=== PATIENT | male | born 1940 | race Caucasian/White ===

== ENCOUNTER → 2016-04-05 | Outpatient (CLI) | payer OTHER ==
[~2016-04-05] MED LIST: ADVIN25/60 INH; ASPI81TA21 PO; ATOR80TA PO; IPRA1AER2 INH; LEVO50TA6 PO; LISI-725 PO; LISI10TA PO; MOME100A INH; OXYC-57 PO; TPRSR/50 PO; [UNRECOGNIZED DRUG - CODE] TOP
[2016-04-05 12:42] LABS: BLOOD UREA NITROGEN 40 mg/dl (7-18); BUN/CREATININE RATIO 16.5 (10-20); CARBON DIOXIDE 25 mmol/L (21-32); CHLORIDE 102 mmol/L (98-107); GLUCOSE 92 mg/dl (70-99); POTASSIUM 3.5 mmol/L (3.5-5.1); SODIUM 136 mmol/L (136-145)
== END | disposition home or self-care (01) ==
LOC: C.LABPVFM 08:01
PROVIDERS: ATTEND Internal Medicine
DX: E03.9 Hypothyroidism, unspecified (principal); I10 Essential (primary) hypertension

== ENCOUNTER → 2016-04-19 | Outpatient (CLI) | payer OTHER ==
--- NOTE | 2016-04-19 12:31 | DIAGNOSTIC IMAGING REPORT ---
RENAL ULTRASOUND HISTORY: Renal insufficiency R79.89 Elevated serum creatinine COMPARISON: 04/01/2014 FINDINGS: Right kidney: Maximum dimension 8.9 cm. No evidence for hydronephrosis. Normal corticomedullary differentiation and cortical thickness. Left kidney: Maximum dimension 9.4 cm. No evidence for hydronephrosis Normal corticomedullary differentiation and cortical thickness. Bladder: No bladder wall thickening. The bilateral ureteral jets were identified. IMPRESSION: Normal renal ultrasound. Electronically signed by: José Casey M.D. 04/19/2016 12:29 PM Dictated Date/Time: 04/19/2016 12:26 PM
== END | disposition home or self-care (01) ==
LOC: C.ULTR 11:31
PROVIDERS: ATTEND Internal Medicine
DX: R79.89 Other specified abnormal findings of blood chemistry (principal)

== ENCOUNTER → 2016-05-09 | Outpatient (CLI) | payer OTHER ==
[2016-05-09 13:01] LABS: BASO % 0.4 %; BASO ABS # 0.03 K/uL (0-0.2); COMPLETE YES; EOS % 1.4 %; HEMATOCRIT 45.1 % (42-52); IG% 0.5 %; LYMPH % 19.1 %; LYMPH ABS # 1.54 K/uL (1.2-3.4); MEAN CELL VOLUME 94.4 fL (80-100); MEAN CORPUSCULAR HGB CONC 33.9 g/dl (32-36); MEAN PLATELET VOLUME 10.9 fL (7.4-10.4); MONO % 8.2 %; NEUT % 70.4 %; PLATELET COUNT 222 K/uL (130-400); RED BLOOD COUNT 4.78 M/uL (4.7-6.1); WHITE BLOOD COUNT 8.06 K/uL (4.8-10.8)
[2016-05-09 13:18] LABS: BLOOD UREA NITROGEN 17 mg/dl (7-18); BUN/CREATININE RATIO 13.8 (10-20); CALCIUM 9.7 mg/dl (8.5-10.1); CARBON DIOXIDE 25 mmol/L (21-32); CHLORIDE 104 mmol/L (98-107); GLUCOSE 102 mg/dl (70-99); MAGNESIUM 2.1 mg/dl (1.8-2.4); PHOSPHORUS 2.6 mg/dl (2.5-4.9); POTASSIUM 4.8 mmol/L (3.5-5.1); SODIUM 138 mmol/L (136-145)
[2016-05-09 13:19] LABS: CREATININE, URINE < 13.0 mg/dl
[2016-05-09 14:19] LABS: URINE APPEARANCE CLEAR (CLEAR); URINE BILIRUBIN NEG (NEG); URINE COLOR YELLOW; URINE EPITHELIAL CELL AUTO 0-5 /lpf (0-5); URINE NITRITE NEG (NEG); URINE PH 6.5 (4.5-7.5); URINE SPECIFIC GRAVITY 1.004 (1.000-1.030); UROBILINOGEN NEG (NEG); ZZUR CULT IF INDIC CLEAN CATCH NO
[2016-05-09 14:20] LABS: MANUAL MICROSCOPIC REQUIRED? NO; REVIEW REQ? NO
[2016-05-11 17:23] LABS: ALBUMIN 4.3 G/DL (3.8-4.8); GAMMA GLOBULIN 1.1 G/DL (0.8-1.7); TOTAL PROTEIN 7.7 G/DL (6.2-8.3)
--- NOTE | 2016-05-13 12:14 | CODING QUERY MEDICAL NECESSITY ---
SUPPORTING DIAGNOSIS NEEDED Dr. Peck, A supporting diagnosis is required for the test/procedure performed on this patient in order for us to be reimbursed by the patient's insurance. Please provide a supporting diagnosis for the following test/procedure listed below next to the test name along with your signature. *If there is no additional diagnosis for this patient that would support the following test/procedure please document that below next to the test/procedure. Test(s)/Procedure(s) that require a supporting diagnosis: * ([id number]) VITAMIN D ASSAY DIAGNOSIS: DATE OF SERVICE: 05/09/16 Provider Signature: Date: Thank you Chet Patrick [facility] Information Management Once completed, please kindly fax back to [phone] For questions please call [phone]
== END | disposition home or self-care (01) ==
LOC: C.LABPVFM 07:42
PROVIDERS: ATTEND Internal Medicine Nephrology
DX: N28.9 Disorder of kidney and ureter, unspecified (principal); I10 Essential (primary) hypertension; E55.9 Vitamin D deficiency, unspecified

== ENCOUNTER → 2016-07-01 | Outpatient (CLI) | payer OTHER ==
[2016-07-01 14:20] LABS: BLOOD UREA NITROGEN 16 mg/dl (7-18); BUN/CREATININE RATIO 11.1 (10-20); CALCIUM 9.2 mg/dl (8.5-10.1); CARBON DIOXIDE 27 mmol/L (21-32); CHLORIDE 104 mmol/L (98-107); GLUCOSE 189 mg/dl (70-99); MAGNESIUM 1.9 mg/dl (1.8-2.4); POTASSIUM 4.4 mmol/L (3.5-5.1); SODIUM 136 mmol/L (136-145)
[2016-07-01 14:21] LABS: PHOSPHORUS 2.8 mg/dl (2.5-4.9)
== END | disposition home or self-care (01) ==
LOC: C.LABPVFM 07:39
PROVIDERS: ATTEND Internal Medicine Nephrology
DX: N28.9 Disorder of kidney and ureter, unspecified (principal)

== ENCOUNTER → 2016-08-25 | Outpatient (CLI) | payer OTHER ==
--- NOTE | 2016-08-25 14:08 | DIAGNOSTIC IMAGING REPORT ---
CHEST 2 VIEWS ROUTINE CLINICAL HISTORY: Shortness of breath. COMPARISON STUDY: Chest radiograph November 16, 2014. FINDINGS: A dual lead left subclavian pacemaker/AICD is unchanged in position. Cardiac size is normal. Mediastinal contours are normal. There is no pneumothorax. There are equivocal trace bilateral pleural effusions. Lung hyperexpansion is noted. There are severe emphysema. There are mild bibasilar opacities and mild right midlung opacity. There is no lobar consolidation. Pulmonary vascularity is normal. IMPRESSION: 1. Mild bibasilar and right midlung opacities. The findings favor pneumonia. Radiographic follow up to ensure resolution is recommended. 2. Severe emphysema. Electronically signed by: Rogers Garcia M.D. 08/25/2016 2:07 PM Dictated Date/Time: 08/25/2016 2:04 PM
== END | disposition home or self-care (01) ==
LOC: C.RADPV 13:46
PROVIDERS: ATTEND Internal Medicine
DX: R06.02 Shortness of breath (principal); J43.9 Emphysema, unspecified

== ENCOUNTER → 2016-08-29 | Outpatient (CLI) | payer OTHER ==
[2016-08-29 13:22] LABS: CHOLESTEROL/HDL RATIO 3.5
== END | disposition home or self-care (01) ==
LOC: C.LABPVFM 07:33
PROVIDERS: ATTEND Internal Medicine Cardiovascular Disease
DX: R73.9 Hyperglycemia, unspecified (principal); E78.5 Hyperlipidemia, unspecified

== ENCOUNTER → 2016-09-20 | Outpatient (CLI) | payer OTHER ==
--- NOTE | 2016-09-20 08:34 | DIAGNOSTIC IMAGING REPORT ---
CHEST 2 VIEWS ROUTINE CLINICAL HISTORY: Abnormal chest x-ray. COMPARISON STUDY: 08/25/2016 FINDINGS: The cardiac and mediastinal contours remain stable. There is pulmonary emphysema. There is a small right pleural effusion. There are developing nodular airspace opacities within the right midlung zone and right lower lobe. The right lower lobe opacity measures 8.4 cm in diameter. There is stable left basilar interstitial thickening.[ IMPRESSION: Developing nodular right lung opacities, statistically inflammatory/infectious. Imaging subsequent to treatment is recommended in follow-up. Electronically signed by: Alfredo Moore M.D. 09/20/2016 8:33 AM Dictated Date/Time: 09/20/2016 8:31 AM
== END | disposition home or self-care (01) ==
LOC: C.RADPV 08:07
PROVIDERS: ATTEND Internal Medicine
DX: R91.8 Other nonspecific abnormal finding of lung field (principal); J18.9 Pneumonia, unspecified organism

== ENCOUNTER → 2016-09-28 | Outpatient (CLI) | payer OTHER ==
--- NOTE | 2016-09-28 12:42 | DIAGNOSTIC IMAGING REPORT ---
CT OF THE CHEST WITHOUT IV CONTRAST CLINICAL HISTORY: Chronic obstructive pulmonary disease. Weight loss. Tobacco use. COMPARISON STUDY: Chest CT October 09, 2011 and chest radiograph September 20, 2016. CT DOSE: 194.05 mGycm TECHNIQUE: Axial images of the chest were obtained without IV contrast. Images were reviewed in the axial, sagittal, and coronal planes. IV contrast was not administered for this examination. A dose lowering technique was utilized adhering to the principles of ALARA. FINDINGS: A dual lead left subclavian pacemaker/AICD is in place. The size of the heart is at the upper limits of normal. There is no pericardial effusion. Central airways are patent. However, there are multifocal secretions within the trachea and right mainstem bronchus. There are severe emphysema. No pneumothorax is present. There is a small right pleural effusion. There are multifocal irregular airspace opacities within the right upper lobe, right middle lobe and both lower lobes. These include a 3.3 x 2.1 cm subpleural right upper lobe opacity and a 3.7 cm right lower lobe opacity. Findings are similar to exam of September 20, 2016 and have progressed since exam of August 25, 2016. No cavitation is present. No suspicious osseous lesions are present. Mild dilatation of the main pancreatic duct has developed since prior exam of April 01, 2014. Pancreatic duct measures approximately 5 mm in caliber. This is suboptimally assessed on this exam. Upper abdominal ventral hernia which contains a loop of bowel is again noted. There is a right hepatic lobe cyst. IMPRESSION: 1. Extensive multifocal irregular airspace opacities within the right upper lobe, right middle lobe and both lower lobes which are similar to exam of September 20, 2016 but increased since study of August 25, 2016. While nonspecific, the findings favor multifocal pneumonia. A neoplastic process is considered much less likely but a follow-up chest CT in 3 months to ensure resolution is recommended. 2. Severe emphysema. 3. Mild secretions within the trachea and right mainstem bronchus. 4. Mild dilatation of the main pancreatic duct which is partially imaged on this exam. This finding is of uncertain clinical significance and a pancreatic protocol CT could be obtained. Electronically signed by: Rogers Garcia M.D. 09/28/2016 12:41 PM Dictated Date/Time: 09/28/2016 9:08 AM
== END | disposition home or self-care (01) ==
LOC: C.CTS 08:53
PROVIDERS: ATTEND Internal Medicine
DX: J44.9 Chronic obstructive pulmonary disease, unspecified (principal); R63.4 Abnormal weight loss; F17.210 Nicotine dependence, cigarettes, uncomplicated; R91.8 Other nonspecific abnormal finding of lung field

== ENCOUNTER → 2016-10-25 | Outpatient (CLI) | payer OTHER ==
[2016-10-25 13:19] LABS: ESTIMATED AVERAGE GLUCOSE 114 mg/dl; HA1C FLAG Normal (Normal)
[2016-10-25 13:45] LABS: BLOOD UREA NITROGEN 18 mg/dl (7-18); BUN/CREATININE RATIO 13.7 (10-20); CALCIUM 9.4 mg/dl (8.5-10.1); CARBON DIOXIDE 26 mmol/L (21-32); CHLORIDE 103 mmol/L (98-107); GLUCOSE 91 mg/dl (70-99); MAGNESIUM 2.1 mg/dl (1.8-2.4); PHOSPHORUS 3.2 mg/dl (2.5-4.9); POTASSIUM 4.8 mmol/L (3.5-5.1); SODIUM 135 mmol/L (136-145)
[2016-10-25 13:59] LABS: CHOLESTEROL/HDL RATIO 2.3; THYROID STIMULATING HORMONE 4.87 uIu/ml (0.300-4.500)
--- NOTE | 2016-11-01 07:02 | CODING QUERY MEDICAL NECESSITY ---
SUPPORTING DIAGNOSIS NEEDED Dr. Alejandro, A supporting diagnosis is required for the test/procedure performed on this patient in order for us to be reimbursed by the patient's insurance. Please provide a supporting diagnosis for the following test/procedure listed below next to the test name along with your signature. *If there is no additional diagnosis for this patient that would support the following test/procedure please document that below next to the test/procedure. Test(s)/Procedure(s) that require a supporting diagnosis: * ([id number]) VITAMIN D ASSAY DIAGNOSIS: DATE OF SERVICE: 10/25/16 Provider Signature: Date: Thank you Chet Patrick [facility] Information Management Once completed, please kindly fax back to [phone] For questions please call [phone]
== END | disposition home or self-care (01) ==
LOC: C.LABPVFM 07:56
PROVIDERS: ATTEND Internal Medicine Nephrology
DX: N28.9 Disorder of kidney and ureter, unspecified (principal); E03.9 Hypothyroidism, unspecified; E78.5 Hyperlipidemia, unspecified; R73.9 Hyperglycemia, unspecified; E55.9 Vitamin D deficiency, unspecified

== ENCOUNTER → 2016-10-28 | Outpatient (CLI) | payer OTHER ==
[2016-10-28 13:13] LABS: URINE PROTIEN/CREAT RATIO 0.2 (0-0.2); URINE TOTAL PROTEIN 20.6 mg/dl (0-11.9)
[2016-10-28 13:41] LABS: URINE APPEARANCE CLEAR (CLEAR); URINE BILIRUBIN NEG (NEG); URINE COLOR YELLOW; URINE EPITHELIAL CELL AUTO 0-5 /lpf (0-5); URINE NITRITE NEG (NEG); URINE PH 5.5 (4.5-7.5); URINE SPECIFIC GRAVITY 1.015 (1.000-1.030); UROBILINOGEN NEG (NEG); ZZUR CULT IF INDIC CLEAN CATCH NO
[2016-10-28 13:50] LABS: MANUAL MICROSCOPIC REQUIRED? NO; REVIEW REQ? NO
== END | disposition home or self-care (01) ==
LOC: C.LABPVFM 17:46
PROVIDERS: ATTEND Internal Medicine Nephrology
DX: N28.9 Disorder of kidney and ureter, unspecified (principal)

== ENCOUNTER 2016-11-01 16:03 | Inpatient (IN) | payer OTHER ==
[~2016-11-01] VITALS: Ht 162.6 cm; Wt 56.2 kg
[~2016-11-01 16:03] MED LIST changes: -ADVIN25/60 INH; -LEVO50TA6 PO; -LISI10TA PO; -OXYC-57 PO; -[UNRECOGNIZED DRUG - CODE] TOP
[2016-11-01] MEDS ORDERED: [UNRECOGNIZED DRUG - CODE] TOP (16:28)
[2016-11-01] MEDS ORDERED: SODIUM CHLORIDE 0.9% 500ML 500 ML IV STA (16:28)
[2016-11-01] MEDS ORDERED: LISI10TA PO (16:28)
[2016-11-01] MEDS ORDERED: ADVIN25/60 INH (16:28)
[2016-11-01] MEDS ORDERED: LEVO50TA6 PO (16:29)
[2016-11-01] MEDS ORDERED: HYDROmorphone INJ 1 MG/ML SYR IV PRN ×2 (16:30→23:30)
--- NOTE | 2016-11-01 16:35 | EMERGENCY ROOM VISIT NOTE ---
History First contact with patient: 16:11 Chief Complaint: ABDOMINAL PAIN Stated Complaint: AB PAIN Nursing Triage Summary: Pt states abd pain started at 1130, c/o mid to lower abd pain, staes it feels like gas, states he is burping and had 2 normal BMs today, Pt a/o x3 , neuro status intact, abd with large hernia, states abd paia an 8 out of 10, missing all fingers on right hand. History of Present Illness The patient is a 76 year old male who presents to the Emergency Room with complaints of mid abdominal pain that started at 11 AM this morning. The patient describes the pain as a gas pain that is constant. He denies any other symptoms such as nausea, vomiting or diarrhea. He had 2 normal bowel movements without any blood or dark stools this morning. He denies any fever or chills. No urinary symptoms. The patient doesn't a history of multiple hernias ever since he had an aneurysm repaired. Review of Systems 10 system review performed and negative unless noted in HPI or below Past Medical/Surgical History Medical Problems: (1) Abdominal aortic aneurysm (2) Benign hypertension (3) Bowel obstruction (4) Hyperlipidemia Coronary artery disease status post pacemaker placement COPD Family History Patient reports no known family medical history. Social History Smoking Status: Current Every Day Smoker Alcohol Use: none Drug Use: none Marital Status: Housing Status: lives alone Occupation Status: retired Current/Historical Medications Scheduled Aspirin Enteric Coated (Ecotrin Or Generic), 81 MG PO DAILY Atorvastatin Calcium (Lipitor), 80 MG PO HS Fluticasone Prop/Salmeterol (Advair Diskus 250/50 60 Dose), 1 PUFF INH BID Ipratropium-Albuterol (Combivent Respimat), 2 PUFFS INH QID Lisinopril (Prinivil), 10 MG PO DAILY Metoprolol Succinate (Metoprolol Succinate ER), 75 MG PO DAILY Mometasone Furoate (Mometasone Furoate), 1 DOSE TOP BID Physical Exam Vital Signs Date Time Temp Pulse Resp B/P (MAP) Pulse Ox O2 Delivery O2 Flow Rate FiO2 11/01/16 20:14 89 18 204/109 94 Nasal Cannula 2.0 11/01/16 18:34 37.7 92 18 187/104 93 Room Air 11/01/16 17:56 82 18 187/92 94 11/01/16 16:13 37.6 70 18 166/80 94 Room Air Physical Exam VITALS: Vitals are noted on the nurse's note and reviewed by myself. Vital signs stable. GENERAL: 76-year-old male, in obvious discomfort,. SKIN: The skin was without rashes, erythema, edema, or bruising. HEAD: Normocephalic atraumatic. MOUTH: Mucous membranes somewhat dry NECK: . No JVD. HEART: Regular rate and rhythm without murmurs gallops or rubs. LUNGS: Slight diffuse wheeze. No crackles or rhonchi. No tachypnea. ABDOMEN: Positive bowel sounds x 4.Soft, tenderness palpation particularly in the left upper quadrant and over the ventral hernia. Hernia is reducible. No guarding or rebound tenderness. MUSCULOSKELETAL: No muscle atrophy, erythema, or edema noted. Strength 5/5 throughout. NEURO: Patient was alert and oriented to person place and time. Normal sensation to touch. No focal neurological deficits. Medical Decision & Procedures ER Provider Diagnostic Interpretation: Patient Name: JOE HOOD Unit Number: [id number] Dictated: 11/01/161822 Transcribed: 11/01/161822 [place] Printed Date/Time: [~ rep prt dt]/[~ rep prt tm] [~ rep ct labl] - [~ rep ct ivnm] [facility] [place] [place] [address] Dictated: 11/01/161822 Transcribed: 11/01/161822 [place] Printed Date/Time: [~ rep prt dt]/[~ rep prt tm] [~ rep ct labl] - [~ rep ct ivnm] CT OF THE ABDOMEN AND PELVIS WITH CONTRAST CLINICAL HISTORY: Mid abdominal pain. Multiple hernias. COMPARISON STUDY: CT of the abdomen and pelvis April 01, 2014 and renal ultrasound April 19, 2016. TECHNIQUE: Following IV administration of 93 mL of Optiray-320, axial images of the abdomen and pelvis were obtained from the lung bases to the proximal femurs. Images were reviewed in the axial, sagittal, and coronal planes. IV contrast was administered without complication. A dose lowering technique was utilized adhering to the principles of ALARA. CT DOSE: 244.70 mGy.cm FINDINGS: Visualized portions of the lower lungs demonstrate moderate emphysema with multifocal airspace opacities which have moderately improved since chest CT of September 28, 2016. A pacer lead is noted. No pneumatosis, free air or portal venous gas is present. Hypodense hepatic lesions are unchanged since prior CT. These likely reflect cysts. There are granulomas within the spleen. The adrenal glands, kidneys and pancreas are normal. There is no hydronephrosis. There is no biliary or pancreatic ductal dilatation. Multiple ventral hernias are noted. A superior ventral hernia contains a portion of the distal stomach. Additional hernias containing loops of small and large bowel. A right inguinal hernia contains a loop of bowel. These hernias do not result in the bowel obstruction. However, there is a swirling appearance of the mesentery with marked mesenteric edema. The findings raise the possibility of an internal hernia. No dilated loops of bowel are identified on this examination. Evaluation for bowel wall thickening is difficult given the marked mesenteric edema, however there may be wall thickening of several small bowel loops within the right mid abdomen. Postoperative findings involving the aortoiliac system are noted. There are no suspicious osseous lesions. IMPRESSION: 1. Swirling appearance of the mesentery with marked mesenteric edema and possible wall thickening of several small bowel loops within the right mid abdomen. The findings raise the possibility of an internal hernia. Although there is no significant bowel dilatation, a closed loop obstruction cannot be excluded. Surgical consultation is recommended. Findings discussed with Sheela Ayoub at time of dictation. 2. Bilateral inguinal and multiple ventral hernias which contain loops of bowel and portion of the stomach. These hernias do not result in the bowel obstruction. 3. Multifocal airspace opacities within the lower lungs which have moderately improved since CT of September 28, 2016 and suggest a resolving pneumonia. Electronically signed by: Rogers Garcia M.D. 11/01/2016 6:43 PM Dictated Date/Time: 11/01/2016 6:23 PM The status of this report is Signed. Draft = Not yet reviewed or approved by Radiologist. Signed = Reviewed and approved by Radiologist. <AttendingPhy></AttendingPhy> <FamilyPhy>RV. Bond MD</ FamilyPhy> <PrimaryPhy>RV. Bond MD</PrimaryPhy> <UnitNumber> [id number]</UnitNumber> <VisitNumber>[id number]</VisitNumber> <PatientName> JOE HOOD</PatientName> <DateOfBirth>1940</DateOfBirth> <Location>[facility]</ Location> <ServiceDate>11/01/16</ServiceDate> <MNE>ESINDI</MNE> <OrderingPhy> MegaSheela Renetta PEREZ</OrderingPhy> <OrderingPhyMNE>f rep ord dr arellano</ OrderingPhyMNE> <DictatingPhyMNE>f rep dict dr arellano</DictatingPhyMNE> <CCListMNE> f rep ct mne</CCListMNE> <AdmittingPhyMNE>f pt admit dr arellano</AdmittingPhyMNE> < AttendingPhyMNE>f pt attend dr arellano</AttendingPhyMNE> <ConsultingPhyMNE>f pt consult dr arellano</ConsultingPhyMNE> <FamilyPhyMNE>f pt fam dr arellano</FamilyPhyMNE> <OtherPhyMNE>f pt other dr arellano</OtherPhyMNE> < PrimaryPhyMNE>f pt prim care dr arellano</PrimaryPhyMNE> <ReferringPhyMNE>f pt referring dr arellano</ReferringPhyMNE> Laboratory Results 11/01/16 16:21 Red Blood Count 4.35, Mean Corpuscular Volume 92.2, Mean Corpuscular Hemoglobin 32.0, Mean Corpuscular Hemoglobin Concent 34.7, Mean Platelet Volume 10.2, Neutrophils (%) (Auto) 85.0, Lymphocytes (%) (Auto) 7.7, Monocytes (%) (Auto) 6.4, Eosinophils (%) (Auto) 0.5, Basophils (%) (Auto) 0.3, Neutrophils # (Auto) 6.55, Lymphocytes # (Auto) 0.59, Monocytes # (Auto) 0.49, Eosinophils # (Auto) 0.04, Basophils # (Auto) 0.02 11/01/16 16:21 Test 11/01/16 16:21 11/01/16 17:01 11/01/16 20:35 White Blood Count 7.70 K/uL (4.8-10.8) Red Blood Count 4.35 M/uL (4.7-6.1) Hemoglobin 13.9 g/dL (14.0-18.0) Hematocrit 40.1 % (42-52) Mean Corpuscular Volume 92.2 fL (80-100) Mean Corpuscular Hemoglobin 32.0 pg (25-34) Mean Corpuscular Hemoglobin Concent 34.7 g/dl (32-36) Platelet Count 218 K/uL (130-400) Mean Platelet Volume 10.2 fL (7.4-10.4) Neutrophils (%) (Auto) 85.0 % Lymphocytes (%) (Auto) 7.7 % Monocytes (%) (Auto) 6.4 % Eosinophils (%) (Auto) 0.5 % Basophils (%) (Auto) 0.3 % Neutrophils # (Auto) 6.55 K/uL (1.4-6.5) Lymphocytes # (Auto) 0.59 K/uL (1.2-3.4) Monocytes # (Auto) 0.49 K/uL (0.11-0.59) Eosinophils # (Auto) 0.04 K/uL (0-0.5) Basophils # (Auto) 0.02 K/uL (0-0.2) RDW Standard Deviation 46.5 fL (36.4-46.3) RDW Coefficient of Variation 13.7 % (11.5-14.5) Immature Granulocyte % (Auto) 0.1 % Immature Granulocyte # (Auto) 0.01 K/uL (0.00-0.02) Anion Gap 5.0 mmol/L (3-11) Est Creatinine Clear Calc Drug Dose 44.6 ml/min Estimated GFR () 68.1 Estimated GFR (Non- 58.8 BUN/Creatinine Ratio 15.6 (10-20) Calcium Level 9.3 mg/dl (8.5-10.1) Total Bilirubin 0.5 mg/dl (0.2-1) Aspartate Amino Transf (AST/SGOT) 22 U/L (15-37) Alanine Aminotransferase (ALT/SGPT) 27 U/L (12-78) Alkaline Phosphatase 120 U/L (45-117) Total Protein 7.6 gm/dl (6.4-8.2) Albumin 3.4 gm/dl (3.4-5.0) Globulin 4.2 gm/dl (2.5-4.0) Albumin/Globulin Ratio 0.8 (0.9-2) Amylase Level 91 U/L (25-115) Lipase 157 U/L (73-393) Lactic Acid Level 0.9 mmol/L (0.4-2.0) Medications Administered Medications (Trade) Dose Ordered Sig/María Route Start Time Stop Time Status Last Admin Dose Admin Hydromorphone HCl (Dilaudid Inj) 1 mg Q2H PRN IV 11/01/16 16:30 11/15/16 16:29 11/01/16 16:44 1 MG Sodium Chloride 500 ml @ 0 mls/hr Q0M STAT IV 11/01/16 16:28 11/01/16 16:32 DC 11/01/16 16:44 500 MLS/HR Hydromorphone HCl (Dilaudid Inj) 1 mg ONE ONCE IV 11/01/16 17:45 11/01/16 17:46 DC 11/01/16 17:50 1 MG Ondansetron HCl (Zofran Inj) 4 mg Q2H PRN IV 11/01/16 18:00 12/01/16 17:59 11/01/16 19:08 4 MG ED Course Patient was seen and examined Vital signs including blood pressure were reviewed medications list was verified with patient Labs were obtained, and a saline lock was established The patient was given 1 mg of Dilaudid IV. He was hydrated with normal saline at 200 mL/h. Imaging was performed and reviewed The patient was given an additional dose of Dilaudid 1 mg IV and Zofran 4 mg IV I discussed the case with the radiologist on-call and also my supervising physician This case was discussed with general surgery, Dr. Diez who agreed to evaluate the patient in the emergency department The patient was taken emergently to the OR for an exploratory laparoscopy. Medical Decision DIFFERENTIAL DIAGNOSIS: Bowel obstruction, incarcerated hernia, Hepatitis, cholecystitis, cholangitis, biliary colic, pancreatitis, appendicitis, inguinal hernia, nephrolithiasis, inflammatory bowel disease, mesenteric adenitis, peptic ulcer disease, GERD, gastritis, pancreatitis,, bowel obstruction, splenic infarct, diverticulitis, mesenteric ischemia, metabolic, peritonitis, among others. This patient is a pleasant 76-year-old male that presented to the emergency department by ambulance complaining of a sudden onset of abdominal pain. The patient appeared to be in a significant amount of pain. He had diffuse tenderness on exam. His ventral hernias seem to be reducible. CAT scan is consistent with mesenteric swirling and edema. This is concerning for mesenteric ischemia. Surgical consultation was requested. Dr. Diez evaluated the patient at the bedside. He will be taken emergently to the OR for an exploratory laparotomy Medication Reconcilliation Current Medication List: was personally reviewed by me Blood Pressure Screening Blood pressure disposition: Elevated BP felt to be situational Impression Primary Impression: Mesenteric ischemia Departure Information Referrals RV. Bond MD (PCP) Patient Instructions My [facility]
[2016-11-01 16:42] LABS: BASO % 0.3 %; BASO ABS # 0.02 K/uL (0-0.2); COMPLETE YES; EOS % 0.5 %; HEMATOCRIT 40.1 % (42-52); IG% 0.1 %; LYMPH % 7.7 %; LYMPH ABS # 0.59 K/uL (1.2-3.4); MEAN CELL VOLUME 92.2 fL (80-100); MEAN CORPUSCULAR HGB CONC 34.7 g/dl (32-36); MEAN PLATELET VOLUME 10.2 fL (7.4-10.4); MONO % 6.4 %; PLATELET COUNT 218 K/uL (130-400); RED BLOOD COUNT 4.35 M/uL (4.7-6.1)
[2016-11-01] MEDS ORDERED: OPTIRAY 320 IV PRN (16:45)
[2016-11-01 17:01] LABS: BUN/CREATININE RATIO 15.6 (10-20); CALCIUM 9.3 mg/dl (8.5-10.1); CREATININE 1.2 mg/dl (0.60-1.40); POTASSIUM 4.5 mmol/L (3.5-5.1)
[2016-11-01 17:03] LABS: ALB/GLOB RATIO 0.8 (0.9-2)
[2016-11-01] MEDS ORDERED: HYDROmorphone INJ 1 MG/ML SYR IV ONE (17:45)
[2016-11-01] MEDS ORDERED: ONDANSETRON INJ 2 MG/ML 2 ML VIAL IV PRN ×3 (18:00→23:30)
--- NOTE | 2016-11-01 18:44 | DIAGNOSTIC IMAGING REPORT ---
CT OF THE ABDOMEN AND PELVIS WITH CONTRAST CLINICAL HISTORY: Mid abdominal pain. Multiple hernias. COMPARISON STUDY: CT of the abdomen and pelvis April 01, 2014 and renal ultrasound April 19, 2016. TECHNIQUE: Following IV administration of 93 mL of Optiray-320, axial images of the abdomen and pelvis were obtained from the lung bases to the proximal femurs. Images were reviewed in the axial, sagittal, and coronal planes. IV contrast was administered without complication. A dose lowering technique was utilized adhering to the principles of ALARA. CT DOSE: 244.70 mGy.cm FINDINGS: Visualized portions of the lower lungs demonstrate moderate emphysema with multifocal airspace opacities which have moderately improved since chest CT of September 28, 2016. A pacer lead is noted. No pneumatosis, free air or portal venous gas is present. Hypodense hepatic lesions are unchanged since prior CT. These likely reflect cysts. There are granulomas within the spleen. The adrenal glands, kidneys and pancreas are normal. There is no hydronephrosis. There is no biliary or pancreatic ductal dilatation. Multiple ventral hernias are noted. A superior ventral hernia contains a portion of the distal stomach. Additional hernias containing loops of small and large bowel. A right inguinal hernia contains a loop of bowel. These hernias do not result in the bowel obstruction. However, there is a swirling appearance of the mesentery with marked mesenteric edema. The findings raise the possibility of an internal hernia. No dilated loops of bowel are identified on this examination. Evaluation for bowel wall thickening is difficult given the marked mesenteric edema, however there may be wall thickening of several small bowel loops within the right mid abdomen. Postoperative findings involving the aortoiliac system are noted. There are no suspicious osseous lesions. IMPRESSION: 1. Swirling appearance of the mesentery with marked mesenteric edema and possible wall thickening of several small bowel loops within the right mid abdomen. The findings raise the possibility of an internal hernia. Although there is no significant bowel dilatation, a closed loop obstruction cannot be excluded. Surgical consultation is recommended. Findings discussed with Sheela Ayoub at time of dictation. 2. Bilateral inguinal and multiple ventral hernias which contain loops of bowel and portion of the stomach. These hernias do not result in the bowel obstruction. 3. Multifocal airspace opacities within the lower lungs which have moderately improved since CT of September 28, 2016 and suggest a resolving pneumonia. Electronically signed by: Rogers Garcia M.D. 11/01/2016 6:43 PM Dictated Date/Time: 11/01/2016 6:23 PM
--- NOTE | 2016-11-01 20:04 | History and Physical ---
History & Physical Date Nov 01, 2016. Chief Complaint Abdominal pain History of Present Illness Thony Jasmine is a 76 year old man with HTN, hyperlipidemia, COPD, history of open AAA repair, multiple ventral hernias and history of small bowel resection who presents with acute abdominal pain. Patient states pain started acutely at 11: 30am this morning, and has been gradually worsening. He is extremely uncomfortable on examination. Associated with nausea and vomiting. Pain is diffuse, does not radiate. Denies constipation / diarrhea, melena / hematochezia; last BM was approximately 2pm this afternoon, noted to be normal / solid / formed. Denies fever, chills, headaches, dizziness, vision changes, chest pain, SOB, dysuria or urinary symptoms, pain / numbness / swelling / tingling in extremities. He has a history of small bowel resection (patient reports 3ft of small bowel removed) "because it " (patient is unclear if incarceration, hernia, etc as cause of resection). He is a current 2 cigarette per day smoker. He has a pacemaker / defibrillator in place. He has multiple ventral hernias, which have been present for many years - no incarceration of hernias noted on physical exam. Takes 81mg aspirin daily - no other anticoagulation. Past Medical/Surgical History Medical Problems: (1) Abdominal aortic aneurysm (2) Benign hypertension (3) Bowel obstruction (4) Hyperlipidemia Additional History Hypertension: Yes Allergies Coded Allergies: No Known Allergies (Unverified , 11/01/16) Home Medications Scheduled Aspirin Enteric Coated (Ecotrin Or Generic), 81 MG PO DAILY Atorvastatin Calcium (Lipitor), 80 MG PO HS Fluticasone Prop/Salmeterol (Advair Diskus 250/50 60 Dose), 1 PUFF INH BID Ipratropium-Albuterol (Combivent Respimat), 2 PUFFS INH QID Lisinopril (Prinivil), 10 MG PO DAILY Metoprolol Succinate (Metoprolol Succinate ER), 75 MG PO DAILY Mometasone Furoate (Mometasone Furoate), 1 DOSE TOP BID Physical Examination Skin: warm/dry Eyes: normal inspection Head: normocephalic, atraumatic Neck: supple Respiratory/Chest: lungs clear, normal breath sounds, no respiratory distress Cardiovascular: regular rate, rhythm Abdomen / GI: normal bowel sounds, + pertinent finding (Soft, tender to palpation, voluntary guarding, no rebound) Extremities: normal inspection Genitourinary - Male: normal male genitalia 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: alert, oriented x 3 Addiitonal Comments: Labs: WBC 7.7, Hgb 13.9, Hct 40.1, plt 218 Na 136, K 4.5, Cl 106, CO2 25, BUN 19, Cr 1.2, glucose 131 Lactic acid 0.9 Imaging: CT Abd / Pelvis with IV and PO contrast: IMPRESSION: 1. Swirling appearance of the mesentery with marked mesenteric edema and possible wall thickening of several small bowel loops within the right mid abdomen. The findings raise the possibility of an internal hernia. Although there is no significant bowel dilatation, a closed loop obstruction cannot be excluded. Surgical consultation is recommended. Findings discussed with Sheela Ayoub at time of dictation. 2. Bilateral inguinal and multiple ventral hernias which contain loops of bowel and portion of the stomach. These hernias do not result in the bowel obstruction. 3. Multifocal airspace opacities within the lower lungs which have moderately improved since CT of September 28, 2016 and suggest a resolving pneumonia. Diagnosis Thony Jasmine is a 76 year old man with HTN, Hyperlipidemia, history of AAA repair, COPD, +smoker, history of small bowel resection, multiple ventral hernias who presents with signs / symptoms and CT imaging concerning for an internal hernia. CT scan images also concerning for possible pneumonia. -Will take to OR for exploratory laparotomy, possible bowel resection, possible ostomy. Discussed at length with the patient; all questions answered to apparent satisfaction. Patient agrees to proceed with surgery and freely signed the consent form. -Medicine consultation requested for assistance with management of multiple other medical problems. Racheal Diez MD 11/01/16
[2016-11-01] MEDS ORDERED: ONDANSETRON INJ 2 MG/ML 2 ML VIAL ONE (20:30)
[2016-11-01] MEDS ORDERED: LIDOCAINE HCL 2% 2 ML VIAL (20MG/ML) ONE (20:30)
[2016-11-01] MEDS ORDERED: SUCCINYLCHOLINE CHLORIDE 20 MG/ML 10 ML VIAL IV ONE (20:30)
[2016-11-01] MEDS ORDERED: FENTANYL CITRATE INJ 50 MCG/1 ML 2 ML VIAL ONE ×3 (20:30→22:49)
[2016-11-01] MEDS ORDERED: PROPOFOL IV EMULSION 10 MG/ML 20 ML VIAL IV ONE (20:30)
[2016-11-01] MEDS ORDERED: ROCURONIUM BROMIDE 10 MG/ML 5 ML VIAL IV ONE (20:30)
[2016-11-01] MEDS ORDERED: CEFOXITIN IV 2,000 MG in DEXTROSE 5% 50ML 50 ML IV ONE (21:00)
--- NOTE | 2016-11-01 21:02 | Medical Consult ---
Consultation Date of Consultation: Nov 01, 2016. Attending Physician: Dr Harper Reason for Consultation: Medical Management History of Present Illness Mr Jasmine is a 76 year old male who presents with severe abdominal pain to the ER. Started at 10:30am. No radiation. Started over his hernia (umbilical region ) but is now generalized. Severity 10/10 currently, getting progressively worse throughout the day. BM this morning was normal. Small amount of nausea, no vomiting. He denies any urinary Sx. He denies any chest pain, shortness of breath or cough. Hx small bowel resection after necrotic small bowel with an incarcerated ventral hernia in September 2011. He was recently treated for pneumonia on Augmentin started October 05 2016. He feels he completely recovered from this episode. He is under Dr Loving for severe emphysema and continues to smoke 2 cigarettes/day. He reports compliance with his Combivent and Advair inhalers. From a cardiovascular aspect he reports being able to walk for over a mile without shortness of breath or chest pain, no shortness of breath or chest pain walking up stairs. He is under Dr Alejandro for Chronic kidney disease. His Cr is currently at his baseline at 1.2. In the event of a cardiac arrest he does have an ICD in place and would like to be resuscitated. Past Medical/Surgical History Past Medical History Abdominal aortic aneurysm s/p repair August 2008 Mild aortic stenosis Ischemic cardiomyopathy 30-35% ejection fraction (July 2015) Biventricular ICD Peripheral vascular disease Left 50-69% internal carotid artery right <50% stenoses (August 2014) Hx NSTEMI, September 2011 Hypothyroidism Chronic Kidney Disease Right bundle branch block Recent pneumonia Past Surgical History Repair of aortic aneurysm and bypass from aorta to right femoral artery August 2008. No previous cardiac catheterization Family History Patient reports no known family medical history. Social History Smoking Status: Current Every Day Smoker (2 cigarettes/day) Smokeless Tobacco Use: No Alcohol Use: none Drug Use: none Marital Status: Housing Status: lives alone Occupation Status: retired Allergies Coded Allergies: No Known Allergies (Unverified , 11/01/16) Current Inpatient Medications Current Inpatient Medications Medications (Trade) Dose Ordered Sig/María Route Start Time Stop Time Status Last Admin Dose Admin Hydromorphone HCl (Dilaudid Inj) 1 mg Q2H PRN IV 11/01/16 16:30 11/15/16 16:29 11/01/16 16:44 1 MG Ioversol (Optiray 320) 111 ml UD PRN IV 11/01/16 16:45 11/05/16 16:44 Ondansetron HCl (Zofran Inj) 4 mg Q2H PRN IV 11/01/16 18:00 12/01/16 17:59 11/01/16 19:08 4 MG Review of Systems Constitutional: No fever, No chills Respiratory: No cough, No sputum, No shortness of breath Cardiovascular: No chest pain, No orthopnea, No PND, No edema, No claudication , No palpitations Abdomen: + pain, + nausea, No vomiting, No diarrhea, No constipation, No GI bleeding Musculoskeletal: No joint pain, No muscle pain Genitourinary - Male: No hematuria, No dysuria, No urinary frequency, No urinary urgency Neurologic: No numbness/tingling, No balance problems Hematologic / Lymphatic: No abnormal bleeding/bruising Integumentary: No rash, No itch Physical Exam Date Time Temp Pulse Resp B/P (MAP) Pulse Ox O2 Delivery O2 Flow Rate FiO2 11/01/16 18:34 37.7 92 18 187/104 93 Room Air 11/01/16 17:56 82 18 187/92 94 11/01/16 16:13 37.6 70 18 166/80 94 Room Air General Appearance: + severe distress (from abdominal pain), + cachetic Head: normocephalic, atraumatic Eyes: normal inspection Neck: no JVD, + pertinent finding (carotid bruits b/l) Respiratory/Chest: + decreased breath sounds (throughout, no wheezing or ) Cardiovascular: regular rate, rhythm (very quiet no appreciable murmur), no murmur, normal peripheral pulses (PT/DP pulses palpated bilaterally) Abdomen/GI: normal bowel sounds, soft, + tenderness (severe tenderness throughout abdomen especially over his ventral hernia, guarding and rebound tenderness present), + pertinent finding (no skin changes over his ventral hernia) Extremities/Musculoskelatal: no calf tenderness, normal capillary refill, no pedal edema 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: 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 (no facial droop), no motor/sensory deficits (limited exam due to abdominal pain, grossly moving all 4 limbs and no gross sensory loss), alert Skin: normal color, warm/dry, no rash Laboratory Results Last 24 Hours Test 11/01/16 16:21 11/01/16 17:01 White Blood Count 7.70 K/uL Red Blood Count 4.35 M/uL Hemoglobin 13.9 g/dL Hematocrit 40.1 % Mean Corpuscular Volume 92.2 fL Mean Corpuscular Hemoglobin 32.0 pg Mean Corpuscular Hemoglobin Concent 34.7 g/dl Platelet Count 218 K/uL Mean Platelet Volume 10.2 fL Neutrophils (%) (Auto) 85.0 % Lymphocytes (%) (Auto) 7.7 % Monocytes (%) (Auto) 6.4 % Eosinophils (%) (Auto) 0.5 % Basophils (%) (Auto) 0.3 % Neutrophils # (Auto) 6.55 K/uL Lymphocytes # (Auto) 0.59 K/uL Monocytes # (Auto) 0.49 K/uL Eosinophils # (Auto) 0.04 K/uL Basophils # (Auto) 0.02 K/uL RDW Standard Deviation 46.5 fL RDW Coefficient of Variation 13.7 % Immature Granulocyte % (Auto) 0.1 % Immature Granulocyte # (Auto) 0.01 K/uL Sodium Level 136 mmol/L Potassium Level 4.5 mmol/L Chloride Level 106 mmol/L Carbon Dioxide Level 25 mmol/L Anion Gap 5.0 mmol/L Blood Urea Nitrogen 19 mg/dl Creatinine 1.20 mg/dl Est Creatinine Clear Calc Drug Dose 44.6 ml/min Estimated GFR () 68.1 Estimated GFR (Non- 58.8 BUN/Creatinine Ratio 15.6 Random Glucose 131 mg/dl Calcium Level 9.3 mg/dl Total Bilirubin 0.5 mg/dl Aspartate Amino Transf (AST/SGOT) 22 U/L Alanine Aminotransferase (ALT/SGPT) 27 U/L Alkaline Phosphatase 120 U/L Total Protein 7.6 gm/dl Albumin 3.4 gm/dl Globulin 4.2 gm/dl Albumin/Globulin Ratio 0.8 Amylase Level 91 U/L Lipase 157 U/L Lactic Acid Level 0.9 mmol/L Assessment & Plan 76 year old admission for suspected ischemic bowel. Admission by surgery and plan on going straight from the ER to the OR. Suspected ischemic/necrotic bowel - lactic acid normal - currently awaiting OR. - Advise broad spectrum antibiotics + follow up blood cultures - Pain management as per surgery - continue aspirin post operatively if surgery/hemostasis permits - Continue atorvastatin - High risk due to current critical illness with history of ischemic heart disease - RCRI 6.6% risk of major cardiac event (high risk surgery, Hx of ischemic heart disease) - likely underestimated given current illness however - pre-op type/screen, EKG and CXR ordered in additional to lab work already obtained. Ischemic cardiomyopathy, CAD, PVD - continue ASA, BB, ACEi and statin COPD - Continue Advair and Combivent MARÍA CKD - monitor Cr post operatively - Lisinopril held pending reassessment Code - Full VTE Prophylaxis - chemical prophylaxis as per surgery - recommend SCDs and TEDs post operatively Disposition - admission under surgery, going straight to the OR, recommend ICU post operatively - I will review the patient post operatively. Thank you for the consult we will continue to follow throughout his admission Resident Physician Supervision Note: I was present with Dr. Brand during the history and exam. I discussed the case with the resident and agree with the findings and plan as documented in the note. Any exceptions or clarifications are listed here: 76 y/o M Hx CKD, HTN, CAD, COPD - presenting with abdominal pain - subsequently diagnosed with ischemic bowel and proceeded directly to the OR form ED OE AAO x 3 - distressed due to pain S1,2 R CTA - poor air movement and effort Diffusely tender abd No CCE P: Risk assessment as above - RCRI technically 6.6% however, intervention is emergent Cont prescribed inhalers - spirometry for COPD Monitor BP and repeat labs prior to restarting HTN meds AM Cont statin TX when tolerating PO and ASA at earliest possible time Med service will follow post-op and daily Documented By: Vitaly Harper Additional Copies To RV. Bond MD
[2016-11-01] MEDS ORDERED: LIDOCAINE HCL 1% 20 ML VIAL ONE (22:43)
--- NOTE | 2016-11-01 23:23 | Progress Note ---
Progress Note Date of Service Nov 01, 2016. Progress Note Arterial line placed in operating room in preparation for emergency exploratory laparotomy with Dr. Diez. Left and right wrist were prepped with chlorhexidine and multiple attempts were made at arterial line placement. A 20 G angiocath was successfully threaded using seldinger technique under US guidance with return of pulsatile, bright red blood. Site covered with occlusive dressing and taped in place. Waveform consistent with correct arterial placement. After placement, fingers of right hand had normal perfusion. Patient tolerated procedure well without complications. Jaymie Torres MD, PhD Anesthesiology
[2016-11-01] MEDS ORDERED: LABETALOL HCL IV 5 MG/ML 20ML IV PRN (23:30)
[2016-11-01] MEDS ORDERED: EpHEDrine SULFATE INJ 50 MG/ML AMP IV PRN (23:30)
[2016-11-01] MEDS ORDERED: FENTANYL CITRATE INJ 50 MCG/1 ML 2 ML VIAL IV PRN (23:30)
[2016-11-01] MEDS ORDERED: ATROPINE SULFATE 0.1 MG/ML 5ML SYR IV PRN (23:30)
[2016-11-01] MEDS: SODIUM CHLORIDE 0.9% 1000ML 1,000 ML IV SCH (23:31)
[2016-11-01] MEDS ORDERED: LABETALOL HCL IV 5 MG/ML 20ML IV ONE (23:35)
--- NOTE | 2016-11-01 23:42 | [facility] Operative Report ---
Operative Report Operative Date Nov 01, 2016. Pre-Operative Diagnosis Internal hernia Post-Operative Diagnosis Adhesions, internal hernia, small bowel stricture Procedure(s) Performed Exploratory Laparotomy, lysis of adhesions, bowel resection with primary anastomosis Surgeon Racheal Diez MD County Administrator Surgeon(s) Yasmin Hyde MD Estimated Blood Loss 20ml Findings Multiple adhesions, two restricting adhesive bands, small bowel stricture proximal to previous anastomosis Fluids 1000ml Specimens A: Small bowel anastamosis to pathology Drains Nasogastric tube, herrera catheter Anesthesia General endotracheal anesthesia, 20ml of 1% Xylocaine local anesthetic Complication(s) None Disposition Recovery Room / PACU Indications Thony Jasmine is a 76 year old man with an internal hernia. Indications, risks, benefits and potential complications of exploratory laparotomy with possible small bowel resection, possible ostomy placement were discussed at length with the patient. All questions answered to apparent satisfaction. Patient chose to proceed with surgery and freely signed the consent form. Description of Procedure Patient was brought to the operating room and identified as Thony Jasmine, . He was placed on the operating table in supine position. Anesthesia was induced, and the patient was intubated without difficulty. The abdomen was clipped, prepped and draped in the usual sterile fashion. A time-out was held, verifying correct patient, procedure, site, equipment, pre operative antibiotics , allergies and personnel. A midline abdominal incision was made around the umbilicus, excising his previous scar. The abdomen was carefully entered, taking care not to injure underlying bowel. Adhesions were gently taken down using sharp cautery. Upon entering the abdomen, the small bowel appeared purple and dusky. The small bowel was delivered out of the abdomen and the abdomen was explored. Two constrictive adhesive bands were found near the existing small bowel to small bowel anastomosis. These adhesions were carefully lysed to free and untwist the bowel. After releasing the small bowel , color improved dramatically and bowel became pink and healthy appearing. A stricture was observed just proximal to the existing anastomosis with dilated bowel leading into it. Decision was made to resect the anastomosis, which was done using blue loads of the ALLYSSA stapler. The mesentery was cut using Yolie clamps and ties to obtain hemostasis. The specimen was liberated from the abdomen and passed off the field, to be taken to pathology; the resected small bowel measured 8cm total in length. The two ends of small bowel were then re- anastomosed, again using blue loads of the ALLYSSA stapler. The staple line was oversewn using 3-0 Vicryl in interrupted fashion. A reinforcement stitch was placed at the crotch of the staple line. The mesenteric defect was closed using vicryl sutures. The small bowel was again inspected, and found to be pink and healthy appearing from Ligament of Treitz to the ileocecal valve. The NGT was palpated in the stomach and verified to be in good position. The sponge and instrument counts were then verified to be correct x 2 by the nurse in charge. Fascia was closed using #1 PDS in running fashion. Deep dermis was reapproximated using 3-0 vicryl in running fashion. Skin was closed using skin chuy, and a sterile dressing was applied. Patient was then awakened from anesthesia, extubated without difficulty, and taken to PACU, having suffered no untoward events. NGT and herrera catheter were kept in place at the conclusion of the procedure. I attest to the content of the Intraoperative Record and any orders documented therein. Any exceptions are noted below.
[2016-11-01] MEDS ORDERED: NALOXONE HCL 0.4 MG/1 ML VIAL/CARP IV PRN (23:45)
--- NOTE | 2016-11-01 23:56 | Anesthesiology Progress Note ---
Anesthesia Post Op Note Date & Time Nov 01, 2016 at 23:56 Vital Signs Pain Intensity: 0 Vital Signs Past 12 Hours Date Time Temp Pulse Resp B/P (MAP) Pulse Ox O2 Delivery O2 Flow Rate FiO2 11/01/16 20:14 89 18 204/109 94 Nasal Cannula 2.0 11/01/16 18:34 37.7 92 18 187/104 93 Room Air 11/01/16 17:56 82 18 187/92 94 11/01/16 16:13 37.6 70 18 166/80 94 Room Air Notes Mental Status: alert / awake / arousable, participated in evaluation Pt Amnestic to Procedure: Yes Nausea / Vomiting: adequately controlled Pain: adequately controlled Airway Patency, RR, SpO2: stable & adequate BP & HR: stable & adequate Hydration State: stable & adequate Anesthetic Complications: no major complications apparent arterial line to be d/c in PACU
[2016-11-02] VITALS (15 sets, daily range): BP systolic 96–173; BP diastolic 48–84; PULSE 68–91; TEMP 36.4–37.2; O2SAT 93–98; Ht 162.6 cm; Wt 56.2 kg
[2016-11-02] MEDS ORDERED: PNEUMOCOCCAL POLYSACCHARIDES 25 MCG/0.5 ML VIAL/SYR IM. ONE (01:45)
[2016-11-02] MEDS ORDERED: PNEUMOCOCCAL ADMINISTRATION CHARGE ONE (01:45)
[2016-11-02] MEDS: SODIUM CHLORIDE 0.9% 1000ML 1,000 ML IV SCH ×4 (02:08→23:31)
[2016-11-02] MEDS: HYDROmorphone HCL 0.5MG/ML 50 ML CASSETTE IV PRN (02:09)
[2016-11-02 02:17] LABS: PROTHROMBIN TIME (PATIENT) 10.9 SECONDS (9.0-12.0)
[2016-11-02] MEDS: METOPROLOL TARTRATE 1 MG/ML VIAL IV. SCH ×4 (02:30→19:34)
[2016-11-02 06:14] LABS: URINE APPEARANCE CLEAR (CLEAR); URINE BILIRUBIN NEG (NEG); URINE COLOR YELLOW; URINE NITRITE NEG (NEG); URINE SPECIFIC GRAVITY > 1.045 (1.000-1.030); UROBILINOGEN NEG (NEG)
[2016-11-02 06:16] LABS: BASO % 0.1 %; BASO ABS # 0.01 K/uL (0-0.2); COMPLETE YES; EOS % 0.1 %; HEMATOCRIT 40.7 % (42-52); IG% 0.2 %; LYMPH % 4.1 %; LYMPH ABS # 0.66 K/uL (1.2-3.4); MEAN CELL VOLUME 94.7 fL (80-100); MEAN CORPUSCULAR HEMOGLOBIN 30.7 pg (25-34); MEAN CORPUSCULAR HGB CONC 32.4 g/dl (32-36); MEAN PLATELET VOLUME 9.8 fL (7.4-10.4); MONO % 4.5 %; PLATELET COUNT 192 K/uL (130-400); WHITE BLOOD COUNT 16.16 K/uL (4.8-10.8)
[2016-11-02] MEDS: CEFAZOLIN IV 1,000 MG in DEXTROSE 5% 50ML 50 ML IV SCH ×3 (06:16→21:18)
[2016-11-02 06:23] LABS: MANUAL MICROSCOPIC REQUIRED? NO; REVIEW REQ? NO
[2016-11-02 06:57] LABS: BUN/CREATININE RATIO 14.9 (10-20); CALCIUM 8.1 mg/dl (8.5-10.1); CREATININE 1.3 mg/dl (0.60-1.40)
[2016-11-02] MEDS: FLUTICASONE/SALMETEROL 250/50 (ADVAIR) 14 PUFF/1 INHALER INH SCH ×2 (08:01→21:19)
[2016-11-02] MEDS: IPRATROPIUM BROMIDE/ALBUTEROL respimat INH INH SCH ×4 (08:01→21:19)
--- NOTE | 2016-11-02 08:21 | DIAGNOSTIC IMAGING REPORT ---
CHEST ONE VIEW PORTABLE HISTORY: recent pneumonia, COPD COMPARISON: Chest 09/20/2016. FINDINGS: Slight improvement in the right midlung zone peripheral nodular airspace opacity. Bibasilar airspace opacities persist. Small right pleural effusion, unchanged. The heart is normal in size. Nasogastric tube terminates below the diaphragm. The tip is not included on this study. No pneumothorax. Left-sided pacemaker/defibrillator is again noted. Emphysema. IMPRESSION: 1. No significant change in the bibasilar airspace opacities and small right pleural effusion. 2. Small nodular density within the periphery of the right midlung zone has slightly improved. 3. Nasogastric tube terminates below the diaphragm. The tip is not included on this study. Electronically signed by: Will Rae M.D. 11/02/2016 8:19 AM Dictated Date/Time: 11/02/2016 8:17 AM
--- NOTE | 2016-11-02 12:34 | Surgery Progress Note ---
Surgery Progress Note Date of Service Nov 02, 2016. Subjective Post OP Day: 1 Patient examined at bedside this morning. Afebrile, vitals stable on 2-4L O2 via NC, no acute events since operation. Pain is adequately controlled with MUSHROOM SPAWN MAKER. NGT remains in place and functioning, approximately 1L dark output noted since operation; denies N/V. Herrera catheter remains in place, draining clear / yellow urine. Denies complaints this morning. Discussed with patient the findings of the operation and the surgery performed; patient expresses understanding. Objective Vital Signs: Date Time Temp Pulse Resp B/P (MAP) Pulse Ox O2 Delivery O2 Flow Rate FiO2 11/02/16 12:00 Nasal Cannula 2.0 11/02/16 11:50 36.8 83 20 96/48 (64) 98 Nasal Cannula 4.0 11/02/16 08:00 Nasal Cannula 2.0 11/02/16 07:59 82 99/51 11/02/16 07:27 37.2 84 20 113/57 (75) 96 Nasal Cannula 4.0 11/02/16 05:50 36.4 83 16 119/64 (82) 93 Nasal Cannula 2.0 11/02/16 04:40 78 18 114/57 (76) 93 Nasal Cannula 2.0 11/02/16 04:00 Nasal Cannula 2.0 11/02/16 03:40 36.9 78 16 123/61 (81) 94 Nasal Cannula 2.0 11/02/16 02:34 36.6 77 16 119/61 (80) 93 Nasal Cannula 2.0 11/02/16 02:30 79 122/63 11/02/16 01:35 36.5 71 16 138/67 (90) 95 Nasal Cannula 2.0 11/02/16 01:05 36.4 69 16 151/76 (101) 94 Nasal Cannula 2.0 11/02/16 00:35 36.5 68 16 173/84 (113) 94 Nasal Cannula 2.0 11/02/16 00:25 Nasal Cannula 2.0 11/02/16 00:16 67 14 171/88 97 Nasal Cannula 2 11/02/16 00:05 36.2 68 16 178/90 96 Nasal Cannula 2 Arterial Line 11/01/16 23:55 67 16 173/92 96 Nasal Cannula 2 11/01/16 23:45 36.2 65 14 173/90 97 Room Air 9/12/17 23:35 75 16 190/94 97 Oxymask 2 11/01/16 23:25 75 14 204/86 98 Oxymask 2 NIBP 11/01/16 23:15 76 16 181/131 99 Oxymask 4 11/01/16 23:07 36.1 83 16 180/88 99 Oxymask 4 11/01/16 20:14 89 18 204/109 94 Nasal Cannula 2.0 11/01/16 18:34 37.7 92 18 187/104 93 Room Air 11/01/16 17:56 82 18 187/92 94 11/01/16 16:13 37.6 70 18 166/80 94 Room Air Physical Exam: nasogastric drainage (dark / black output (similar color to CT contrast he was drinking in ED last night)), urine output (herrera in place draining clear / yellow urine) General Appearance: WD/WN, no apparent distress Head: normocephalic, atraumatic Neck: supple Respiratory/Chest: lungs clear, normal breath sounds, no respiratory distress Cardiovascular: regular rate, rhythm Abdomen: non distended, soft (no rebound / guarding), + tenderness ( appropriately tender to palpation), + pertinent finding Incision(s): clean, dry, intact Laboratory Results: Results Past 24 Hours Test 11/01/16 16:21 11/01/16 17:01 11/02/16 01:53 11/02/16 05:30 Range/Units White Blood Count 7.70 16.16 4.8-10.8 K/uL Red Blood Count 4.35 4.30 4.7-6.1 M/uL Hemoglobin 13.9 13.2 14.0-18.0 g/dL Hematocrit 40.1 40.7 42-52 % Mean Corpuscular Volume 92.2 94.7 80-100 fL Mean Corpuscular Hemoglobin 32.0 30.7 25-34 pg Mean Corpuscular Hemoglobin Concent 34.7 32.4 32-36 g/dl Platelet Count 218 192 130-400 K/uL Mean Platelet Volume 10.2 9.8 7.4-10.4 fL Neutrophils (%) (Auto) 85.0 91.0 % Lymphocytes (%) (Auto) 7.7 4.1 % Monocytes (%) (Auto) 6.4 4.5 % Eosinophils (%) (Auto) 0.5 0.1 % Basophils (%) (Auto) 0.3 0.1 % Neutrophils # (Auto) 6.55 14.72 1.4-6.5 K/uL Lymphocytes # (Auto) 0.59 0.66 1.2-3.4 K/uL Monocytes # (Auto) 0.49 0.73 0.11-0.59 K/uL Eosinophils # (Auto) 0.04 0.01 0-0.5 K/uL Basophils # (Auto) 0.02 0.01 0-0.2 K/uL RDW Standard Deviation 46.5 48.0 36.4-46.3 fL RDW Coefficient of Variation 13.7 14.0 11.5-14.5 % Immature Granulocyte % (Auto) 0.1 0.2 % Immature Granulocyte # (Auto) 0.01 0.03 0.00-0.02 K/uL Sodium Level 136 140 136-145 mmol/L Potassium Level 4.5 5.0 3.5-5.1 mmol/L Chloride Level 106 111 98-107 mmol/L Carbon Dioxide Level 25 26 21-32 mmol/L Anion Gap 5.0 3.0 3-11 mmol/L Blood Urea Nitrogen 19 19 7-18 mg/dl Creatinine 1.20 1.30 0.60-1.40 mg/dl Est Creatinine Clear Calc Drug Dose 44.6 38.9 ml/min Estimated GFR () 68.1 61.9 Estimated GFR (Non- 58.8 53.4 BUN/Creatinine Ratio 15.6 14.9 10-20 Random Glucose 131 124 70-99 mg/dl Calcium Level 9.3 8.1 8.5-10.1 mg/dl Total Bilirubin 0.5 0.2-1 mg/dl Aspartate Amino Transf (AST/SGOT) 22 15-37 U/L Alanine Aminotransferase (ALT/SGPT) 27 12-78 U/L Alkaline Phosphatase 120 45-117 U/L Total Protein 7.6 6.4-8.2 gm/dl Albumin 3.4 3.4-5.0 gm/dl Globulin 4.2 2.5-4.0 gm/dl Albumin/Globulin Ratio 0.8 0.9-2 Amylase Level 91 25-115 U/L Lipase 157 73-393 U/L Lactic Acid Level 0.9 0.4-2.0 mmol/L Prothrombin Time 10.9 9.0-12.0 SECONDS Prothromb Time International Ratio 1.0 0.9-1.1 Activated Partial Thromboplast Time 25.3 21.0-31.0 SECONDS Partial Thromboplastin Ratio 1.0 Test 11/02/16 05:50 Range/Units Urine Color YELLOW Urine Appearance CLEAR CLEAR Urine pH 5.0 4.5-7.5 Urine Specific [place] > 1.045 1.000-1.030 Urine Protein 1+ NEG Urine Glucose (UA) NEG NEG Urine Ketones NEG NEG Urine Occult Blood TRACE NEG Urine Nitrite NEG NEG Urine Bilirubin NEG NEG Urine Urobilinogen NEG NEG Urine Leukocyte Esterase NEG NEG Urine WBC (Auto) 1-5 0-5 /hpf Urine RBC (Auto) 0-4 0-4 /hpf Urine Hyaline Casts (Auto) 1-5 0-5 /lpf Urine Epithelial Cells (Auto) 5-10 0-5 /lpf Urine Bacteria (Auto) NEG NEG Microbiology Results 11/01/16 Blood Culture, Received Pending 11/01/16 Blood Culture, Received Pending Assessment & Plan Thony Jasmine is a 76 year old man with HTN, Hyperlipidemia, history of AAA repair, COPD, +smoker, history of small bowel resection, multiple ventral hernias admitted on 11/01/16 with an internal hernia. He is now POD 1 s/p exploratory laparotomy, lysis of adhesions, small bowel resection with primary anastomosis. There were no complications, patient tolerated the procedure well. -Pain control with Dilaudid MUSHROOM SPAWN MAKER - keep today -NPO, NGT decompression for bowel rest today -IVF NSS at 100ml/hr -AM labs reviewed, likely leukocytosis due to surgery last night; will trend -Will start prophylactic lovenox tomorrow, continue SCDs / TEDs -Medicine recommendations appreciated - will resume CONGRESSIONAL REPRESENTATIVE medications hopefully tomorrow (bowel rest today) -Metoprolol 5mg IV q6 scheduled for blood pressure control (hypertensive periop) -Continue Ancef for another 24-48h -Likely will remove herrera tomorrow -Continue to follow closely Racheal Diez MD 11/02/16
--- NOTE | 2016-11-02 15:39 | Progress Note ---
Subjective Date of Service: Nov 02, 2016. Subjective Pt evaluation today including: conversation w/ patient Pt feels he is doing better. Still with abd pain, but improving. No SOB or chest pain. Pt denies fever, abd pain, n/v/c/d, LE pain or swelling. Problem List Medical Problems: (1) Mesenteric ischemia Status: Acute Review of Systems All Other Systems: Reviewed and Negative Objective Vital Signs Date Time Temp Pulse Resp B/P (MAP) Pulse Ox O2 Delivery O2 Flow Rate FiO2 11/02/16 15:23 36.8 84 18 100/67 (78) 96 Nasal Cannula 4.0 11/02/16 13:04 85 97/53 11/02/16 12:00 Nasal Cannula 2.0 11/02/16 11:50 36.8 83 20 96/48 (64) 98 Nasal Cannula 4.0 11/02/16 08:00 Nasal Cannula 2.0 11/02/16 07:59 82 99/51 11/02/16 07:27 37.2 84 20 113/57 (75) 96 Nasal Cannula 4.0 11/02/16 05:50 36.4 83 16 119/64 (82) 93 Nasal Cannula 2.0 11/02/16 04:40 78 18 114/57 (76) 93 Nasal Cannula 2.0 11/02/16 04:00 Nasal Cannula 2.0 11/02/16 03:40 36.9 78 16 123/61 (81) 94 Nasal Cannula 2.0 11/02/16 02:34 36.6 77 16 119/61 (80) 93 Nasal Cannula 2.0 11/02/16 02:30 79 122/63 11/02/16 01:35 36.5 71 16 138/67 (90) 95 Nasal Cannula 2.0 11/02/16 01:05 36.4 69 16 151/76 (101) 94 Nasal Cannula 2.0 11/02/16 00:35 36.5 68 16 173/84 (113) 94 Nasal Cannula 2.0 11/02/16 00:25 Nasal Cannula 2.0 11/02/16 00:16 67 14 171/88 97 Nasal Cannula 2 11/02/16 00:05 36.2 68 16 178/90 96 Nasal Cannula 2 Arterial Line 11/01/16 23:55 67 16 173/92 96 Nasal Cannula 2 11/01/16 23:45 36.2 65 14 173/90 97 Room Air 11/01/16 23:35 75 16 190/94 97 Oxymask 2 11/01/16 23:25 75 14 204/86 98 Oxymask 2 NIBP 11/01/16 23:15 76 16 181/131 99 Oxymask 4 11/01/16 23:07 36.1 83 16 180/88 99 Oxymask 4 11/01/16 20:14 89 18 204/109 94 Nasal Cannula 2.0 11/01/16 18:34 37.7 92 18 187/104 93 Room Air 11/01/16 17:56 82 18 187/92 94 11/01/16 16:13 37.6 70 18 166/80 94 Room Air Physical Exam General Appearance: WD/WN, no apparent distress Eyes: normal inspection, EOMI Respiratory/Chest: normal breath sounds, no respiratory distress Cardiovascular: regular rate, rhythm, no edema Abdomen: non tender, soft Extremities: non-tender, no pedal edema 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iatric: alert, normal mood/affect, oriented x 3 Skin: normal color, warm/dry Laboratory Results Last 24 Hours Test 11/01/16 16:21 11/01/16 17:01 11/02/16 01:53 11/02/16 05:30 White Blood Count 7.70 K/uL 16.16 K/uL Red Blood Count 4.35 M/uL 4.30 M/uL Hemoglobin 13.9 g/dL 13.2 g/dL Hematocrit 40.1 % 40.7 % Mean Corpuscular Volume 92.2 fL 94.7 fL Mean Corpuscular Hemoglobin 32.0 pg 30.7 pg Mean Corpuscular Hemoglobin Concent 34.7 g/dl 32.4 g/dl Platelet Count 218 K/uL 192 K/uL Mean Platelet Volume 10.2 fL 9.8 fL Neutrophils (%) (Auto) 85.0 % 91.0 % Lymphocytes (%) (Auto) 7.7 % 4.1 % Monocytes (%) (Auto) 6.4 % 4.5 % Eosinophils (%) (Auto) 0.5 % 0.1 % Basophils (%) (Auto) 0.3 % 0.1 % Neutrophils # (Auto) 6.55 K/uL 14.72 K/uL Lymphocytes # (Auto) 0.59 K/uL 0.66 K/uL Monocytes # (Auto) 0.49 K/uL 0.73 K/uL Eosinophils # (Auto) 0.04 K/uL 0.01 K/uL Basophils # (Auto) 0.02 K/uL 0.01 K/uL RDW Standard Deviation 46.5 fL 48.0 fL RDW Coefficient of Variation 13.7 % 14.0 % Immature Granulocyte % (Auto) 0.1 % 0.2 % Immature Granulocyte # (Auto) 0.01 K/uL 0.03 K/uL Sodium Level 136 mmol/L 140 mmol/L Potassium Level 4.5 mmol/L 5.0 mmol/L Chloride Level 106 mmol/L 111 mmol/L Carbon Dioxide Level 25 mmol/L 26 mmol/L Anion Gap 5.0 mmol/L 3.0 mmol/L Blood Urea Nitrogen 19 mg/dl 19 mg/dl Creatinine 1.20 mg/dl 1.30 mg/dl Est Creatinine Clear Calc Drug Dose 44.6 ml/min 38.9 ml/min Estimated GFR () 68.1 61.9 Estimated GFR (Non- 58.8 53.4 BUN/Creatinine Ratio 15.6 14.9 Random Glucose 131 mg/dl 124 mg/dl Calcium Level 9.3 mg/dl 8.1 mg/dl Total Bilirubin 0.5 mg/dl Aspartate Amino Transf (AST/SGOT) 22 U/L Alanine Aminotransferase (ALT/SGPT) 27 U/L Alkaline Phosphatase 120 U/L Total Protein 7.6 gm/dl Albumin 3.4 gm/dl Globulin 4.2 gm/dl Albumin/Globulin Ratio 0.8 Amylase Level 91 U/L Lipase 157 U/L Lactic Acid Level 0.9 mmol/L Prothrombin Time 10.9 SECONDS Prothromb Time International Ratio 1.0 Activated Partial Thromboplast Time 25.3 SECONDS Partial Thromboplastin Ratio 1.0 Test 11/02/16 05:50 Urine Color YELLOW Urine Appearance CLEAR Urine pH 5.0 Urine Specific [place] > 1.045 Urine Protein 1+ Urine Glucose (UA) NEG Urine Ketones NEG Urine Occult Blood TRACE Urine Nitrite NEG Urine Bilirubin NEG Urine Urobilinogen NEG Urine Leukocyte Esterase NEG Urine WBC (Auto) 1-5 /hpf Urine RBC (Auto) 0-4 /hpf Urine Hyaline Casts (Auto) 1-5 /lpf Urine Epithelial Cells (Auto) 5-10 /lpf Urine Bacteria (Auto) NEG Assessment and Plan 76 year old admission for suspected ischemic bowel. Admission by surgery and plan on going straight from the ER to the OR on 11/01. Suspected ischemic/necrotic bowel - lactic acid normal - s/p ex lap 11/01 - Advise broad spectrum antibiotics + follow up blood cultures - continue aspirin post operatively if surgery/hemostasis permits - Continue atorvastatin Ischemic cardiomyopathy, CAD, PVD - continue ASA (when able), BB, ACEi and statin COPD - Continue Advair and Combivent JOSE CKD - monitor Cr post operatively - Lisinopril held pending reassessment Code - Full VTE Prophylaxis - chemical prophylaxis as per surgery - recommend SCDs and TEDs post operatively
[2016-11-02] MEDS: ATORVASTATIN 40 MG TAB PO SCH (21:00)
[2016-11-03] VITALS (9 sets, daily range): BP systolic 95–166; BP diastolic 62–91; PULSE 82–92; TEMP 36.4–37.2; O2SAT 90–96
[2016-11-03] MEDS: METOPROLOL TARTRATE 1 MG/ML VIAL IV. SCH ×4 (01:57→20:37)
[2016-11-03 06:05] LABS: BASO % 0.3 %; BASO ABS # 0.03 K/uL (0-0.2); COMPLETE YES; EOS % 0.6 %; HEMATOCRIT 34.8 % (42-52); IG% 0.3 %; LYMPH % 6.4 %; LYMPH ABS # 0.65 K/uL (1.2-3.4); MEAN CELL VOLUME 96.4 fL (80-100); MEAN CORPUSCULAR HEMOGLOBIN 31.9 pg (25-34); MEAN PLATELET VOLUME 10.4 fL (7.4-10.4); MONO % 11.7 %; NEUT % 80.7 %; PLATELET COUNT 163 K/uL (130-400); RED BLOOD COUNT 3.61 M/uL (4.7-6.1); WHITE BLOOD COUNT 10.19 K/uL (4.8-10.8)
--- NOTE | 2016-11-03 06:35 | Clinical Documentation Query ---
CLINICAL DOCUMENTATION QUERY 76-y/o male who has undergone exlap and bowel resection for internal hernia and small bowel stricture. In your clinical opinion is this patient being managed for: (x) Acute (reversible) ischemia of intestine in setting internal hernia and dense adhesions. ( ) Not Agree ( ) Other explanation of clinical findings (Please Explain) ( ) Unable to determine (Please Define) ( ) Need to Discuss The medical record reflects the following clinical findings, treatment, and risk factors. Clinical Indicators: Per operative record, "Two constrictive adhesive bands were found near the existing small bowel to small bowel anastomosis. These adhesions were carefully lysed to free and untwist the bowel. After releasing the small bowel, color improved dramatically and bowel became pink and healthy appearing. " Treatment: Surgical release of adhesions and untwisting of bowel Risk Factors: Age, previous bowel surgeries Please clarify and document your clinical opinion in the progress notes and discharge summary. Terms such as "probable", "suspected", "likely", "questionable", "possible", or "still to be ruled out" are acceptable. IF IN AGREEMENT, YOU MUST DOCUMENT ABOVE DIAGNOSTIC STATEMENT IN DAILY PROGRESS NOTES AND DISCHARGE SUMMARY. This document is not part of the patient's record. Thank You, Ramez Shell, RN [phone]
--- NOTE | 2016-11-03 06:36 | Clinical Documentation Query ---
CLINICAL DOCUMENTATION QUERY Daily progress note state CKD, unspecified. Documenting the stage of CKD will improve data integrity and will help clarify vague terms such as "renal insufficiency" or "chronic renal failure." In your clinical opinion is this patient being managed for: ( ) CKD stage II to III ( ) Not Agree ( ) Other explanation of clinical findings (Please Explain) ( ) Unable to determine (Please Define) ( ) Need to Discuss The medical record reflects the following clinical findings, treatment, and risk factors. Clinical Indicators: GFR range 58.8-53.4 Treatment: IVF's, daily PRP's Risk Factors: Age, HTN, Please clarify and document your clinical opinion in the progress notes and discharge summary. Terms such as "probable", "suspected", "likely", "questionable", "possible", or "still to be ruled out" are acceptable. IF IN AGREEMENT, YOU MUST DOCUMENT ABOVE DIAGNOSTIC STATEMENT IN DAILY PROGRESS NOTES AND DISCHARGE SUMMARY. This document is not part of the patient's record. The stages of CKD according to the [employer] are as follows: Stage I: GFR >90 Stage II: GFR 60-89 Stage III: GFR 30-59 Stage IV: GFR 15-29 Stage V: GFR <15 Thank You, Ramez Shell, RN [phone]
[2016-11-03 06:40] LABS: CREATININE 1.1 mg/dl (0.60-1.40)
[2016-11-03 06:41] LABS: BUN/CREATININE RATIO 23.2 (10-20); CALCIUM 8.6 mg/dl (8.5-10.1); POTASSIUM 4.5 mmol/L (3.5-5.1)
[2016-11-03] MEDS: SODIUM CHLORIDE 0.9% 1000ML 1,000 ML IV SCH ×3 (07:30→23:31)
[2016-11-03] MEDS: IPRATROPIUM BROMIDE/ALBUTEROL respimat INH INH SCH ×4 (07:31→20:39)
[2016-11-03] MEDS: FLUTICASONE/SALMETEROL 250/50 (ADVAIR) 14 PUFF/1 INHALER INH SCH ×2 (07:31→20:39)
[2016-11-03] MEDS: ASPIRIN 81 MG ECTAB PO SCH (10:00)
[2016-11-03] MEDS: ENOXAPARIN 40 MG/0.4 ML SYR SQ SCH (10:00)
[2016-11-03] MEDS: LISINOPRIL 10 MG TAB PO SCH (10:00)
[2016-11-03] MEDS: METOPROLOL SUCC 50MG EXT REL TAB PO SCH (10:01)
--- NOTE | 2016-11-03 10:44 | Surgery Progress Note ---
Surgery Progress Note Date of Service Nov 03, 2016. Subjective Post OP Day: 2 Patient examined at bedside this morning. Afebrile, vitals stable overnight on 2L O2 via NC, no acute events. Pain is well controlled with ANIMAL ATTENDANT. NGT with minimal output - removed at bedside this morning. Remains NPO, but feels hungry. Denies flatus / BM. Herrera catheter in place and draining clear, yellow urine. Objective Vital Signs: Date Time Temp Pulse Resp B/P (MAP) Pulse Ox O2 Delivery O2 Flow Rate FiO2 11/03/16 08:00 Nasal Cannula 2.0 11/03/16 07:31 90 139/69 11/03/16 07:22 37.2 91 20 143/76 (98) 96 11/03/16 04:05 37.0 87 20 123/73 (90) 91 Nasal Cannula 4.0 11/03/16 04:00 94 Nasal Cannula 4.0 11/03/16 01:57 92 117/62 11/02/16 23:59 94 Nasal Cannula 4.0 11/02/16 23:15 37.1 89 20 135/67 (89) 94 Nasal Cannula 4.0 11/02/16 20:00 95 Nasal Cannula 4.0 11/02/16 19:34 91 132/77 11/02/16 19:12 37.1 91 20 132/77 (95) 94 4.0 11/02/16 16:00 95 Nasal Cannula 4.0 11/02/16 15:23 36.8 84 18 100/67 (78) 96 Nasal Cannula 4.0 11/02/16 13:04 85 97/53 11/02/16 12:00 Nasal Cannula 2.0 11/02/16 11:50 36.8 83 20 96/48 (64) 98 Nasal Cannula 4.0 Physical Exam: nasogastric drainage (minimal), urine output (clear, yellow) General Appearance: WD/WN, no apparent distress Head: normocephalic, atraumatic Neck: supple Respiratory/Chest: lungs clear, normal breath sounds Cardiovascular: regular rate, rhythm Abdomen: non distended, soft, + tenderness (appropriately tender to palpation) Incision(s): clean, dry, intact Laboratory Results: Results Past 24 Hours Test 11/03/16 05:18 Range/Units White Blood Count 10.19 4.8-10.8 K/uL Red Blood Count 3.61 4.7-6.1 M/uL Hemoglobin 11.5 14.0-18.0 g/dL Hematocrit 34.8 42-52 % Mean Corpuscular Volume 96.4 80-100 fL Mean Corpuscular Hemoglobin 31.9 25-34 pg Mean Corpuscular Hemoglobin Concent 33.0 32-36 g/dl Platelet Count 163 130-400 K/uL Mean Platelet Volume 10.4 7.4-10.4 fL Neutrophils (%) (Auto) 80.7 % Lymphocytes (%) (Auto) 6.4 % Monocytes (%) (Auto) 11.7 % Eosinophils (%) (Auto) 0.6 % Basophils (%) (Auto) 0.3 % Neutrophils # (Auto) 8.23 1.4-6.5 K/uL Lymphocytes # (Auto) 0.65 1.2-3.4 K/uL Monocytes # (Auto) 1.19 0.11-0.59 K/uL Eosinophils # (Auto) 0.06 0-0.5 K/uL Basophils # (Auto) 0.03 0-0.2 K/uL RDW Standard Deviation 50.9 36.4-46.3 fL RDW Coefficient of Variation 14.4 11.5-14.5 % Immature Granulocyte % (Auto) 0.3 % Immature Granulocyte # (Auto) 0.03 0.00-0.02 K/uL Sodium Level 142 136-145 mmol/L Potassium Level 4.5 3.5-5.1 mmol/L Chloride Level 113 98-107 mmol/L Carbon Dioxide Level 24 21-32 mmol/L Anion Gap 5.0 3-11 mmol/L Blood Urea Nitrogen 26 7-18 mg/dl Creatinine 1.10 0.60-1.40 mg/dl Est Creatinine Clear Calc Drug Dose 45.9 ml/min Estimated GFR () 75.7 Estimated GFR (Non- 65.3 BUN/Creatinine Ratio 23.2 10-20 Random Glucose 91 70-99 mg/dl Calcium Level 8.6 8.5-10.1 mg/dl Assessment & Plan Thony Jasmine is a 76 year old man with HTN, Hyperlipidemia, history of AAA repair, COPD, +smoker, history of small bowel resection, multiple ventral hernias admitted on 11/01/16 with an internal hernia causing acute ischemia. Acute ischemia reversed and bowel appeared pink and healthy after adhesive bands were lysed and internal hernia was reduced. He is now POD 2 s/p exploratory laparotomy, lysis of adhesions, small bowel resection with primary anastomosis. There were no complications, patient tolerated the procedure well. -Pain control with Dilaudid ANIMAL ATTENDANT - keep today -NGT removed at bedside this morning, start clear liquids today -IVF NSS at 100ml/hr until PO intake is adequate -AM labs reviewed, no leukocytosis (decreased from yesterday); Hgb 11.5 today, likely decreased due to dilutional effects of IVF - no signs / symptoms of bleeding appreciated. Remaining labs within normal limits. -Start prophylactic lovenox today, continue SCDs / TEDs -Medicine recommendations appreciated -Resume all DELIVERER MERCHANDISE medications today, including aspirin -Metoprolol 5mg IV q6 scheduled for blood pressure control (hypertensive periop) -Continue Ancef for another 24h -Remove herrera catheter -Encourage out of bed / ambulation -Continue to follow closely Racheal Diez MD 11/03/16
--- NOTE | 2016-11-03 10:49 | Progress Note ---
Subjective Date of Service: Nov 03, 2016. Subjective Pt feels he is doing better. Abd pain has improved. No SOB or chest pain. Pt denies fever, n/v/c/d, LE pain or swelling. Problem List Medical Problems: (1) Mesenteric ischemia Status: Acute Review of Systems Constitutional: No fever, No chills Eyes: No worsening of vision, No eye pain ENT: No hearing loss, No unusual epistaxis Respiratory: No cough, No sputum Cardiac: No chest pain, No orthopnea Musculoskeletal: No joint pain Male : No dysuria, No urinary frequency All Other Systems: Reviewed and Negative Medications Current Inpatient Medications Medications (Trade) Dose Ordered Sig/María Route Start Time Stop Time Status Last Admin Dose Admin Ioversol (Optiray 320) 111 ml UD PRN IV 11/01/16 16:45 11/05/16 16:44 Atorvastatin Calcium (Lipitor Tab) 80 mg HS PO 11/02/16 21:00 12/02/16 20:59 11/03/16 20:40 80 MG Salmeterol Xinafoate/ Fluticasone (Advair Diskus 250/50 Inh) 1 puff BID INH 11/02/16 09:00 12/02/16 08:59 11/03/16 20:39 1 PUFF Albuterol/ Ipratropium (Combivent Respimat Inh) 1 puffs QID INH 11/02/16 09:00 12/02/16 08:59 11/03/16 20:39 1 PUFFS Sodium Chloride 1,000 ml @ 100 mls/hr Q10H IV 11/01/16 23:26 12/01/16 23:25 11/03/16 16:54 100 MLS/HR Ondansetron HCl (Zofran Inj) 4 mg Q4H PRN IV 11/01/16 23:30 12/01/16 23:29 Naloxone HCl (Narcan Inj) 0.1 mg Q5M PRN IV 11/01/16 23:45 12/01/16 23:44 Hydromorphone HCl (Dilaudid Fur Blowing Machine Attendant) 25 mg PRN PRN IV 11/01/16 23:45 11/15/16 23:44 11/03/16 15:03 25 MG Sodium Chloride 1,000 ml @ 15 mls/hr Q24H IV 11/01/16 23:31 10/12/17 23:30 Metoprolol Tartrate (Lopressor Iv) 5 mg Q6H IV. 11/02/16 02:00 12/02/16 01:59 11/03/16 20:37 5 MG Enoxaparin Sodium (Lovenox Inj) 40 mg QAM SQ 11/03/16 09:00 12/03/16 08:59 11/03/16 10:00 40 MG Aspirin (Ecotrin Tab) 81 mg DAILY PO 11/03/16 09:00 12/03/16 08:59 11/03/16 10:00 81 MG Lisinopril (Zestril Tab) 10 mg DAILY PO 11/03/16 09:00 12/03/16 08:59 11/03/16 10:00 10 MG Metoprolol Succinate (Toprol Xl Tab) 75 mg DAILY PO 11/03/16 09:00 12/03/16 08:59 Miscellaneous Information (Nursing Verbal Med Order) 1 ea QS N/A 11/03/16 16:00 12/03/16 15:59 11/03/16 20:36 1 EA Objective Vital Signs Date Time Temp Pulse Resp B/P (MAP) Pulse Ox O2 Delivery O2 Flow Rate FiO2 11/03/16 08:00 Nasal Cannula 2.0 11/03/16 07:31 90 139/69 11/03/16 07:22 37.2 91 20 143/76 (98) 96 11/03/16 04:05 37.0 87 20 123/73 (90) 91 Nasal Cannula 4.0 11/03/16 04:00 94 Nasal Cannula 4.0 11/03/16 01:57 92 117/62 11/02/16 23:59 94 Nasal Cannula 4.0 11/02/16 23:15 37.1 89 20 135/67 (89) 94 Nasal Cannula 4.0 11/02/16 20:00 95 Nasal Cannula 4.0 11/02/16 19:34 91 132/77 11/02/16 19:12 37.1 91 20 132/77 (95) 94 4.0 11/02/16 16:00 95 Nasal Cannula 4.0 11/02/16 15:23 36.8 84 18 100/67 (78) 96 Nasal Cannula 4.0 11/02/16 13:04 85 97/53 9/13/17 12:00 Nasal Cannula 2.0 11/02/16 11:50 36.8 83 20 96/48 (64) 98 Nasal Cannula 4.0 Physical Exam General Appearance: WD/WN, no apparent distress Neck: supple, no adenopathy Cardiovascular: regular rate, rhythm, no edema, no gallop, + pertinent finding (In Abdomen, umbilical hernia is noted. Dry dressing noted on wound on abdomen from bowel repair.) Abdomen: normal bowel sounds, non tender, soft, + pertinent finding Comments: missing digits in left Laboratory Results Last 24 Hours Test 11/03/16 05:18 White Blood Count 10.19 K/uL Red Blood Count 3.61 M/uL Hemoglobin 11.5 g/dL Hematocrit 34.8 % Mean Corpuscular Volume 96.4 fL Mean Corpuscular Hemoglobin 31.9 pg Mean Corpuscular Hemoglobin Concent 33.0 g/dl Platelet Count 163 K/uL Mean Platelet Volume 10.4 fL Neutrophils (%) (Auto) 80.7 % Lymphocytes (%) (Auto) 6.4 % Monocytes (%) (Auto) 11.7 % Eosinophils (%) (Auto) 0.6 % Basophils (%) (Auto) 0.3 % Neutrophils # (Auto) 8.23 K/uL Lymphocytes # (Auto) 0.65 K/uL Monocytes # (Auto) 1.19 K/uL Eosinophils # (Auto) 0.06 K/uL Basophils # (Auto) 0.03 K/uL RDW Standard Deviation 50.9 fL RDW Coefficient of Variation 14.4 % Immature Granulocyte % (Auto) 0.3 % Immature Granulocyte # (Auto) 0.03 K/uL Sodium Level 142 mmol/L Potassium Level 4.5 mmol/L Chloride Level 113 mmol/L Carbon Dioxide Level 24 mmol/L Anion Gap 5.0 mmol/L Blood Urea Nitrogen 26 mg/dl Creatinine 1.10 mg/dl Est Creatinine Clear Calc Drug Dose 45.9 ml/min Estimated GFR () 75.7 Estimated GFR (Non- 65.3 BUN/Creatinine Ratio 23.2 Random Glucose 91 mg/dl Calcium Level 8.6 mg/dl Assessment and Plan 76 year old admission for suspected ischemic bowel. Admission by surgery and plan on going straight from the ER to the OR on 11/01. Suspected ischemic/necrotic bowel - lactic acid normal - s/p ex lap 11/01 - Advise broad spectrum antibiotics + follow up blood cultures - restarted asa - Continue atorvastatin Ischemic cardiomyopathy, CAD, PVD - restarted ASA, BB, ACEi and statin COPD - Continue Advair and Combivent [facility] - monitor Cr post operatively - Lisinopril held pending reassessment Code - Full VTE Prophylaxis - chemical prophylaxis as per surgery - recommend SCDs and TEDs post operatively
[2016-11-03] MEDS: HYDROmorphone HCL 0.5MG/ML 50 ML CASSETTE IV PRN ×2 (15:03→23:03)
[2016-11-03] MEDS: [UNRECOGNIZED DRUG - OTHER] SCH ×2 (20:36→23:38)
[2016-11-03] MEDS: ATORVASTATIN 40 MG TAB PO SCH (20:40)
[2016-11-04] VITALS (9 sets, daily range): BP systolic 142–191; BP diastolic 65–98; PULSE 83–121; TEMP 36.5–36.7; O2SAT 90–97
[2016-11-04] MEDS: METOPROLOL TARTRATE 1 MG/ML VIAL IV. SCH (02:01)
[2016-11-04] MEDS: SODIUM CHLORIDE 0.9% 1000ML 1,000 ML IV SCH ×2 (02:01→11:26)
[2016-11-04 06:03] LABS: BASO % 0.3 %; BASO ABS # 0.02 K/uL (0-0.2); COMPLETE YES; EOS % 1.6 %; HEMATOCRIT 31.1 % (42-52); IG% 0.3 %; LYMPH % 7.8 %; LYMPH ABS # 0.53 K/uL (1.2-3.4); MEAN CELL VOLUME 94.5 fL (80-100); MEAN CORPUSCULAR HGB CONC 32.8 g/dl (32-36); MEAN PLATELET VOLUME 10.3 fL (7.4-10.4); MONO % 8.5 %; NEUT % 81.5 %; PLATELET COUNT 134 K/uL (130-400); RED BLOOD COUNT 3.29 M/uL (4.7-6.1); WHITE BLOOD COUNT 6.81 K/uL (4.8-10.8)
[2016-11-04 06:46] LABS: CALCIUM 8.4 mg/dl (8.5-10.1); CREATININE 0.92 mg/dl (0.60-1.40)
[2016-11-04] MEDS: METOPROLOL SUCC 50MG EXT REL TAB PO SCH (07:37)
[2016-11-04] MEDS: ASPIRIN 81 MG ECTAB PO SCH (07:37)
[2016-11-04] MEDS: IPRATROPIUM BROMIDE/ALBUTEROL respimat INH INH SCH ×4 (07:38→20:39)
[2016-11-04] MEDS: ENOXAPARIN 40 MG/0.4 ML SYR SQ SCH (07:38)
[2016-11-04] MEDS: LISINOPRIL 10 MG TAB PO SCH (07:38)
[2016-11-04] MEDS: FLUTICASONE/SALMETEROL 250/50 (ADVAIR) 14 PUFF/1 INHALER INH SCH ×2 (07:38→20:39)
[2016-11-04] MEDS: [UNRECOGNIZED DRUG - OTHER] SCH ×2 (07:41→15:59)
[2016-11-04] MEDS ORDERED: MoRPHine SULFATE 4 MG/ML 1 ML CARP\\VIAL IV PRN (08:00)
[2016-11-04] MEDS ORDERED: OXYCODONE/ACETAMINOPHEN 5-325 TAB PO PRN ×2 (08:00)
[2016-11-04] MEDS ORDERED: MoRPHine SULFATE 2 MG/ML CARP IV PRN ×2 (08:00)
--- NOTE | 2016-11-04 12:02 | Surgery Progress Note ---
Surgery Progress Note Date of Service Nov 04, 2016. Subjective Post OP Day: 3 + feeling well, + flatus, + pain controlled, + diet (tolerating clear liquids), No complaints, No chest pain, No SOB, No bowel movement, No nausea, No vomiting Objective Vital Signs: Date Time Temp Pulse Resp B/P (MAP) Pulse Ox O2 Delivery O2 Flow Rate FiO2 11/04/16 08:14 36.6 87 18 142/82 (102) 90 Nasal Cannula 11/04/16 08:00 Nasal Cannula 2.0 11/04/16 04:00 91 Nasal Cannula 2.0 11/04/16 03:40 36.7 83 22 145/75 (98) 92 Nasal Cannula 2.0 11/04/16 02:01 85 135/67 11/04/16 00:00 92 Nasal Cannula 2.0 11/03/16 23:36 36.6 88 22 132/71 (91) 93 Nasal Cannula 2.0 11/03/16 20:37 88 146/87 11/03/16 20:33 88 146/87 (106) 11/03/16 20:00 Nasal Cannula 2.0 11/03/16 19:18 36.4 82 20 95/62 (73) 93 Nasal Cannula 2.0 11/03/16 16:00 93 Nasal Cannula 2.0 11/03/16 15:55 36.8 87 16 166/91 (116) 90 11/03/16 12:31 91 151/67 General Appearance: WD/WN, no apparent distress Head: normocephalic, atraumatic Neck: trachea midline Respiratory/Chest: no respiratory distress, no accessory muscle use Abdomen: non tender, non distended, soft Incision(s): clean, dry, intact, no erythema, no drainage, findings (chuy present and intact) Laboratory Results: Results Past 24 Hours Test 11/04/16 05:37 Range/Units White Blood Count 6.81 4.8-10.8 K/uL Red Blood Count 3.29 4.7-6.1 M/uL Hemoglobin 10.2 14.0-18.0 g/dL Hematocrit 31.1 42-52 % Mean Corpuscular Volume 94.5 80-100 fL Mean Corpuscular Hemoglobin 31.0 25-34 pg Mean Corpuscular Hemoglobin Concent 32.8 32-36 g/dl Platelet Count 134 130-400 K/uL Mean Platelet Volume 10.3 7.4-10.4 fL Neutrophils (%) (Auto) 81.5 % Lymphocytes (%) (Auto) 7.8 % Monocytes (%) (Auto) 8.5 % Eosinophils (%) (Auto) 1.6 % Basophils (%) (Auto) 0.3 % Neutrophils # (Auto) 5.55 1.4-6.5 K/uL Lymphocytes # (Auto) 0.53 1.2-3.4 K/uL Monocytes # (Auto) 0.58 0.11-0.59 K/uL Eosinophils # (Auto) 0.11 0-0.5 K/uL Basophils # (Auto) 0.02 0-0.2 K/uL RDW Standard Deviation 48.9 36.4-46.3 fL RDW Coefficient of Variation 14.1 11.5-14.5 % Immature Granulocyte % (Auto) 0.3 % Immature Granulocyte # (Auto) 0.02 0.00-0.02 K/uL Sodium Level 143 136-145 mmol/L Potassium Level 4.0 3.5-5.1 mmol/L Chloride Level 114 98-107 mmol/L Carbon Dioxide Level 22 21-32 mmol/L Anion Gap 7.0 3-11 mmol/L Blood Urea Nitrogen 22 7-18 mg/dl Creatinine 0.92 0.60-1.40 mg/dl Est Creatinine Clear Calc Drug Dose 55.1 ml/min Estimated GFR () 94.0 Estimated GFR (Non- 81.1 BUN/Creatinine Ratio 24.0 10-20 Random Glucose 98 70-99 mg/dl Calcium Level 8.4 8.5-10.1 mg/dl Assessment & Plan Thony Jasmine is a 76 year old man with HTN, Hyperlipidemia, history of AAA repair, COPD, +smoker, history of small bowel resection, multiple ventral hernias admitted on 11/01/16 with an internal hernia causing acute ischemia. Acute ischemia reversed and bowel appeared pink and healthy after adhesive bands were lysed and internal hernia was reduced. He is now POD #3 s/p exploratory laparotomy, lysis of adhesions, small bowel resection with primary anastomosis. There were no complications, patient tolerated the procedure well. 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 Diez has seen and examined patient, agrees with above
--- NOTE | 2016-11-04 16:03 | Discharge Instructions ---
Discharge Instructions Date of Service Nov 04, 2016. Admission Reason for Admission: Bowel Obstruction Discharge Discharge Diagnosis / Problem: same, internal hernia, bowel ischemia Discharge Goals Goal(s): Decrease discomfort, Improve function Activity Recommendations Activity Limitations: as noted below No heavy lifting over 10 pounds for at least 6 weeks NO strenuous activity until cleared by surgeon Walking and light activity is encouraged to prevent blood clots from forming. No submerging incision underwater for 2 weeks or until completely healed (no bathing, swimming, or hot tubs) No driving while taking narcotic pain medication or until you are pain free . Instructions / Follow-Up Instructions / Follow-Up You do not need to keep incision covered unless it is drainage You may shower Surgical chuy will be removed in the office Please call office at [phone] to make a follow-up with Dr. Diez in about 10 days. Current Hospital Diet Patient's current hospital diet: Low Fiber Diet Discharge Diet Recommended Diet: Regular Diet Procedures Procedures Performed: Exploratory Laparotomy, lysis of adhesions, bowel resection with primary anastomosis Pending Studies Studies pending at discharge: no Laboratory Results Hemoglobin A1c Test 10/25/16 08:05 Range/Units Estimated Average Glucose 114 mg/dl Hemoglobin A1c 5.6 4.5-5.6 % Lipid Panel Test 10/25/16 08:05 Range/Units Triglycerides Level 48 0-150 mg/dl Cholesterol Level 129 0-200 mg/dl HDL Cholesterol 55 mg/dl Cholesterol/HDL Ratio 2.3 LDL Cholesterol, Calculated 64 mg/dl Medical Emergencies . Who to Call and When: Medical Emergencies: If at any time you feel your situation is an emergency, please call 911 immediately. . Non-Emergent Contact Non-Emergency issues call your: Primary Care Provider, Surgeon Call Non-Emergent contact if: you have a fever, temperature is above 101.5, your pain is not controlled, your pain is worsening, your pain is unusual for you, wound has increased drainage, wound has increased redness, wound has increased pain . "Provider Documentation" section prepared by Gregoria Lobato. . VTE Core Measure Inpt VTE Proph given/why not?: Enoxaparin (Lovenox)SQ, SCD's [place] Drug Monitoring Program Search Results: patient reviewed within database, no issues identified
[2016-11-04] MEDS ORDERED: OXYC-57 PO (17:49)
[2016-11-04] MEDS: ATORVASTATIN 40 MG TAB PO SCH (20:39)
[2016-11-05 00:56] VITALS: BP 152/86; PULSE 92; O2SAT 91
[2016-11-05] MEDS: SODIUM CHLORIDE 0.9% 1000ML 1,000 ML IV SCH (00:57)
[2016-11-05 01:00] VITALS: TEMP 36.4
[2016-11-05 07:09] LABS: BASO % 0.2 %; BASO ABS # 0.01 K/uL (0-0.2); COMPLETE YES; EOS % 4.3 %; HEMATOCRIT 31.3 % (42-52); IG% 0.3 %; LYMPH % 9.5 %; LYMPH ABS # 0.61 K/uL (1.2-3.4); MEAN CELL VOLUME 93.2 fL (80-100); MEAN CORPUSCULAR HEMOGLOBIN 32.4 pg (25-34); MEAN CORPUSCULAR HGB CONC 34.8 g/dl (32-36); MEAN PLATELET VOLUME 10.4 fL (7.4-10.4); MONO % 7.4 %; NEUT % 78.3 %; PLATELET COUNT 142 K/uL (130-400); RED BLOOD COUNT 3.36 M/uL (4.7-6.1); WHITE BLOOD COUNT 6.45 K/uL (4.8-10.8)
[2016-11-05 07:35] LABS: BUN/CREATININE RATIO 19.2 (10-20); CALCIUM 8.4 mg/dl (8.5-10.1); CREATININE 0.91 mg/dl (0.60-1.40); POTASSIUM 3.6 mmol/L (3.5-5.1)
[2016-11-05 07:51] VITALS: BP 177/92; PULSE 83; TEMP 36.8; O2SAT 93
[2016-11-05] MEDS: FLUTICASONE/SALMETEROL 250/50 (ADVAIR) 14 PUFF/1 INHALER INH SCH (08:27)
[2016-11-05] MEDS: IPRATROPIUM BROMIDE/ALBUTEROL respimat INH INH SCH ×2 (08:27→14:34)
[2016-11-05] MEDS: [UNRECOGNIZED DRUG - OTHER] SCH ×3 (08:28→16:28)
[2016-11-05] MEDS: METOPROLOL SUCC 50MG EXT REL TAB PO SCH (08:28)
[2016-11-05] MEDS: ASPIRIN 81 MG ECTAB PO SCH (08:29)
[2016-11-05] MEDS: LISINOPRIL 10 MG TAB PO SCH (08:29)
[2016-11-05] MEDS: ENOXAPARIN 40 MG/0.4 ML SYR SQ SCH (08:30)
--- NOTE | 2016-11-05 09:53 | Hospitalist Progress Note ---
Hospitalist Progress Note Date of Service Nov 05, 2016. (Cathie Shell, PALarryC) Subjective Pt evaluation today including: conversation w/ patient, physical exam, chart review, lab review, review of studies, review of inpatient medication list Patient seen and evaluated. Reporting some increased SOB overnight and on supplemental O2. Patient reports this episode resolved and feels baseline. Still on O2 but states he "weans himself" as he takes it off in his room. Patient with mildly labored breathing but states this is his baseline. Only takes two inhalers does not use nebs at home. Does not want a nebulizer at this time. He does have mild exp. wheeze mostly in the R lung. Has a course cough and states he doesn't have a chronic cough. Feels baseline for resp. status. States he needs to have a BM before D/C. Does not feel that he needs to go yet. Doesn't use medications at home to bowel movements. No abdominal pain, + flatus, tolerating diet Constitutional: No fever, No chills Respiratory: + cough, + sputum, + wheezing, No shortness of breath Cardiovascular: No chest pain Abdomen: No pain, No nausea, No vomiting, No diarrhea, No constipation Musculoskeletal: No swelling, No calf pain (Catihe Shell, PA-C) Medications Current Inpatient Medications Medications (Trade) Dose Ordered Sig/María Route Start Time Stop Time Status Last Admin Dose Admin Ioversol (Optiray 320) 111 ml UD PRN IV 11/01/16 16:45 11/05/16 16:44 Atorvastatin Calcium (Lipitor Tab) 80 mg HS PO 11/02/16 21:00 12/02/16 20:59 11/04/16 20:39 80 MG Salmeterol Xinafoate/ Fluticasone (Advair Diskus 250/50 Inh) 1 puff BID INH 11/02/16 09:00 12/02/16 08:59 11/05/16 08:27 1 PUFF Albuterol/ Ipratropium (Combivent Respimat Inh) 1 puffs QID INH 11/02/16 09:00 12/02/16 08:59 11/05/16 08:27 1 PUFFS Sodium Chloride 1,000 ml @ 75 mls/hr [id number] IV 11/01/16 23:26 12/01/16 23:25 11/04/16 11:26 100 MLS/HR Ondansetron HCl (Zofran Inj) 4 mg Q4H PRN IV 11/01/16 23:30 12/01/16 23:29 Enoxaparin Sodium (Lovenox Inj) 40 mg QAM SQ 11/03/16 09:00 12/03/16 08:59 11/05/16 08:30 40 MG Aspirin (Ecotrin Tab) 81 mg DAILY PO 11/03/16 09:00 12/03/16 08:59 11/05/16 08:29 81 MG Lisinopril (Zestril Tab) 10 mg DAILY PO 11/03/16 09:00 12/03/16 08:59 11/05/16 08:29 10 MG Metoprolol Succinate (Toprol Xl Tab) 75 mg DAILY PO 11/03/16 09:00 12/03/16 08:59 11/05/16 08:28 75 MG Miscellaneous Information (Nursing Verbal Med Order) 1 ea QS N/A 11/03/16 16:00 12/03/16 15:59 11/05/16 08:28 1 EA Oxycodone/ Acetaminophen (Percocet 5-325mg Tab) 1 tab Q4H PRN PO 11/04/16 08:00 11/18/16 07:59 Oxycodone/ Acetaminophen (Percocet 5-325mg Tab) 2 tab Q4H PRN PO 11/04/16 08:00 11/18/16 07:59 Morphine Sulfate (MoRPHine SULFATE INJ) 1 mg Q1HWA PRN IV 11/04/16 08:00 11/18/16 07:59 Morphine Sulfate (MoRPHine SULFATE INJ) 2 mg Q1H PRN IV 11/04/16 08:00 11/18/16 07:59 Morphine Sulfate (MoRPHine SULFATE INJ) 4 mg Q1H PRN IV 11/04/16 08:00 11/18/16 07:59 (Cathie Shell, ANA) Objective Vital Signs Date Time Temp Pulse Resp B/P (MAP) Pulse Ox O2 Delivery O2 Flow Rate FiO2 11/05/16 07:51 36.8 83 18 177/92 (120) 93 11/05/16 01:00 36.4 11/05/16 00:56 92 152/86 (108) 91 Nasal Cannula 2.0 11/04/16 23:59 Nasal Cannula 2.0 11/04/16 23:42 121 191/98 (129) 94 11/04/16 15:32 36.6 93 22 149/65 (93) 97 11/04/16 15:03 Nasal Cannula 2.0 11/04/16 13:35 95 11/04/16 13:30 36.5 88 20 153/84 (107) 93 23.0 11/04/16 12:45 36.6 104 20 93 3.0 11/04/16 12:25 36.6 104 20 161/88 (112) 93 Nasal Cannula 3.0 11/04/16 12:00 Nasal Cannula 2.0 (Cathie Shell, PA-C) Physical Exam General Appearance: no apparent distress, + thin Eyes: sclerae normal ENT: hearing grossly normal Neck: supple, no JVD, trachea midline Respiratory/Chest: no accessory muscle use, + respiratory distress (mildly labored breathing - reporting baseline), + wheezing (R > L - expiratory) Cardiovascular: regular rate, rhythm, no gallop, no murmur Abdomen: normal bowel sounds, non tender, soft Extremities: no pedal edema, no calf tenderness 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iatric: alert, oriented x 3 Skin: normal color, warm/dry (Cathie Shell, PA-C) Laboratory Results Last 24 Hours Test 11/05/16 06:32 White Blood Count 6.45 K/uL Red Blood Count 3.36 M/uL Hemoglobin 10.9 g/dL Hematocrit 31.3 % Mean Corpuscular Volume 93.2 fL Mean Corpuscular Hemoglobin 32.4 pg Mean Corpuscular Hemoglobin Concent 34.8 g/dl Platelet Count 142 K/uL Mean Platelet Volume 10.4 fL Neutrophils (%) (Auto) 78.3 % Lymphocytes (%) (Auto) 9.5 % Monocytes (%) (Auto) 7.4 % Eosinophils (%) (Auto) 4.3 % Basophils (%) (Auto) 0.2 % Neutrophils # (Auto) 5.05 K/uL Lymphocytes # (Auto) 0.61 K/uL Monocytes # (Auto) 0.48 K/uL Eosinophils # (Auto) 0.28 K/uL Basophils # (Auto) 0.01 K/uL RDW Standard Deviation 47.1 fL RDW Coefficient of Variation 13.8 % Immature Granulocyte % (Auto) 0.3 % Immature Granulocyte # (Auto) 0.02 K/uL Sodium Level 143 mmol/L Potassium Level 3.6 mmol/L Chloride Level 113 mmol/L Carbon Dioxide Level 22 mmol/L Anion Gap 8.0 mmol/L Blood Urea Nitrogen 18 mg/dl Creatinine 0.91 mg/dl Est Creatinine Clear Calc Drug Dose 55.8 ml/min Estimated GFR () 95.2 Estimated GFR (Non- 82.2 BUN/Creatinine Ratio 19.2 Random Glucose 98 mg/dl Calcium Level 8.4 mg/dl (Cathie Shell PA-C) Assessment and Plan 76 year old admission for suspected ischemic bowel. Admission by surgery and plan on going straight from the ER to the OR on 11/01. Suspected Ischemic/Necrotic Bowel S/P Ex Lap 11/01: Surgery Primary - Awaiting BM - + flatus, no abdominal pain, tolerating diet Ischemic Cardiomyopathy, CAD, PVD: STABLE - ASA 81 mg daily, Atorvastatin 80 mg HS - Lisinopril 10 mg daily and Toprol XL 75 mg daily COPD without Exacerbation: - Patient with supplemental O2 - reports no O2 at home - feeling baseline -- Does have exp. wheeze and utilizes Advair and Combivent - does not utilize nebs and doesnt feel he needs one now - Continue Advair and Combivent MARÍA CKD: STABLE - Continue to monitor DVT Prophylaxis: SCDs; ambulation Code Status: FULL RESUSCITATION Disposition: D/C per primary (Cathie Shell PA-C) I agree with above note after discussing case with APC and examining patient. My exam findings are below and do not differ by APCs General Appearance: no apparent distress, + thin Eyes: sclerae normal ENT: hearing grossly normal Neck: supple, no JVD, trachea midline Respiratory/Chest: no accessory muscle use, + respiratory distress (mildly labored breathing - reporting baseline), + wheezing (R > L - expiratory) Cardiovascular: regular rate, rhythm, no gallop, no murmur Abdomen: normal bowel sounds, non tender, soft Extremities: no pedal edema, no calf tenderness 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iatric: alert, oriented x 3 Skin: normal color, warm/dry (Boone Baxter M.D.)
[2016-11-05] MEDS ORDERED: FUROSEMIDE INJ 20 MG in SYRINGE 0 ML IV ONE (14:00)
[2016-11-05 14:59] VITALS: BP 160/64; PULSE 83; TEMP 36.4; O2SAT 92
--- NOTE | 2016-11-05 15:23 | Surgery Progress Note ---
Surgery Progress Note Date of Service Nov 05, 2016. Subjective s/p ex-lap, RENETTA, reduction internal hernia, resection of small bowel strictured anastomosis. Overall doing well, tolerating diet. passing gas and had a bowel movement today. Urinating, ambulating. Some shortness of breath last night resolved with lasix and decreasing fluids. Not requiring o2 but borderline pulse ox. Wants to go home Objective Vital Signs: Date Time Temp Pulse Resp B/P (MAP) Pulse Ox O2 Delivery O2 Flow Rate FiO2 11/05/16 14:59 36.4 83 18 160/64 (96) 92 Room Air 11/05/16 07:51 36.8 83 18 177/92 (120) 93 11/05/16 01:00 36.4 11/05/16 00:56 92 152/86 (108) 91 Nasal Cannula 2.0 11/04/16 23:59 Nasal Cannula 2.0 11/04/16 23:42 121 191/98 (129) 94 11/04/16 15:32 36.6 93 22 149/65 (93) 97 General Appearance: WD/WN, no apparent distress Head: normocephalic, atraumatic Neck: supple, no adenopathy, thyroid normal Respiratory/Chest: chest non-tender, no respiratory distress, no accessory muscle use, + wheezing Cardiovascular: regular rate, rhythm, no edema, no JVD Abdomen: normal bowel sounds, non tender, non distended, soft Incision(s): clean, dry, intact, no erythema, no drainage Extremities: normal range of motion, non-tender, no pedal edema Laboratory Results: Results Past 24 Hours Test 11/05/16 06:32 Range/Units White Blood Count 6.45 4.8-10.8 K/uL Red Blood Count 3.36 4.7-6.1 M/uL Hemoglobin 10.9 14.0-18.0 g/dL Hematocrit 31.3 42-52 % Mean Corpuscular Volume 93.2 80-100 fL Mean Corpuscular Hemoglobin 32.4 25-34 pg Mean Corpuscular Hemoglobin Concent 34.8 32-36 g/dl Platelet Count 142 130-400 K/uL Mean Platelet Volume 10.4 7.4-10.4 fL Neutrophils (%) (Auto) 78.3 % Lymphocytes (%) (Auto) 9.5 % Monocytes (%) (Auto) 7.4 % Eosinophils (%) (Auto) 4.3 % Basophils (%) (Auto) 0.2 % Neutrophils # (Auto) 5.05 1.4-6.5 K/uL Lymphocytes # (Auto) 0.61 1.2-3.4 K/uL Monocytes # (Auto) 0.48 0.11-0.59 K/uL Eosinophils # (Auto) 0.28 0-0.5 K/uL Basophils # (Auto) 0.01 0-0.2 K/uL RDW Standard Deviation 47.1 36.4-46.3 fL RDW Coefficient of Variation 13.8 11.5-14.5 % Immature Granulocyte % (Auto) 0.3 % Immature Granulocyte # (Auto) 0.02 0.00-0.02 K/uL Sodium Level 143 136-145 mmol/L Potassium Level 3.6 3.5-5.1 mmol/L Chloride Level 113 98-107 mmol/L Carbon Dioxide Level 22 21-32 mmol/L Anion Gap 8.0 3-11 mmol/L Blood Urea Nitrogen 18 7-18 mg/dl Creatinine 0.91 0.60-1.40 mg/dl Est Creatinine Clear Calc Drug Dose 55.8 ml/min Estimated GFR () 95.2 Estimated GFR (Non- 82.2 BUN/Creatinine Ratio 19.2 10-20 Random Glucose 98 70-99 mg/dl Calcium Level 8.4 8.5-10.1 mg/dl Assessment & Plan s/p ex-lap, RENETTA and small bowel resection, doing well, anxious to go home Plan discharge to home follow up with Dr. Diez 10-14 days after surgery wound care instructions and activity limitations reviewed Maribell Gonzalez DO
[2016-11-05 16:21] VITALS: BP 160/64; PULSE 83; TEMP 36.4; O2SAT 92
--- NOTE | 2016-11-08 09:47 | Discharge Summary ---
Discharge Summary Dates Admission Date / Time: Nov 01, 2016 at 23:30 Discharge Date: Nov 05, 2016 Dispostion / Condition Discharge Disposition: Home Condition at Discharge: Good Principal Diagnosis (1) Internal hernia (2) SBO (small bowel obstruction) (3) Abdominal pain Problem List (1) SBO (small bowel obstruction) (2) Internal hernia (3) Abdominal aortic aneurysm (4) Benign hypertension (5) Hyperlipidemia (6) Bronchitis (7) Pacemaker Consultations / Procedures Consultations: Medicine Physical Therapy Procedures: Exploratory laparotomy, lysis of adhesions, small bowel resection with primary anastomosis Pending Studies / Follow-Up None Medication Reconciliation New Medications: Oxycodone/Acetaminophen 5MG/325MG (Percocet 5MG/325MG) Tab 1-2 TABLETS PO Q4H PRN for Pain, #30 TAB Continued Medications: Aspirin Enteric Coated (Ecotrin Or Generic) 81 Mg Tab 81 MG PO DAILY, TAB Atorvastatin Calcium (Lipitor) 80 Mg Tab 80 MG PO HS, TAB Fluticasone Prop/Salmeterol (Advair Diskus 250/50 60 Dose) 1 Ea Aerp 1 PUFF INH BID, INHALER Ipratropium-Albuterol (Combivent Respimat) 1 Aer Aer 2 PUFFS INH QID, INH Lisinopril (Prinivil) 10 Mg Tab 10 MG PO DAILY, TAB Metoprolol Succinate (Metoprolol Succinate ER) 50 Mg Tabcr 75 MG PO DAILY Mometasone Furoate (Mometasone Furoate) 135 Appln/45 Gm Cr 1 DOSE TOP BID, #15 IN EARS Admission HPI Per the Admitting provider: Thony Jasmine is a 76 year old man with HTN, hyperlipidemia, COPD, history of open AAA repair, multiple ventral hernias and history of small bowel resection who presents with acute abdominal pain. Patient states pain started acutely at 11: 30am this morning, and has been gradually worsening. He is extremely uncomfortable on examination. Associated with nausea and vomiting. Pain is diffuse, does not radiate. Denies constipation / diarrhea, melena / hematochezia; last BM was approximately 2pm this afternoon, noted to be normal / solid / formed. Denies fever, chills, headaches, dizziness, vision changes, chest pain, SOB, dysuria or urinary symptoms, pain / numbness / swelling / tingling in extremities. He has a history of small bowel resection (patient reports 3ft of small bowel removed) "because it " (patient is unclear if incarceration, hernia, etc as cause of resection). He is a current 2 cigarette per day smoker. He has a pacemaker / defibrillator in place. He has multiple ventral hernias, which have been present for many years - no incarceration of hernias noted on physical exam. Takes 81mg aspirin daily - no other anticoagulation. Hospital Course (1) Internal hernia Patient was immediately taken to operating room for exploratory laparotomy possible bowel resection possible ostomy. Patient tolerated procedure well without any complications. During procedure was found to have internal hernia, two restrictive adhesive bands, and stenosis of small bowel proximal to previous anastomosis. Small bowel was resected with primary anastomosis. Patient was taken to PACU in stable condition and then to PCU for post operative care. Post operative orders included IV fluids of NSS at 100 mls/hr, NPO, NGT to LIS, Schuster to [place], Dilaudid JOB TRACER prn pain, IV Zofran, IV Ancef for 72 hours post op, IV metoprolol for rate control, oxygen per protocol, and activity as tolerated. POD # 1 pain was controlled. Had 1 liter of dark output from NGT. NO nausea or vomiting. No immediate changes. POD # 2 oxygen was low 90's with 2L via Nasal cannula. NGT with minimal output and removed. Clear liquid diet started. Schuster catheter removed. Home medications resumed and Prophylactic Lovenox started. POD # 3 tolerated clear liquids, diet advanced to low fiber diet after lunch. JOB TRACER was discontinued and oral narcotics started prn pain. IV metoprolol discontinued. POD # 4 patient was passing flatus and had a bowel movement. Oxygen currently low 90's on room air. Tolerated low fiber diet. Pain controlled. Ambulating and urinating without difficulty. He was discharged on POD # 4 in stable condition. Overall hospital course was uneventful. (2) Bowel obstruction Please refer to above Discharge Instructions As given to patient Copies To Primary Care Provider: RV. Bond MD.
== END 2016-11-05 17:38 | disposition home or self-care (01) | DRG 329 ==
LOC: EDBD 16:03 → C.EDC 16:04 → C.2E 23:30 → ENRESERV 11-02 00:06 → C.MS2W 11-04 12:52
PROVIDERS: ADMIT Student in an Organized Health Care Education/Training Program; ATTEND Student in an Organized Health Care Education/Training Program
PROC: 0DB80ZZ Excision of Small Intestine, Open Approach (ICD-10-PCS; principal; 2016-11-01 20:00)
PROC: 0DN80ZZ Release Small Intestine, Open Approach (ICD-10-PCS; principal; 2016-11-01 20:00)
DX: K56.5 Intestinal adhesions [bands] with obstruction (postinfection) (principal); K55.019 Acute (reversible) ischemia of small intestine, extent unspecified; R64 Cachexia; R06.02 Shortness of breath; I12.9 Hypertensive chronic kidney disease with stage 1 through stage 4 chronic kidney disease, or unspecified chronic kidney disease; N18.9 Chronic kidney disease, unspecified; J43.9 Emphysema, unspecified; E78.5 Hyperlipidemia, unspecified; I25.10 Atherosclerotic heart disease of native coronary artery without angina pectoris; I25.5 Ischemic cardiomyopathy; I73.9 Peripheral vascular disease, unspecified; I45.10 Unspecified right bundle-branch block; I35.0 Nonrheumatic aortic (valve) stenosis; F17.210 Nicotine dependence, cigarettes, uncomplicated; I25.2 Old myocardial infarction; Z68.21 Body mass index [BMI] 21.0-21.9, adult; Z90.49 Acquired absence of other specified parts of digestive tract; Z95.810 Presence of automatic (implantable) cardiac defibrillator; Z87.01 Personal history of pneumonia (recurrent); Z79.51 Long term (current) use of inhaled steroids; Z79.82 Long term (current) use of aspirin; Z79.899 Other long term (current) drug therapy

== ENCOUNTER → 2017-03-01 | Outpatient (CLI) | payer OTHER ==
[~2017-03-01] MED LIST changes: +ADVIN25/60 INH; -LISI-725 PO; +LISI10TA PO; -MOME100A INH; +OXYC-57 PO; +[UNRECOGNIZED DRUG - CODE] TOP
--- NOTE | 2017-03-01 11:09 | DIAGNOSTIC IMAGING REPORT ---
CHEST 2 VIEWS ROUTINE CLINICAL HISTORY: COUGH dyspnea COMPARISON STUDY: 11/02/2016 FINDINGS: Emphysematous and chronic fibrotic change. Bipolar cardiac pacemaker/defibrillator with leads in good position. No focal infiltrate. Nodularity referral aspect right midlung unchanged. IMPRESSION: Stable emphysematous change with no focal infiltrative process. Mild chronic fibrotic change with unchanging right midlung nodularity. No acute process. The above report was generated using voice recognition software. It may contain grammatical, syntax or spelling errors. Electronically signed by: José Casey M.D. 03/01/2017 11:07 AM Dictated Date/Time: 03/01/2017 11:06 AM
== END | disposition home or self-care (01) ==
LOC: C.RADPV 10:50
PROVIDERS: ATTEND Internal Medicine
DX: R05 Cough (principal)

== ENCOUNTER 2017-05-27 19:32 | Inpatient (IN) | payer OTHER ==
[~2017-05-27] VITALS: Ht 160 cm; Wt 55.7 kg
[~2017-05-27 19:32] MED LIST changes: -OXYC-57 PO
[2017-05-27] MEDS ORDERED: METHYLPREDNISOLONE 125 MG VIAL IV STA (19:52)
[2017-05-27] MEDS ORDERED: LEVALBUTEROL 1.25MG/0.5ML NEB INH ONE (20:00)
[2017-05-27] MEDS ORDERED: IPRATROPIUM BROMIDE NEB SOLN 0.02% 2.5 ML VIAL INH ONE (20:00)
[2017-05-27 20:16] LABS: BASO % 0.2 %; BASO ABS # 0.01 K/uL (0-0.2); EOS % 0.5 %; EOS ABS # 0.02 K/uL (0-0.5); HEMATOCRIT 43.6 % (42-52); HEMOGLOBIN 15.4 g/dL (14.0-18.0); IG# 0.01 K/uL (0.00-0.02); LYMPH % 15.3 %; LYMPH ABS # 0.66 K/uL (1.2-3.4); MEAN CELL VOLUME 93.6 fL (80-100); MEAN CORPUSCULAR HGB CONC 35.3 g/dl (32-36); MEAN PLATELET VOLUME 9.9 fL (7.4-10.4); MONO % 10.9 %; MONO ABS # 0.47 K/uL (0.11-0.59); NEUT % 72.9 %; NEUT ABS # 3.15 K/uL (1.4-6.5); PLATELET COUNT 163 K/uL (130-400); RED CELL DISTRIBUTION WIDTH CV 13.4 % (11.5-14.5); RED CELL DISTRIBUTION WIDTH SD 45.8 fL (36.4-46.3); WHITE BLOOD COUNT 4.32 K/uL (4.8-10.8)
[2017-05-27 20:17] VITALS: PULSE 78; O2SAT 96
[2017-05-27 20:25] LABS: PTT PATIENT 31.3 SECONDS (21.0-31.0)
[2017-05-27 20:27] LABS: ALBUMIN 3.6 gm/dl (3.4-5.0); CALCIUM 9.2 mg/dl (8.5-10.1); CREATININE 1.44 mg/dl (0.60-1.40); POTASSIUM 4.2 mmol/L (3.5-5.1)
[2017-05-27 20:30] LABS: TOTAL PROTEIN 8.1 gm/dl (6.4-8.2)
[2017-05-27] MEDS ORDERED: ALUMINUM/MAGNESIUM/SIMETH (MAALOX MAX) 30 ML UDC PO PRN (21:15)
[2017-05-27] MEDS ORDERED: ONDANSETRON INJ 2 MG/ML 2 ML VIAL IV PRN (21:15)
[2017-05-27] MEDS ORDERED: ACETAMINOPHEN 325 MG TAB PO PRN (21:15)
[2017-05-27] MEDS ORDERED: MAGNESIUM HYDROXIDE SUSP 30 ML UDC PO PRN (21:15)
[2017-05-27] MEDS ORDERED: LEVAQUIN 750MG / 150ML D5W IV SCH (21:15)
[2017-05-27] MEDS ORDERED: POLYETHYLENE (MIRALAX) 17 GM PACK PO PRN (21:15)
--- NOTE | 2017-05-27 21:30 | DIAGNOSTIC IMAGING REPORT ---
CHEST ONE VIEW PORTABLE CLINICAL HISTORY: 77 years-old Male presenting with CHEST PAIN. TECHNIQUE: Portable upright AP view of the chest was obtained. COMPARISON: 03/01/2017. FINDINGS: Left subclavian implanted cardiac defibrillator with leads to the right atrium and right ventricular apex. Atherosclerosis of aortic arch. Cardiac silhouette top normal in size. Lungs hyperinflated. Unchanged bandlike opacity in the periphery of the right midlung. No new focal opacity. No large effusion or pneumothorax. Prominent skin fold over the periphery of the right upper hemithorax. Osseous structures normal. Upper abdomen normal. IMPRESSION: 1. Findings suggest underlying emphysema. Unchanged right mid lung scarring or atelectasis. No new superimposed focal infiltrate. Electronically signed by: Thony Moreno M.D. 05/27/2017 9:29 PM Dictated Date/Time: 05/27/2017 9:27 PM
--- NOTE | 2017-05-27 21:42 | History and Physical ---
History & Physical Date & Time of Service: May 27, 2017 at 21:41 Chief Complaint: SOB Primary Care Physician: RV. Bond MD History of Present Illness Source: patient, clinic records, hospital records 77 yo M HTN HLD, Aortic Stenosis, Ischemic CM with Biventricular ICD, PVD, AAA s /p repair, hx of NSTEMI p/w 5 day history worsening SOB.He tried taking his home advair and combivent ( 4x/day). He continues to report persistent dry cough , wheezing. He denies fevers, chills. He denies Chest pain, palpation. ( ICD has not fired). He denies light headedness or dizziness, N/V abdominal pain , diarrhea. No orthopnea, no paroxysmal nocturnal dyspnea. He did have a flu vaccine this season. He reports he has gotten pneumonia vaccine. Past Medical/Surgical History Medical Problems: (1) Abdominal aortic aneurysm (2) Abdominal pain (3) Abdominal pain (4) Benign hypertension (5) Bowel obstruction (6) Bowel obstruction (7) Bronchitis (8) Bronchitis (9) COPD exacerbation (10) Elevation of cardiac enzymes (11) Elevation of cardiac enzymes (12) History of heart attack (13) Hyperlipidemia (14) Ileus (15) Ileus (16) Internal hernia (17) Mesenteric ischemia (18) Pacemaker (19) SBO (small bowel obstruction) (20) Small bowel obstruction (21) Small bowel obstruction Family History Patient reports no known family medical history. Social History Smoking Status: Light Tobacco Smoker (2 cigarettes /day) Smokeless Tobacco Use: No Alcohol Use: none Drug Use: none Marital Status: Housing status: lives with family Occupational Status: retired Immunizations History of Influenza Vaccine: Yes History of Tetanus Vaccine?: Unknown History of Pneumococcal: Unknown Pneumococcal Date: Sep 30, 2011 History of Hepatitis B Vaccine: Unknown Allergies Coded Allergies: No Known Allergies (Unverified , 05/27/17) Home Medications Scheduled Aspirin Enteric Coated (Ecotrin Or Generic), 81 MG PO DAILY Atorvastatin (Lipitor), 80 MG PO HS Fluticasone Prop/Salmeterol (Advair Diskus 250/50 60 Dose), 1 PUFF INH BID Ipratropium-Albuterol (Combivent Respimat), 2 PUFFS INH QID Lisinopril (Prinivil), 10 MG PO DAILY Metoprolol Succinate (Metoprolol Succinate ER), 75 MG PO DAILY Review of Systems Constitutional: No fever, No chills, No sweats Respiratory: + cough, + wheezing, + shortness of breath Cardiovascular: + chest pain, + edema, + palpitations Abdomen: No pain, No nausea, No vomiting, No diarrhea Genitourinary - Male: No dysuria, No urinary frequency, No urinary urgency Integumentary: No rash, No itch Physical Exam Vital Signs Date Time Temp Pulse Resp B/P (MAP) Pulse Ox O2 Delivery O2 Flow Rate FiO2 05/27/17 20:29 78 05/27/17 20:24 88 20 120/70 05/27/17 20:17 78 16 96 Nasal Cannula 3.0 05/27/17 20:09 95 Nasal Cannula 05/27/17 20:05 88 Room Air 05/27/17 20:05 37.1 90 26 133/64 95 Nasal Cannula 2.0 General Appearance: WD/WN, + thin Head: normocephalic, atraumatic Eyes: PERRL, EOMI, sclerae normal ENT: pharynx normal Neck: supple, no adenopathy, trachea midline Respiratory/Chest: chest non-tender, + respiratory distress, + rhonchi, + wheezing Cardiovascular: regular rate, rhythm, no edema, no murmur, normal peripheral pulses Abdomen/GI: normal bowel sounds, non tender, soft Back: normal inspection, normal range of motion Extremities/Musculoskelatal: no calf tenderness, no pedal edema 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: alert, normal mood/affect, oriented x 3 Skin: warm/dry, no rash, + rash Diagnostics Laboratory Results Results Past 24 Hours Test 05/27/17 19:57 05/27/17 20:01 05/27/17 20:03 Range/Units White Blood Count 4.32 4.8-10.8 K/uL Red Blood Count 4.66 4.7-6.1 M/uL Hemoglobin 15.4 14.0-18.0 g/dL Hematocrit 43.6 42-52 % Mean Corpuscular Volume 93.6 80-100 fL Mean Corpuscular Hemoglobin 33.0 25-34 pg Mean Corpuscular Hemoglobin Concent 35.3 32-36 g/dl Platelet Count 163 130-400 K/uL Mean Platelet Volume 9.9 7.4-10.4 fL Neutrophils (%) (Auto) 72.9 % Lymphocytes (%) (Auto) 15.3 % Monocytes (%) (Auto) 10.9 % Eosinophils (%) (Auto) 0.5 % Basophils (%) (Auto) 0.2 % Neutrophils # (Auto) 3.15 1.4-6.5 K/uL Lymphocytes # (Auto) 0.66 1.2-3.4 K/uL Monocytes # (Auto) 0.47 0.11-0.59 K/uL Eosinophils # (Auto) 0.02 0-0.5 K/uL Basophils # (Auto) 0.01 0-0.2 K/uL RDW Standard Deviation 45.8 36.4-46.3 fL RDW Coefficient of Variation 13.4 11.5-14.5 % Immature Granulocyte % (Auto) 0.2 % Immature Granulocyte # (Auto) 0.01 0.00-0.02 K/uL Prothrombin Time 10.2 9.0-12.0 SECONDS Prothromb Time International Ratio 1.0 0.9-1.1 Activated Partial Thromboplast Time 31.3 21.0-31.0 SECONDS Partial Thromboplastin Ratio 1.2 Sodium Level 135 136-145 mmol/L Potassium Level 4.2 3.5-5.1 mmol/L Chloride Level 102 98-107 mmol/L Carbon Dioxide Level 27 21-32 mmol/L Anion Gap 6.0 3-11 mmol/L Blood Urea Nitrogen 31 7-18 mg/dl Creatinine 1.44 0.60-1.40 mg/dl Est Creatinine Clear Calc Drug Dose 34.3 ml/min Estimated GFR () 54.3 Estimated GFR (Non- 46.8 BUN/Creatinine Ratio 21.7 10-20 Random Glucose 115 70-99 mg/dl Calcium Level 9.2 8.5-10.1 mg/dl Total Bilirubin 0.5 0.2-1 mg/dl Direct Bilirubin 0.1 0-0.2 mg/dl Aspartate Amino Transf (AST/SGOT) 58 15-37 U/L Alanine Aminotransferase (ALT/SGPT) 43 12-78 U/L Alkaline Phosphatase 125 45-117 U/L Total Protein 8.1 6.4-8.2 gm/dl Albumin 3.6 3.4-5.0 gm/dl Lipase 395 73-393 U/L Bedside Lactic Acid Venous 2.07 0.90-1.70 mmol/L Bedside Troponin I 0.090 0-0.045 ng/ml Microbiology Results 05/27/17 Blood Culture, Received Pending 05/27/17 Blood Culture, Received Pending Diagnostic Radiology CHEST ONE VIEW PORTABLE CLINICAL HISTORY: 77 years-old Male presenting with CHEST PAIN. TECHNIQUE: Portable upright AP view of the chest was obtained. COMPARISON: 03/01/2017. FINDINGS: Left subclavian implanted cardiac defibrillator with leads to the right atrium and right ventricular apex. Atherosclerosis of aortic arch. Cardiac silhouette top normal in size. Lungs hyperinflated. Unchanged bandlike opacity in the periphery of the right midlung. No new focal opacity. No large effusion or pneumothorax. Prominent skin fold over the periphery of the right upper hemithorax. Osseous structures normal. Upper abdomen normal. IMPRESSION: 1. Findings suggest underlying emphysema. Unchanged right mid lung scarring or atelectasis. No new superimposed focal infiltrate. Impression Assessment and Plan 77 yo M HTN HLD, Aortic Stenosis, Ischemic CM with Biventricular ICD, PVD, AAA s /p repair, hx of NSTEMI p/w 5 day history worsening SOB admitted with COPD exacerbation In the ED he was afebrile, saturating well on 2-3 L NC. He was given Xopenex/ Atrovent nebs, IV Solumedrol 125 mg Dyspnea: secondary to COPD Exacerbation -SOB wheezing, cough, maintains saturation on 2L NC -IV Solumedrol 40 q8 -Duonebs -Sputum gram stain cx -Blood cx's pending - IV Levaquin 750 mg daily -Guaifenesin Ischemic CM s/p Biventricular ICD, hx of NSTEMI, PVD - c/w ASA, Lipitor, Metoprolol Hypertension - c/w Lisinopril, Metoprolol DVT Prophylaxis -Lovenox Code status: DNR Attending addendum: I have physically seen this patient, have supervised the medical residents activities, and agree with the H&P unless as otherwise noted. Assessment and Plan: COPD exacerbation-- Levofloxacin 500 mg IV every 24 hours Solu-Medrol 40 mg IV every 8 hours Guaifenesin extended release 600 mg by mouth twice a day Xopenex/Atovent nebs q6hwa and q2h prn Nasal cannula 2 L of oxygen titrating to keep pulse ox greater than or equal to 92%. CAD/hypertension/ICM/status post AICD/hypertension-- Continue aspirin, metoprolol and lisinopril. Advanced Directives Existing Advance Directive: Yes Existing Living Will: Yes Existing Power of Repairer Engine Production: No Resuscitation Status VTE Prophylaxis Will order VTE Prophylaxis: Yes Note Total Time: Critical Care 30 - 74 minutes Resident Tracking Resident Involvement: Resident Care Provided Care Provided: Adult Hospital Medicine
--- NOTE | 2017-05-27 21:46 | EMERGENCY ROOM VISIT NOTE ---
History Report prepared by Dustin: Sonam Bella Under the Supervision of: Dr. Vidal Arevalo M.D. First contact with patient: 19:45 Stated Complaint: SOB History of Present Illness The patient is a 77 year old male who presents to the Emergency Room with complaints of worsening shortness of breath over the past few days. Per EMS, the patient has a history of COPD. They report that he told them it is worse with exertion. They state that they gave him 2 DuoNebs. The patient states that that it doesn't feel like a COPD exacerbation, but like pneumonia. He reports that he takes one inhaler 4 times a day and the other 2 times a day with no relief. The patient complains of a nonproductive cough. The patient denies his defibrillator going off, swelling in his legs, abdominal pain, nausea, vomiting , diarrhea, and being on oxygen at home. The patient notes a history of two heart attacks. Source of History: patient, EMS Onset: past few days Position: other (global) Quality: other (shortness of breath) Timing: worsening Modifying Factors (Worsening): exertion Associated Symptoms: + cough, No nausea, No vomiting, No abdominal pain, No diarrhea Note: The patient denies swelling in his legs. Review of Systems See HPI for pertinent positives & negatives. A total of 10 systems reviewed and were otherwise negative. Past Medical & Surgical Medical Problems: (1) Abdominal aortic aneurysm (2) Benign hypertension (3) Bowel obstruction (4) COPD exacerbation (5) History of heart attack (6) Hyperlipidemia Old medical records were reviewed. Nurse's notes were reviewed and I agree with. Family History Patient reports no known family medical history. Social History Smoking Status: Current Every Day Smoker Alcohol Use: none Drug Use: none Marital Status: Housing Status: lives alone Occupation Status: retired Current/Historical Medications Scheduled Aspirin Enteric Coated (Ecotrin Or Generic), 81 MG PO DAILY Atorvastatin (Lipitor), 80 MG PO HS Fluticasone Prop/Salmeterol (Advair Diskus 250/50 60 Dose), 1 PUFF INH BID Ipratropium-Albuterol (Combivent Respimat), 2 PUFFS INH QID Lisinopril (Prinivil), 10 MG PO DAILY Metoprolol Succinate (Metoprolol Succinate ER), 75 MG PO DAILY Allergies Coded Allergies: No Known Allergies (Unverified , 05/27/17) Physical Exam Vital Signs Date Time Temp Pulse Resp B/P (MAP) Pulse Ox O2 Delivery O2 Flow Rate FiO2 05/27/17 20:29 78 05/27/17 20:24 88 20 120/70 05/27/17 20:17 78 16 96 Nasal Cannula 3.0 05/27/17 20:09 95 Nasal Cannula 05/27/17 20:05 88 Room Air 05/27/17 20:05 37.1 90 26 133/64 95 Nasal Cannula 2.0 Physical Exam General: Mild to moderate ill appearing older male. Moderately tachypneic, but speaking in full sentences. HEENT: Normal cephalic atraumatic. Pupils are equal round and reactive to light. Extraocular movements are intact. Oropharynx is pink with moist mucous membranes. No swelling of the mouth lips or tongue. Neck: Supple with a midline trachea. No meningeal signs or stiffness, no JVD or bruits. No Stridor. Chest: Wheezing bilaterally. No rhonchi. No increased work of breathing. Defibrillator in left chest. Heart: regular rate and rhythm. Abdomen: Soft nontender, nondistended without rebound guarding or rigidity. Extremities: No cyanosis clubbing or edema. No calf tenderness or assymetry Spine/Back. Non tender to palpation. No CVA tenderness Skin: Good turgor without rashes. Neurologic exam: Cranial nerves two through 12 are intact. Motor and sensation are intact and symmetrical throughout. Medical Decision & Procedures ER Provider Diagnostic Interpretation: Radiology results as stated below per my review and radiologist interpretation: CHEST ONE VIEW PORTABLE CLINICAL HISTORY: 77 years-old Male presenting with CHEST PAIN. TECHNIQUE: Portable upright AP view of the chest was obtained. COMPARISON: 03/01/2017. FINDINGS: Left subclavian implanted cardiac defibrillator with leads to the right atrium and right ventricular apex. Atherosclerosis of aortic arch. Cardiac silhouette top normal in size. Lungs hyperinflated. Unchanged bandlike opacity in the periphery of the right midlung. No new focal opacity. No large effusion or pneumothorax. Prominent skin fold over the periphery of the right upper hemithorax. Osseous structures normal. Upper abdomen normal. IMPRESSION: 1. Findings suggest underlying emphysema. Unchanged right mid lung scarring or atelectasis. No new superimposed focal infiltrate. Electronically signed by: Thony Moreno M.D. 05/27/2017 9:29 PM Dictated Date/Time: 05/27/2017 9:27 PM Laboratory Results 05/27/17 19:57 Red Blood Count 4.66, Mean Corpuscular Volume 93.6, Mean Corpuscular Hemoglobin 33.0, Mean Corpuscular Hemoglobin Concent 35.3, Mean Platelet Volume 9.9, Neutrophils (%) (Auto) 72.9, Lymphocytes (%) (Auto) 15.3, Monocytes (%) (Auto) 10.9, Eosinophils (%) (Auto) 0.5, Basophils (%) (Auto) 0.2, Neutrophils # (Auto ) 3.15, Lymphocytes # (Auto) 0.66, Monocytes # (Auto) 0.47, Eosinophils # (Auto ) 0.02, Basophils # (Auto) 0.01 05/27/17 19:57 Test 05/27/17 19:57 05/27/17 20:01 05/27/17 20:03 White Blood Count 4.32 K/uL (4.8-10.8) Red Blood Count 4.66 M/uL (4.7-6.1) Hemoglobin 15.4 g/dL (14.0-18.0) Hematocrit 43.6 % (42-52) Mean Corpuscular Volume 93.6 fL (80-100) Mean Corpuscular Hemoglobin 33.0 pg (25-34) Mean Corpuscular Hemoglobin Concent 35.3 g/dl (32-36) Platelet Count 163 K/uL (130-400) Mean Platelet Volume 9.9 fL (7.4-10.4) Neutrophils (%) (Auto) 72.9 % Lymphocytes (%) (Auto) 15.3 % Monocytes (%) (Auto) 10.9 % Eosinophils (%) (Auto) 0.5 % Basophils (%) (Auto) 0.2 % Neutrophils # (Auto) 3.15 K/uL (1.4-6.5) Lymphocytes # (Auto) 0.66 K/uL (1.2-3.4) Monocytes # (Auto) 0.47 K/uL (0.11-0.59) Eosinophils # (Auto) 0.02 K/uL (0-0.5) Basophils # (Auto) 0.01 K/uL (0-0.2) RDW Standard Deviation 45.8 fL (36.4-46.3) RDW Coefficient of Variation 13.4 % (11.5-14.5) Immature Granulocyte % (Auto) 0.2 % Immature Granulocyte # (Auto) 0.01 K/uL (0.00-0.02) Prothrombin Time 10.2 SECONDS (9.0-12.0) Prothromb Time International Ratio 1.0 (0.9-1.1) Activated Partial Thromboplast Time 31.3 SECONDS (21.0-31.0) Partial Thromboplastin Ratio 1.2 Anion Gap 6.0 mmol/L (3-11) Est Creatinine Clear Calc Drug Dose 34.3 ml/min Estimated GFR () 54.3 Estimated GFR (Non- 46.8 BUN/Creatinine Ratio 21.7 (10-20) Calcium Level 9.2 mg/dl (8.5-10.1) Total Bilirubin 0.5 mg/dl (0.2-1) Direct Bilirubin 0.1 mg/dl (0-0.2) Aspartate Amino Transf (AST/SGOT) 58 U/L (15-37) Alanine Aminotransferase (ALT/SGPT) 43 U/L (12-78) Alkaline Phosphatase 125 U/L (45-117) Total Protein 8.1 gm/dl (6.4-8.2) Albumin 3.6 gm/dl (3.4-5.0) Lipase 395 U/L (73-393) Bedside Lactic Acid Venous 2.07 mmol/L (0.90-1.70) Bedside Troponin I 0.090 ng/ml (0-0.045) Laboratory studies as stated above per my review. Medications Administered Medications (Trade) Dose Ordered Sig/María Route Start Time Stop Time Status Last Admin Dose Admin Levalbuterol (Xopenex 1.25MG/ 0.5ML Neb) 5 mg ONE ONCE INH 05/27/17 20:00 05/27/17 20:01 DC 05/27/17 20:14 5 MG Ipratropium [place] (Atrovent 0.02% 0.5MG/2.5ML Neb) 2 mg ONE ONCE INH 05/27/17 20:00 05/27/17 20:01 DC 05/27/17 20:14 2 MG Methylprednisolone Sodium Succinate (Solu-Medrol IV) 125 mg NOW STAT IV 05/27/17 19:52 05/27/17 19:55 DC 05/27/17 20:07 125 MG ECG Per My Interpretation Indication: SOB/dyspnea Rate (beats per minute): 85 Rhythm: normal sinus Findings: PVC, no acute ischemic change, other (poor baseline, nonspecific intraventricular conduction) Comparison ECG Date: 11/02/2016 Change: QRS complexes increased. ED Course 1946: Past medical records reviewed. The patient was evaluated in room A9B, and a complete history and physical examination were performed. 1951: Ordered Solu-Medrol IV 125 mg IV. 1999: Ordered Ipratropium [place] 2 mg INH, Levalbuterol 5 mg INH. 2032: I reevaluated the patient and he is feeling better after the nebulizers. 2047: Discussed the patient's case with Dr. Rani HARRIS Hospitalist. The patient will be evaluated for further management. Medical Decision Differential diagnoses include COPD exacerbation, pneumonia, bronchitis, CHF, pneumothorax, anemia, electrolyte abnormality, metabolic abnormality. This patient comes in as described above. He was placed in room a 9. He is here for treatment and evaluation of shortness of breath. Does have a history of severe COPD and has had a cough as well. This is been getting worse over the last week he is more short of breath with exertion. He does have wheezes on exam and appears to be mild to moderately tachypneic initially. IV access established blood including blood cultures were obtained and lactic acid. Chest x-ray was obtained as well and does not show congestive heart failure any definite pneumonia or pneumothorax. His lactic acid is mildly elevated just above 2. EKG does not suggest acute coronary syndrome or arrhythmia. I think this is mostly just a COPD exacerbation at this point may be an underlying bronchitis. He was also given IV Solu-Medrol as well as a Xopenex and Atrovent nebs over 1 hour continuously. He was reassessed frequently and will be admitted to the [facility] hospitalist group. Medication Reconcilliation Current Medication List: was personally reviewed by me Blood Pressure Screening Patient's blood pressure: Normal blood pressure Will be further monitored by the hospitalist. Consults Time Called: 2039 Consulting Physician: Dr. Rani HARRIS Hospitalist Returned Call: [phone] Discussed the patient's case with Dr. Dela [facility]- [facility]. The patient will be evaluated for further management. Impression Primary Impression: COPD exacerbation Additional Impressions: Hypoxemia Elevated troponin Scribe Attestation The scribe's documentation has been prepared under my direction and personally reviewed by me in its entirety. I confirm that the note above accurately reflects all work, treatment, procedures, and medical decision making performed by me. Departure Information Dispostion Being Evaluated By Hospitalist Referrals RV. Bond MD (PCP) Problem Qualifiers
[2017-05-27] MEDS ORDERED: LEVOFLOXACIN CONSULT ACTIVE PRN (22:45)
[2017-05-27 22:58] VITALS: BP 117/66; PULSE 85; TEMP 36.4; O2SAT 93; Ht 160 cm; Wt 55.7 kg
[2017-05-27 23:46] VITALS: BP 113/63; PULSE 78; TEMP 36.6; O2SAT 98
[2017-05-27] MEDS: GUAIFENESIN 200 MG TAB PO SCH (23:52)
[2017-05-27] MEDS ORDERED: SODIUM CHLORIDE 0.9% 1000ML 1,000 ML IV SCH (23:59)
[2017-05-28] VITALS (12 sets, daily range): BP systolic 119–165; BP diastolic 71–84; PULSE 68–77; TEMP 36.3–36.6; O2SAT 86–97
[2017-05-28] MEDS ORDERED: LEVOFLOXACIN 750MG / D5W IV SCH
[2017-05-28] MEDS ORDERED: PNEUMOCOCCAL ADMINISTRATION CHARGE ONE (00:30)
[2017-05-28] MEDS ORDERED: PNEUMOCOCCAL POLYSACCHARIDES 25 MCG/0.5 ML VIAL/SYR IM. ONE (00:30)
[2017-05-28] MEDS: METHYLPREDNISOLONE IV 40 MG in SYRINGE 0 ML IV SCH ×3 (03:12→20:48)
[2017-05-28] MEDS: GUAIFENESIN 200 MG TAB PO SCH ×6 (03:25→23:43)
[2017-05-28 04:21] LABS: HEMATOCRIT 35.4 % (42-52); HEMOGLOBIN 12.3 g/dL (14.0-18.0); MEAN CELL VOLUME 93.2 fL (80-100); MEAN CORPUSCULAR HEMOGLOBIN 32.4 pg (25-34); MEAN CORPUSCULAR HGB CONC 34.7 g/dl (32-36); MEAN PLATELET VOLUME 9.6 fL (7.4-10.4); PLATELET COUNT 118 K/uL (130-400); RED CELL DISTRIBUTION WIDTH CV 13.4 % (11.5-14.5); WHITE BLOOD COUNT 1.77 K/uL (4.8-10.8)
[2017-05-28 04:35] LABS: BASO % 0.6 %; BASO ABS # 0.01 K/uL (0-0.2); CALCIUM 8.4 mg/dl (8.5-10.1); CREATININE 1.26 mg/dl (0.60-1.40); LYMPH % 10.7 %; LYMPH ABS # 0.19 K/uL (1.2-3.4); MONO % 5.1 %; MONO ABS # 0.09 K/uL (0.11-0.59); NEUT % 83.6 %; NEUT ABS # 1.48 K/uL (1.4-6.5); POTASSIUM 4.4 mmol/L (3.5-5.1)
[2017-05-28] MEDS: ALBUT/IPRATROP 3MG/0.5MG NEB 3 ML VIAL INH SCH ×4 (07:09→19:32)
[2017-05-28] MEDS: ASPIRIN 81 MG ECTAB PO SCH (07:43)
[2017-05-28] MEDS: METOPROLOL SUCC 50MG EXT REL TAB PO SCH (07:43)
[2017-05-28] MEDS: LISINOPRIL 10 MG TAB PO SCH (07:43)
[2017-05-28] MEDS: ENOXAPARIN 40 MG/0.4 ML SYR SC SCH (07:44)
[2017-05-28] MEDS ORDERED: LEVOFLOXACIN CONSULT ACTIVE PRN (10:45)
[2017-05-28 11:15] LABS: ALBUMIN 2.9 gm/dl (3.4-5.0); ALKALINE PHOSPHATASE 100 U/L (45-117); ALT/SGPT 35 U/L (12-78); AST/SGOT 42 U/L (15-37); TOTAL PROTEIN 6.6 gm/dl (6.4-8.2)
--- NOTE | 2017-05-28 13:38 | Hospitalist Progress Note ---
Hospitalist Progress Note Date of Service May 28, 2017. Subjective Pt evaluation today including: conversation w/ patient Pt feeling much better, says that he is getting out of the hospital tomorrow no matter what. His shortness of breath is significantly decreased. He denies chest pain. He only has a mild cough and it is nonproductive. No hemoptysis. Denies abdominal pain or leg swelling, no diarrhea or constipation, no GI bleeding. Telemetry with normal sinus rhythm in the 70s with PVCs. All Other Systems: Reviewed and Negative Objective Vital Signs Date Time Temp Pulse Resp B/P (MAP) Pulse Ox O2 Delivery O2 Flow Rate FiO2 05/28/17 12:05 36.6 74 20 149/80 (103) 92 Nasal Cannula 1.0 05/28/17 12:00 92 Nasal Cannula 1.0 05/28/17 11:09 68 20 94 Nasal Cannula 1.0 05/28/17 08:00 36.3 72 20 143/78 (99) 94 Nasal Cannula 3.0 05/28/17 08:00 94 Nasal Cannula 2.0 05/28/17 07:11 76 20 97 Nasal Cannula 3.0 05/28/17 04:00 Nasal Cannula 3.0 05/28/17 03:08 36.5 74 23 119/71 (87) 96 Nasal Cannula 3.0 05/28/17 00:01 Nasal Cannula 3.0 05/27/17 23:46 36.6 78 22 113/63 (80) 98 Nasal Cannula 3.0 05/27/17 22:58 36.4 85 22 117/66 93 Nasal Cannula 3.0 05/27/17 21:55 88 20 106/56 94 Nasal Cannula 3.0 05/27/17 20:29 78 05/27/17 20:24 88 20 120/70 05/27/17 20:17 78 16 96 Nasal Cannula 3.0 05/27/17 20:09 95 Nasal Cannula 05/27/17 20:05 88 Room Air 05/27/17 20:05 37.1 90 26 133/64 95 Nasal Cannula 2.0 Physical Exam General Appearance: no apparent distress, + thin Eyes: normal inspection, sclerae normal ENT: hearing grossly normal, pharynx normal Neck: trachea midline Respiratory/Chest: no respiratory distress, no accessory muscle use, + decreased breath sounds (Diminished throughout, barrel chest), + wheezing ( Scattered expiratory wheezes, no rhonchi or crackles) Cardiovascular: regular rate, rhythm, no edema, no gallop, + systolic murmur (2 /6 at the RUSB) Abdomen: normal bowel sounds, non tender, soft, no organomegaly Extremities: non-tender, no pedal edema, no calf tenderness, + pertinent finding (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) 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iatric: alert, normal mood/affect, oriented x 3 Skin: normal color, warm/dry, no rash Laboratory Results Last 24 Hours Test 05/27/17 19:57 05/27/17 20:01 05/27/17 20:03 05/28/17 03:43 White Blood Count 4.32 K/uL 1.77 K/uL Red Blood Count 4.66 M/uL 3.80 M/uL Hemoglobin 15.4 g/dL 12.3 g/dL Hematocrit 43.6 % 35.4 % Mean Corpuscular Volume 93.6 fL 93.2 fL Mean Corpuscular Hemoglobin 33.0 pg 32.4 pg Mean Corpuscular Hemoglobin Concent 35.3 g/dl 34.7 g/dl Platelet Count 163 K/uL 118 K/uL Mean Platelet Volume 9.9 fL 9.6 fL Neutrophils (%) (Auto) 72.9 % 83.6 % Lymphocytes (%) (Auto) 15.3 % 10.7 % Monocytes (%) (Auto) 10.9 % 5.1 % Eosinophils (%) (Auto) 0.5 % 0.0 % Basophils (%) (Auto) 0.2 % 0.6 % Neutrophils # (Auto) 3.15 K/uL 1.48 K/uL Lymphocytes # (Auto) 0.66 K/uL 0.19 K/uL Monocytes # (Auto) 0.47 K/uL 0.09 K/uL Eosinophils # (Auto) 0.02 K/uL 0.00 K/uL Basophils # (Auto) 0.01 K/uL 0.01 K/uL RDW Standard Deviation 45.8 fL 46.0 fL RDW Coefficient of Variation 13.4 % 13.4 % Immature Granulocyte % (Auto) 0.2 % 0.0 % Immature Granulocyte # (Auto) 0.01 K/uL 0.00 K/uL Prothrombin Time 10.2 SECONDS Prothromb Time International Ratio 1.0 Activated Partial Thromboplast Time 31.3 SECONDS Partial Thromboplastin Ratio 1.2 Sodium Level 135 mmol/L 134 mmol/L Potassium Level 4.2 mmol/L 4.4 mmol/L Chloride Level 102 mmol/L 104 mmol/L Carbon Dioxide Level 27 mmol/L 24 mmol/L Anion Gap 6.0 mmol/L 6.0 mmol/L Blood Urea Nitrogen 31 mg/dl 32 mg/dl Creatinine 1.44 mg/dl 1.26 mg/dl Est Creatinine Clear Calc Drug Dose 34.3 ml/min 38.4 ml/min Estimated GFR () 54.3 63.8 Estimated GFR (Non- 46.8 55.0 BUN/Creatinine Ratio 21.7 25.0 Random Glucose 115 mg/dl 149 mg/dl Calcium Level 9.2 mg/dl 8.4 mg/dl Total Bilirubin 0.5 mg/dl Direct Bilirubin 0.1 mg/dl Aspartate Amino Transf (AST/SGOT) 58 U/L Alanine Aminotransferase (ALT/SGPT) 43 U/L Alkaline Phosphatase 125 U/L Total Protein 8.1 gm/dl Albumin 3.6 gm/dl Lipase 395 U/L Bedside Lactic Acid Venous 2.07 mmol/L Bedside Troponin I 0.090 ng/ml Hyposegmented Neutrophils 1+ Echinocytes 2+ Troponin I 0.116 ng/ml Test 05/28/17 09:28 05/28/17 10:23 Troponin I 0.113 ng/ml Total Bilirubin 0.3 mg/dl Direct Bilirubin < 0.1 mg/dl Aspartate Amino Transf (AST/SGOT) 42 U/L Alanine Aminotransferase (ALT/SGPT) 35 U/L Alkaline Phosphatase 100 U/L Total Protein 6.6 gm/dl Albumin 2.9 gm/dl Assessment and Plan This patient is a 77 yo male with a history of HTN, HLD, moderate , CAD S/P NSTEMI in 2012, 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 He is admitted with an acute COPD exacerbation and acute hypoxic respiratory failure. In the ED he was afebrile, was placed on 2-3 L NC for a pulse ox of 88%. He was given Xopenex/Atrovent nebs, and IV Solumedrol 125 mg Acute exacerbation of COPD/current smoker-chest x-ray without infiltrate but with chronic scarring. -Continue supplemental O2 and wean down as tolerated to keep pulse ox greater than 92% -Continue IV Solumedrol 40 q8 and taper down -Continue Levaquin but changed to the 500 mg dose for acute bronchitis-pharmacy will renally dose as appropriate -Continue Duonebs -Sputum gram stain cx ordered but not collected as he has no sputum production -Blood cx's pending -Continue guaifenesin -May need 2 step prior to discharge -Check influenza rapid swab -DC IV fluids HTN/HLD/moderate /CAD S/P NSTEMI in 2011/ischemic CM/chronic combined systolic and diastolic CHF, with Biventricular AICD/PAD S/P right aortofemoral bypass with reimplantation of the mesenteric artery/bilateral CHRISTOPHER/ AAA s/p repair-all issues stable at this time. Does have mildly elevated troponin that has remained stable 4 with most recent being 0.177. This represents myocardial demand ischemia in the setting of hypoxia and COPD exacerbation. ECG with chronic RBBB, normal sinus rhythm, old inferior infarct, no acute ischemic changes. No evidence of volume overload and he is not on diuretics at home. Echo from 02/2017 with EF 35-40%, grade 1 diastolic dysfunction, moderate-severe aortic stenosis, multiple wall motion abnormalities -Continue ASA, Lipitor, Metoprolol, lisinopril -Monitor on telemetry DVT Prophylaxis -Lovenox Disposition-likely to home tomorrow but will possibly need home oxygen DNR
[2017-05-28 14:27] LABS: INFLUENZA B ANTIGEN Neg for Influ B (NEG)
[2017-05-28] MEDS: ATORVASTATIN 40 MG TAB PO SCH (20:48)
[2017-05-29] VITALS (11 sets, daily range): BP systolic 136–168; BP diastolic 65–91; PULSE 71–81; TEMP 36.3–36.8; O2SAT 93–97
[2017-05-29] MEDS: GUAIFENESIN 200 MG TAB PO SCH ×3 (03:11→12:27)
[2017-05-29] MEDS: METHYLPREDNISOLONE IV 40 MG in SYRINGE 0 ML IV SCH ×3 (03:11→20:31)
[2017-05-29 06:44] LABS: BASO % 0.2 %; BASO ABS # 0.01 K/uL (0-0.2); HEMATOCRIT 39.6 % (42-52); HEMOGLOBIN 13.8 g/dL (14.0-18.0); IG# 0.03 K/uL (0.00-0.02); LYMPH % 9.2 %; LYMPH ABS # 0.55 K/uL (1.2-3.4); MEAN CELL VOLUME 91.7 fL (80-100); MEAN CORPUSCULAR HEMOGLOBIN 31.9 pg (25-34); MEAN CORPUSCULAR HGB CONC 34.8 g/dl (32-36); MONO % 6.3 %; MONO ABS # 0.38 K/uL (0.11-0.59); NEUT % 83.8 %; NEUT ABS # 5.03 K/uL (1.4-6.5); PLATELET COUNT 153 K/uL (130-400); RED CELL DISTRIBUTION WIDTH CV 13.2 % (11.5-14.5); RED CELL DISTRIBUTION WIDTH SD 44.9 fL (36.4-46.3)
[2017-05-29] MEDS: ALBUT/IPRATROP 3MG/0.5MG NEB 3 ML VIAL INH SCH ×4 (07:10→19:12)
[2017-05-29 07:24] LABS: CALCIUM 8.9 mg/dl (8.5-10.1); CREATININE 1.09 mg/dl (0.60-1.40); POTASSIUM 4.5 mmol/L (3.5-5.1)
--- NOTE | 2017-05-29 08:08 | Clinical Documentation Query ---
CLINICAL DOCUMENTATION QUERY 77 year old male who presents to the Emergency Room with complaints of worsening shortness of breath. Query #1/2 In your clinical opinion is this patient being managed for: ( x ) Acute hypoxic respiratory failure POA in setting of COPD exacerbation treated with O2, nebs, and IV Solumedrol. ( ) Not Agree ( ) Other explanation of clinical findings (Please Explain) ( ) Unable to determine (Please Define) ( ) Need to Discuss The medical record reflects the following clinical findings, treatment, and risk factors. Clinical Indicators: RA hypoxia of 88%, tachypnea of 26. H&P assessment reveals + respiratory distress, + rhonchi, + wheezing. Treatment: O2, IV solumedrol, Nebs, Risk Factors: Age, COPD, Query #2/2 Patient presents with elevated troponin's 0.116, 0.113, 0.129, 0.177. In your clinical opinion is this patient being managed for: ( x ) Demand ischemia in setting of COPD exacerbation and hypoxia ( ) Not Agree ( ) Other explanation of clinical findings (Please Explain) ( ) Unable to determine (Please Define) ( ) Need to Discuss The medical record reflects the following clinical findings, treatment, and risk factors. Clinical Indicators: As above. RA hypoxia of 88%. Treatment: Respiratory support, serial troponin's, Risk Factors: Age, ischemic cardiomyopathy, hypoxia Please clarify and document your clinical opinion in the progress notes and discharge summary. Terms such as "probable", "suspected", "likely", "questionable", "possible", or "still to be ruled out" are acceptable. IF IN AGREEMENT, YOU MUST DOCUMENT ABOVE DIAGNOSTIC STATEMENT IN DAILY PROGRESS NOTES AND DISCHARGE SUMMARY. This document is not part of the patient's record. Thank You, Ramez Shell, RN [phone]
[2017-05-29] MEDS: ASPIRIN 81 MG ECTAB PO SCH (09:04)
[2017-05-29] MEDS: METOPROLOL SUCC 50MG EXT REL TAB PO SCH (09:05)
[2017-05-29] MEDS: LISINOPRIL 10 MG TAB PO SCH (09:06)
[2017-05-29] MEDS: ENOXAPARIN 40 MG/0.4 ML SYR SC SCH (09:06)
[2017-05-29] MEDS ORDERED: LEVOFLOXACIN / D5W 250 MG in PREMIXED IN D5W 50 ML IV SCH (10:00)
[2017-05-29] MEDS ORDERED: ACETYLCYSTEINE 20% INHAL SOLN ***DISPENSED BY RESP. INH ONE (10:45)
[2017-05-29] MEDS ORDERED: LVQ250 PO (13:09)
[2017-05-29] MEDS ORDERED: IPRASOL4 INH (13:09)
[2017-05-29] MEDS ORDERED: GFNSR600 PO (13:09)
[2017-05-29] MEDS ORDERED: PRED10TA PO (13:09)
--- NOTE | 2017-05-29 13:45 | Hospitalist Progress Note ---
Hospitalist Progress Note Date of Service May 29, 2017. (Cathie Shell PA-C) Subjective Pt evaluation today including: conversation w/ patient, physical exam, chart review, lab review, review of studies, review of inpatient medication list Pain: None PO Intake: Adequate Voiding: no voiding problems Patient seen and evaluated. No acute events overnight. Continues to have a non-productive cough but sounds like a wet cough. Very poor air movement with inspiratory/expiratory. Patient initially wanted to return home today but has agreed to stay which would be medically recommended Constitutional: No fever, No chills ENT: No nasal symptoms, No sore throat Respiratory: + cough, + wheezing, + dyspnea on exertion, No sputum, No dyspnea at rest Cardiovascular: No chest pain Abdomen: No pain, No nausea, No vomiting, No diarrhea, No constipation Musculoskeletal: No swelling, No calf pain Male : No dysuria Heme: No abnormal bleeding/bruising (Cathie Shell PA-C) Medications Current Inpatient Medications Medications (Trade) Dose Ordered Sig/María Route Start Time Stop Time Status Last Admin Dose Admin Enoxaparin Sodium (Lovenox Inj) 40 mg Q24H SC 05/28/17 09:00 06/27/17 08:59 05/29/17 09:06 40 MG Acetaminophen (Tylenol Tab) 650 mg Q4H PRN PO 05/27/17 21:15 06/26/17 21:14 Al Hydrox/Mg Hydrox/Simethicone (Maalox Max Susp) 15 ml Q4H PRN PO 05/27/17 21:15 06/26/17 21:14 Magnesium Hydroxide (Milk Of Magnesia Susp) 30 ml Q12H PRN PO 05/27/17 21:15 06/26/17 21:14 Ondansetron HCl (Zofran Inj) 4 mg Q6H PRN IV 05/27/17 21:15 06/26/17 21:14 Polyethylene (Miralax Powder Packet) 17 gm DAILY PRN PO 05/27/17 21:15 06/26/17 21:14 Guaifenesin (Organidin Nr Tab) 200 mg Q4H PO 05/28/17 00:00 06/27/17 00:00 05/29/17 12:27 200 MG Albuterol/ Ipratropium (Duoneb) 3 ml QIDR INH 05/28/17 08:00 06/27/17 07:59 05/29/17 10:53 3 ML Aspirin (Ecotrin Tab) 81 mg DAILY PO 05/28/17 09:00 06/27/17 08:59 05/29/17 09:04 81 MG Atorvastatin Calcium (Lipitor Tab) 80 mg HS PO 05/28/17 21:00 06/27/17 20:59 05/28/17 20:48 80 MG Lisinopril (Zestril Tab) 10 mg DAILY PO 05/28/17 09:00 06/27/17 08:59 05/29/17 09:06 10 MG Metoprolol Succinate (Toprol Xl Tab) 75 mg DAILY PO 05/28/17 09:00 06/27/17 08:59 05/29/17 09:05 75 MG Levofloxacin (Consult) 1 ea UD PRN N/A 05/28/17 10:45 06/27/17 10:44 Acetylcysteine (Mucomyst 20% Inh Soln) 5 ml BIDR INH 05/29/17 20:00 06/28/17 19:59 Levofloxacin (Levaquin Tab) 250 mg DAILY@11 PO 05/30/17 11:00 06/03/17 11:01 (Cathie Shell, JESÚSC) Objective Vital Signs Date Time Temp Pulse Resp B/P (MAP) Pulse Ox O2 Delivery O2 Flow Rate FiO2 05/29/17 12:00 94 Nasal Cannula 2.0 05/29/17 11:56 36.8 81 18 144/76 (98) 97 05/29/17 10:54 72 20 94 Nasal Cannula 2.0 05/29/17 08:00 95 Nasal Cannula 2.0 05/29/17 07:52 36.7 80 18 149/76 (100) 95 05/29/17 07:11 80 20 93 Nasal Cannula 2.0 05/29/17 04:02 Nasal Cannula 2.0 05/29/17 03:08 36.4 71 24 154/77 (102) 93 Nasal Cannula 2.0 05/29/17 00:01 Nasal Cannula 2.0 05/28/17 23:45 91 Nasal Cannula 2.0 05/28/17 23:43 36.5 74 20 147/75 (99) 86 Room Air 05/28/17 20:00 Nasal Cannula 1.0 05/28/17 19:50 36.4 72 22 144/74 (97) 93 Nasal Cannula 1.0 05/28/17 19:34 74 20 93 Nasal Cannula 1.0 05/28/17 16:44 36.5 76 24 165/84 (111) 91 Nasal Cannula 1.0 05/28/17 16:00 Nasal Cannula 1.0 05/28/17 15:16 77 20 93 Nasal Cannula 1.0 (Cathie Shell, PA-C) Physical Exam General Appearance: no apparent distress, + thin Eyes: sclerae normal ENT: hearing grossly normal Neck: supple, no JVD, trachea midline Respiratory/Chest: no respiratory distress, no accessory muscle use, + wheezing (insp/exp with very poor aeration) Cardiovascular: regular rate, rhythm, no gallop, + systolic murmur Abdomen: normal bowel sounds, non tender, soft Extremities: no pedal edema, + pertinent finding (amputation of R fingers) 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iatric: alert Skin: normal color, warm/dry (Cathie Shell, PA-C) Laboratory Results Last 24 Hours Test 05/28/17 15:21 05/28/17 21:42 05/29/17 06:16 Troponin I 0.129 ng/ml 0.177 ng/ml White Blood Count 6.00 K/uL Red Blood Count 4.32 M/uL Hemoglobin 13.8 g/dL Hematocrit 39.6 % Mean Corpuscular Volume 91.7 fL Mean Corpuscular Hemoglobin 31.9 pg Mean Corpuscular Hemoglobin Concent 34.8 g/dl Platelet Count 153 K/uL Mean Platelet Volume 10.0 fL Neutrophils (%) (Auto) 83.8 % Lymphocytes (%) (Auto) 9.2 % Monocytes (%) (Auto) 6.3 % Eosinophils (%) (Auto) 0.0 % Basophils (%) (Auto) 0.2 % Neutrophils # (Auto) 5.03 K/uL Lymphocytes # (Auto) 0.55 K/uL Monocytes # (Auto) 0.38 K/uL Eosinophils # (Auto) 0.00 K/uL Basophils # (Auto) 0.01 K/uL RDW Standard Deviation 44.9 fL RDW Coefficient of Variation 13.2 % Immature Granulocyte % (Auto) 0.5 % Immature Granulocyte # (Auto) 0.03 K/uL Sodium Level 135 mmol/L Potassium Level 4.5 mmol/L Chloride Level 103 mmol/L Carbon Dioxide Level 24 mmol/L Anion Gap 8.0 mmol/L Blood Urea Nitrogen 25 mg/dl Creatinine 1.09 mg/dl Est Creatinine Clear Calc Drug Dose 45.4 ml/min Estimated GFR () 76.0 Estimated GFR (Non- 65.6 BUN/Creatinine Ratio 22.8 Random Glucose 132 mg/dl Calcium Level 8.9 mg/dl Lipase 223 U/L (Cathie Shell, ANA) Assessment and Plan This patient is a 77 yo male with a history of HTN, HLD, moderate , CAD S/P NSTEMI in 2011, ischemic CM/chronic combined systolic and diastolic CHF with Biventricular AICD, PAD S/P right aortofemoral bypass with reimplantation of the mesenteric artery, bilateral CHRISTOHPER, AAA s/p repair, COPD, and current smoker, who presents with a 5 day history of progressively worsening SOB. He is admitted with an acute COPD exacerbation and acute hypoxic respiratory failure. In the ED he was afebrile, was placed on 2-3 L NC for a pulse ox of 88%. He was given Xopenex/Atrovent nebs, and IV Solumedrol 125 mg Acute Hypoxic Respiratory Failure 2/2 COPD Exacerbation: Current Smoker - Performed 2 step as patient was initially wanting to return home and qualifies for 2 L continuous - if he doesn't leave within 48 hours will need to repeat for further assessment - Continue Solu-Medrol 40 mg IV Q8H and Levaquin 250 mg daily; Add Mucinex 1200 mg BID - Continue Duonebs and add Mucomyst nebs CAD S/P NSTEMI (2011)/Ischemic CM/Chronic Combined Systolic/Diastolic CHF/HTN/ HLD/BiV ICD/AAA S/P Repair: STABLE - Does have chronic elevated trops that are remaining stable and likely demand ischemia - Echo (Feb 2017) - EF 35-40%, grade I diastolic dysfunction, mod-severe , and multiple wall motion abnormalities - ASA 81 mg daily; Lipitor 80 mg HS; Lisinopril 10 mg daily; Toprol XL 75 mg daily DVT Prophylaxis: Lovenox Code Status: DO NOT RESUSCITATE Disposition: - Agreed to stay at least another night which would be the medical recommendation - Reasonable to transfer to medical - possible D/C tomorrow pending clinical course - Rx given for supplemental O2 and neb machine/medicine - given to case management Continued [facility] stay due to: abnormal vital signs Discharge planning: home (Cathie Shell, ANA) Reviewed: Pt Seen/Exam by Me (Khadijah Garcia MD) History Physician Wireless Watcher Supervision Note: I interviewed and examined the patient. Discussed with АНДРЕЙ Shell and agree with findings and plan as documented in the note. Any exceptions or clarifications are listed here: Pt had an acute episode of severe SOB and SHAREPOINT ENGINEER reported pt appeared "purple" while walking back from the bathroom today. It took him a few minutes to recover , POx acceptable. He agrees to stay overnight for further treatment. Denies CP, has chest congestion but cannot cough it up. Vitals reviewed, tele reviewed Mild distress, tachypnea, appears older than stated age RRR, 2/6 DIOGENES at RUSB Severely diminished BS throughout all lung leone, some insp and exp wheezes, + rhonchi Abd +BS soft NT ND, large ventral hernias easily reducible Ext no edema This patient is a 77 yo male with a history of HTN, HLD, moderate , CAD S/P NSTEMI in 2011, 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 He is admitted with an acute COPD exacerbation and acute hypoxic respiratory failure. In the ED he was afebrile, was placed on 2-3 L NC for a pulse ox of 88%. He was given Xopenex/Atrovent nebs, and IV Solumedrol 125 mg Acute hypoxic respiratory failure POA in setting of COPD exacerbation treated with O2, nebs, and IV Solumedrol/Current smoker-chest x-ray without infiltrate but with chronic scarring. -Continue supplemental O2 and wean down as tolerated to keep pulse ox greater than 92% -Continue IV Solumedrol 40 q8 and taper down possibly tomorrow -Continue Levaquin, bronchodilators, adding Mucinex and mucomyst as above HTN/HLD/moderate /CAD S/P NSTEMI in 2012/ischemic CM/chronic combined systolic and diastolic CHF, with Biventricular AICD/PAD S/P right aortofemoral bypass with reimplantation of the mesenteric artery/bilateral CHRISTOPHER/ AAA s/p repair-all issues stable at this time. Does have mildly elevated troponin that has remained stable 4 with most recent being 0.177. This represents myocardial demand ischemia in the setting of hypoxia and COPD exacerbation. ECG with chronic RBBB, normal sinus rhythm, old inferior infarct, no acute ischemic changes. No evidence of volume overload and he is not on diuretics at home. Echo from 02/2017 with EF 35-40%, grade 1 diastolic dysfunction, moderate-severe aortic stenosis, multiple wall motion abnormalities -Continue ASA, Lipitor, Metoprolol, lisinopril ok to transfer to medical DVT Prophylaxis -Lovenox Disposition-likely to home tomorrow with home oxygen which has already been arranged DNR Documented By: Khadijah Garcia (Khadijah Garcia MD)
[2017-05-29] MEDS ORDERED: GUAIFENESIN 600 MG TABCR PO ONE (15:00)
[2017-05-29] MEDS: ACETYLCYSTEINE 20% INHAL SOLN ***DISPENSED BY RESP. INH SCH (19:12)
[2017-05-29] MEDS: GUAIFENESIN 600 MG TABCR PO SCH (20:31)
[2017-05-29] MEDS: ATORVASTATIN 40 MG TAB PO SCH (20:31)
[2017-05-30] MEDS: METHYLPREDNISOLONE IV 40 MG in SYRINGE 0 ML IV SCH (05:10)
[2017-05-30 06:16] LABS: BASO % 0.1 %; BASO ABS # 0.01 K/uL (0-0.2); HEMATOCRIT 40.9 % (42-52); HEMOGLOBIN 14.2 g/dL (14.0-18.0); IG# 0.02 K/uL (0.00-0.02); LYMPH % 5.6 %; LYMPH ABS # 0.42 K/uL (1.2-3.4); MEAN CELL VOLUME 91.9 fL (80-100); MEAN CORPUSCULAR HEMOGLOBIN 31.9 pg (25-34); MEAN CORPUSCULAR HGB CONC 34.7 g/dl (32-36); MEAN PLATELET VOLUME 10.4 fL (7.4-10.4); MONO % 7.4 %; MONO ABS # 0.55 K/uL (0.11-0.59); NEUT % 86.6 %; NEUT ABS # 6.47 K/uL (1.4-6.5); PLATELET COUNT 160 K/uL (130-400); RED CELL DISTRIBUTION WIDTH CV 13.3 % (11.5-14.5); RED CELL DISTRIBUTION WIDTH SD 44.6 fL (36.4-46.3); WHITE BLOOD COUNT 7.47 K/uL (4.8-10.8)
[2017-05-30 06:57] LABS: CALCIUM 9.1 mg/dl (8.5-10.1); CREATININE 1.1 mg/dl (0.60-1.40); POTASSIUM 4.9 mmol/L (3.5-5.1)
[2017-05-30] MEDS: ALBUT/IPRATROP 3MG/0.5MG NEB 3 ML VIAL INH SCH ×2 (06:59→11:18)
[2017-05-30] MEDS: ACETYLCYSTEINE 20% INHAL SOLN ***DISPENSED BY RESP. INH SCH (07:00)
[2017-05-30 07:02] VITALS: PULSE 72; O2SAT 94
[2017-05-30 07:33] VITALS: BP 160/87; PULSE 75; TEMP 36.2; O2SAT 93
[2017-05-30] MEDS: ASPIRIN 81 MG ECTAB PO SCH (07:51)
[2017-05-30] MEDS: METOPROLOL SUCC 50MG EXT REL TAB PO SCH (07:52)
[2017-05-30] MEDS: GUAIFENESIN 600 MG TABCR PO SCH (07:52)
[2017-05-30] MEDS: LISINOPRIL 10 MG TAB PO SCH (07:53)
[2017-05-30] MEDS: ENOXAPARIN 40 MG/0.4 ML SYR SC SCH (08:31)
[2017-05-30] MEDS ORDERED: LEVOFLOXACIN 250 MG TAB PO SCH (11:00)
--- NOTE | 2017-05-30 11:11 | Discharge Instructions ---
Discharge Instructions Date of Service May 30, 2017. Admission Reason for Admission: Copd Exacerbation Discharge Discharge Diagnosis / Problem: COPD Exacerbation Discharge Goals Goal(s): Decrease discomfort, Improve function, Increase independence Activity Recommendations Activity Limitations: resume your previous activity . Instructions / Follow-Up Instructions / Follow-Up COPD Exacerbation with Low Oxygen Levels: - Continue Prednisone taper over the next several days. Start this on 05/31 as you had steroids today -- Prednisone 60 mg daily on 05/31 and 06/01 -- Then 50 mg daily on 06/02 and 06/03 -- Then 40 mg daily on 06/04 and 06/05 -- Then 30 mg daily on 06/06 and 06/07 -- Then 20 mg daily on 06/08 and 06/09 -- Then 10 mg daily on 06/10 and 06/11 - Take Levaquin 250 mg daily until all pills gone. Start this on 05/31 as you had a dose today and take until all pills are gone - You now qualify for oxygen at 2 L at rest and with walking. DO NOT smoke while wearing oxygen or near the tanks -- YOU MUST STOP SMOKING COMPLETELY - Continue Mucinex 1200 mg twice a day. Will give a prescription but this can be bought over the counter as well - Also set up so you can get a nebulizer machine (breathing machine) and medicine -- Over the next 7 days recommend to use the nebulizer when you first wake up , around lunch, and dinner. You can use this 4 times a day if you need to so you can use another dose if you have shortness of breath -- When your breathing gets better you can just use the breathing treatments only when needed for shortness of breath or wheezing - Continue your Advair twice a day. EVERDAY....even if feeling well - Continue your Combivent as well. Always have this on you and if you just have a little shortness of breath you can use this instead of the breathing treatment Continue your previous medications as previously prescribed Follow-Up: - Follow up appt scheduled at Dr. Bond's office with Chasidy Jaramillo PA-C on MondayJune 05 at 1:00 pm Current Hospital Diet Patient's current hospital diet: AHA Diet (Heart Healthy) Discharge Diet Recommended Diet: AHA Diet (Heart Healthy) Procedures Procedures Performed: Chest xray Pending Studies Studies pending at discharge: no Medical Emergencies . Who to Call and When: Medical Emergencies: If at any time you feel your situation is an emergency, please call 911 immediately. . Non-Emergent Contact Non-Emergency issues call your: Primary Care Provider Call Non-Emergent contact if: you have a fever, your pain is concerning you, you have any medication questions . . "Provider Documentation" section prepared by Cathie Shell. .
[2017-05-30 11:42] VITALS: BP 160/87; PULSE 75; TEMP 36.2; O2SAT 93
--- NOTE | 2017-05-30 18:13 | Discharge Summary ---
Discharge Summary Date of Service May 30, 2017. Discharge Summary Admission Date: May 27, 2017 at 21:31 Discharge Date: May 30, 2017 Discharge Disposition: Home Principal Diagnosis: Acute Hypoxic Respiratory Failure 2/2 COPD Exacerbation Problems/Secondary Diagnoses: 1. COPD 2. HTN 3. HLD 4. Moderate Aortic Stenosis 5. CAD S/P NSTEMI (2011) 6. 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 PAD S/P R Aortofemoral Bypass 9. AAA S/P Repair 10. Tobacco User Immunizations: Have You Had Influenza Vaccine: Yes History of Tetanus Vaccine?: Unknown History of Pneumococcal: Unknown Pneumococcal Date: Sep 30, 2011 History of Hepatitis B Vaccine: Unknown Procedures: CHEST ONE VIEW PORTABLE FINDINGS: Left subclavian implanted cardiac defibrillator with leads to the right atrium and right ventricular apex. Atherosclerosis of aortic arch. Cardiac silhouette top normal in size. Lungs hyperinflated. Unchanged bandlike opacity in the periphery of the right midlung. No new focal opacity. No large effusion or pneumothorax. Prominent skin fold over the periphery of the right upper hemithorax. Osseous structures normal. Upper abdomen normal. IMPRESSION: 1. Findings suggest underlying emphysema. Unchanged right mid lung scarring or atelectasis. No new superimposed focal infiltrate. Medication Reconciliation New Medications: Guaifenesin Ext Rel (Mucinex Ext Rel) 600 Mg Tabcr 1200 MG PO Q12 for 5 Days, #20 TAB Ipratropium-Albuterol (Duoneb) 3 Ml Nebu 3 ML INH QIDR PRN for SOB/Wheezing for 30 Days, #120 DOSE Levofloxacin (Levofloxacin) 250 Mg Tab 250 MG PO DAILY@11 for 4 Days, #4 TAB Start on 05/30. Prednisone Tab (Prednisone) 10 Mg Tab 10 MG PO UD, #42 TAB Take 60 mg daily x 2 days then 50 mg x 2 days then 40 mg x 2 days then 30 mg x 2 days then 20 mg x 2 days then 10 mg x 2 days Continued Medications: Aspirin Enteric Coated (Ecotrin Or Generic) 81 Mg Tab 81 MG PO DAILY, TAB Atorvastatin (Lipitor) 80 Mg Tab 80 MG PO HS, TAB Fluticasone Prop/Salmeterol (Advair Diskus 250/50 60 Dose) 1 Ea Aerp 1 PUFF INH BID, INHALER Ipratropium-Albuterol (Combivent Respimat) 1 Aer Aer 2 PUFFS INH QID, INH Lisinopril (Prinivil) 10 Mg Tab 10 MG PO DAILY, TAB Metoprolol Succinate (Metoprolol Succinate ER) 50 Mg Tabcr 75 MG PO DAILY Discharge Exam Review of Systems: Constitutional: No fever, No chills Respiratory: + cough, No sputum, No shortness of breath Cardiovascular: No chest pain, No orthopnea Abdomen: No pain, No nausea, No vomiting, No diarrhea, No constipation Musculoskeletal: No swelling, No calf pain Genitourinary - Male: No dysuria Hematologic / Lymphatic: No abnormal bleeding/bruising Physical Exam: General Appearance: no apparent distress, + thin Eyes: sclerae normal ENT: hearing grossly normal Neck: supple, no JVD, trachea midline Respiratory/Chest: no respiratory distress, no accessory muscle use, + wheezing (sporadic - inspiratory), + pertinent finding (improved aeration from 9 however largely diminished diffusely) Cardiovascular: regular rate, rhythm, + systolic murmur Abdomen / GI: normal bowel sounds, non tender, soft Extremities: no pedal edema 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iatric: alert, oriented x 3 Skin: normal color, warm/dry Hospital Course ADMISSION: 77 yo M HTN HLD, Aortic Stenosis, Ischemic CM with Biventricular ICD , PVD, AAA s/p repair, hx of NSTEMI p/w 5 day history worsening SOB.He tried taking his home advair and combivent ( 4x/day). He continues to report persistent dry cough , wheezing. He denies fevers, chills. He denies Chest pain , palpation. (ICD has not fired). He denies light headedness or dizziness, N/V abdominal pain, diarrhea. No orthopnea, no paroxysmal nocturnal dyspnea. He did have a flu vaccine this season. He reports he has gotten pneumonia vaccine. HOSPITAL COURSE: Acute Hypoxic Respiratory Failure 2/2 COPD Exacerbation: Current Smoker - Clinically is improving but still has diffusely diminished breath sounds with intermittent wheeze; suspect that his lung exam is not great at baseline - Did perform a 2-step which recommended 2 L NC continuous and he was established with supplemental O2 - He was also set up for Duonebs and a nebulizer machine that will be delivered to his home - Plan to do a taper of Prednisone starting at 60 mg and tapering by 10 mg every 2 days until weaned off; Continue Levaquin 250 mg daily for finish course ; Continue Mucinex 1200 mg BID CAD S/P NSTEMI (2011)/Ischemic CM/Chronic Combined Systolic/Diastolic CHF/HTN/ HLD/BiV ICD/AAA S/P Repair: STABLE - Does have chronic elevated trops that are remaining stable and likely demand ischemia given his level of hypoxia - Echo (Feb 2017) - EF 35-40%, grade I diastolic dysfunction, mod-severe , and multiple wall motion abnormalities - Continue as previously prescribed - ASA 81 mg daily; Lipitor 80 mg HS; Lisinopril 10 mg daily; Toprol XL 75 mg daily Disposition: - Established outpatient F/U with PCP in next few days Total Time Spent: Greater than 30 minutes This includes examination of the patient, discharge planning, medication reconciliation, and communication with other providers. Discharge Instructions Please refer to the electronic Patient Visit Report (Discharge Instructions) for additional information. Additional Copies To RV. Bond MD; Chasidy Jaramillo PA-C
== END 2017-05-30 13:47 | disposition home or self-care (01) | DRG 189 ==
LOC: EDBD 19:32 → C.EDA 19:43 → C.2T 21:31 → ENRESERV 21:38 → C.4E 05-29 15:59
PROVIDERS: ADMIT Hospitalist; ATTEND Family Medicine
DX: J96.00 Acute respiratory failure, unspecified whether with hypoxia or hypercapnia (principal); J44.1 Chronic obstructive pulmonary disease with (acute) exacerbation; I50.40 Unspecified combined systolic (congestive) and diastolic (congestive) heart failure; I24.8 Other forms of acute ischemic heart disease; I10 Essential (primary) hypertension; E78.5 Hyperlipidemia, unspecified; I35.0 Nonrheumatic aortic (valve) stenosis; I25.5 Ischemic cardiomyopathy; Z95.810 Presence of automatic (implantable) cardiac defibrillator; F17.200 Nicotine dependence, unspecified, uncomplicated; I25.2 Old myocardial infarction

== ENCOUNTER → 2017-06-26 | Outpatient (CLI) | payer OTHER ==
[~2017-06-26] MED LIST changes: +ASPI-319 PO; -ASPI81TA21 PO; +IPRASOL4 INH; +LVQ250 PO; +PRED10TA PO; -[UNRECOGNIZED DRUG - CODE] TOP
[2017-06-26 17:25] LABS: BASO % 0.3 %; BASO ABS # 0.02 K/uL (0-0.2); EOS % 2.7 %; EOS ABS # 0.16 K/uL (0-0.5); HEMATOCRIT 38.5 % (42-52); HEMOGLOBIN 13.2 g/dL (14.0-18.0); IG# 0.03 K/uL (0.00-0.02); LYMPH % 17.8 %; LYMPH ABS # 1.06 K/uL (1.2-3.4); MEAN CELL VOLUME 94.4 fL (80-100); MEAN CORPUSCULAR HEMOGLOBIN 32.4 pg (25-34); MEAN CORPUSCULAR HGB CONC 34.3 g/dl (32-36); MEAN PLATELET VOLUME 10.8 fL (7.4-10.4); MONO % 7.7 %; MONO ABS # 0.46 K/uL (0.11-0.59); NEUT ABS # 4.24 K/uL (1.4-6.5); PLATELET COUNT 192 K/uL (130-400); RED CELL DISTRIBUTION WIDTH CV 13.3 % (11.5-14.5); RED CELL DISTRIBUTION WIDTH SD 45.5 fL (36.4-46.3); WHITE BLOOD COUNT 5.97 K/uL (4.8-10.8)
[2017-06-26 19:14] LABS: ALBUMIN 3.2 gm/dl (3.4-5.0); BLOOD UREA NITROGEN 16 mg/dl (7-18); CALCIUM 8.7 mg/dl (8.5-10.1); CARBON DIOXIDE 27 mmol/L (21-32); CREATININE 1.21 mg/dl (0.60-1.40); GLUCOSE 96 mg/dl (70-99); POTASSIUM 4.3 mmol/L (3.5-5.1); SODIUM 136 mmol/L (136-145)
[2017-06-26 19:15] LABS: PHOSPHORUS 2.7 mg/dl (2.5-4.9)
== END | disposition home or self-care (01) ==
LOC: C.LABPVFM 12:53
PROVIDERS: ATTEND Internal Medicine
DX: E03.9 Hypothyroidism, unspecified (principal); R73.03 Prediabetes; E78.5 Hyperlipidemia, unspecified; N18.3 Chronic kidney disease, stage 3 (moderate)

== ENCOUNTER → 2017-09-15 | Outpatient (CLI) | payer OTHER ==
[~2017-09-15] MED LIST changes: +IPRA-64 INH; -IPRASOL4 INH
== END | disposition home or self-care (01) ==
LOC: C.LABPVFM 07:32
PROVIDERS: ATTEND Internal Medicine Cardiovascular Disease
DX: E78.5 Hyperlipidemia, unspecified (principal); I65.29 Occlusion and stenosis of unspecified carotid artery

== ENCOUNTER 2018-05-26 21:20 | Inpatient (IN) ==
[2018-05-26] MEDS ORDERED: LEVALBUTEROL HCL 1.25 MG/3 ML NEB NEB STA (22:00)
[2018-05-26 22:09] LABS: Basophils # (auto) 0.03 K/uL (0-0.2); Basophils % (auto) 0.5 %; Eosinophils # (auto) 0.15 K/uL (0-0.5); Eosinophils % (auto) 2.5 %; Hematocrit (blood only) 32.4 % (42-52); Immature Granulocytes # (auto) 0.03 K/uL (0.00-0.02); Immature Granulocytes % (auto) 0.5 %; Lymphocytes # (auto) 1.19 K/uL (1.2-3.4); Lymphocytes % (auto) 19.9 %; Mean Corpuscular Volume 95.6 fL (80-100); Mean Platelet Volume 9.8 fL (7.4-10.4); Monocytes % (auto) 8.4 %; Neutrophils # (auto) 4.07 K/uL (1.4-6.5); Neutrophils % (auto) 68.2 %; Platelet Count 194 K/uL (130-400); RDW Coefficient of Variation 13.7 % (11.5-14.5); RDW Standard Deviation 47.2 fL (36.4-46.3); Red Blood Count 3.39 M/uL (4.7-6.1); White Blood Count 5.97 K/uL (4.8-10.8)
[2018-05-26 22:19] LABS: Albumin Level 2.9 gm/dl (3.4-5.0); BUN Creatinine Ratio 21.8 (10-20); Calcium 9.9 mg/dl (8.5-10.1); Creatine Kinase MB 3.6 ng/ml (0.5-3.6); Creatinine Clr Calc Pharmacy 35.9 ml/min; Est GFR (African American) 59.3; Est GFR (Non-African American) 51.2; Potassium 4.4 mmol/L (3.5-5.1)
[2018-05-26 22:27] LABS: Albumin Globulin Ratio 0.7 (0.9-2); Bilirubin,Total 0.3 mg/dl (0.2-1); Globulin 4.2 gm/dl (2.5-4.0); Total Protein 7.1 gm/dl (6.4-8.2); Troponin I 0.076 ng/ml (0-0.045)
[2018-05-26] MEDS ORDERED: methylPREDNISolone 60 MG in SYRINGE 1 ML IV STA (22:30)
--- NOTE | 2018-05-26 22:36 | XRay Report ---
XR chest 1V portable HISTORY: 78 years-old Male Chest Pain acute atypical chest pain with shortness of breath COMPARISON: Chest radiograph 04/20/2018, chest CT 08/03/2017 TECHNIQUE: Portable AP view of the chest FINDINGS: Cardiomediastinal and hilar silhouettes are unchanged. Stable positioning of left subclavian pacer/AI CD. Emphysema with chronic interstitial coarsening. No pneumothorax, pleural effusion, focal airspace consolidation or overt pulmonary edema. Degenerative changes of the shoulders and spine. IMPRESSION: Emphysema without acute process. The above report was generated using voice recognition software. It may contain grammatical, syntax o r spelling errors. Electronically signed by: Bienvenido John M.D. 05/26/2018 10:34 PM
[2018-05-26] MEDS ORDERED: methylPREDNISolone 125 MG/2 ML VIAL ONE (22:44)
[2018-05-26] MEDS: FUROSEMIDE 40 MG/4 ML VIAL IV STA ×2 (22:47→23:27)
[2018-05-26 22:52] LABS: Influenza A virus by PCR Neg for Influ A (Neg); Influenza B virus by PCR Neg for Influ B (Neg)
[2018-05-26] MEDS ORDERED: ALBUMIN 25% 50 ML IV ONE (22:52)
--- NOTE | 2018-05-26 23:09 | History & Physical Report ---
Date of Service May 26, 2018 Assessment & Plan (1) COPD exacerbation: Received Solu-Medrol 60 mg IV in ED. Ceftriaxone 1 g IV daily Levofloxacin 500 mg IV every 24 hours Solu-Medrol 40 mg IV every 8 hours Guaifenesin extended release 600 mg by mouth twice a day Duonebs q6hwa and q2h prn Nasal cannula 2 L of oxygen titrating to keep pulse ox greater than or equal to 92%. Sputum Gram stain and culture Present on Admission?: Yes (2) Elevated troponin I level: Troponin on admission 0.076 Troponin levels during admission on 05/28/17 were from 0.116 up to 0.177. Unclear if troponins have returned toward normal, but will have to presume but that they did and this is a new elevation now. The patient will be admitted to telemetry for serial cardiac enzymes, serial EKG's, cardiac rhythm monitoring and a 2-D echocardiogram with Dopplers. Continue aspirin 81 mg daily, lisinopril 10 mg daily, metoprolol succinate 75 mg daily and potassium chloride 20 mEq daily. We will give albumin 25 g IV with Lasix 40 mg IV x1 tonight, and then continue furosemide 80 mg p.o. daily in the morning. Present on Admission?: Yes (3) Edema: As above. Present on Admission?: Yes (4) Pacemaker: Normal functioning. Present on Admission?: Yes (5) GERD (gastroesophageal reflux disease): Continue pantoprazole 40 mg p.o. daily, and ranitidine-milligrams p.o. twice daily Present on Admission?: Yes (6) Hypertension: As above. Present on Admission?: Yes History of Present Illness Chief Complaint: The patient presents to the emergency department with worsening shortness of breath, moist cough and dyspnea on exertion Primary Care Provider: Caroline Ruggiero MD The patient is a 78-year-old male with past medical history including severe COPD, with last hospitalization from 05/27-05/30/17 for similar symptoms yesterday. He reports using his inhalers as directed. He has not had any recent travels or known sick exposures. He has also had somewhat decreased oral intake over the past several days due to breathing issues. Allergies Allergy/AdvReac Type Severity Reaction Status Date / Time No Known Allergies Allergy Unverified 05/26/18 23:40 Home Medications Home Medications Medication Instructions Recorded Confirmed Type aspirin [Aspir-81] 81 mg PO DAILY 04/20/18 05/26/18 History atorvastatin 80 mg PO DAILY 04/20/18 05/26/18 History fluticasone propion-salmeterol 1 inh INHALATION BID 04/20/18 05/26/18 History [Advair Diskus] ipratropium-albuterol 3 ml INHALATION QID PRN 04/20/18 05/26/18 History ipratropium-albuterol [Combivent 2 puff INHALATION QID 04/20/18 05/26/18 History Respimat] lisinopril 10 mg PO DAILY 04/20/18 05/26/18 History metoprolol succinate 75 mg PO DAILY 04/20/18 05/26/18 History pantoprazole [Protonix] 40 mg PO DAILY #30 tab 04/20/18 05/26/18 Rx ranitidine HCl [Zantac] 150 mg PO BID PRN #60 tab 04/20/18 05/26/18 Rx furosemide 80 mg PO DAILY 05/26/18 05/26/18 History potassium chloride 20 meq PO DAILY 05/26/18 05/26/18 History Past Med/Surg History Medical History SBO (small bowel obstruction) (Acute) History of heart attack COPD exacerbation Social History Preferred Language: Chinese Communication Ability: Effective Credit Collections Rep Required: No Beliefs That Will Affect Care: None Current Living Situation: Alone Other Information That Helps Us Care for You: No Feels Safe at Home: Yes Safety Concerns: Feels Safe At This Time Smoking Status: Former smoker Hx Alcohol Use: No Hx Substance Use: No Review of Systems The patient denies chest pain, palpitations, lower extremity swelling, sore throat, fevers, chills, sweats, nausea, vomiting, diarrhea , constipation, abdominal pain, pelvic pain, blood in urine or stool, dysuria, urinary frequency or urgency, lightheadedness, dizziness, headache, memory loss, loss of consciousness, rash, abnormal bruising or bleeding, imbalance, focal weakness, numbness or tingling in arms or legs, generalized arthralgias or myalgias, back or neck pain, or night sweats. The review of systems is otherwise negative other than for that already noted above, and at least 10 systems have been reviewed. Physical Exam Vital Signs (Past 24 Hours): Last Vital Signs Temp 36.4 C L 05/26/18 21:26 Pulse 71 05/26/18 22:30 Resp 21 05/26/18 22:30 BP 120/62 05/26/18 22:30 Pulse Ox 99 05/26/18 22:30 Physical Exam: The patient is awake, alert and oriented 3, normocephalic and atraumatic, lying in bed and in no acute distress. HEENT--PERRL, EOMI, mucous membranes and oropharynx normal. Neck--supple. No JVD. No bruits. Thyroid normal, trachea midline, no adenopathy. Heart--normal S1 and S2. No murmurs, rubs or gallops. Lungs--coarse breath sounds bilaterally with scattered wheeze, but overall diminished. Abdomen--normal bowel sounds and soft. Nontender. Nondistended, no hernias or masses, no organomegaly. Extremities--no cyanosis or clubbing. There is bilateral pretibial trace to 1+ pitting edema. There are good distal pulses b/l. Dermatologic--normal skin turgor, normal color, no abnormal lymph nodes, no rash. Neurologic--cranial nerves II through XII grossly intact. Rheumatologic--normal range of motion. Psychiatric--normal affect. Results & Data Laboratory Results Laboratory Results WBC 5.97 K/uL (4.8-10.8) 05/26/18 21:00 RBC 3.39 M/uL (4.7-6.1) L 05/26/18 21:00 Hgb 11.0 g/dL (14.0-18.0) L 05/26/18 21:00 Hct 32.4 % (42-52) L 05/26/18 21:00 MCV 95.6 fL (80-100) 05/26/18 21:00 MCH 32.4 pg (25-34) 05/26/18 21:00 MCHC 34.0 g/dL (32-36) 05/26/18 21:00 RDW Std Deviation 47.2 fL (36.4-46.3) H 05/26/18 21:00 RDW Coeff of Fernando 13.7 % (11.5-14.5) 05/26/18 21:00 Plt Count 194 K/uL (130-400) 05/26/18 21:00 MPV 9.8 fL (7.4-10.4) 05/26/18 21:00 Immature Gran % (Auto) 0.5 % 05/26/18 21:00 Neut % (Auto) 68.2 % 05/26/18 21:00 Lymph % (Auto) 19.9 % 05/26/18 21:00 [place] % (Auto) 8.4 % 05/26/18 21:00 Eos % (Auto) 2.5 % 05/26/18 21:00 Baso % (Auto) 0.5 % 05/26/18 21:00 Immature Gran # (Auto) 0.03 K/uL (0.00-0.02) H 05/26/18 21:00 Neut # (Auto) 4.07 K/uL (1.4-6.5) 05/26/18 21:00 Lymph # (Auto) 1.19 K/uL (1.2-3.4) L 05/26/18 21:00 [place] # (Auto) 0.50 K/uL (0.11-0.59) 05/26/18 21:00 Eos # (Auto) 0.15 K/uL (0-0.5) 05/26/18 21:00 Baso # (Auto) 0.03 K/uL (0-0.2) 05/26/18 21:00 Sodium 137 mmol/L (136-145) 05/26/18 21:00 Potassium 4.4 mmol/L (3.5-5.1) 05/26/18 21:00 Chloride 104 mmol/L (98-107) 05/26/18 21:00 Carbon Dioxide 30 mmol/L (21-32) 05/26/18 21:00 Anion Gap 4.0 (3-11) 05/26/18 21:00 BUN 29 mg/dl (7-18) H 05/26/18 21:00 Creatinine 1.33 mg/dl (0.6-1.4) 05/26/18 21:00 Est Cr Clr Drug Dosing 35.9 ml/min 05/26/18 21:00 Est GFR ( Amer) 59.3 05/26/18 21:00 Est GFR (Non-Af Amer) 51.2 05/26/18 21:00 BUN/Creatinine Ratio 21.8 (10-20) H 05/26/18 21:00 Glucose 107 mg/dl (70-99) H 05/26/18 21:00 Calcium 9.9 mg/dl (8.5-10.1) 05/26/18 21:00 Total Bilirubin 0.3 mg/dl (0.2-1) 05/26/18 21:00 AST 21 U/L (15-37) 05/26/18 21:00 ALT 26 U/L (12-78) 05/26/18 21:00 Alkaline Phosphatase 111 U/L (45-117) 05/26/18 21:00 Total Creatine Kinase 101 U/L (39-308) 05/26/18 21:00 CK-MB (CK-2) 3.6 ng/ml (0.5-3.6) 05/26/18 21:00 CK/CKMB % Calc 3.6 (0-3.0) H 05/26/18 21:00 Troponin I 0.076 ng/ml (0-0.045) H* 05/26/18 21:00 NT-Pro-B Natriuret Pep 4945 pg/ml (0-1800) H 05/26/18 21:00 Total Protein 7.1 gm/dl (6.4-8.2) 05/26/18 21:00 Albumin 2.9 gm/dl (3.4-5.0) L 05/26/18 21:00 Globulin 4.2 gm/dl (2.5-4.0) H 05/26/18 21:00 Albumin/Globulin Ratio 0.7 (0.9-2) L 05/26/18 21:00 Lipase 231 U/L (73-393) 05/26/18 21:00 Influenza Type A (PCR) Neg for Influ A (Neg) 05/26/18 22:10 Influenza Type B (PCR) Neg for Influ B (Neg) 05/26/18 22:10 Diagnostic Findings [facility], [place] [phone] XRay Report Patient: SANA,PAULAdmit Date: 05/26/18 MR#: [id number]: [address] Acct ID:[id number]: Date: 2City Zip: [place] [address] Age: 78Location: ED Sex: M Room/Bed: Att Phy: Diagnosis: SOB, EDEMA TO LEGS [place] Phy: RV. Ronda, MDService Date: 05/26/18 Fam Phy: Interpreting Phy: Jameson John Admit Phy: Ordering Phy: Seng Hernandez MD cc: ~ XR chest 1V portable HISTORY: 78 years-old Male Chest Pain acute atypical chest pain with shortness of breath COMPARISON: Chest radiograph 04/20/2018, chest CT 08/03/2017 TECHNIQUE: Portable AP view of the chest FINDINGS: Cardiomediastinal and hilar silhouettes are unchanged. Stable positioning of left subclavian pacer/AICD. Emphysema with chronic interstitial coarsening. No pneumothorax, pleural effusion, focal airspace consolidation or overt pulmonary edema. Degenerative changes of the shoulders and spine. IMPRESSION: Emphysema without acute process. The above report was generated using voice recognition software. It may contain grammatical, syntax or spelling errors. Electronically signed by: Bienvenido John M.D. 05/26/2018 10:34 PM Code Status & VTE Plan Code Status Full code VTE Prophylaxis Plan VTE Prophylaxis will be ordered: Yes
[2018-05-27] MEDS ORDERED: ONDANSETRON INJ 2 MG/ML 2 ML VIAL IV PRN (00:26)
[2018-05-27] MEDS ORDERED: MAGNESIUM HYDROXIDE SUSP 30 ML UDC PO PRN (00:26)
[2018-05-27] MEDS ORDERED: ACETAMINOPHEN 325 MG TAB PO PRN (00:26)
[2018-05-27] MEDS ORDERED: ALUMINUM/MAGNESIUM SUSP 30 ML UDC PO PRN (00:26)
[2018-05-27] MEDS ORDERED: POLYETHYLENE (MIRALAX) 17 GM PACK PO PRN (00:26)
[2018-05-27] MEDS ORDERED: ACETAMINOPHEN 1000 MG/100 ML IV IV PRN (00:43)
[2018-05-27] MEDS ORDERED: LEVOFLOXACIN/D5W 500 MG/100 ML BAG IV SCH (01:00)
[2018-05-27] MEDS ORDERED: LEVOFLOXACIN CONSULT ACTIVE PRN (01:15)
[2018-05-27 01:17] LABS: Basophils # (auto) 0.03 K/uL (0-0.2); Basophils % (auto) 0.3 %; Eosinophils # (auto) 0.09 K/uL (0-0.5); Hematocrit (blood only) 35.3 % (42-52); Hemoglobin 11.9 g/dL (14.0-18.0); Immature Granulocytes # (auto) 0.04 K/uL (0.00-0.02); Immature Granulocytes % (auto) 0.4 %; Lymphocytes # (auto) 0.93 K/uL (1.2-3.4); Lymphocytes % (auto) 10.1 %; Mean Corpuscular Hgb Conc 33.7 g/dL (32-36); Mean Corpuscular Volume 95.7 fL (80-100); Mean Platelet Volume 9.7 fL (7.4-10.4); Monocytes # (auto) 0.18 K/uL (0.11-0.59); Neutrophils # (auto) 7.91 K/uL (1.4-6.5); Neutrophils % (auto) 86.2 %; Platelet Count 213 K/uL (130-400); RDW Coefficient of Variation 13.5 % (11.5-14.5); RDW Standard Deviation 46.8 fL (36.4-46.3); Red Blood Count 3.69 M/uL (4.7-6.1); White Blood Count 9.18 K/uL (4.8-10.8)
[2018-05-27] MEDS ORDERED: ALBUT/IPRATROP 3MG/0.5MG NEB 3 ML VIAL NEB PRN ×2 (01:17→01:19)
[2018-05-27 01:27] LABS: Partial Thromboplastin Ratio 1.2; Partial Thromboplastin Time 31.3 Seconds (21.0-31.0); Prothrombin Time 10.7 Seconds (9.0-12.0)
[2018-05-27 01:40] LABS: Albumin Level 3.5 gm/dl (3.4-5.0); BUN Creatinine Ratio 18.8 (10-20); Calcium 9.8 mg/dl (8.5-10.1); Creatinine Clr Calc Pharmacy 32.1 ml/min; Est GFR (African American) 54.4; Est GFR (Non-African American) 46.9; Potassium 4.3 mmol/L (3.5-5.1)
[2018-05-27 02:04] LABS: Albumin Globulin Ratio 0.7 (0.9-2); Bilirubin,Total 0.4 mg/dl (0.2-1); Globulin 4.7 gm/dl (2.5-4.0); Total Protein 8.2 gm/dl (6.4-8.2); Troponin I 0.073 ng/ml (0-0.045)
[2018-05-27] MEDS ORDERED: cefTRIAXone SODIUM 1,000 MG in DEXTROSE 5% 50 ML IV SCH (04:00)
[2018-05-27] MEDS: methylPREDNISolone 40 MG in SYRINGE 0 ML IV SCH ×3 (04:33→21:06)
[2018-05-27] MEDS: ALBUT/IPRATROP 3MG/0.5MG NEB 3 ML VIAL NEB SCH ×4 (07:38→19:27)
[2018-05-27] MEDS: HEPARIN SOD 5,000 UNIT/0.5 ML VIAL SQ SCH ×2 (07:53→21:08)
[2018-05-27] MEDS: guaiFENesin 600 MG TABCR PO SCH ×2 (07:54→19:47)
[2018-05-27] MEDS: ASPIRIN 81 MG ECTAB PO SCH (07:54)
[2018-05-27] MEDS: PANTOprazole 40 MG TAB PO SCH (07:54)
[2018-05-27] MEDS: METOPROLOL SUCC 50MG EXT REL TAB PO SCH (07:55)
[2018-05-27] MEDS ORDERED: ALBUT/IPRATROP 3MG/0.5MG NEB 3 ML VIAL NEB SCH (08:00)
[2018-05-27] MEDS ORDERED: ATORVASTATIN 40 MG TAB PO SCH ×2 (09:00→21:00)
--- NOTE | 2018-05-27 09:37 | Hospitalist Progress Note ---
Date of Service May 27, 2018 Assessment & Plan (1) COPD exacerbation: Much improved on Solumedrol 40 q8, Levaquin and Rocephin will stop Solumedrol this evening, start Prednisone 50mg daily tomorrow morning slow taper on discharge stop Rocephin, continue Levaquin for 5 day course total, last day would be 05/31 Guaifenesin extended release 600 mg by mouth twice a day Duonebs q6hwa and q2h prn on Advair and Combivent at home, would look into the cost of Spiriva daily as this would benefit him as well may be ready for discharge tomorrow as he is feeling better and on his home dose of oxygen at 2L (2) Elevated troponin I level: Troponin on admission 0.076, persistent at 0.07 no chest pain follow up on echo, if normal will transfer off tele monitor Continue aspirin 81 mg daily, lisinopril 10 mg daily, metoprolol succinate 75 mg daily and potassium chloride 20 mEq daily. (3) Edema: Improved after Lasix 40mg IV will continue on Lasix 80mg PO daily follow up echo results Cr up to 1.43, monitor tomorrow (4) Pacemaker: Normal functioning. (5) GERD (gastroesophageal reflux disease): Continue pantoprazole 40 mg p.o. daily, and ranitidine-milligrams p.o. twice daily (6) Hypertension: metoprolol, lisinpril, lasix BP stable at 135/70 Subjective patient feeling a lot better compared to admission, breathing easier with a cough but not productive no fever or chills, no chest pain troponin 0.07 consistently, no signs of ACS echo done this morning, follow up on results vitals stable, on 2L which he wears at home eating okay labs stable, Cr up slightly to 1.43 after Lasix IV given continue to monitor, appears euvolemic he says he uses Combivent and Advair at home, thinks that he will need new prescriptions asked if he ever used Spiriva, he does not think he has, he would be open to trying it at home Review of Systems All systems reviewed & are unremarkable except as noted in HPI & below Constitutional: + weakness Respiratory: + cough, + dyspnea and + dyspnea on exertion; no chest congestion, no pain with cough, no sputum production and no wheezing Cardiovascular: no chest pain Physical Exam Vital Signs (Past 24 Hours): Last Vital Signs Temp 36.3 C L 05/27/18 00:27 Pulse 75 05/27/18 07:40 Resp 18 05/27/18 07:40 BP 135/70 05/27/18 00:27 Pulse Ox 95 05/27/18 07:40 Constitutional: WD/WN, vitals as above + thin Eyes: PERRL, conjunctivae normal, anicteric sclerae ENMT: external ear and nose normal, oropharynx normal Neck: trachea midline, no thyromegaly Respiratory: normal respiratory effort, lungs clear to auscultation + hyperresonance to percussion; no labored breathing and does not use accessory muscles barrel chested Cardiovascular: RRR, no murmur, no edema Gastrointestinal (Abdomen): normal bowel sounds, soft, nontender, no hepatosplenomegaly Musculoskeletal: no cyanosis or clubbing, extremities motor strength 5/5 Skin: no rashes, warm and dry Neurologic: patellar DTR's 2+ bilat, sensation intact and PERRL, EOMI, accommodation nl, no face palsy, no dysarthria Psychiatric: A+Ox3, euthymic affect Lymphatic: no cervical or axillary lymphadenopathy Results & Data Laboratory Results Laboratory Results - last 24 hr 05/26/18 05/26/18 05/26/18 21:00 21:00 21:00 WBC 5.97 RBC 3.39 L Hgb 11.0 L Hct 32.4 L MCV 95.6 MCH 32.4 MCHC 34.0 RDW Std Deviation 47.2 H RDW Coeff of Fernando 13.7 Plt Count 194 MPV 9.8 Immature Gran % (Auto) 0.5 Neut % (Auto) 68.2 Lymph % (Auto) 19.9 [place] % (Auto) 8.4 Eos % (Auto) 2.5 Baso % (Auto) 0.5 Immature Gran # (Auto) 0.03 H Neut # (Auto) 4.07 Lymph # (Auto) 1.19 L [place] # (Auto) 0.50 Eos # (Auto) 0.15 Baso # (Auto) 0.03 PT INR APTT PTT Ratio Sodium 137 Potassium 4.4 Chloride 104 Carbon Dioxide 30 Anion Gap 4.0 BUN 29 H Creatinine 1.33 Est Cr Clr Drug Dosing 35.9 Est GFR ( Amer) 59.3 Est GFR (Non-Af Amer) 51.2 BUN/Creatinine Ratio 21.8 H Glucose 107 H Calcium 9.9 Total Bilirubin 0.3 AST 21 ALT 26 Alkaline Phosphatase 111 Total Creatine Kinase 101 CK-MB (CK-2) 3.6 CK/CKMB % Calc 3.6 H Troponin I 0.076 H* NT-Pro-B Natriuret Pep 4945 H Total Protein 7.1 Albumin 2.9 L Globulin 4.2 H Albumin/Globulin Ratio 0.7 L Lipase 231 Influenza Type A (PCR) Influenza Type B (PCR) 05/26/18 05/27/18 05/27/18 22:10 01:05 01:05 WBC 9.18 RBC 3.69 L Hgb 11.9 L Hct 35.3 L MCV 95.7 MCH 32.2 MCHC 33.7 RDW Std Deviation 46.8 H RDW Coeff of Fernando 13.5 Plt Count 213 MPV 9.7 Immature Gran % (Auto) 0.4 Neut % (Auto) 86.2 Lymph % (Auto) 10.1 [place] % (Auto) 2.0 Eos % (Auto) 1.0 Baso % (Auto) 0.3 Immature Gran # (Auto) 0.04 H Neut # (Auto) 7.91 H Lymph # (Auto) 0.93 L [place] # (Auto) 0.18 Eos # (Auto) 0.09 Baso # (Auto) 0.03 PT INR APTT PTT Ratio Sodium 139 Potassium 4.3 Chloride 103 Carbon Dioxide 29 Anion Gap 7.0 BUN 27 H Creatinine 1.43 H Est Cr Clr Drug Dosing 32.1 Est GFR ( Amer) 54.4 Est GFR (Non-Af Amer) 46.9 BUN/Creatinine Ratio 18.8 Glucose 114 H Calcium 9.8 Total Bilirubin 0.4 AST 19 ALT 27 Alkaline Phosphatase 129 H Total Creatine Kinase CK-MB (CK-2) CK/CKMB % Calc Troponin I 0.073 H* NT-Pro-B Natriuret Pep Total Protein 8.2 Albumin 3.5 Globulin 4.7 H Albumin/Globulin Ratio 0.7 L Lipase Influenza Type A (PCR) Neg for Influ A Influenza Type B (PCR) Neg for Influ B 05/27/18 01:05 WBC RBC Hgb Hct MCV MCH MCHC RDW Std Deviation RDW Coeff of Fernando Plt Count MPV Immature Gran % (Auto) Neut % (Auto) Lymph % (Auto) [place] % (Auto) Eos % (Auto) Baso % (Auto) Immature Gran # (Auto) Neut # (Auto) Lymph # (Auto) [place] # (Auto) Eos # (Auto) Baso # (Auto) PT 10.7 INR 1.0 APTT 31.3 H PTT Ratio 1.2 Sodium Potassium Chloride Carbon Dioxide Anion Gap BUN Creatinine Est Cr Clr Drug Dosing Est GFR ( Amer) Est GFR (Non-Af Amer) BUN/Creatinine Ratio Glucose Calcium Total Bilirubin AST ALT Alkaline Phosphatase Total Creatine Kinase CK-MB (CK-2) CK/CKMB % Calc Troponin I NT-Pro-B Natriuret Pep Total Protein Albumin Globulin Albumin/Globulin Ratio Lipase Influenza Type A (PCR) Influenza Type B (PCR) Medications Administered Current Inpatient Medications Acetaminophen (Tylenol) 650 mg PO Q4H PRN PRN Reason: Pain or Fever Stop: 06/26/18 00:25 Acetaminophen (Ofirmev) 1,000 mg IV Q8H PRN PRN Reason: Pain or Fever Stop: 06/26/18 00:42 Al Hydrox/Mg Hydrox/Simethicone (Maalox) 15 ml PO Q4H PRN PRN Reason: Dyspepsia Stop: 06/26/18 00:25 Albuterol (Duoneb) 3 ml NEB QIDR [facility] Stop: 06/26/18 07:59 Last Admin: 05/27/18 07:38 Dose: 3 ml Documented by: Albuterol (Duoneb) 3 ml NEB Q4R PRN PRN Reason: Shortness Of Breath Stop: 06/26/18 01:16 Last Admin: 05/27/18 01:27 Dose: 3 ml Documented by: Aspirin (Ecotrin Ectab) 81 mg PO DAILY [facility] Stop: 06/26/18 08:59 Last Admin: 05/27/18 07:54 Dose: 81 mg Documented by: Atorvastatin Calcium (Lipitor) 80 mg PO DAILY [facility] Stop: 06/26/18 08:59 Guaifenesin (Mucinex) 600 mg PO Q12 [facility] Stop: 06/26/18 08:59 Last Admin: 05/27/18 07:54 Dose: Not Given Documented by: Heparin Sodium (Porcine) (Heparin Sodium (Porcine)) 5,000 units SQ Q12 [facility] Stop: 06/26/18 08:59 Last Admin: 05/27/18 07:53 Dose: Not Given Documented by: Ceftriaxone Sodium 1,000 mg/ (Dextrose) 60 mls @ 100 mls/hr IV Q24H [facility] Stop: 06/03/18 03:59 Last Infusion: 05/27/18 06:16 Dose: Infused Documented by: Methylprednisolone 40 mg/ (Syringe) 0.64 mls @ 1.5 mls/min IV Q8 [facility] Stop: 06/26/18 05:59 Last Admin: 05/27/18 04:33 Dose: 1.5 mls/min Documented by: Levofloxacin/Dextrose (Levaquin/D5w) 250 mg in 50 mls @ 50 mls/hr IV Q24H [facility]; Protocol Stop: 06/02/18 01:59 Magnesium Hydroxide (Milk Of Magnesia) 30 ml PO Q12H PRN PRN Reason: Constipation Stop: 06/26/18 00:25 Metoprolol Succinate (Toprol Xl) 75 mg PO DAILY [facility] Stop: 06/26/18 08:59 Last Admin: 05/27/18 07:55 Dose: 75 mg Documented by: Miscellaneous Information (Consult) 1 ea N/A UD PRN PRN Reason: Consult Stop: 06/26/18 01:14 Ondansetron HCl (Zofran) 4 mg IV Q6H PRN PRN Reason: Nausea Stop: 06/26/18 00:25 Pantoprazole Sodium (Protonix) 40 mg PO DAILY [facility] Stop: 06/26/18 08:59 Last Admin: 05/27/18 07:54 Dose: Not Given Documented by: Polyethylene Glycol (Miralax Powder Packet) 17 gm PO DAILY PRN PRN Reason: Constipation Stop: 06/26/18 00:25 Ranitidine HCl (Zantac) 150 mg PO BID [facility] Stop: 06/26/18 00:25 Last Admin: 05/27/18 07:54 Dose: Not Given Documented by:
[2018-05-27] MEDS ORDERED: Nursing to Pharmacy Communication ONE (11:09)
[2018-05-28] MEDS ORDERED: LEVOFLOXACIN/D5W 250 MG/50 ML BAG IV SCH (01:00)
--- NOTE | 2018-05-28 01:35 | Emergency Department Note ---
Entered by Raji Lemon acting as a scribe for Seng Hernandez MD History of Present Illness General Chief complaint: Shortness of Breath/Dyspnea Stated complaint: SOB, EDEMA TO LEGS Time Seen by Provider: 05/26/18 21:50 Source: patient Mode of arrival: EMS History of Present Illness Provider complaint: Shortness of breath Onset (ago): day(s) (past couple of days) Location: chest Pain Consistency: + other (persistent) Quality: + other (shortness of breath) Associated symptoms: + denies other symptoms (abdominal pain), + cough and + other (pitting edema of bilateral legs, dyspnea); no chest pain The patient is a 78 year old male who presents to the Emergency Room via EMS with complaints of shortness of breath that has been persistent over the past few days. Per nursing staff, the patient has been experiencing pitting edema in bilateral lower extremities. The patient notes that the swelling waxes and wanes. Per nursing staff, the patient typically wear 2 L of [place] oxygen daily and has an occasional cough. The patient states that he feels minimally better since the ambulance picked him up, but notes that it still hurts in his chest to take a breath. The patient denies any abdominal pain or chest pain. Home Medications Home Medications Medication Instructions Recorded Confirmed Type aspirin [Aspir-81] 81 mg PO DAILY 04/20/18 05/26/18 History atorvastatin 80 mg PO DAILY 04/20/18 05/26/18 History fluticasone propion-salmeterol 1 inh INHALATION BID 04/20/18 05/26/18 History [Advair Diskus] ipratropium-albuterol 3 ml INHALATION QID PRN 04/20/18 05/26/18 History ipratropium-albuterol [Combivent 2 puff INHALATION QID 04/20/18 05/26/18 History Respimat] lisinopril 10 mg PO DAILY 04/20/18 05/26/18 History metoprolol succinate 75 mg PO DAILY 04/20/18 05/26/18 History pantoprazole [Protonix] 40 mg PO DAILY #30 tab 04/20/18 05/26/18 Rx ranitidine HCl [Zantac] 150 mg PO BID PRN #60 tab 04/20/18 05/26/18 Rx furosemide 80 mg PO DAILY 05/26/18 05/26/18 History potassium chloride 20 meq PO DAILY 05/26/18 05/26/18 History Allergies Allergy/AdvReac Type Severity Reaction Status Date / Time No Known Allergies Allergy Unverified 05/26/18 23:40 Past Med/Surg History Medical History SBO (small bowel obstruction) (Acute) History of heart attack COPD exacerbation Social History Communication Ability: Effective Beliefs That Will Affect Care: None marital status: / Current Living Situation: Alone Other Information That Helps Us Care for You: No Feels Safe at Home: Yes Safety Concerns: Feels Safe At This Time Smoking Status: Former smoker Hx Alcohol Use: No Hx Substance Use: No Review of Systems See HPI for pertinent positives & negatives. and A total of 10 systems reviewed and were otherwise negative Physical Exam Vital Signs Vital Signs - 24 hr 05/27/18 01:50 05/27/18 01:52 05/27/18 07:40 Temperature Temperature Source Pulse Rate 72 Pulse Rate [Left Finger] 75 Respiratory Rate 18 Respiratory Effort / Characteristics SOB on Exertion Respiratory Depth Normal Respiratory Pattern Regular Blood Pressure [Right Arm] Blood Pressure Mean [Right Arm] Blood Pressure Position [Right Arm] Pulse Oximetry 95 Oxygen Delivery Method Nasal Cannula Nasal Cannula Oxygen Flow Rate 2 2 05/27/18 09:00 05/27/18 11:20 05/27/18 11:41 Temperature 36.4 C L Temperature Source Oral Pulse Rate Pulse Rate [Left Finger] 76 68 Respiratory Rate 20 18 Respiratory Effort / Characteristics Non-Labored Non-Labored Respiratory Depth Respiratory Pattern Blood Pressure [Right Arm] 112/69 Blood Pressure Mean [Right Arm] 83 Blood Pressure Position [Right Arm] Lying Pulse Oximetry 91 95 Oxygen Delivery Method Nasal Cannula Nasal Cannula Oxygen Flow Rate 2 2 05/27/18 14:44 05/27/18 14:58 05/27/18 15:12 Temperature 36.2 C L Temperature Source Axillary Pulse Rate Pulse Rate [Left Finger] 69 74 Respiratory Rate 18 19 Respiratory Effort / Characteristics Respiratory Depth Respiratory Pattern Blood Pressure [Right Arm] 98/61 L Blood Pressure Mean [Right Arm] 73 Blood Pressure Position [Right Arm] Lying Pulse Oximetry 94 96 100 Oxygen Delivery Method Nasal Cannula Oxygen Flow Rate 2 05/27/18 19:00 05/27/18 19:27 05/27/18 21:12 Temperature 36.4 C L Temperature Source Oral Pulse Rate Pulse Rate [Left Finger] 73 76 Respiratory Rate 18 17 Respiratory Effort / Characteristics Non-Labored Spontaneous SOB on Exertion Respiratory Depth Normal Respiratory Pattern Regular Blood Pressure [Right Arm] 110/64 Blood Pressure Mean [Right Arm] 79 Blood Pressure Position [Right Arm] Pulse Oximetry 93 93 Oxygen Delivery Method Nasal Cannula Nasal Cannula Nasal Cannula Oxygen Flow Rate 2 2 05/27/18 23:00 05/27/18 23:53 Temperature 36.4 C L Temperature Source Oral Pulse Rate 74 Pulse Rate [Left Finger] 84 Respiratory Rate 17 Respiratory Effort / Characteristics Respiratory Depth Respiratory Pattern Blood Pressure [Right Arm] 141/70 H Blood Pressure Mean [Right Arm] 93 Blood Pressure Position [Right Arm] Pulse Oximetry 96 Oxygen Delivery Method Oxygen Flow Rate GENERAL: Awake, alert, cachectic in appearance, in no distress HENT: Normocephalic, atraumatic. Oropharynx unremarkabl EYES: Normal conjunctiva. Sclera non-icteric. NECK: Inspection normal. Non-tender. Supple. No nuchal rigidity. FROM. No masses. RESPIRATORY: Distant lung sounds. Clear to auscultation. No wheezes. No rales. Normal respiratory effort. CARDIAC: Normal rate. Normal rhythm. No murmurs. No rubs. Extremities warm and well perfused. Pulses equal. No JVD. GI: Soft, non-distended. No tenderness to palpation. No rebound or guarding. No masses. RECTAL: Deferred. MUSCULOSKELETAL: Atraumatic. Chest examination reveals no tenderness. The back is symmetrical on inspection without obvious abnormality. There is no CVA tenderness to palpation. No joint edema. LOWER EXTREMITIES: Calves are equal size bilaterally and non-tender. No discoloration. +1 pitting edema of bilateral lower extremities. NEURO: Normal sensorium. No sensory or motor deficits noted. SKIN: No rash or jaundice noted. Course 2153: The patient was evaluated in room B11B, and a complete history and physical examination were performed. 0043: I talked to the patient and discussed his test results. I discussed my recommendation for inpatient stay and the patient as agreeable. 0045: I reviewed the patient's [facility] the patient for further management. Consultations Consultation #1[facility] Time: 00:45 Administered Medications Albuterol (Duoneb) 3 ml NEB QIDR JOSE Stop: 06/26/18 07:59 Last Admin: 05/27/18 19:27 Dose: 3 ml Documented by: [id number] Admin: 05/27/18 14:58 Dose: 3 ml Documented by: [id number] Admin: 05/27/18 11:41 Dose: 3 ml Documented by: [id number] Admin: 05/27/18 07:38 Dose: 3 ml Documented by: [id number] Albuterol (Duoneb) 3 ml NEB Q4R PRN PRN Reason: Shortness Of Breath Stop: 06/26/18 01:16 Last Admin: 05/27/18 01:27 Dose: 3 ml Documented by: [id number] Aspirin (Ecotrin Ectab) 81 mg PO DAILY [facility] Stop: 06/26/18 08:59 Last Admin: 05/27/18 07:54 Dose: 81 mg Documented by: [id number] Atorvastatin Calcium (Lipitor) 80 mg PO HS [facility] Stop: 06/26/18 20:59 Last Admin: 05/27/18 19:48 Dose: 80 mg Documented by: [id number] Guaifenesin (Mucinex) 600 mg PO Q12 JOSE Stop: 06/26/18 08:59 Last Admin: 05/27/18 19:47 Dose: 600 mg Documented by: [id number] Admin: 05/27/18 07:54 Dose: Not Given Documented by: [id number] Heparin Sodium (Porcine) (Heparin Sodium (Porcine)) 5,000 units SQ Q12 [facility] Stop: 06/26/18 08:59 Last Admin: 05/27/18 21:08 Dose: Not Given Documented by: [id number] Admin: 05/27/18 07:53 Dose: Not Given Documented by: [id number] Levofloxacin/Dextrose (Levaquin/D5w) 250 mg in 50 mls @ 50 mls/hr IV Q24H [facility]; Protocol Stop: 06/02/18 01:59 Last Infusion: 05/28/18 01:08 Dose: 0 mls/hr Documented by: [id number] Admin: 05/28/18 00:07 Dose: 50 mls/hr Documented by: [id number] Metoprolol Succinate (Toprol Xl) 75 mg PO DAILY [facility] Stop: 06/26/18 08:59 Last Admin: 05/27/18 07:55 Dose: 75 mg Documented by: [id number] Pantoprazole Sodium (Protonix) 40 mg PO DAILY JOSE Stop: 06/26/18 08:59 Last Admin: 05/27/18 07:54 Dose: Not Given Documented by: [id number] Ranitidine HCl (Zantac) 150 mg PO BID JOSE Stop: 06/26/18 00:25 Last Admin: 05/27/18 19:46 Dose: 150 mg Documented by: [id number] Admin: 05/27/18 07:54 Dose: Not Given Documented by: [id number] Admin: 05/27/18 01:33 Dose: 150 mg Documented by: [id number] Discontinued Medications Furosemide (Lasix) 40 mg IV NOW STA Stop: 05/26/18 22:31 Last Admin: 05/26/18 23:27 Dose: 40 mg Documented by: [id number] Methylprednisolone 60 mg/ (Syringe) 1.96 mls @ 1.5 mls/min IV NOW STA Stop: 05/26/18 22:31 Last Admin: 05/26/18 22:47 Dose: Not Given Documented by: [id number] Albumin Human (Albumin 25%) 50 mls @ 50 mls/hr IV ONE ONE Stop: 05/26/18 23:51 Last Infusion: 05/27/18 01:01 Dose: 0 mls/hr Documented by: [id number] Admin: 05/26/18 23:27 Dose: 50 mls/hr Documented by: [id number] Ceftriaxone Sodium 1,000 mg/ (Dextrose) 60 mls @ 100 mls/hr IV Q24H JOSE Stop: 06/03/18 03:59 Last Infusion: 05/27/18 06:16 Dose: 0 mls/hr Documented by: [id number] Admin: 05/27/18 04:09 Dose: 100 mls/hr Documented by: [id number] Levofloxacin/Dextrose (Levaquin/D5w) 500 mg in 100 mls @ 100 mls/hr IV Q24H JOSE Stop: 05/27/18 01:59 Last Infusion: 05/27/18 03:55 Dose: 0 mls/hr Documented by: [id number] Admin: 05/27/18 01:33 Dose: 100 mls/hr Documented by: [id number] Methylprednisolone 40 mg/ (Syringe) 0.64 mls @ 1.5 mls/min IV Q8 JOSE Stop: 05/27/18 23:59 Last Admin: 05/27/18 21:06 Dose: 1.5 mls/min Documented by: [id number] Admin: 05/27/18 13:37 Dose: 1.5 mls/min Documented by: [id number] Admin: 05/27/18 04:33 Dose: 1.5 mls/min Documented by: [id number] Levalbuterol HCl (Xopenex 1.25mg/3ml Neb) 1.25 mg NEB NOW STA Stop: 05/26/18 22:01 Last Admin: 05/26/18 22:14 Dose: 1.25 mg Documented by: [id number] Methylprednisolone (Solumedrol) Confirm Administered Dose 125 mg .ROUTE .STK-MED ONE Stop: 05/26/18 22:45 Last Admin: 05/26/18 22:47 Dose: 60 mg Documented by: [id number] Medical Decision Making Differential Diagnosis Differential diagnosis: Etiologies such as infections, reactive airway disease, pneumonia, pneumothorax, COPD, CHF, cardiac ischemia, pulmonary embolism, musculoskeletal, gastrointestinal, as well as others were entertained. Medical Records Attestation: I reviewed the patient's medical records. Home Medications Current Medication List: was personally reviewed by me Laboratory Data Attestation: I reviewed the patient's lab results. Result diagrams: 05/27/18 01:05 05/27/18 01:05 Lab Results 05/26/18 05/26/18 05/26/18 Range/Units 21:00 21:00 21:00 WBC 5.97 (4.8-10.8) K/uL RBC 3.39 L (4.7-6.1) M/uL Hgb 11.0 L (14.0-18.0) g/dL Hct 32.4 L (42-52) % MCV 95.6 (80-100) fL MCH 32.4 (25-34) pg MCHC 34.0 (32-36) g/dL RDW Std Deviation 47.2 H (36.4-46.3) fL RDW Coeff of Fernando 13.7 (11.5-14.5) % Plt Count 194 (130-400) K/uL MPV 9.8 (7.4-10.4) fL Immature Gran % (Auto) 0.5 % Neut % (Auto) 68.2 % Lymph % (Auto) 19.9 % [place] % (Auto) 8.4 % Eos % (Auto) 2.5 % Baso % (Auto) 0.5 % Immature Gran # (Auto) 0.03 H (0.00-0.02) K/uL Neut # (Auto) 4.07 (1.4-6.5) K/uL Lymph # (Auto) 1.19 L (1.2-3.4) K/uL [place] # (Auto) 0.50 (0.11-0.59) K/uL Eos # (Auto) 0.15 (0-0.5) K/uL Baso # (Auto) 0.03 (0-0.2) K/uL PT (9.0-12.0) Seconds INR (0.9-1.1) APTT (21.0-31.0) Seconds PTT Ratio Sodium 137 (136-145) mmol/L Potassium 4.4 (3.5-5.1) mmol/L Chloride 104 (98-107) mmol/L Carbon Dioxide 30 (21-32) mmol/L Anion Gap 4.0 (3-11) BUN 29 H (7-18) mg/dl Creatinine 1.33 (0.6-1.4) mg/dl Est Cr Clr Drug Dosing 35.9 ml/min Est GFR ( Amer) 59.3 Est GFR (Non-Af Amer) 51.2 BUN/Creatinine Ratio 21.8 H (10-20) Glucose 107 H (70-99) mg/dl Calcium 9.9 (8.5-10.1) mg/dl Total Bilirubin 0.3 (0.2-1) mg/dl AST 21 (15-37) U/L ALT 26 (12-78) U/L Alkaline Phosphatase 111 (45-117) U/L Total Creatine Kinase 101 (39-308) U/L CK-MB (CK-2) 3.6 (0.5-3.6) ng/ml CK/CKMB % Calc 3.6 H (0-3.0) Troponin I 0.076 H* (0-0.045) ng/ml NT-Pro-B Natriuret Pep 4945 H (0-1800) pg/ml Total Protein 7.1 (6.4-8.2) gm/dl Albumin 2.9 L (3.4-5.0) gm/dl Globulin 4.2 H (2.5-4.0) gm/dl Albumin/Globulin Ratio 0.7 L (0.9-2) Lipase 231 (73-393) U/L Influenza Type A (PCR) (Neg) Influenza Type B (PCR) (Neg) 05/26/18 05/27/18 05/27/18 Range/Units 22:10 01:05 01:05 WBC 9.18 (4.8-10.8) K/uL RBC 3.69 L (4.7-6.1) M/uL Hgb 11.9 L (14.0-18.0) g/dL Hct 35.3 L (42-52) % MCV 95.7 (80-100) fL MCH 32.2 (25-34) pg MCHC 33.7 (32-36) g/dL RDW Std Deviation 46.8 H (36.4-46.3) fL RDW Coeff of Fernando 13.5 (11.5-14.5) % Plt Count 213 (130-400) K/uL MPV 9.7 (7.4-10.4) fL Immature Gran % (Auto) 0.4 % Neut % (Auto) 86.2 % Lymph % (Auto) 10.1 % [place] % (Auto) 2.0 % Eos % (Auto) 1.0 % Baso % (Auto) 0.3 % Immature Gran # (Auto) 0.04 H (0.00-0.02) K/uL Neut # (Auto) 7.91 H (1.4-6.5) K/uL Lymph # (Auto) 0.93 L (1.2-3.4) K/uL [place] # (Auto) 0.18 (0.11-0.59) K/uL Eos # (Auto) 0.09 (0-0.5) K/uL Baso # (Auto) 0.03 (0-0.2) K/uL PT (9.0-12.0) Seconds INR (0.9-1.1) APTT (21.0-31.0) Seconds PTT Ratio Sodium 139 (136-145) mmol/L Potassium 4.3 (3.5-5.1) mmol/L Chloride 103 (98-107) mmol/L Carbon Dioxide 29 (21-32) mmol/L Anion Gap 7.0 (3-11) BUN 27 H (7-18) mg/dl Creatinine 1.43 H (0.6-1.4) mg/dl Est Cr Clr Drug Dosing 32.1 ml/min Est GFR ( Amer) 54.4 Est GFR (Non-Af Amer) 46.9 BUN/Creatinine Ratio 18.8 (10-20) Glucose 114 H (70-99) mg/dl Calcium 9.8 (8.5-10.1) mg/dl Total Bilirubin 0.4 (0.2-1) mg/dl AST 19 (15-37) U/L ALT 27 (12-78) U/L Alkaline Phosphatase 129 H (45-117) U/L Total Creatine Kinase (39-308) U/L CK-MB (CK-2) (0.5-3.6) ng/ml CK/CKMB % Calc (0-3.0) Troponin I 0.073 H* (0-0.045) ng/ml NT-Pro-B Natriuret Pep (0-1800) pg/ml Total Protein 8.2 (6.4-8.2) gm/dl Albumin 3.5 (3.4-5.0) gm/dl Globulin 4.7 H (2.5-4.0) gm/dl Albumin/Globulin Ratio 0.7 L (0.9-2) Lipase (73-393) U/L Influenza Type A (PCR) Neg for Influ A (Neg) Influenza Type B (PCR) Neg for Influ B (Neg) 05/27/18 Range/Units 01:05 WBC (4.8-10.8) K/uL RBC (4.7-6.1) M/uL Hgb (14.0-18.0) g/dL Hct (42-52) % MCV (80-100) fL MCH (25-34) pg MCHC (32-36) g/dL RDW Std Deviation (36.4-46.3) fL RDW Coeff of Fernando (11.5-14.5) % Plt Count (130-400) K/uL MPV (7.4-10.4) fL Immature Gran % (Auto) % Neut % (Auto) % Lymph % (Auto) % [place] % (Auto) % Eos % (Auto) % Baso % (Auto) % Immature Gran # (Auto) (0.00-0.02) K/uL Neut # (Auto) (1.4-6.5) K/uL Lymph # (Auto) (1.2-3.4) K/uL [place] # (Auto) (0.11-0.59) K/uL Eos # (Auto) (0-0.5) K/uL Baso # (Auto) (0-0.2) K/uL PT 10.7 (9.0-12.0) Seconds INR 1.0 (0.9-1.1) APTT 31.3 H (21.0-31.0) Seconds PTT Ratio 1.2 Sodium (136-145) mmol/L Potassium (3.5-5.1) mmol/L Chloride (98-107) mmol/L Carbon Dioxide (21-32) mmol/L Anion Gap (3-11) BUN (7-18) mg/dl Creatinine (0.6-1.4) mg/dl Est Cr Clr Drug Dosing ml/min Est GFR ( Amer) Est GFR (Non-Af Amer) BUN/Creatinine Ratio (10-20) Glucose (70-99) mg/dl Calcium (8.5-10.1) mg/dl Total Bilirubin (0.2-1) mg/dl AST (15-37) U/L ALT (12-78) U/L Alkaline Phosphatase (45-117) U/L Total Creatine Kinase (39-308) U/L CK-MB (CK-2) (0.5-3.6) ng/ml CK/CKMB % Calc (0-3.0) Troponin I (0-0.045) ng/ml NT-Pro-B Natriuret Pep (0-1800) pg/ml Total Protein (6.4-8.2) gm/dl Albumin (3.4-5.0) gm/dl Globulin (2.5-4.0) gm/dl Albumin/Globulin Ratio (0.9-2) Lipase (73-393) U/L Influenza Type A (PCR) (Neg) Influenza Type B (PCR) (Neg) Imaging Data Radiologist's Impression: Radiology results as stated below per my review and the radiologist's interpretation: XR chest 1V portable HISTORY: 78 years-old Male Chest Pain acute atypical chest pain with shortness of breath COMPARISON: Chest radiograph 04/20/2018, chest CT 08/03/2017 TECHNIQUE: Portable AP view of the chest FINDINGS: Cardiomediastinal and hilar silhouettes are unchanged. Stable positioning of left subclavian pacer/AICD. Emphysema with chronic interstitial coarsening. No pneumothorax, pleural effusion, focal airspace consolidation or overt pulmonary edema. Degenerative changes of the shoulders and spine. IMPRESSION: Emphysema without acute process. The above report was generated using voice recognition software. It may contain grammatical, syntax or spelling errors. Electronically signed by: Bienvenido John M.D. 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 Patient was found to be on 86% on 2 L at home. He was given an hour-long breathing treatment here in the emergency department started on Solu-Medrol. I will note that the patient's troponin is elevated. I did discuss the case with the hospitalist service who agreed to admit the patient. Patient was in agreement with the treatment plan. Impression & Plan Hypoxia Discharge Plan Visit Data *Final* Discharge Date/Time: 05/26/18 23:41 Chief Complaint: Shortness of Breath/Dyspnea Stated Complaint: SOB, EDEMA TO LEGS ED Provider: Seng Hernandez Discharge Problem: Hypoxia Patient Disposition: Admitted As Inpatient Discharge Instructions Interventions: ED Discharge Assessment Last Done: 05/26/18 23:41 The scribe's documentation has been prepared under my direction and personally reviewed by me in its entirety. I confirm that the note above accurately reflects all work, treatment, procedures, and medical decision making performed by me.
[2018-05-28] MEDS: ALBUT/IPRATROP 3MG/0.5MG NEB 3 ML VIAL NEB SCH ×3 (05:38→11:01)
[2018-05-28 07:04] LABS: BUN Creatinine Ratio 21.8 (10-20); Creatinine Clr Calc Pharmacy 28.8 ml/min; Est GFR (African American) 49.3; Est GFR (Non-African American) 42.5; Potassium 4.4 mmol/L (3.5-5.1)
[2018-05-28] MEDS: predniSONE 50 MG TAB PO SCH ×2 (09:00→09:06)
[2018-05-28] MEDS: METOPROLOL SUCC 50MG EXT REL TAB PO SCH (09:05)
[2018-05-28] MEDS: PANTOprazole 40 MG TAB PO SCH (09:05)
[2018-05-28] MEDS: guaiFENesin 600 MG TABCR PO SCH (09:05)
[2018-05-28] MEDS: HEPARIN SOD 5,000 UNIT/0.5 ML VIAL SQ SCH (09:08)
[2018-05-28] MEDS: ASPIRIN 81 MG ECTAB PO SCH (09:08)
--- NOTE | 2018-05-28 23:54 | Discharge Summary ---
Date of Service May 28, 2018 Admission HPI Per Admitting Provider The patient is a 78-year-old male with past medical history including severe COPD, with last hospitalization from 05/27-05/30/17 for similar symptoms yesterday. He reports using his inhalers as directed. He has not had any recent travels or known sick exposures. He has also had somewhat decreased oral intake over the past several days due to breathing issues. Principal Diagnosis COPD exacerbation Discharge Exam Constitutional: WD/WN, vitals as above + thin Eyes: PERRL, conjunctivae normal, anicteric sclerae ENMT: external ear and nose normal, oropharynx normal Neck: trachea midline, no thyromegaly Respiratory: normal respiratory effort, lungs clear to auscultation + hyperresonance to percussion; no labored breathing and does not use accessory muscles barrel chested Cardiovascular: RRR, no murmur, no edema Gastrointestinal (Abdomen): normal bowel sounds, soft, nontender, no hepatosplenomegaly Musculoskeletal: no cyanosis or clubbing, extremities motor strength 5/5 Skin: no rashes, warm and dry Neurologic: patellar DTR's 2+ bilat, sensation intact and PERRL, EOMI, accommodation nl, no face palsy, no dysarthria Psychiatric: A+Ox3, euthymic affect Lymphatic: no cervical or axillary lymphadenopathy Discharge Data Allergies Allergy/AdvReac Type Severity Reaction Status Date / Time No Known Allergies Allergy Unverified 05/26/18 23:40 Consultations 05/26/18 22:30 ED Decision to Admit Stat 05/27/18 00:26 Consult Case Management - Discharge Planning Routine Hospital Course (1) COPD exacerbation: Much improved on Solumedrol 40 q8, Levaquin and Rocephin Patient was on Solumedrol nitially then switched to Prednisone 50mg daily slow taper on discharge stop Rocephin, continue Levaquin for 5 day course total, last day would be 05/31 Guaifenesin extended release 600 mg by mouth twice a day Duonebs q6hwa and q2h prn on Advair and Combivent at home, would look into the cost of Spiriva daily as this would benefit him as well ready for discharge as he is feeling better and on his home dose of oxygen at 2L (2) Elevated troponin I level: Troponin on admission 0.076, persistent at 0.07 no chest pain Echo completed and reviewed. Continue aspirin 81 mg daily, lisinopril 10 mg daily, metoprolol succinate 75 mg daily and potassium chloride 20 mEq daily. (3) Edema: Improved after Lasix 40mg IV will continue on Lasix 80mg PO daily Cr up to 1.55, monitor as outpatient likely from diuretics (4) Pacemaker: Normal functioning. (5) GERD (gastroesophageal reflux disease): Continue pantoprazole 40 mg p.o. daily, and ranitidine-milligrams p.o. twice daily (6) Hypertension: metoprolol, lisinpril, lasix BP stable at 134/87 (7) Chronic kidney disease, stage 3: Total Time Total Time Spent Total Time Spent (In Minutes): 31 Total Time Includes: Examination of the Patient, Discharge Planning and Medication Reconciliation Discharge Plan Discharge Items Patient Disposition: Home - Self-Care Reason For Visit: HYPOXIA, COPD EX, ACUTE CHF Discharge Diagnosis: COPD exacerbation Discharge Goals: Decrease discomfort Activity: Resume your previous activity Non-emergency contact: Primary Care Provider Call non-emergency contact if: you have any medication questions Follow-up/Referrals: Caroline Ruggiero MD [Primary Care Provider] - 06/04/18 11:40 am (Please, follow up with Dr. Bond on MondayJune 04 at 11:40 am. *If you need to change this appointment, call the office at [phone].) Diet: Heart Healthy Addtl Provider Instructions: You were diagnosed with COPD exacerbation. You will be discharged on steroid taper AND ANTIBIOTICS. You will be followed up with PCP. May discuss with PCP to adding spiriva and switching you off combivent. Prescriptions: New prednisone 10 mg tablet 10 mg PO UD Qty: 25 RF: 0 Continued fluticasone propion-salmeterol [Advair Diskus] 250-50 mcg/dose Blister With Device 1 inh INHALATION BID RF: 0 atorvastatin 80 mg tablet 80 mg PO DAILY RF: 0 ipratropium-albuterol 0.5 mg-3 mg(2.5 mg base)/3 mL solution for nebulization 3 ml Inhalation QID PRN (Reason: Shortness Of Breath) RF: 0 metoprolol succinate 50 mg tablet extended release 24 hr 75 mg PO DAILY RF: 0 aspirin [Aspir-81] 81 mg Tablet,Delayed Release (Dr/Ec) 81 mg PO DAILY RF: 0 lisinopril 10 mg tablet 10 mg PO DAILY RF: 0 pantoprazole [Protonix] 40 mg tablet,delayed release (DR/EC) 40 mg PO DAILY Qty: 30 RF: 0 ranitidine HCl [Zantac] 150 mg tablet 150 mg PO BID PRN (Reason: gastric reflux) Qty: 60 RF: 0 potassium chloride 20 mEq tablet,ER particles/crystals 20 meq PO DAILY RF: 0 furosemide 80 mg tablet 80 mg PO DAILY RF: 0 Combivent Respimat 20-100 mcg/actuation mist 2 puff Inhalation QID Qty: 1 RF: 0 Stand-Alone Forms: [facility] Discharge Orders: Discharge Order (Routine); Ordered 05/28/18 Ordered By: Boone Baxter Admission Data Admit Date/Time: 05/26/18 23:04 Attending Provider: Boone Baxter Admit Provider: Tim Dela Cruz Primary Care Provider: Caroline Ruggiero V. Service: Telemetry Medical Other Interventions: Discharge Summary Assessment (RN) Last Done: 05/28/18 11:54 DC Date/Time DO NOT enter until pt leaves facility: 05/28/18 12:15
== END 2018-05-28 12:15 | disposition home or self-care (01) | DRG 192 ==
LOC: ED 21:20 → 2W 23:04 → SUATTDRO 23:04 → 2W 23:41
DX: Z95.0 Presence of cardiac pacemaker; J44.1 Chronic obstructive pulmonary disease with (acute) exacerbation; Z79.899 Other long term (current) drug therapy; K21.9 Gastro-esophageal reflux disease without esophagitis; Z87.891 Personal history of nicotine dependence; I12.9 Hypertensive chronic kidney disease with stage 1 through stage 4 chronic kidney disease, or unspecified chronic kidney disease; R79.89 Other specified abnormal findings of blood chemistry; N18.3 Chronic kidney disease, stage 3 (moderate); Z79.82 Long term (current) use of aspirin; R60.9 Edema, unspecified; I25.2 Old myocardial infarction

== ENCOUNTER 2018-09-06 22:23 | Inpatient (IN) ==
[2018-09-06] MEDS ORDERED: MAGNESIUM SULFATE / D5W 1 GM/100 ML BAG IV ONE (22:43)
[2018-09-06] MEDS ORDERED: LEVALBUTEROL HCL 1.25 MG/3 ML NEB NEB STA (22:43)
--- NOTE | 2018-09-06 23:03 | XRay Report ---
XR chest 1V portable CLINICAL HISTORY: Atypical chest pain COMPARISON STUDY: 05/26/2018 FINDINGS: The heart is mildly enlarged. There is a left subclavian pacer/defibrillator present. There is radiographic evidence of emphysema. The patient is hyperinflated. There is blunting of the latera l costophrenic angles. There are developing interstitial right basilar opacities.[ IMPRESSION: 1. Mild cardiomegaly 2. Emphysema 3. Interval development of interstitial right basilar opacities. A pneumonitis must be considered. Cl inical and radiographic follow-up is recommended Electronically signed by: Alfredo Moore M.D. 09/06/2018 11:02 PM
[2018-09-06 23:13] LABS: Basophils # (auto) 0.04 K/uL (0-0.2); Basophils % (auto) 0.4 %; Eosinophils # (auto) 0.04 K/uL (0-0.5); Eosinophils % (auto) 0.4 %; Hematocrit (blood only) 35.5 % (42-52); Hemoglobin 12.1 g/dL (14.0-18.0); Immature Granulocytes # (auto) 0.07 K/uL (0.00-0.02); Immature Granulocytes % (auto) 0.8 %; Lymphocytes # (auto) 0.95 K/uL (1.2-3.4); Lymphocytes % (auto) 10.5 %; Mean Corpuscular Hgb Conc 34.1 g/dL (32-36); Mean Corpuscular Volume 96.2 fL (80-100); Mean Platelet Volume 9.2 fL (7.4-10.4); Monocytes # (auto) 0.57 K/uL (0.11-0.59); Monocytes % (auto) 6.3 %; Neutrophils # (auto) 7.42 K/uL (1.4-6.5); Neutrophils % (auto) 81.6 %; Platelet Count 324 K/uL (130-400); RDW Coefficient of Variation 13.3 % (11.5-14.5); RDW Standard Deviation 46.4 fL (36.4-46.3); Red Blood Count 3.69 M/uL (4.7-6.1); White Blood Count 9.09 K/uL (4.8-10.8)
[2018-09-06] MEDS ORDERED: VANCOMYCIN CONSULT ACTIVE PRN (23:16)
[2018-09-06] MEDS ORDERED: SODIUM CHLORIDE 0.9% 1000ML 500 ML IV ONE (23:16)
[2018-09-06] MEDS ORDERED: LEVOFLOXACIN/D5W 750 MG/150 ML BAG IV STA (23:16)
[2018-09-06] MEDS ORDERED: VANCOMYCIN HCL 1,000 MG in SODIUM CHLORIDE 0.9% 500 ML IV ONE (23:16)
[2018-09-06] MEDS ORDERED: PIPERACILLIN/TAZOBACTAM 4.5 GM/120 ML BAG IV ONE (23:16)
[2018-09-06] MEDS ORDERED: PIPERACILL/TAZOBAC CONSULT ACTIVE PRN (23:16)
[2018-09-06 23:31] LABS: BUN Creatinine Ratio 18.3 (10-20); Calcium 9.4 mg/dl (8.5-10.1); Creatinine Clr Calc Pharmacy 22.2 ml/min; Est GFR (African American) 37.1; Potassium 4.3 mmol/L (3.5-5.1)
[2018-09-06 23:43] LABS: Albumin Globulin Ratio 0.8 (0.9-2); Bilirubin,Total 0.3 mg/dl (0.2-1); Creatine Kinase MB 3.3 ng/ml (0.5-3.6); Globulin 3.7 gm/dl (2.5-4.0); Total Protein 6.7 gm/dl (6.4-8.2); Troponin I 0.015 ng/ml (0-0.045)
--- NOTE | 2018-09-06 23:46 | Emergency Department Note ---
Entered by Louis Barrientos acting as a scribe for History of Present Illness General Chief complaint: Shortness of Breath/Dyspnea Stated complaint: SOB Time Seen by Provider: 09/06/18 22:36 Source: patient History of Present Illness Onset (ago): day(s) (tonight) Location: chest Pain Consistency: + constant Quality: + other (SOB) Associated symptoms: + other (Positive for cough. Negative for abdominal pain.) The patient is a 78 year old male who presents to the emergency department with complaints of constant SOB beginning tonight. The patient states that he became SOB while at home tonight. He also complains of a cough but denies any abdominal pain. He notes that he currently has pneumonia. Per nurse, the patient wears 2L of oxygen at home but was placed on 4L of oxygen by EMS. She states that the patient was given a Duoneb and solu Medrol en route to the emergency department. Home Medications Home Medications Medication Instructions Recorded Confirmed Type aspirin [Aspir-81] 81 mg PO DAILY 04/20/18 09/06/18 History atorvastatin 80 mg PO DAILY 04/20/18 09/06/18 History fluticasone propion-salmeterol 1 inh INHALATION BID 04/20/18 09/06/18 History [Advair Diskus] ipratropium-albuterol 3 ml INHALATION QID PRN 04/20/18 09/06/18 History lisinopril 10 mg PO DAILY 04/20/18 09/06/18 History metoprolol succinate 75 mg PO DAILY 04/20/18 09/06/18 History ipratropium-albuterol [Combivent 1 puff INHALATION QID 06/07/18 09/06/18 History Respimat] albuterol sulfate 2 puff INHALATION Q4 PRN 09/06/18 09/06/18 History ipratropium bromide 1 spray INTRANASAL DAILY 09/06/18 09/06/18 History levofloxacin 500 mg PO DAILY 09/06/18 09/06/18 History Allergies Allergy/AdvReac Type Severity Reaction Status Date / Time No Known Allergies Allergy Unverified 09/06/18 23:54 Past Med/Surg History Medical History Hypoxia (Acute) Hypertension GERD (gastroesophageal reflux disease) Edema Elevated troponin I level Bowel obstruction (Resolved) Bronchitis (Acute) Bronchitis (Acute) Elevation of cardiac enzymes (Acute) Pacemaker (Acute) Small bowel obstruction (Acute) Elevation of cardiac enzymes (Acute) Small bowel obstruction (Acute) Bowel obstruction (Acute) Ileus (Acute) Ileus (Acute) Abdominal pain (Acute) SBO (small bowel obstruction) (Acute) Abdominal pain (Acute) Internal hernia (Acute) History of heart attack COPD exacerbation (Acute) Pneumonia Social History Preferred Language: Irish Communication Ability: Effective Beliefs That Will Affect Care: None marital status: / Current Living Situation: Alone Feels Safe at Home: Yes Smoking Status: Former smoker Second Hand Exposure: Yes Hx Alcohol Use: No Hx Substance Use: No Review of Systems See HPI for pertinent positives & negatives. and A total of 10 systems reviewed and were otherwise negative Physical Exam Vital Signs Vital Signs - 24 hr 09/06/18 22:28 09/06/18 22:29 09/06/18 22:32 Temperature 36.6 C Temperature Source Oral Sepsis Recent Fever Within 48 Hours No Sepsis Action Taken by Nursing No Action Required Pulse Rate 82 Pulse Rate [Right Radial] Respiratory Rate 21 Respiratory Effort / Characteristics Non-Labored Spontaneous Respiratory Depth Normal Respiratory Pattern Regular Blood Pressure 108/55 L Blood Pressure [Right Arm] Blood Pressure Mean 72 Blood Pressure Mean [Right Arm] Pulse Oximetry 97 98 Oxygen Delivery Method Nasal Cannula Nasal Cannula Nasal Cannula Oxygen Flow Rate 4 4 4 09/06/18 22:45 09/06/18 22:55 09/06/18 23:11 Temperature Temperature Source Sepsis Recent Fever Within 48 Hours Sepsis Action Taken by Nursing Pulse Rate Pulse Rate [Right Radial] 81 79 Respiratory Rate 20 29 H Respiratory Effort / Characteristics Non-Labored Spontaneous Respiratory Depth Respiratory Pattern Blood Pressure Blood Pressure [Right Arm] 94/43 L Blood Pressure Mean Blood Pressure Mean [Right Arm] 60 Pulse Oximetry 97 96 96 Oxygen Delivery Method Nasal Cannula Nasal Cannula Nasal Cannula Oxygen Flow Rate 4 4 2 09/07/18 00:03 09/07/18 00:34 Temperature Temperature Source Sepsis Recent Fever Within 48 Hours Sepsis Action Taken by Nursing Pulse Rate Pulse Rate [Right Radial] 79 78 Respiratory Rate 30 H 34 H Respiratory Effort / Characteristics Respiratory Depth Respiratory Pattern Blood Pressure Blood Pressure [Right Arm] 89/50 L 98/49 L Blood Pressure Mean Blood Pressure Mean [Right Arm] 63 65 Pulse Oximetry 93 95 Oxygen Delivery Method Nasal Cannula Nasal Cannula Oxygen Flow Rate 2 2 GENERAL: Awake, alert, well-appearing, in no acute distress HENT: Normocephalic, atraumatic. Oropharynx unremarkable. EYES: Normal conjunctiva. Sclera non-icteric. NECK: Supple. No nuchal rigidity. FROM. No JVD. RESPIRATORY: Wheezing bilaterally. CARDIAC: Regular rate, normal rhythm. Extremities warm and well perfused. Pulses equal. ABDOMEN: Soft, non-distended. No tenderness to palpation. No rebound or guarding. No masses. RECTAL: Deferred. MUSCULOSKELETAL: Chest examination reveals no tenderness. The back is symmetrical on inspection without obvious abnormality. There is no CVA tenderness to palpation. No joint edema. LOWER EXTREMITIES: Calves are equal size bilaterally and non-tender. No discoloration. 2+ pitting edema bilaterally at the feet. NEURO: Normal sensorium. No sensory or motor deficits noted. SKIN: No rash or jaundice noted. Course 2239: The patient was evaluated in room B4. A complete history and physical exam was performed. Administered Medications Vancomycin HCl 1,000 mg/ (Sodium Chloride) 520 mls @ 200 mls/hr IV NOW ONE; Protocol Stop: 09/07/18 01:51 Last Admin: 09/07/18 00:17 Dose: 200 mls/hr Documented by: [id number] Discontinued Medications Magnesium Sulfate/Dextrose (Magnesium Sulfate / D5w) 1 gm in 100 mls @ 100 mls/hr IV ONE ONE Stop: 09/06/18 23:42 Last Infusion: 09/07/18 00:05 Dose: 0 mls/hr Documented by: [id number] Admin: 09/06/18 23:06 Dose: 100 mls/hr Documented by: [id number] Piperacillin Sod/Tazobactam Sod (Zosyn) 4.5 gm in 120 mls @ 240 mls/hr IV NOW ONE Stop: 09/06/18 23:45 Last Infusion: 09/07/18 00:18 Dose: 0 mls/hr Documented by: [id number] Admin: 09/06/18 23:51 Dose: 240 mls/hr Documented by: [id number] Levofloxacin/Dextrose (Levaquin/D5w) 750 mg in 150 mls @ 100 mls/hr IV NOW STA Stop: 09/07/18 00:45 Last Admin: 09/07/18 00:43 Dose: 100 mls/hr Documented by: [id number] Sodium Chloride (Nss 1000ml) 500 mls @ 999 mls/hr IV .Q31M ONE Stop: 09/06/18 23:46 Last Infusion: 09/07/18 00:33 Dose: 0 mls/hr Documented by: [id number] Admin: 09/06/18 23:51 Dose: 999 mls/hr Documented by: [id number] Levalbuterol HCl (Xopenex 1.25mg/3ml Neb) 1.25 mg NEB NOW STA Stop: 09/06/18 22:44 Last Admin: 09/06/18 22:53 Dose: 1.25 mg Documented by: [id number] Medical Decision Making Differential Diagnosis Differential diagnosis: Etiologies such as infections, reactive airway disease, COPD, pneumonia, pleural effusion, pulmonary edema, ARDS, pneumothorax, CHF, cardiac ischemia, cardiac tamponade, dysrhythmia, anemia, pulmonary embolism, musculoskeletal, gastrointestinal process, as well as others were entertained Medical Records Attestation: I reviewed the patient's medical records. Home Medications Current Medication List: was personally reviewed by me Laboratory Data Attestation: I reviewed the patient's lab results. Result diagrams: 09/06/18 22:55 09/06/18 22:55 Lab Results 09/06/18 09/06/18 Range/Units 22:55 22:55 WBC 9.09 (4.8-10.8) K/uL RBC 3.69 L (4.7-6.1) M/uL Hgb 12.1 L (14.0-18.0) g/dL Hct 35.5 L (42-52) % MCV 96.2 (80-100) fL MCH 32.8 (25-34) pg MCHC 34.1 (32-36) g/dL RDW Std Deviation 46.4 H (36.4-46.3) fL RDW Coeff of Fernando 13.3 (11.5-14.5) % Plt Count 324 (130-400) K/uL MPV 9.2 (7.4-10.4) fL Immature Gran % (Auto) 0.8 % Neut % (Auto) 81.6 % Lymph % (Auto) 10.5 % [place] % (Auto) 6.3 % Eos % (Auto) 0.4 % Baso % (Auto) 0.4 % Immature Gran # (Auto) 0.07 H (0.00-0.02) K/uL Neut # (Auto) 7.42 H (1.4-6.5) K/uL Lymph # (Auto) 0.95 L (1.2-3.4) K/uL [place] # (Auto) 0.57 (0.11-0.59) K/uL Eos # (Auto) 0.04 (0-0.5) K/uL Baso # (Auto) 0.04 (0-0.2) K/uL Sodium 137 (136-145) mmol/L Potassium 4.3 (3.5-5.1) mmol/L Chloride 100 (98-107) mmol/L Carbon Dioxide 31 (21-32) mmol/L Anion Gap 6.0 (3-11) BUN 36 H (7-18) mg/dl Creatinine 1.96 H (0.6-1.4) mg/dl Est Cr Clr Drug Dosing 22.2 ml/min Est GFR ( Amer) 37.1 Est GFR (Non-Af Amer) 32.0 BUN/Creatinine Ratio 18.3 (10-20) Glucose 139 H (70-99) mg/dl Calcium 9.4 (8.5-10.1) mg/dl Total Bilirubin 0.3 (0.2-1) mg/dl AST 14 L (15-37) U/L ALT 22 (12-78) U/L Alkaline Phosphatase 95 (45-117) U/L Total Creatine Kinase 81 (39-308) U/L CK-MB (CK-2) 3.3 (0.5-3.6) ng/ml CK/CKMB % Calc 4.1 H (0-3.0) Troponin I 0.015 (0-0.045) ng/ml NT-Pro-B Natriuret Pep 6003 H (0-1800) pg/ml Total Protein 6.7 (6.4-8.2) gm/dl Albumin 3.0 L (3.4-5.0) gm/dl Globulin 3.7 (2.5-4.0) gm/dl Albumin/Globulin Ratio 0.8 L (0.9-2) Lipase 139 (73-393) U/L Imaging Data Radiologist's Impression: XR chest 1V portable CLINICAL HISTORY: Atypical chest pain COMPARISON STUDY: 05/26/2018 FINDINGS: The heart is mildly enlarged. There is a left subclavian pacer/defibrillator present. There is radiographic evidence of emphysema. The patient is hyperinflated. There is blunting of the lateral costophrenic angles. There are developing interstitial right basilar opacities.[ IMPRESSION: 1. Mild cardiomegaly 2. Emphysema 3. Interval development of interstitial right basilar opacities. A pneumonitis must be considered. Clinical and radiographic follow-up is recommended Electronically signed by: Alfredo Moore M.D. 09/06/2018 11:02 PM ECG Data Attestation: I personally reviewed and interpreted this ECG as follows: Indication: SOB/dyspnea Rate (beats per minute): 84 Rhythm: normal sinus Findings: + other (Nonspec Intraventricular block); no ST depression and no ST elevation Change: no significant change MDM Narrative This is a 78-year-old male who presents emergency department complaining of hypoxia. The patient is normally on 2 L of oxygen at home and is now on 4 L. He received Solu-Medrol and an hour-long breathing treatment while in route to the hospital. His chest x-ray is concerning for pneumonitis. He was pancultured and started on antibiotics including Zosyn Levaquin and vancomycin. He has also slightly bumped his kidney function. He was gently hydrated with normal saline bolus 500 mL's. I did discuss the case with the hospitalist service. Impression & Plan COPD exacerbation, Hypoxia, Chronic kidney disease, stage 3, Pneumonitis Discharge Plan Visit Data Chief Complaint: Shortness of Breath/Dyspnea Stated Complaint: SOB ED Provider: Seng Hernandez Discharge Problem: COPD exacerbation, Hypoxia, Chronic kidney disease, stage 3, Pneumonitis Forms Stand Alone Forms: My [facility] [place] Prescriptions Prescriptions: No Action fluticasone propion-salmeterol [Advair Diskus] 250-50 mcg/dose Blister With Device 1 inh INHALATION BID RF: 0 atorvastatin 80 mg tablet 80 mg PO DAILY RF: 0 ipratropium-albuterol 0.5 mg-3 mg(2.5 mg base)/3 mL solution for nebulization 3 ml Inhalation QID PRN (Reason: Shortness Of Breath) RF: 0 metoprolol succinate 50 mg tablet extended release 24 hr 75 mg PO DAILY RF: 0 aspirin [Aspir-81] 81 mg Tablet,Delayed Release (Dr/Ec) 81 mg PO DAILY RF: 0 lisinopril 10 mg tablet 10 mg PO DAILY RF: 0 albuterol sulfate 90 mcg/actuation HFA aerosol inhaler 2 puff inhalation Q4 PRN (Reason: Shortness Of Breath Or Wheezing) RF: 0 levofloxacin 500 mg tablet 500 mg PO DAILY RF: 0 ipratropium bromide 0.03 % spray,non-aerosol 1 spray intranasal DAILY RF: 0 Combivent Respimat 20-100 mcg/actuation Mist 1 puff INHALATION QID RF: 0 Referrals Referrals: Caroline Ruggiero MD [Primary Care Provider] - The scribe's documentation has been prepared under my direction and personally reviewed by me in its entirety. I confirm that the note above accurately reflects all work, treatment, procedures, and medical decision making performed by me.
--- NOTE | 2018-09-07 02:24 | History & Physical Report ---
Date of Service September 07, 2018 Assessment & Plan (1) Pneumonitis: 78M here with COPD, CKD III, O2 dependent 2L, CAD who presents with 1 day worsening of dry cough and increased O2 demand. Hospitalized in May twice for the same. States he was seen by engine research engineer 1 week ago, then told he had PNA, started on abx. Then last night after dinner he says his cough started again, dry, and came here due to shortness of breath. Also endorses leg swelling, says he takes lasix PRN for this. 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 [place] and had a cough shortly after. ED course: solu medrol, hour long duoneb. CXR showing worsening RT basilar opacity. Labs notable for normal troponin, elev BNP, Started on vanc, levaquin, zosyn. Plan: -cont vanc, zosyn, levaquin to cover for HCAP -blood cultures pending -duonebs -gentle fluids given his relative hypotension Elev dowel pointer -possibly due to pre-renal causes v ATN -gentle fluid maintenance -follow bmp Hypoxia -2L dependent at baseline -O2 as needed. FEN/GI: LR at 80ml/hr. Heart healthy diet DVT ppx: heparin CODE STATUS: FULL as d/w pt Other ongoing medical problems: HLD/CAD/HTN: cont statin, asa, toprol (2) Chronic kidney disease, stage 3: (3) Hypoxia: (4) Hypertension: (5) GERD (gastroesophageal reflux disease): (6) Edema: (7) Elevated brain natriuretic peptide (BNP) level: History of Present Illness Chief Complaint: dry cough, shortness of breath, failed outpatient abx therapy of PNA Primary Care Provider: Caroline Ruggiero MD 78M here with COPD, CKD III, O2 dependent 2L, CAD who presents with 1 day worsening of dry cough and increased O2 demand. States he was seen by engine research engineer 1 week ago, had CXR, then told he had PNA, started on abx. Then last night after dinner he says his cough started again, dry, and came here due to shortness of breath. Also endorses leg swelling, says he takes lasix PRN for this. 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 Denies chest pain or abdominal pain, diarrhea, constipation. ED course: solu medrol, hour long duoneb. CXR showing worsening RT basilar opacity. Started on vanc, levaquin, zosyn. Allergies Allergy/AdvReac Type Severity Reaction Status Date / Time No Known Allergies Allergy Unverified 09/06/18 23:54 Home Medications Home Medications Medication Instructions Recorded Confirmed Type aspirin [Aspir-81] 81 mg PO DAILY 04/20/18 09/06/18 History atorvastatin 80 mg PO DAILY 04/20/18 09/06/18 History fluticasone propion-salmeterol 1 inh INHALATION BID 04/20/18 09/06/18 History [Advair Diskus] ipratropium-albuterol 3 ml INHALATION QID PRN 04/20/18 09/06/18 History lisinopril 10 mg PO DAILY 04/20/18 09/06/18 History metoprolol succinate 75 mg PO DAILY 04/20/18 09/06/18 History ipratropium-albuterol [Combivent 1 puff INHALATION QID 06/07/18 09/06/18 History Respimat] albuterol sulfate 2 puff INHALATION Q4 PRN 09/06/18 09/06/18 History ipratropium bromide 1 spray INTRANASAL DAILY 09/06/18 09/06/18 History levofloxacin 500 mg PO DAILY 09/06/18 09/06/18 History Past Med/Surg History Medical History Hypoxia (Acute) Hypertension GERD (gastroesophageal reflux disease) Edema Elevated troponin I level Bowel obstruction (Resolved) Bronchitis (Acute) Bronchitis (Acute) Elevation of cardiac enzymes (Acute) Pacemaker (Acute) Small bowel obstruction (Acute) Elevation of cardiac enzymes (Acute) Small bowel obstruction (Acute) Bowel obstruction (Acute) Ileus (Acute) Ileus (Acute) Abdominal pain (Acute) SBO (small bowel obstruction) (Acute) Abdominal pain (Acute) Internal hernia (Acute) History of heart attack COPD exacerbation (Acute) Pneumonia Social History Preferred Language: Pashto Communication Ability: Effective Video Game Designer Required: No Beliefs That Will Affect Care: None marital status: / Current Living Situation: Alone Feels Safe at Home: Yes Safety Concerns: Feels Safe At This Time Smoking Status: Former smoker Second Hand Exposure: Yes Hx Alcohol Use: No Hx Substance Use: No Review of Systems Review of Systems: All systems reviewed & are unremarkable except as noted in HPI & below Physical Exam Physical Exam: Vitals noted and within normal limits with the exception of hypotension GENERAL: Awake, alert to person, place, and time, nontoxic-appearing, in no distress. HENT: Normocephalic, atraumatic. Nasal cannula in place. EYES: Normal conjunctiva. Sclera non-icteric. EOMI. NECK: Supple. Full range of motion. RESPIRATORY: Diminished at the bases, but cannot appreciate wheeze or rhonchi. Normal work of breathing. CARDIAC: Regular rate, normal rhythm. Extremities warm and well perfused, 2+ radial pulses bilaterally; 2+ posterior tibialis pulses bilaterally. LOWER EXTREMITIES: Inspection of calves reveal equal size bilaterally. They are non-tender. 2+ edema to the knees. No discoloration. NEURO: No gross focal motor deficits noted. Sensation in tact. CN II-XII grossly in tact. . SKIN: Rash not present. No jaundice noted. Significant lesions not present. PSYCH: Appropriate mood and affect. Cooperative. Exam as done by Manuela Landers MD, Auto Service Station Attendant. Results & Data Vital Signs (Past 12 Hours) Vital Signs Temp Pulse Pulse Resp BP BP Pulse Ox 09/07/18 01:59 78 32 H 89/55 L 96 09/07/18 00:34 78 34 H 98/49 L 95 09/07/18 00:03 79 30 H 89/50 L 93 09/06/18 23:11 79 29 H 94/43 L 96 09/06/18 22:55 81 20 96 09/06/18 22:45 97 09/06/18 22:32 36.6 C 82 21 108/55 L 98 09/06/18 22:28 97 Laboratory Results 09/06/18 09/06/18 Range/Units 22:55 22:55 WBC 9.09 (4.8-10.8) K/uL RBC 3.69 L (4.7-6.1) M/uL Hgb 12.1 L (14.0-18.0) g/dL Hct 35.5 L (42-52) % MCV 96.2 (80-100) fL MCH 32.8 (25-34) pg MCHC 34.1 (32-36) g/dL RDW Std Deviation 46.4 H (36.4-46.3) fL RDW Coeff of Fernando 13.3 (11.5-14.5) % Plt Count 324 (130-400) K/uL MPV 9.2 (7.4-10.4) fL Immature Gran % (Auto) 0.8 % Neut % (Auto) 81.6 % Lymph % (Auto) 10.5 % [place] % (Auto) 6.3 % Eos % (Auto) 0.4 % Baso % (Auto) 0.4 % Immature Gran # (Auto) 0.07 H (0.00-0.02) K/uL Neut # (Auto) 7.42 H (1.4-6.5) K/uL Lymph # (Auto) 0.95 L (1.2-3.4) K/uL [place] # (Auto) 0.57 (0.11-0.59) K/uL Eos # (Auto) 0.04 (0-0.5) K/uL Baso # (Auto) 0.04 (0-0.2) K/uL Sodium 137 (136-145) mmol/L Potassium 4.3 (3.5-5.1) mmol/L Chloride 100 (98-107) mmol/L Carbon Dioxide 31 (21-32) mmol/L Anion Gap 6.0 (3-11) BUN 36 H (7-18) mg/dl Creatinine 1.96 H (0.6-1.4) mg/dl Est Cr Clr Drug Dosing 22.2 ml/min Est GFR ( Amer) 37.1 Est GFR (Non-Af Amer) 32.0 BUN/Creatinine Ratio 18.3 (10-20) Glucose 139 H (70-99) mg/dl Calcium 9.4 (8.5-10.1) mg/dl Total Bilirubin 0.3 (0.2-1) mg/dl AST 14 L (15-37) U/L ALT 22 (12-78) U/L Alkaline Phosphatase 95 (45-117) U/L Total Creatine Kinase 81 (39-308) U/L CK-MB (CK-2) 3.3 (0.5-3.6) ng/ml CK/CKMB % Calc 4.1 H (0-3.0) Troponin I 0.015 (0-0.045) ng/ml NT-Pro-B Natriuret Pep 6003 H (0-1800) pg/ml Total Protein 6.7 (6.4-8.2) gm/dl Albumin 3.0 L (3.4-5.0) gm/dl Globulin 3.7 (2.5-4.0) gm/dl Albumin/Globulin Ratio 0.8 L (0.9-2) Lipase 139 (73-393) U/L Supervising Physician Co-Signing Physician Notes 78 y/o M Hx M COPD 2L 02, CKD III, CAD, CHF - presenting with a productive cough and progressive hypoxia. The pt was being treated for PNM in the outpt setting with Levaquin. A CT of the chect confirmed PNM. He was recently admitted to the hospital for CHF/COPD. OE: AAO - no distress S1,2 R BL crackles and very poor air movent NT, ND No CCE P: Pt will be treated for HCAP with Zosyn and Vanc We will also treat for COPD exacerbation - scheduled nebs, steroids, 02 protocol No evidence of ACS on admission He is clinically dehydrated on admission so we will provide IVF - volume status bears monitoring PG Care Time/CCT Total # of Minutes Spent Total Time Spent with Patient: Total time spent is greater than 50% in coordination of care (as documented) at patient's floor/unit and/or counseling patient: Resident Activity Tracking Resident Involvement: Resident Care Provided Care Provided: Adult Hospital Medicine
[2018-09-07] MEDS ORDERED: ACETAMINOPHEN 325 MG TAB PO PRN (02:41)
[2018-09-07] MEDS ORDERED: ONDANSETRON INJ 2 MG/ML 2 ML VIAL IV PRN (02:41)
[2018-09-07] MEDS ORDERED: POLYETHYLENE (MIRALAX) 17 GM PACK PO PRN (02:41)
[2018-09-07] MEDS ORDERED: MAGNESIUM HYDROXIDE SUSP 30 ML UDC PO PRN (02:41)
[2018-09-07] MEDS ORDERED: PIPERACILL/TAZOBAC CONSULT ACTIVE PRN (02:41)
[2018-09-07] MEDS ORDERED: ALBUTEROL 0.083% NEBU SOLN 3 ML VIAL NEB PRN (02:41)
[2018-09-07] MEDS ORDERED: LACTATED RINGER'S 1,000 ML IV SCH (02:41)
[2018-09-07] MEDS ORDERED: ALUMINUM/MAGNESIUM SUSP 30 ML UDC PO PRN (02:41)
[2018-09-07] MEDS ORDERED: VANCOMYCIN CONSULT ACTIVE PRN (02:41)
--- NOTE | 2018-09-07 05:29 | Pharmacy Report ---
Pharmacy Abx Dose Short Note - Date of Service September 07, 2018 - Assessment & Plan Assessment * Mr Jasmine is a 78 year old M receiving Vanc/Zosyn for treatment of pneumonia (?HCAP). * Patient was recently diagnosed with pna as an outpatient and has been taking LVQ. * Patient with recent hospitalization in May 2018 (COPD exac). * Patient was initiated on broad spectrum abx on admission. Plan Vancomycin * Vanc 1gm (~20mg/kg) x1 dose in the ED, then * Vanc 750mg (~15mg/kg) IV q24h * Estimated p'kinetic parameters (based on CrCl 22mL/hr): * Terrell ~ 0.023/hr t1/2 ~ 30hr * Patient dosed q24h in anticipation that he may clear vancomycin more quickly than t1/2 suggests. This is often the case in lower BMI elderly patients. Will assess an early level to ensure that dosing is appropriate. * Goal trough level for HCAP: 15 to 20 mcg/mL * Will check a vancomycin trough level prior to the 3rd or 4th dose, or sooner if renal function changes. Zosyn * 4.5gm IV x1 dose in the ED, then * 3.375gm IV q8h, as recommended for CrCl >20mL/min Pharmacy will continue to follow and will adjust dose/frequency as necessary. Thank you.
[2018-09-07] MEDS: PIPERACILLIN/TAZOBACTAM 3.375 GM in DEXTROSE 5% 100 ML IV SCH ×3 (05:36→21:00)
[2018-09-07 06:26] LABS: INR 1.1 (0.9-1.1); Prothrombin Time 11.5 Seconds (9.0-12.0)
[2018-09-07] MEDS: ALBUT/IPRATROP 3MG/0.5MG NEB 3 ML VIAL NEB SCH ×4 (07:19→18:47)
[2018-09-07] MEDS: METOPROLOL SUCC 50MG EXT REL TAB PO SCH (09:11)
[2018-09-07] MEDS: methylPREDNISolone 40 MG in SYRINGE 0 ML IV SCH ×3 (09:11→23:48)
[2018-09-07] MEDS: LISINOPRIL 10 MG TAB PO SCH (09:11)
[2018-09-07] MEDS: ATORVASTATIN 40 MG TAB PO SCH (09:12)
[2018-09-07] MEDS: ASPIRIN 81 MG ECTAB PO SCH (09:12)
[2018-09-07] MEDS: IPRATROPIUM BROMIDE/ALBUTEROL respimat INH INH SCH ×4 (09:12→20:23)
[2018-09-07] MEDS: HEPARIN SOD 5,000 UNIT/0.5 ML VIAL SQ SCH ×2 (09:15→20:26)
[2018-09-07 09:34] LABS: Creatinine Clr Calc Pharmacy 24.6 ml/min; Est GFR (African American) 43.2; Est GFR (Non-African American) 37.3
[2018-09-07 13:59] LABS: Hematocrit (blood only) 32.2 % (42-52); Hemoglobin 10.9 g/dL (14.0-18.0); Immature Granulocytes # (auto) 0.03 K/uL (0.00-0.02); Immature Granulocytes % (auto) 0.6 %; Lymphocytes # (auto) 0.29 K/uL (1.2-3.4); Lymphocytes % (auto) 5.5 %; Mean Corpuscular Hgb Conc 33.9 g/dL (32-36); Mean Corpuscular Volume 95.8 fL (80-100); Monocytes # (auto) 0.07 K/uL (0.11-0.59); Monocytes % (auto) 1.3 %; Neutrophils # (auto) 4.86 K/uL (1.4-6.5); Neutrophils % (auto) 92.6 %; Platelet Count 264 K/uL (130-400); RDW Coefficient of Variation 13.3 % (11.5-14.5); Red Blood Count 3.36 M/uL (4.7-6.1); White Blood Count 5.25 K/uL (4.8-10.8)
--- NOTE | 2018-09-07 14:56 | Family Medicine Progress Note ---
Date of Service September 07, 2018 Assessment & Plan (1) Pneumonitis: Mr. Jasmine is a 78 yo male with a PMHx of COPD admitted on 09/04/18 for worsening cough and increased oxygen requirement in the setting of PNA with failed outpatient antibiotic course. -evidence of pneumonitits on CXR (09/04) -started on PO antibiotic course (levofloxacin 500mg) by machine washer 1 week ago -worsening cough and increased oxygen requirement prompted ED evaluation -patient admitted to [facility] in May,, placing him at increased risk for HCAP -started on IV vancomycin, zosyn, levaquin to cover for HCAP -duoneb treatment provided in ED, ordered q4h prn -received 1 dose methylprednisolone in ED; continue 40mg, q8h with plan to taper tomorrrow (09/08) -2/2 blood cultures pending -CBC ordered (09/07) -gentle fluid resuscitation, LR 80mls/hr, given his relative hypotension (BP 96/44) Present on Admission?: Yes (2) COPD exacerbation: -secondary to HCAP -continue home combivent and advair -duonebs q4h prn -methylprednisalone 40mg Iv q8h, will taper tomorrow (09/08) Present on Admission?: Yes (3) Chronic kidney disease, stage 3: -Cr 1.96 on admission, down to 1.73 (09/07) -gentle fluid resuscitation LR 80mls/hr -BMPs daily Present on Admission?: Yes (4) Hypoxia: -2L dependent at baseline -required 4L via NC overnight -satting 95% on 2L via NC today (09/07) Present on Admission?: Yes (5) Hypertension: continue home lisinopril and metoprolol Present on Admission?: Yes (6) GERD (gastroesophageal reflux disease): (7) Edema: (8) Elevated brain natriuretic peptide (BNP) level: -6003 on admission Present on Admission?: Yes (9) CAD (coronary artery disease): -continue home statin and ASA -last echo May 2018 showed EF of 35% with mild pulmonary HTN - follows with [facility] FEN/GI: LR at 80ml/hr. Heart healthy diet DVT ppx: heparin 5,000 units, subQ, q12 CODE STATUS: FULL Supervising Physician Co-Signing Physician Notes Attending attestation Pt seen and examined in concert with Dr. Ramsey. In agreement with the documented findings as noted in the resident documentation with any exceptions or additions as noted here. Gradually improving cough and SOB. Decreased breath sounds throughout with diffuse wheezing but with audible air movement. HCAP in the setting of COPD with exacerbation - continue broad spectrum Abx until Cx return, then narrow. Continue methylpred 40mg q8 and consider taper tomorrow. CKD III - trend, gentle hydration Else see resident documentation as noted. Subjective Patient states he feels much better today compared to last night. He is eating and drinking well. He is urinating and stooling normally. Review of Systems Constitutional: no fever, no chills and no sweats Respiratory: + cough, + sputum production and + wheezing; no dyspnea Cardiovascular: no chest pain Gastrointestinal: no abdominal pain, no nausea and no vomiting Physical Exam Constitutional: + frail appearing and comfortable; no acute distress Eyes: + anicteric sclerae wearing eye glasses Respiratory: normal respiratory effort, + cough, + prolonged expiratory phase and + audible wheezes; no retractions and does not use accessory muscles Auscultation: + wheezes; no egophony Cardiovascular: Rate/Rhythm: regular rate and regular rhythm Heart Sounds: normal S1 and normal S2 Chest (Breasts): Chest: + pacemaker Gastrointestinal (Abdomen): Inspection/Auscultation: normal bowel sounds, + visible herniation and + abdominal surgical incision Percussion/Palpation: abdomen soft; abdomen nontender Musculoskeletal: Extremities: + 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) Neurologic: awake; no focal motor deficits Psychiatric: Orientation: oriented x 3 Results & Data Vital Signs (Past 12 Hours) Vital Signs Temp Pulse Pulse Resp BP Pulse Ox 09/07/18 11:23 36.4 C L 67 19 105/52 L 95 09/07/18 11:08 73 18 93 09/07/18 07:35 36.3 C L 73 19 99/58 L 90 09/07/18 07:19 72 16 94 09/07/18 04:33 36.3 C L 75 26 H 95/62 L 96 09/07/18 03:05 72 Laboratory Results 09/07/18 09/07/18 09/07/18 Range/Units Unknown 13:48 05:44 WBC 5.25 (4.8-10.8) K/uL RBC 3.36 L (4.7-6.1) M/uL Hgb 10.9 L (14.0-18.0) g/dL Hct 32.2 L (42-52) % MCV 95.8 (80-100) fL MCH 32.4 (25-34) pg MCHC 33.9 (32-36) g/dL RDW Std Deviation 46.0 (36.4-46.3) fL RDW Coeff of Fernando 13.3 (11.5-14.5) % Plt Count 264 (130-400) K/uL MPV 9.0 (7.4-10.4) fL Immature Gran % (Auto) 0.6 % Neut % (Auto) 92.6 % Lymph % (Auto) 5.5 % Kimble % (Auto) 1.3 % Eos % (Auto) 0.0 % Baso % (Auto) 0.0 % Immature Gran # (Auto) 0.03 H (0.00-0.02) K/uL Neut # (Auto) 4.86 (1.4-6.5) K/uL Lymph # (Auto) 0.29 L (1.2-3.4) K/uL Kimble # (Auto) 0.07 L (0.11-0.59) K/uL Eos # (Auto) 0.00 (0-0.5) K/uL Baso # (Auto) 0.00 (0-0.2) K/uL PT 11.5 (9.0-12.0) Seconds INR 1.1 (0.9-1.1) Sodium (136-145) mmol/L Potassium (3.5-5.1) mmol/L Chloride (98-107) mmol/L Carbon Dioxide (21-32) mmol/L Anion Gap (3-11) BUN (7-18) mg/dl Creatinine (0.6-1.4) mg/dl Est Cr Clr Drug Dosing ml/min Est GFR ( Amer) Est GFR (Non-Af Amer) BUN/Creatinine Ratio (10-20) Glucose (70-99) mg/dl Calcium (8.5-10.1) mg/dl Total Bilirubin (0.2-1) mg/dl AST (15-37) U/L ALT (12-78) U/L Alkaline Phosphatase (45-117) U/L Total Creatine Kinase (39-308) U/L CK-MB (CK-2) (0.5-3.6) ng/ml CK/CKMB % Calc (0-3.0) Troponin I (0-0.045) ng/ml NT-Pro-B Natriuret Pep (0-1800) pg/ml Total Protein (6.4-8.2) gm/dl Albumin (3.4-5.0) gm/dl Globulin (2.5-4.0) gm/dl Albumin/Globulin Ratio (0.9-2) Lipase (73-393) U/L Nasal Screen MRSA (PCR) Pending 09/07/18 09/06/18 09/06/18 Range/Units 05:42 22:55 22:55 WBC 9.09 (4.8-10.8) K/uL RBC 3.69 L (4.7-6.1) M/uL Hgb 12.1 L (14.0-18.0) g/dL Hct 35.5 L (42-52) % MCV 96.2 (80-100) fL MCH 32.8 (25-34) pg MCHC 34.1 (32-36) g/dL RDW Std Deviation 46.4 H (36.4-46.3) fL RDW Coeff of Fernando 13.3 (11.5-14.5) % Plt Count 324 (130-400) K/uL MPV 9.2 (7.4-10.4) fL Immature Gran % (Auto) 0.8 % Neut % (Auto) 81.6 % Lymph % (Auto) 10.5 % Kimble % (Auto) 6.3 % Eos % (Auto) 0.4 % Baso % (Auto) 0.4 % Immature Gran # (Auto) 0.07 H (0.00-0.02) K/uL Neut # (Auto) 7.42 H (1.4-6.5) K/uL Lymph # (Auto) 0.95 L (1.2-3.4) K/uL Kimble # (Auto) 0.57 (0.11-0.59) K/uL Eos # (Auto) 0.04 (0-0.5) K/uL Baso # (Auto) 0.04 (0-0.2) K/uL PT (9.0-12.0) Seconds INR (0.9-1.1) Sodium 137 (136-145) mmol/L Potassium 4.3 (3.5-5.1) mmol/L Chloride 100 (98-107) mmol/L Carbon Dioxide 31 (21-32) mmol/L Anion Gap 6.0 (3-11) BUN 36 H (7-18) mg/dl Creatinine 1.73 H 1.96 H (0.6-1.4) mg/dl Est Cr Clr Drug Dosing 24.6 22.2 ml/min Est GFR ( Amer) 43.2 37.1 Est GFR (Non-Af Amer) 37.3 32.0 BUN/Creatinine Ratio 18.3 (10-20) Glucose 139 H (70-99) mg/dl Calcium 9.4 (8.5-10.1) mg/dl Total Bilirubin 0.3 (0.2-1) mg/dl AST 14 L (15-37) U/L ALT 22 (12-78) U/L Alkaline Phosphatase 95 (45-117) U/L Total Creatine Kinase 81 (39-308) U/L CK-MB (CK-2) 3.3 (0.5-3.6) ng/ml CK/CKMB % Calc 4.1 H (0-3.0) Troponin I 0.015 (0-0.045) ng/ml NT-Pro-B Natriuret Pep 6003 H (0-1800) pg/ml Total Protein 6.7 (6.4-8.2) gm/dl Albumin 3.0 L (3.4-5.0) gm/dl Globulin 3.7 (2.5-4.0) gm/dl Albumin/Globulin Ratio 0.8 L (0.9-2) Lipase 139 (73-393) U/L Nasal Screen MRSA (PCR) Diagnostic Findings XR chest 1V portable CLINICAL HISTORY: Atypical chest pain COMPARISON STUDY: 05/26/2018 FINDINGS: The heart is mildly enlarged. There is a left subclavian pacer/defibrillator present. There is radiographic evidence of emphysema. The patient is hyperinflated. There is blunting of the lateral costophrenic angles. There are developing interstitial right basilar opacities.[ IMPRESSION: 1. Mild cardiomegaly 2. Emphysema 3. Interval development of interstitial right basilar opacities. A pneumonitis must be considered. Clinical and radiographic follow-up is recommended Electronically signed by: Alfredo Moore M.D. 09/06/2018 11:02 PM Dictated: [id number] Transcribed: [id number]/06/[id number] Medications Administered Current Inpatient Medications Acetaminophen (Tylenol) 650 mg PO Q4H PRN PRN Reason: Pain or Fever Stop: 10/07/18 02:40 Al Hydrox/Mg Hydrox/Simethicone (Maalox) 15 ml PO Q4H PRN PRN Reason: Dyspepsia Stop: 10/07/18 02:40 Albuterol (Duoneb) 3 ml NEB QIDR JOSE Stop: 10/07/18 07:59 Last Admin: 09/07/18 15:00 Dose: 3 ml Documented by: Albuterol (Combivent Respimat) 1 puffs INH QID JOSE Stop: 10/07/18 08:59 Last Admin: 09/07/18 14:27 Dose: 1 puffs Documented by: Albuterol (Ventolin 0.083% 2.5mg/3ml) 2.5 mg NEB Q4H PRN PRN Reason: sob Stop: 10/07/18 02:40 Aspirin (Ecotrin Ectab) 81 mg PO DAILY JOSE Stop: 10/07/18 08:59 Last Admin: 09/07/18 09:12 Dose: 81 mg Documented by: Atorvastatin Calcium (Lipitor) 80 mg PO DAILY JOSE Stop: 10/07/18 08:59 Last Admin: 09/07/18 09:12 Dose: Not Given Documented by: Heparin Sodium (Porcine) (Heparin Sodium (Porcine)) 5,000 units SQ Q12 JOSE Stop: 10/07/18 08:59 Last Admin: 09/07/18 09:15 Dose: 5,000 units Documented by: Piperacillin Sod/Tazobactam (Sod 3.375 gm/ Dextrose) 115 mls @ 28.75 mls/hr IV Q8H JOSE; Protocol Stop: 09/14/18 05:59 Last Admin: 09/07/18 14:27 Dose: 28.8 mls/hr Documented by: Vancomycin HCl 750 mg/ Sodium (Chloride) 265 mls @ 125 mls/hr IV Q24H JOSE; Protocol Stop: 09/14/18 21:59 Methylprednisolone 40 mg/ (Syringe) 0.64 mls @ 1.5 mls/min IV Q8H JOSE Stop: 10/07/18 07:59 Last Admin: 09/07/18 09:11 Dose: 1.5 mls/min Documented by: Lisinopril (Zestril) 10 mg PO DAILY JOSE Stop: 10/07/18 08:59 Last Admin: 09/07/18 09:11 Dose: Not Given Documented by: Magnesium Hydroxide (Milk Of Magnesia) 30 ml PO Q12H PRN PRN Reason: Constipation Stop: 10/07/18 02:40 Metoprolol Succinate (Toprol Xl) 75 mg PO DAILY [facility] Stop: 10/07/18 08:59 Last Admin: 09/07/18 09:11 Dose: Not Given Documented by: Miscellaneous Information (Consult) 1 ea N/A UD PRN PRN Reason: Consult Stop: 10/07/18 02:40 Miscellaneous Information (Consult) 1 ea N/A UD PRN PRN Reason: Consult Stop: 10/07/18 02:40 Ondansetron HCl (Zofran) 4 mg IV Q6H PRN PRN Reason: Nausea Stop: 10/07/18 02:40 Polyethylene Glycol (Miralax Powder Packet) 17 gm PO DAILY PRN PRN Reason: Constipation Stop: 10/07/18 02:40 PG Care Time/CCT Total # of Minutes Spent Total Time Spent with Patient: Total time spent is greater than 50% in coordination of care (as documented) at patient's floor/unit and/or counseling patient: Resident Activity Tracking Resident Involvement: Resident Care Provided Care Provided: Adult Hospital Medicine
[2018-09-07] MEDS ORDERED: VANCOMYCIN HCL 750 MG in SODIUM CHLORIDE 0.9% 250 ML IV SCH (22:00)
[2018-09-08] MEDS: PIPERACILLIN/TAZOBACTAM 3.375 GM in DEXTROSE 5% 100 ML IV SCH ×3 (05:02→21:44)
[2018-09-08] MEDS: ALBUT/IPRATROP 3MG/0.5MG NEB 3 ML VIAL NEB SCH ×6 (05:25→21:54)
[2018-09-08 07:19] LABS: Creatinine Clr Calc Pharmacy 28.5 ml/min; Est GFR (African American) 52.1
[2018-09-08] MEDS: IPRATROPIUM BROMIDE/ALBUTEROL respimat INH INH SCH ×2 (08:24→14:17)
[2018-09-08] MEDS: ATORVASTATIN 40 MG TAB PO SCH ×3 (08:24→21:46)
[2018-09-08] MEDS: methylPREDNISolone 40 MG in SYRINGE 0 ML IV SCH ×2 (08:25→16:50)
[2018-09-08] MEDS: ASPIRIN 81 MG ECTAB PO SCH (08:25)
[2018-09-08] MEDS: HEPARIN SOD 5,000 UNIT/0.5 ML VIAL SQ SCH ×2 (08:26→21:45)
[2018-09-08] MEDS: METOPROLOL SUCC 50MG EXT REL TAB PO SCH (08:27)
[2018-09-08] MEDS: LISINOPRIL 10 MG TAB PO SCH (08:27)
--- NOTE | 2018-09-08 11:18 | Family Medicine Progress Note ---
Date of Service September 08, 2018 Assessment & Plan (1) HCAP (healthcare-associated pneumonia): HCAP in the setting of COPD with exacerbation: - on 2.5 L NC currently with some cough and continued dyspnea and crackles of the lungs, baseline on 2L NC - Still requiring duonebs consistently, will continue these q4h PRN for shortness of breath - will not taper methylprednisalone today given continued SOB and increased oxygen requirement; will reassess tomorrow - will repeat CXR 2 view - given Blood cxs x2 negative to date and MRSA swab negative will D/C Vancomycin per pharmacy recs and continue zosyn IV Present on Admission?: Yes (2) Hypotension: - pt's blood pressures are consistently in the 90s-100s/40s-60s, pt's lisinopril was held this morning with better diastolic pressures following so we will continue holding at this time - Will continue metoprolol succinate 75mg PO daily - no fluids at this time, consider 500c bolus if persistently hypotensive Present on Admission?: No (3) COPD exacerbation: (4) Chronic kidney disease, stage 3: - Baseline Cr is ~1.40, currently at 1.48 from 1.73 yesterday - Continue to monitor BMP FEN/GI: Heart healthy diet. PO fluids DVT ppx: Heparin 5,000 units, subQ, q12 CODE STATUS: FULL Supervising Physician Co-Signing Physician Notes Attending attestation Pt seen and examined in concert with Dr. Espinosa. In agreement with the documented findings as noted in the resident documentation with any exceptions or additions as noted here. Reports improved shortness of breath overall, but still shy of baseline with nonproductive cough relatively unchanged. On examination, S1/S2 nl, 3/6 DIOGENES. Diffusely decreased breath sounds with scattered wheezing. Trace pitting LE edema. HCAP in the setting of COPD w/ exacerbation - still requiring frequent neb therapy, so will continue present level of steroid. Follow up culture for 48 hr octavio later today and narrow abx. Repeat CXR Hypotension in the setting of HTN - hold lisinopril, monitor BP. Consider 500cc NS bolus with decreasing BP. CKD III - improving, trend. Encourage hydration. Else see resident documentation as noted. Subjective Pt seen and examined at bedside. States that he feels overall better than he did yesterday, but still reports a heavy wet cough with sputum that he "cannot bring up". Described his shortness of breath as intermittent but improved. Does not report any instances of fever or chills, chest pain, presyncope, headaches, abdominal pain, nausea or vomiting. Reports eating and drinking well, stooling and voiding well. Reports a new tremor "since starting steroids in the hospital". Review of Systems Review of Systems: All systems reviewed & are unremarkable except as noted in HPI & below Constitutional: no fever and no chills Respiratory: + cough, + chest congestion, + dyspnea and + wheezing Cardiovascular: no chest pain, no lightheadedness, no syncope and no edema Gastrointestinal: no abdominal pain, no nausea and no vomiting Genitourinary: no dysuria and no hematuria Integumentary: pacemaker present. Neurologic: + tremor(s) (started since hospitalization and administration of steroids); no headache(s) Physical Exam Constitutional: well developed, + frail appearing and cooperative Respiratory: + cough Auscultation: + diminished lung sounds, + crackles and + wheezes (end expiratory wheezes) Cardiovascular: Rate/Rhythm: regular rate and regular rhythm Heart Sounds: normal S1, normal S2 and + murmur (3/6 systolic ejection murmur best heard at right sternal border) Vessels: posterior tibial pulses present, radial pulses present and ulnar pulses present; no carotid bruit Extremities: no edema Chest (Breasts): Chest: + pacemaker Gastrointestinal (Abdomen): Inspection/Auscultation: normal bowel sounds Percussion/Palpation: abdomen soft and + hernia (midline hernia); abdomen nontender Psychiatric: A+Ox3, euthymic affect Results & Data Vital Signs (Past 12 Hours) Vital Signs Temp Pulse Pulse Resp BP Pulse Ox 09/08/18 11:01 100 H 20 93 09/08/18 07:48 36.8 C 78 18 115/72 96 09/08/18 06:55 78 18 93 09/08/18 05:27 59 L 18 92 09/08/18 02:41 36.9 C 79 18 106/48 L 98 09/07/18 23:55 80 09/07/18 23:52 36.5 C 83 22 94/53 L 96 PG Care Time/CCT Total # of Minutes Spent Total Time Spent with Patient: Total time spent is greater than 50% in coordination of care (as documented) at patient's floor/unit and/or counseling patient: Resident Activity Tracking Resident Involvement: Resident Care Provided Care Provided: Adult Hospital Medicine (1) Hypotension Hypotension type: unspecified hypotension type Qualified Code(s): I95.9 - Hy potension, unspecified
--- NOTE | 2018-09-08 15:04 | XRay Report ---
XR chest 2V routine CLINICAL HISTORY: shortness of breath COMPARISON STUDY: 09/06/2018 FINDINGS: The cardiac and distal contours remain stable. The heart is borderline enlarged. There is a left subclavian pacer/defibrillator present. There is radiographic evidence of emphysema. There are trace pleural effusions. There are improving right basilar airspace opacities.[ IMPRESSION: 1. Pulmonary emphysema 2. Trace pleural effusions 3. Persistent but improving right basilar interstitial opacities Electronically signed by: Alfredo Moore M.D. 09/08/2018 3:03 PM
[2018-09-08] MEDS ORDERED: Nursing to Pharmacy Communication ONE (19:10)
[2018-09-09] MEDS: methylPREDNISolone 40 MG in SYRINGE 0 ML IV SCH ×3 (00:08→20:50)
[2018-09-09] MEDS: ALBUT/IPRATROP 3MG/0.5MG NEB 3 ML VIAL NEB SCH ×6 (03:57→22:58)
[2018-09-09] MEDS: PIPERACILLIN/TAZOBACTAM 3.375 GM in DEXTROSE 5% 100 ML IV SCH ×3 (05:31→22:02)
--- NOTE | 2018-09-09 07:51 | Family Medicine Progress Note ---
Date of Service September 09, 2018 Assessment & Plan (1) HCAP (healthcare-associated pneumonia): HCAP in the setting of COPD with exacerbation: - on 2 L NC (which is his baseline) currently with some cough and wheezing stil with presence of crackles of the lungs - Continue duonebs q4h PRN for shortness of breath - Will decrease methylprednisalone to 40mg IV BID today and monitor for toleration, if tolerates will taper further tomorrow - CXR 2 view on 09/08 showed improvement of his right basilar infiltrate with small bilateral pleural effusions; will give Lasix 20mg IV once and monitor for improvement - on Zosyn IV for HCAP, will downgrade to PO for discharge (2) COPD exacerbation: - secondary to HCAP, patient reports improvement in his shortness of breath today and is on his baseline home oxygen requirement of 2L NC - continue home combivent and advair - duonebs q4h prn - will decrease methylprednisalone to 40mg IV Q12H and if tolerated will further decrease to PO tomorrow (3) Hypertension: - Pt's blood pressure is now elevated 150s/70s, yesterday held lisinopril due to hypotension. Will give once dose of Lasix 20 IV and watch BP; if remains high will restart lisinopril. Present on Admission?: Yes (4) Chronic kidney disease, stage 3: - Baseline Cr is ~1.40, 1.27 today - Continue to monitor BMP FEN/GI: Heart healthy diet. PO fluids DVT ppx: Heparin 5,000 units, subQ, q12 Dispo: Telemetry CODE STATUS: FULL Supervising Physician Co-Signing Physician Notes Attending attestation Pt seen and examined in concert with Dr. Espinosa. In agreement with the documented findings as noted in the resident documentation with any exceptions or additions as noted here. Improved cough and shortness of breath is near baseline. On examination, S1/S2 nl, 3/6 DIOGENES. Diffusely decreased breath sounds with scattered wheezing. Trace pitting LE edema. HCAP in the setting of COPD w/ exacerbation - taper neb therapy to PRN and decrease steroid to BID today, to PO in AM. Trace effusion, so will trial small dose of IV furosemide to see concomittant improvement Hypotension in the setting of HTN - holding lisinopril, monitor BP. Improved BP. CKD III - improving, trend. Encourage hydration. Else see resident documentation as noted. Subjective Patient seen and examined at bedside. States he feels much better today compared to yesterday. Is back to his baseline oxygen of 2L NC and does not feel dyspneic while lying in bed. Eating and voiding well. No complaints of chest pain, dizziness, nausea, vomiting, palpitations. Reports he is less tremulous today compared to yesterday. Review of Systems Constitutional: no fever, no chills and no weakness Respiratory: + cough, + chest congestion and + wheezing Cardiovascular: no chest pain, no palpitations and no edema Gastrointestinal: no nausea, no vomiting and no change in stools Genitourinary: no dysuria Neurologic: + tremor(s) (started since hospitalization and administration of steroids, less severe today); no headache(s) Physical Exam Constitutional: well developed, + frail appearing and cooperative Respiratory: normal respiratory effort (able to move air more effectively today) and + cough; does not use accessory muscles Auscultation: + crackles (improved from yesterday) and + wheezes (end expiratory wheezes) Cardiovascular: Rate/Rhythm: regular rate and regular rhythm Heart Sounds: normal S1, normal S2 and + murmur (3/6 systolic ejection murmur best heard at right sternal border) Vessels: posterior tibial pulses present, radial pulses present and ulnar pulses present; no carotid bruit Extremities: no edema Chest (Breasts): Chest: + pacemaker Gastrointestinal (Abdomen): Inspection/Auscultation: normal bowel sounds Percussion/Palpation: abdomen soft and + hernia (midline hernia); abdomen nontender Neurologic: tremor of hands that the patient had yesterday seems to have resolved on examination Psychiatric: A+Ox3, euthymic affect Results & Data Vital Signs (Past 12 Hours) Vital Signs Temp Pulse Pulse Resp BP Pulse Ox 09/09/18 06:56 89 20 92 09/09/18 06:44 36.4 C L 87 22 152/73 H 93 09/09/18 03:59 94 H 22 95 09/09/18 03:52 36.4 C L 101 H 26 H 148/81 H 96 09/08/18 23:35 36.5 C 86 24 126/70 94 09/08/18 23:34 84 09/08/18 21:55 83 20 97 Laboratory Results 09/09/18 Range/Units 07:14 Sodium 136 (136-145) mmol/L Potassium 4.6 (3.5-5.1) mmol/L Chloride 101 (98-107) mmol/L Carbon Dioxide 30 (21-32) mmol/L Anion Gap 5.0 (3-11) BUN 31 H (7-18) mg/dl Creatinine 1.27 (0.6-1.4) mg/dl Est Cr Clr Drug Dosing 34.4 ml/min Est GFR ( Amer) 62.7 Est GFR (Non-Af Amer) 54.1 BUN/Creatinine Ratio 24.8 H (10-20) Glucose 164 H (70-99) mg/dl Calcium 8.8 (8.5-10.1) mg/dl Medications Administered Current Inpatient Medications Acetaminophen (Tylenol) 650 mg PO Q4H PRN PRN Reason: Pain or Fever Stop: 10/07/18 02:40 Al Hydrox/Mg Hydrox/Simethicone (Maalox) 15 ml PO Q4H PRN PRN Reason: Dyspepsia Stop: 10/07/18 02:40 Albuterol (Combivent Respimat) 1 puffs INH QID JOSE Stop: 10/07/18 08:59 Last Admin: 09/08/18 14:17 Dose: 1 puffs Documented by: Albuterol (Ventolin 0.083% 2.5mg/3ml) 2.5 mg NEB Q4H PRN PRN Reason: sob Stop: 10/07/18 02:40 Albuterol (Duoneb) 3 ml NEB Q4R JOSE Stop: 10/09/18 15:59 Last Admin: 09/09/18 14:57 Dose: 3 ml Documented by: Aspirin (Ecotrin Ectab) 81 mg PO DAILY [facility] Stop: 10/07/18 08:59 Last Admin: 09/09/18 09:22 Dose: 81 mg Documented by: Atorvastatin Calcium (Lipitor) 80 mg PO HS [facility] Stop: 10/08/18 20:59 Last Admin: 09/08/18 21:46 Dose: 80 mg Documented by: Heparin Sodium (Porcine) (Heparin Sodium (Porcine)) 5,000 units SQ Q12 OJ[facility] Stop: 10/07/18 08:59 Last Admin: 09/09/18 09:22 Dose: 5,000 units Documented by: Piperacillin Sod/Tazobactam (Sod 3.375 gm/ Dextrose) 115 mls @ 28.75 mls/hr IV Q8H [facility]; Protocol Stop: 09/14/18 05:59 Last Admin: 09/09/18 14:28 Dose: 28.8 mls/hr Documented by: Methylprednisolone 40 mg/ (Syringe) 0.64 mls @ 1.5 mls/min IV Q12H [facility] Stop: 10/09/18 20:59 Lisinopril (Zestril) 10 mg PO DAILY [facility] Stop: 10/07/18 08:59 Last Admin: 09/08/18 08:27 Dose: Not Given Documented by: Magnesium Hydroxide (Milk Of Magnesia) 30 ml PO Q12H PRN PRN Reason: Constipation Stop: 10/07/18 02:40 Metoprolol Succinate (Toprol Xl) 75 mg PO DAILY [facility] Stop: 10/07/18 08:59 Last Admin: 09/09/18 09:22 Dose: 75 mg Documented by: Miscellaneous Information (Consult) 1 ea N/A UD PRN PRN Reason: Consult Stop: 10/07/18 02:40 Ondansetron HCl (Zofran) 4 mg IV Q6H PRN PRN Reason: Nausea Stop: 10/07/18 02:40 Polyethylene Glycol (Miralax Powder Packet) 17 gm PO DAILY PRN PRN Reason: Constipation Stop: 10/07/18 02:40 PG Care Time/CCT Total # of Minutes Spent Total Time Spent with Patient: Total time spent is greater than 50% in coordination of care (as documented) at patient's floor/unit and/or counseling patient: Resident Activity Tracking Resident Involvement: Resident Care Provided Care Provided: Adult Hospital Medicine (1) Hypertension Hypertension type: unspecified Qualified Code(s): I10 - Essential (primary) hypertension
[2018-09-09 08:08] LABS: BUN Creatinine Ratio 24.8 (10-20); Calcium 8.8 mg/dl (8.5-10.1); Creatinine Clr Calc Pharmacy 34.4 ml/min; Est GFR (African American) 62.7; Est GFR (Non-African American) 54.1; Potassium 4.6 mmol/L (3.5-5.1)
[2018-09-09] MEDS: HEPARIN SOD 5,000 UNIT/0.5 ML VIAL SQ SCH ×2 (09:22→20:50)
[2018-09-09] MEDS: ASPIRIN 81 MG ECTAB PO SCH (09:22)
[2018-09-09] MEDS: METOPROLOL SUCC 50MG EXT REL TAB PO SCH (09:22)
[2018-09-09] MEDS ORDERED: FUROSEMIDE 20 MG in SYRINGE 0 ML IV ONE (11:15)
[2018-09-09] MEDS ORDERED: ACETAMINOPHEN 325 MG TAB PO STA (13:15)
[2018-09-09] MEDS ORDERED: ACETAMINOPHEN 325 MG TAB PO PRN (13:16)
[2018-09-09] MEDS: ATORVASTATIN 40 MG TAB PO SCH (20:50)
[2018-09-10] MEDS: ALBUT/IPRATROP 3MG/0.5MG NEB 3 ML VIAL NEB SCH ×3 (03:17→11:22)
[2018-09-10 05:51] LABS: Hematocrit (blood only) 31.8 % (42-52); Hemoglobin 10.4 g/dL (14.0-18.0); Mean Corpuscular Hgb Conc 32.7 g/dL (32-36); Mean Corpuscular Volume 98.5 fL (80-100); Mean Platelet Volume 9.4 fL (7.4-10.4); Platelet Count 208 K/uL (130-400); RDW Coefficient of Variation 13.6 % (11.5-14.5); Red Blood Count 3.23 M/uL (4.7-6.1); White Blood Count 6.13 K/uL (4.8-10.8)
[2018-09-10] MEDS: PIPERACILLIN/TAZOBACTAM 3.375 GM in DEXTROSE 5% 100 ML IV SCH (05:53)
[2018-09-10 06:21] LABS: Creatinine Clr Calc Pharmacy 35.9 ml/min; Est GFR (African American) 65.9; Est GFR (Non-African American) 56.8
--- NOTE | 2018-09-10 08:18 | Discharge Summary ---
Date of Service September 10, 2018 Admission HPI Per Admitting Provider 78M here with COPD, CKD III, O2 dependent 2L, CAD who presents with 1 day worsening of dry cough and increased O2 demand. States he was seen by attending psychiatrist 1 week ago, had CXR, then told he had PNA, started on abx. Then last night after dinner he says his cough started again, dry, and came here due to shortness of breath. Also endorses leg swelling, says he takes lasix PRN for this. 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 Denies chest pain or abdominal pain, diarrhea, constipation. ED course: solu medrol, hour long duoneb. CXR showing worsening RT basilar opacity. Started on vanc, levaquin, zosyn. Admission Exam Per Admitting Provider Vitals noted and within normal limits with the exception of hypotension GENERAL: Awake, alert to person, place, and time, nontoxic-appearing, in no distress. HENT: Normocephalic, atraumatic. Nasal cannula in place. EYES: Normal conjunctiva. Sclera non-icteric. EOMI. NECK: Supple. Full range of motion. RESPIRATORY: Diminished at the bases, but cannot appreciate wheeze or rhonchi. Normal work of breathing. CARDIAC: Regular rate, normal rhythm. Extremities warm and well perfused, 2+ radial pulses bilaterally; 2+ posterior tibialis pulses bilaterally. LOWER EXTREMITIES: Inspection of calves reveal equal size bilaterally. They are non-tender. 2+ edema to the knees. No discoloration. NEURO: No gross focal motor deficits noted. Sensation in tact. CN II-XII grossly in tact. . SKIN: Rash not present. No jaundice noted. Significant lesions not present. PSYCH: Appropriate mood and affect. Cooperative. Principal Diagnosis Healthcare Associated Pneumonia Discharge Exam Constitutional + frail appearing and comfortable; no acute distress Eyes + anicteric sclerae Respiratory normal respiratory effort and + prolonged expiratory phase; no retractions Auscultation: + wheezes; no egophony audible air movement Cardiovascular Rate/Rhythm: regular rate and regular rhythm Heart Sounds: normal S1 and normal S2 Chest (Breasts) Chest: + pacemaker Gastrointestinal (Abdomen) Inspection/Auscultation: normal bowel sounds, + visible herniation and + abdominal surgical incision Percussion/Palpation: abdomen soft; abdomen nontender Musculoskeletal Extremities: + 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 The heart is borderline enlarged. There is a left subclavian pacer/defibrillator present. There is radiographic evidence of emphysema. There are trace pleural effusions. There are improving right basilar airspace opacities.[ IMPRESSION: 1. Pulmonary emphysema 2. Trace pleural effusions 3. Persistent but improving right basilar interstitial opacities Electronically signed by: Alfredo Moore M.D. 09/08/2018 3:03 PM XR chest 1V portable CLINICAL HISTORY: Atypical chest pain COMPARISON STUDY: 05/26/2018 FINDINGS: The heart is mildly enlarged. There is a left subclavian pacer/defibrillator present. There is radiographic evidence of emphysema. The patient is hyperinflated. There is blunting of the lateral costophrenic angles. There are developing interstitial right basilar opacities.[ IMPRESSION: 1. Mild cardiomegaly 2. Emphysema 3. Interval development of interstitial right basilar opacities. A pneumonitis must be considered. Clinical and radiographic follow-up is recommended Electronically signed by: Alfredo Moore M.D. 09/06/2018 11:02 PM Dictated: 09/06/18 2259 Transcribed: 09/06/18 2259 Dictated: 09/08/18 1502 Transcribed: 09/08/18 1502 Hospital Course (1) Pneumonitis: (1) Pneumonitis: Mr. Jasmine is a 78 yo male with a PMHx of COPD admitted on 09/04/18 for worsening cough and increased oxygen requirement in the setting of PNA with failed outpatient antibiotic course (Levofloxacin). Mr. Jasmine presented to the ED with worsening cough and increased oxygen requirement while on Levofloxacin PO for treatment of PNA. CXR done in ED (09/04) showed evidence of pneumonitits. He was admitted to [facility] in May 2018 for COPD exacaberation, placing him at increased risk for HCAP, and thus was started on IV vancomycin, zosyn, levaquin. He was prescribed Cefdinir, 300mg, PO, bid for 4 days to continue after discharge. He received duoneb treatments and IV methylprednisolone during his stay, the latter of which will be tapered on discharge starting with 60mg PO bid. There is little concern for systemic infection as 2/2 blood cultures returned negative. (2) COPD exacerbation: -secondary to HCAP -continue home combivent, advair and albuterol -methylprednisalone 40mg PO BID and taper as directed (3) Chronic kidney disease, stage 3: -Cr 1.96 on admission, down to 1.06 on discharge (4) Hypoxia: -2L dependent at baseline -required up to 4L via NC during stay -returned to baseline O2 requirement on discharge (5) Hypertension: continue home lisinopril and metoprolol (7) Elevated brain natriuretic peptide (BNP) level: -6003 on admission (8) CAD (coronary artery disease): -continue home statin and ASA -last echo May 2018 showed EF of 35% with mild pulmonary HTN - follows with [facility] Total Time Total Time Spent Total Time Spent (In Minutes): greater than 30 min Discharge Plan Discharge Items Patient Disposition: Home - Self-Care Reason For Visit: PNEUMONIA AND COPD Discharge Diagnosis: COPD exacerbation secondary to Healthcare Associated PNA Discharge Goals: Learn about illness Activity: Resume your previous activity Activity Comment: as tolerated Non-emergency contact: Primary Care Provider Call non-emergency contact if: you have any medication questions and your symptoms worsen Follow-up/Referrals: Caroline Ruggiero MD [Primary Care Provider] - 09/17/18 11:30 am (Please, follow up with Dr. Bond on MondaySeptember 17 at 11:30 am. *If you need to change this appointment, call the office at [phone].) Diet: Heart Healthy Addtl Provider Instructions: You were hospitalized at [facility] from 09/06/18-09/10/18. On admission, your COPD (chronic obstructive pulmonary disease) was in exacerbation, which was likely caused by an underlying pneumonia (infection of the lung). The pneumonia was visualized on a chest x-ray prefomed in the emergency department. You were given Nebulizer treatment, IV steroids, and IV antibiotics as treatment. You should continue to take the antibiotic Cefdinir 300mg by mouth for 4 days after leaving the hospital. Your first dose of the Cefdinir will be this evening (09/10). You should continue to take the methlyprednisone (steroid) medication with the following schedule each morninmg for 2 days, 50mg for 2 days, 40mg for 2 days, 30 mg for 2 days, 20mg for 2 days, 10 mg for 2 days. Please continue your normal home medication regimen at this time. It is recommended that you follow-up with your primary care provider within 1 week. Prescriptions: New cefdinir 300 mg capsule 300 mg PO BID 5 Days Qty: 10 RF: 0 prednisone 10 mg tablets,dose pack 10 mg PO DAILY Qty: 42 RF: 0 Continued fluticasone propion-salmeterol [Advair Diskus] 250-50 mcg/dose Blister With Device 1 inh INHALATION BID RF: 0 atorvastatin 80 mg tablet 80 mg PO DAILY RF: 0 ipratropium-albuterol 0.5 mg-3 mg(2.5 mg base)/3 mL solution for nebulization 3 ml Inhalation QID PRN (Reason: Shortness Of Breath) RF: 0 metoprolol succinate 50 mg tablet extended release 24 hr 75 mg PO DAILY RF: 0 aspirin [Aspir-81] 81 mg Tablet,Delayed Release (Dr/Ec) 81 mg PO DAILY RF: 0 lisinopril 10 mg tablet 10 mg PO DAILY RF: 0 albuterol sulfate 90 mcg/actuation HFA aerosol inhaler 2 puff inhalation Q4 PRN (Reason: Shortness Of Breath Or Wheezing) RF: 0 ipratropium bromide 0.03 % spray,non-aerosol 1 spray intranasal DAILY RF: 0 Combivent Respimat 20-100 mcg/actuation Mist 1 puff INHALATION QID RF: 0 Discontinued levofloxacin 500 mg tablet 500 mg PO DAILY RF: 0 Stand-Alone Forms: My [facility] [email or web address]/Other Patient Handouts: Cefdinir Oral capsule, Prednisone Oral tablet Discharge Orders: Discharge Order (Routine); Ordered 09/10/18 Ordered By: Crystal Ramsey Admission Data Admit Date/Time: 09/07/18 00:53 Attending Provider: Mitch Rivas Admit Provider: Vitaly Harper Primary Care Provider: Caroline Ruggiero V. Other Providers: Vitaly Harper Christophe R Service: Telemetry Other Interventions: Discharge Summary Assessment (RN) Last Done: 09/10/18 11:41 Pending Studies at Discharge: No DC Date/Time DO NOT enter until pt leaves facility: 09/10/18 14:51 Supervising Physician Co-Signing Physician Notes I personally examined the patient and verified all bocanegra points of history and exam, discussed case, and agree with decision making with Dr Ramsey. Feeling better. Feeling up to getting out of the hospital. Discussed risks and benefits of this approach, he is in agreement. Vitals noted, in general he is awake and alert pleasant no distress. HEENT normocephalic atraumatic mucous membranes moist. Lungs are diminished globally without any rales rhonchi or wheezes good effort. Skin shows no rashes no pallor or icterus. Acute and chronic hypoxic respiratory failurefrom pneumonia/COPD exacerbationnow improved stable for home as above. Healthcare associated pneumonia present on admissionstable for home as above, risks and benefits outlined. stable for home Resident Activity Tracking Resident Involvement: Resident Care Provided Care Provided: Adult Hospital Medicine
[2018-09-10] MEDS: HEPARIN SOD 5,000 UNIT/0.5 ML VIAL SQ SCH (09:40)
[2018-09-10] MEDS: methylPREDNISolone 40 MG in SYRINGE 0 ML IV SCH (09:40)
[2018-09-10] MEDS: METOPROLOL SUCC 50MG EXT REL TAB PO SCH (09:40)
[2018-09-10] MEDS: ASPIRIN 81 MG ECTAB PO SCH (09:40)
== END 2018-09-10 14:51 | disposition home or self-care (01) | DRG 193 ==
LOC: ED 22:23 → SUATTDRO 09-07 00:53 → 2S 09-07 00:53
DX: I25.10 Atherosclerotic heart disease of native coronary artery without angina pectoris; K21.9 Gastro-esophageal reflux disease without esophagitis; R60.9 Edema, unspecified; J18.9 Pneumonia, unspecified organism; N18.3 Chronic kidney disease, stage 3 (moderate); Z99.81 Dependence on supplemental oxygen; E78.5 Hyperlipidemia, unspecified; Z79.82 Long term (current) use of aspirin; I12.9 Hypertensive chronic kidney disease with stage 1 through stage 4 chronic kidney disease, or unspecified chronic kidney disease; J44.1 Chronic obstructive pulmonary disease with (acute) exacerbation; J95.822 Acute and chronic postprocedural respiratory failure; R09.02 Hypoxemia

== ENCOUNTER 2018-10-04 17:16 | Inpatient (IN) ==
[2018-10-04] MEDS ORDERED: ALBUT/IPRATROP 3MG/0.5MG NEB 3 ML VIAL NEB ONE (17:32)
[2018-10-04 17:45] LABS: Basophils # (auto) 0.02 K/uL (0-0.2); Basophils % (auto) 0.3 %; Eosinophils # (auto) 0.08 K/uL (0-0.5); Hematocrit (blood only) 35.9 % (42-52); Hemoglobin 12.2 g/dL (14.0-18.0); Immature Granulocytes # (auto) 0.03 K/uL (0.00-0.02); Immature Granulocytes % (auto) 0.4 %; Lymphocytes # (auto) 1.22 K/uL (1.2-3.4); Lymphocytes % (auto) 15.4 %; Mean Corpuscular Volume 95.2 fL (80-100); Mean Platelet Volume 9.4 fL (7.4-10.4); Monocytes # (auto) 0.63 K/uL (0.11-0.59); Neutrophils # (auto) 5.93 K/uL (1.4-6.5); Neutrophils % (auto) 74.9 %; Platelet Count 269 K/uL (130-400); RDW Coefficient of Variation 14.3 % (11.5-14.5); Red Blood Count 3.77 M/uL (4.7-6.1); White Blood Count 7.91 K/uL (4.8-10.8)
[2018-10-04 18:02] LABS: Partial Thromboplastin Time 26.6 Seconds (21.0-31.0); Prothrombin Time 10.3 Seconds (9.0-12.0)
--- NOTE | 2018-10-04 18:07 | XRay Report ---
XR chest 1V portable CLINICAL HISTORY: Shortness of breath COMPARISON STUDY: 10/04/2018 FINDINGS: The heart is mildly enlarged. The patient is hyperinflated. There is a left subclavian pace r/defibrillator present. There is pulmonary emphysema. There is basilar interstitial thickening. Ther e is a soft tissue opacity present at the right medial lung apex.[An infectious/inflammatory etiology is favored over neoplasm as no mass is identified on a CT scan performed August 2018. Close follow-up however will be necessary. IMPRESSION: 1. Emphysema with basilar interstitial thickening 2. Persistent soft tissue opacity at the right medial lung apex. A pneumonia is favored over neoplasm , as no mass is identified on a CT scan performed less than 6 weeks earlier. Clinical correlation and radiographic follow-up is recommended Electronically signed by: Alfredo Moore M.D. 10/04/2018 6:05 PM
[2018-10-04] MEDS ORDERED: PIPERACILLIN/TAZOBACTAM 4.5 GM/120 ML BAG IV ONE (18:08)
[2018-10-04 18:21] LABS: Albumin Level 3.4 gm/dl (3.4-5.0); BUN Creatinine Ratio 22.4 (10-20); Calcium 9.5 mg/dl (8.5-10.1); Creatinine Clr Calc Pharmacy 35.8 ml/min; Est GFR (African American) 63.3; Est GFR (Non-African American) 54.7; Potassium 5.1 mmol/L (3.5-5.1)
--- NOTE | 2018-10-04 18:29 | Emergency Department Note ---
Entered by Sonam Bella acting as a scribe for History of Present Illness General Chief complaint: Shortness of Breath/Dyspnea Time Seen by Provider: 10/04/18 17:24 Source: patient and other (nursing staff) History of Present Illness Onset (ago): hour(s) (5.5) Location: chest Pain Consistency: + other (worsening) Quality: + other (shortness of breath) Associated symptoms: + chest pain and + other (leg swelling) The patient is a 78 year old male who presents to the Emergency Room with complaints of worsening shortness of breath starting 5.5 hours ago. The patient states that he has a history of COPD and CHF. He states that has been having tr ouble breathing, even at rest, for a few days, but it was much worse today. He reports that when it got worse today, he felt his chest get tight. The patient notes that he went to his PCP a few days ago and they wanted to send him to the CHF clinic, but he told them to shove it. The patient complains of leg swelling. He notes that he stopped taking his water pills 2 days ago because they dont work. He notes that he is on 3 L of O2 at all times, but still smokes. Nursing staff notes that he was given 125 of SoluMedrol, 2 Albuterol, and a Duoneb on the way here. The patient notes that he will not use Bi-Pap or C-Pap because he doesnt like the mask. Home Medications Home Medications Medication Instructions Recorded Confirmed Type aspirin [Aspir-81] 81 mg PO QAM 04/20/18 10/04/18 History ipratropium-albuterol 3 ml INHALATION QID PRN 04/20/18 10/04/18 History albuterol sulfate HFA 90 2 puff INHALATION Q4 PRN #18 gm 09/11/18 10/04/18 Rx mcg/actuation aerosol inhaler fluticasone 250 mcg-salmeterol 50 1 inh INHALATION BID #60 ea 09/11/18 10/04/18 Rx mcg/dose blistr powdr for inhalation ipratropium 20 mcg-albuterol 100 1 puff INHALATION QID #4 gm 09/11/18 10/04/18 Rx mcg/actuation mist for inhalation lisinopril 10 mg tablet 10 mg PO DAILY #30 tab 09/11/18 10/04/18 Rx metoprolol succinate ER 50 mg 75 mg PO DAILY #45 tab 09/11/18 10/04/18 Rx tablet,extended release 24 hr atorvastatin 80 mg PO HS 10/04/18 10/04/18 History Allergies Allergy/AdvReac Type Severity Reaction Status Date / Time No Known Drug Allergies Allergy Verified 10/04/18 17:51 Past Med/Surg History Medical History Impacted cerumen of both ears (Resolved) Chronic obstructive pulmonary disease (Acute) Dependence on supplemental oxygen (Acute) 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 (Acute) Hearing loss (Acute) History of tobacco use (Acute) History of abdominal aortic aneurysm (AAA) (Acute) Hypothyroidism (Acute) Ischemic cardiomyopathy (Acute) Multiple lung nodules on CT (Acute) PAD (peripheral artery disease) (Acute) Pulmonary emphysema (Acute) Vitamin D deficiency disease (Acute) HCAP (healthcare-associated pneumonia) CAD (coronary artery disease) HLD (hyperlipidemia) Elevated brain natriuretic peptide (BNP) level (Acute) Chronic kidney disease, stage 3 (Acute) Hypoxia (Acute) Hypertension GERD (gastroesophageal reflux disease) Edema Bowel obstruction (Resolved) Pacemaker (Acute) Internal hernia (Acute) History of heart attack COPD exacerbation (Acute) CHF (congestive heart failure) Abdominal pain (Resolved) Abdominal pain (Resolved) Bowel obstruction (Resolved) Bronchitis (Resolved) Bronchitis (Resolved) Elevated troponin I level (Resolved) Elevation of cardiac enzymes (Resolved) Elevation of cardiac enzymes (Resolved) Ileus (Resolved) Ileus (Resolved) SBO (small bowel obstruction) (Resolved) Small bowel obstruction (Resolved) Small bowel obstruction (Resolved) Pneumonia Surgical History H/O hand surgery S/P aneurysm repair S/P aortic bifurcation bypass graft S/P small bowel resection Family History Mother Acute myocardial infarction Hypertension Heart disease Father Hypertension Heart disease Myocardial infarction Other Colon cancer Social History Preferred Language: [place]er Communication Ability: Effective 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 and A total of 10 systems reviewed and were otherwise negative Physical Exam Vital Signs Vital Signs - 24 hr 10/04/18 17:20 10/04/18 17:24 10/04/18 17:27 Temperature 36.6 C Temperature Source Oral Sepsis Recent Fever Within 48 Hours No Sepsis Action Taken by Nursing No Action Required Pulse Rate 85 84 85 Pulse Rate [Left Radial] Pulse Rate from SpO2 Sensor 77 74 Respiratory Rate 38 H 38 H 33 H Respiratory Effort / Characteristics Short of Breath SOB on Exertion Respiratory Depth Shallow Respiratory Pattern Tachypnea Blood Pressure 119/63 119/63 Blood Pressure Mean 81 81 Pulse Oximetry 100 100 100 Oxygen Delivery Method Nasal Cannula Oxygen Flow Rate 3 10/04/18 17:30 10/04/18 17:39 10/04/18 17:40 Temperature Temperature Source Sepsis Recent Fever Within 48 Hours Sepsis Action Taken by Nursing Pulse Rate 86 82 Pulse Rate [Left Radial] Pulse Rate from SpO2 Sensor 77 79 Respiratory Rate 31 H 30 H Respiratory Effort / Characteristics Respiratory Depth Respiratory Pattern Blood Pressure Blood Pressure Mean Pulse Oximetry 100 100 100 Oxygen Delivery Method Nasal Cannula Oxygen Flow Rate 3 10/04/18 17:42 10/04/18 17:50 10/04/18 18:00 Temperature Temperature Source Sepsis Recent Fever Within 48 Hours Sepsis Action Taken by Nursing Pulse Rate 84 85 Pulse Rate [Left Radial] 83 Pulse Rate from SpO2 Sensor 81 Respiratory Rate 22 37 H 35 H Respiratory Effort / Characteristics Non-Labored Spontaneous Respiratory Depth Respiratory Pattern Blood Pressure Blood Pressure Mean Pulse Oximetry 99 100 Oxygen Delivery Method Nasal Cannula Oxygen Flow Rate 4 10/04/18 18:01 10/04/18 18:10 10/04/18 18:20 Temperature Temperature Source Sepsis Recent Fever Within 48 Hours Sepsis Action Taken by Nursing Pulse Rate 84 84 83 Pulse Rate [Left Radial] Pulse Rate from SpO2 Sensor 72 78 Respiratory Rate 30 H 33 H 31 H Respiratory Effort / Characteristics Respiratory Depth Respiratory Pattern Blood Pressure 106/63 Blood Pressure Mean 77 Pulse Oximetry 100 100 Oxygen Delivery Method Oxygen Flow Rate GENERAL: Patient is in no acute distress. HEENT: No acute trauma, normocephalic atraumatic, mucous membranes moist, no nasal congestion, no scleral icterus. NECK: No stridor, no adenopathy, no meningismus, trachea is midline. LUNGS: Wheezing bilaterally. Increased respiratory rate. Mild respiratory distress. Decreased breath sounds bilaterally. HEART: Difficult to hear cardiac tones because of the increased respiratory rate. ABDOMEN: Soft, nontender, bowel sounds positive, no hernias, no peritonitis. EXTREMITIES: Significant bilateral pedal edema. Fingers missing on RUE. No cyanosis, full range of motion of all the joints without pain or difficulty, no signs for acute trauma. NEUROLOGIC: Oriented x 3, no acute motor or sensory deficits, no focal weakness. SKIN: No rash, no jaundice, no diaphoresis. Course 1725: I reviewed the EMR at this time. The patient was discharged on September 10 with a diagnosis of health care associated pneumonia. He was then seen on the of this month by his PCP and was complaining of extremity edema and shortness of breath with exertion. They recommended him going to the heart failure clinic, but he refused. 172: Past medical records reviewed. The patient was evaluated in room A3. A complete history and physical exam was performed. 1844: I reevaluated the patient and updated him on his test results thus far. We are going to scan his chest for a PE. I discussed the treatment plan with him. He verbally agrees and understands. He notes that he feels better after his hour long breathing treatment. 1851: I discussed the patient's case with Dr. Erich HARRIS Hospitalist. She will evaluate the patient for further management. Consultations Consultation #1: I discussed the patient's case with Dr. Erich HARRIS Hospitalist. She will evaluate the patient for further management. Time: 18:51 Administered Medications Ioversol (Optiray 320 125ml) 118 ml IV ONCE PRN PRN Reason: Interaction Checking Stop: 10/08/18 19:12 Last Admin: 10/04/18 19:14 Dose: 1 ml Documented by: [id number] Discontinued Medications Albuterol (Duoneb) 12 ml NEB ONE ONE Stop: 10/04/18 17:33 Last Admin: 10/04/18 17:41 Dose: 12 ml Documented by: [id number] Piperacillin Sod/Tazobactam Sod (Zosyn) 4.5 gm in 120 mls @ 240 mls/hr IV NOW ONE Stop: 10/04/18 18:37 Last Infusion: 10/04/18 18:59 Dose: 0 mls/hr Documented by: [id number] Admin: 10/04/18 18:26 Dose: 240 mls/hr Documented by: [id number] Medical Decision Making Differential Diagnosis Differential diagnoses include CHF, fluid overload, COPD exacerbation, pneumonia, bronchitis, anemia, IA, medical noncompliance. Medical Records Attestation: I reviewed the patient's medical records. Home Medications Current Medication List: was personally reviewed by me Laboratory Data Attestation: I reviewed the patient's lab results. Result diagrams: 10/04/18 17:15 10/04/18 17:15 Lab Results 10/04/18 10/04/18 10/04/18 Range/Units 17:15 17:15 17:15 WBC 7.91 (4.8-10.8) K/uL RBC 3.77 L (4.7-6.1) M/uL Hgb 12.2 L (14.0-18.0) g/dL Hct 35.9 L (42-52) % MCV 95.2 (80-100) fL MCH 32.4 (25-34) pg MCHC 34.0 (32-36) g/dL RDW Std Deviation 50.0 H (36.4-46.3) fL RDW Coeff of Fernando 14.3 (11.5-14.5) % Plt Count 269 (130-400) K/uL MPV 9.4 (7.4-10.4) fL Immature Gran % (Auto) 0.4 % Neut % (Auto) 74.9 % Lymph % (Auto) 15.4 % Kemper % (Auto) 8.0 % Eos % (Auto) 1.0 % Baso % (Auto) 0.3 % Immature Gran # (Auto) 0.03 H (0.00-0.02) K/uL Neut # (Auto) 5.93 (1.4-6.5) K/uL Lymph # (Auto) 1.22 (1.2-3.4) K/uL Kemper # (Auto) 0.63 H (0.11-0.59) K/uL Eos # (Auto) 0.08 (0-0.5) K/uL Baso # (Auto) 0.02 (0-0.2) K/uL PT 10.3 (9.0-12.0) Seconds INR 1.0 (0.9-1.1) APTT 26.6 (21.0-31.0) Seconds PTT Ratio 1.0 Sodium 136 (136-145) mmol/L Potassium 5.1 (3.5-5.1) mmol/L Chloride 97 L (98-107) mmol/L Carbon Dioxide 33 H (21-32) mmol/L Anion Gap 6.0 (3-11) BUN 28 H (7-18) mg/dl Creatinine 1.26 (0.6-1.4) mg/dl Est Cr Clr Drug Dosing 35.8 ml/min Est GFR ( Amer) 63.3 Est GFR (Non-Af Amer) 54.7 BUN/Creatinine Ratio 22.4 H (10-20) Glucose 146 H (70-99) mg/dl Lactate (0.4-2.0) mmol/L Calcium 9.5 (8.5-10.1) mg/dl Magnesium 2.0 (1.8-2.4) mg/dl Total Bilirubin 0.4 (0.2-1) mg/dl AST 31 (15-37) U/L ALT 51 (12-78) U/L Alkaline Phosphatase 123 H (45-117) U/L Troponin I 0.032 (0-0.045) ng/ml NT-Pro-B Natriuret Pep 4614 H (0-1800) pg/ml Total Protein 6.9 (6.4-8.2) gm/dl Albumin 3.4 (3.4-5.0) gm/dl Globulin 3.5 (2.5-4.0) gm/dl Albumin/Globulin Ratio 1.0 (0.9-2) Procalcitonin (0-0.5) ng/ml 10/04/18 10/04/18 Range/Units 17:15 17:55 WBC (4.8-10.8) K/uL RBC (4.7-6.1) M/uL Hgb (14.0-18.0) g/dL Hct (42-52) % MCV (80-100) fL MCH (25-34) pg MCHC (32-36) g/dL RDW Std Deviation (36.4-46.3) fL RDW Coeff of Fernando (11.5-14.5) % Plt Count (130-400) K/uL MPV (7.4-10.4) fL Immature Gran % (Auto) % Neut % (Auto) % Lymph % (Auto) % Kemper % (Auto) % Eos % (Auto) % Baso % (Auto) % Immature Gran # (Auto) (0.00-0.02) K/uL Neut # (Auto) (1.4-6.5) K/uL Lymph # (Auto) (1.2-3.4) K/uL Kemper # (Auto) (0.11-0.59) K/uL Eos # (Auto) (0-0.5) K/uL Baso # (Auto) (0-0.2) K/uL PT (9.0-12.0) Seconds INR (0.9-1.1) APTT (21.0-31.0) Seconds PTT Ratio Sodium (136-145) mmol/L Potassium (3.5-5.1) mmol/L Chloride (98-107) mmol/L Carbon Dioxide (21-32) mmol/L Anion Gap (3-11) BUN (7-18) mg/dl Creatinine (0.6-1.4) mg/dl Est Cr Clr Drug Dosing ml/min Est GFR ( Amer) Est GFR (Non-Af Amer) BUN/Creatinine Ratio (10-20) Glucose (70-99) mg/dl Lactate 1.5 (0.4-2.0) mmol/L Calcium (8.5-10.1) mg/dl Magnesium (1.8-2.4) mg/dl Total Bilirubin (0.2-1) mg/dl AST (15-37) U/L ALT (12-78) U/L Alkaline Phosphatase (45-117) U/L Troponin I (0-0.045) ng/ml NT-Pro-B Natriuret Pep (0-1800) pg/ml Total Protein (6.4-8.2) gm/dl Albumin (3.4-5.0) gm/dl Globulin (2.5-4.0) gm/dl Albumin/Globulin Ratio (0.9-2) Procalcitonin 0.06 (0-0.5) ng/ml Imaging Data Radiologist's Impression: Radiology results as stated below per my review and the radiologist's interpretation: XR chest 1V portable CLINICAL HISTORY: Shortness of breath COMPARISON STUDY: 10/04/2018 FINDINGS: The heart is mildly enlarged. The patient is hyperinflated. There is a left subclavian pacer/defibrillator present. There is pulmonary emphysema. There is basilar interstitial thickening. There is a soft tissue opacity present at the right medial lung apex.[An infectious/inflammatory etiology is favored over neoplasm as no mass is identified on a CT scan performed August 2018. Close follow-up however will be necessary. IMPRESSION: 1. Emphysema with basilar interstitial thickening 2. Persistent soft tissue opacity at the right medial lung apex. A pneumonia is favored over neoplasm, as no mass is identified on a CT scan performed less than 6 weeks earlier. Clinical correlation and radiographic follow-up is recommended Electronically signed by: Alfredo Moore M.D. 10/04/2018 6:[address] ANGIOGRAM OF THE CHEST CLINICAL HISTORY: Shortness of breath. Suspected pulmonary embolism. ABNORMAL CHEST X-RAY COMPARISON STUDY: Chest x-ray dated 10/04/2018, CT scan dated 08/28/2018 TECHNIQUE: Following the IV administration of 119 mL of Optiray-320, CT angiogram of the thorax was performed from the thoracic inlet to the lung bases utilizing the pulmonary embolus protocol. Images are reviewed in the axial, sagittal, and coronal planes. IV contrast was administered without complication. MIP imaging was performed. A dose lowering technique was utilized adhering to the principles of ALARA. CT DOSE: 286.91 mGy.cm FINDINGS: There are hepatic hypodensities, statistically representing cysts. No pathologically enlarged axillary mediastinal or hilar lymph nodes were visualized. There are moderate atheromatous changes present within the thoracic aorta. The ascending thoracic aorta measures 33 mm. There were no pulmonary artery filling defects to indicate acute pulmonary embolism. No pleural effusions are visualized. There is severe pulmonary emphysema. There is lower lobe rhonchi wall thickening and mucous plugging. There is mild bronchiectasis. There is a new 26 mm masslike opacity within the right upper lobe abutting the paraspinal pleura. As this was not present on a study performed approximately 5 1/2 weeks ago, this is statistically infectious/inflammatory. There are persistent but improving lower lobe and right middle lobe nodular airspace opacities. The 9 mm pleural-based right lower lobe pulmonary nodule remains unchanged. IMPRESSION: 1. No evidence of acute pulmonary embolism 2. Persistent but improving bilateral lower lobe and right middle lobe nodular airspace opacities, consistent with an infectious/inflammatory etiology 3. Interval development of a 26 mm masslike opacity within the right upper lobe. This explains the chest x-ray findings. A statistical basis this is infectious/inflammatory. A 3 month follow-up CT scan is recommended secondary to appropriate treatment. 4. Bronchiectasis. Lower lobe bronchial wall thickening and mucous plugging. Electronically signed by: Alfredo Moore M.D. 10/04/2018 7:33 PM ECG Data Attestation: I personally reviewed and interpreted this ECG as follows: Indication: SOB/dyspnea Rate (beats per minute): 85 Rhythm: other (functioning pacemaker with occasional salamatof beats) Findings: no PAC and no ST elevation Comparison ECG Date: from (09/06/2018) Change: no significant change (shows pacemaker function now) Blood Pressure Blood Pressure Findings: Normal blood pressure Blood Pressure Disposition: did not require urgent referral MDM Narrative There is no leukocytosis. The patient is anemic, however, this is baseline looking back at previous testing. There is no coagulopathy. No significant electrolyte abnormality or kidney failure. Lactic acid level is not elevated making sepsis less likely. No worrisome liver enzyme elevation. EKG shows pacemaker function. There were salamatof beats as well. No significant change when compared to the previous EKG. Cardiac enzyme testing x1 is not consistent with acute cardiac injury. Chest film shows a persistent right lower lung infiltrate, no CHF, no pneumothorax. Chest CT does not show PE, pneumonia was noted. The patient received a 1 hour DuoNeb, he was given IV Zosyn as antibiotic coverage. The patient presents dyspneic, tachypneic. He was in the hospital recently for pneumonia. He is somewhat noncompliant outside the hospital, he stopped his [place] 2 days ago. Despite the multiple nebs and the continuous neb, the patient still appears dyspneic and I do not think is stable for discharge home. Further care for his dyspnea is required here in the hospital. A pulmonary consult and bronchoscopy may be necessary. I suspect the dyspnea is multifactorial. He has COPD, he is medically noncompliant, he is somewhat fluid overloaded, he has a persistent pneumonia on imaging. Impression & Plan Respiratory distress, Tachypnea, Pneumonia Discharge Plan Visit Data Chief Complaint: Shortness of Breath/Dyspnea ED Provider: Nathaniel Olivia Discharge Problem: Respiratory distress, Tachypnea, Pneumonia Patient Disposition: Being Evaluated by Hospitalist Forms Stand Alone Forms: My [facility] Prescriptions Prescriptions: No Action lisinopril 10 mg tablet 10 mg PO DAILY Qty: 30 RF: 5 metoprolol succinate 50 mg tablet extended release 24 hr 75 mg PO DAILY Qty: 45 RF: 5 fluticasone propion-salmeterol [Advair Diskus] 250-50 mcg/dose blister with device 1 inh INHALATION BID Qty: 60 RF: 5 Combivent Respimat 20-100 mcg/actuation mist 1 puff INHALATION QID Qty: 4 RF: 5 albuterol sulfate 90 mcg/actuation HFA aerosol inhaler 2 puff inhalation Q4 PRN (Reason: Shortness Of Breath Or Wheezing) Qty: 18 RF: 5 ipratropium-albuterol 0.5 mg-3 mg(2.5 mg base)/3 mL solution for nebulization 3 ml Inhalation QID PRN (Reason: Shortness Of Breath) RF: 0 aspirin [Aspir-81] 81 mg Tablet,Delayed Release (Dr/Ec) 81 mg PO QAM RF: 0 atorvastatin 80 mg tablet 80 mg PO HS RF: 0 Referrals Referrals: Caroline Ruggiero MD [Primary Care Provider] - Discharge Problem: Pneumonia Qualifiers: Pneumonia type: due to unspecified organism Laterality: unspecified laterality Lung location: unspecified part of lung Qualified Code(s): J18.9 - Pneumonia, unspecified organism The scribe's documentation has been prepared under my direction and personally reviewed by me in its entirety. I confirm that the note above accurately reflects all work, treatment, procedures, and medical decision making performed by me.
[2018-10-04 18:31] LABS: Bilirubin,Total 0.4 mg/dl (0.2-1); Globulin 3.5 gm/dl (2.5-4.0); Total Protein 6.9 gm/dl (6.4-8.2); Troponin I 0.032 ng/ml (0-0.045)
[2018-10-04] MEDS ORDERED: OPTIRAY 320 125ml IV PRN (19:13)
--- NOTE | 2018-10-04 19:34 | CT Scan Report ---
CT ANGIOGRAM OF THE CHEST CLINICAL HISTORY: Shortness of breath. Suspected pulmonary embolism. ABNORMAL CHEST X-RAY COMPARISON STUDY: Chest x-ray dated 10/04/2018, CT scan dated 08/28/2018 TECHNIQUE: Following the IV administration of 119 mL of Optiray-320, CT angiogram of the thorax was p erformed from the thoracic inlet to the lung bases utilizing the pulmonary embolus protocol. Images a re reviewed in the axial, sagittal, and coronal planes. IV contrast was administered without complica tion. MIP imaging was performed. A dose lowering technique was utilized adhering to the principles o f ALARA. CT DOSE: 286.91 mGy.cm FINDINGS: There are hepatic hypodensities, statistically representing cysts. No pathologically enlarged axillary mediastinal or hilar lymph nodes were visualized. There are moderate atheromatous changes present within the thoracic aorta. The ascending thoracic aor ta measures 33 mm. There were no pulmonary artery filling defects to indicate acute pulmonary embolism. No pleural effusions are visualized. There is severe pulmonary emphysema. There is lower lobe rhonchi wall thickening and mucous plugging. There is mild bronchiectasis. There is a new 26 mm masslike opacity within the right upper lobe abut ting the paraspinal pleura. As this was not present on a study performed approximately 5 1/2 weeks ag o, this is statistically infectious/inflammatory. There are persistent but improving lower lobe and r ight middle lobe nodular airspace opacities. The 9 mm pleural-based right lower lobe pulmonary nodule remains unchanged. IMPRESSION: 1. No evidence of acute pulmonary embolism 2. Persistent but improving bilateral lower lobe and right middle lobe nodular airspace opacities, co nsistent with an infectious/inflammatory etiology 3. Interval development of a 26 mm masslike opacity within the right upper lobe. This explains the est x-ray findings. A statistical basis this is infectious/inflammatory. A 3 month follow-up CT scan is recommended secondary to appropriate treatment. 4. Bronchiectasis. Lower lobe bronchial wall thickening and mucous plugging. Electronically signed by: Alfredo Moore M.D. 10/04/2018 7:33 PM
--- NOTE | 2018-10-04 19:57 | History & Physical Report ---
Date of Service October 04, 2018 Assessment & Plan (1) Hospital-acquired pneumonia: Admit to PCU inpatient on telemetry Vital signs every 4 hours Every 4 hours as needed for shortness of breath Solu-Medrol 30 mg every 8 hours IV Continue other Advair Continue Combivent Continue supplemental oxygen keep oxygenation above 92% Started furosemide CBC,CMP, BNP daily. Replenish electrolytes as needed Troponin every 6 hours with EKG since borderline in the ER. Follow-up blood and sputum cultures ANGELA pending Started on Zosyn and cefepime since that chest x-ray and CT suggesting pneumonia and procalcitonin is 0.06 Sepsis is not likely. Local bacterial infection is possible. Strict in and out DVT prophylaxis heparin 5000 units every 12 hours Full code Present on Admission?: Yes (2) Acute exacerbation of COPD with asthma: as the above Present on Admission?: Yes (3) Acute CHF (congestive heart failure): as the above. Low sodium diet.Heart healthy. Free fluid restriction to 1500 ml daily Monitor electrolytes and replenish as needed Present on Admission?: Yes (4) Dependence on supplemental oxygen: Keep oxygenation above 92% patient is chronically on 3 L of supplemental Present on Admission?: Yes (5) History of tobacco use: Patient was advised to stop smoking. Recommended nicotine patch. Patient refused. Present on Admission?: Yes (6) Hypothyroidism: TSH pending. Present on Admission?: Yes (7) HLD (hyperlipidemia): Fasting lipid panel in a.m. Continue atorvastatin 80 mg p.o. nightly Present on Admission?: Yes (8) Hypertension: Hold Lisinopril 10 mg PO daily since pt BP is on the lower side. Present on Admission?: Yes History of Present Illness Chief Complaint: Shortness of breath Primary Care Provider: Caroline Ruggiero MD Patient is a 78 years old male with past medical history of coronary artery disease, hyperlipidemia, hypertension, GERD, ICD/pacemaker, history of m yocardial infarction, COPD, chronic hypoxia, pulmonary emphysema peripheral artery disease, abdominal aortic aneurysm, dependent on tobacco was brought by the ambulance for shortness of breath. Patient states that his lower extremities are swollen and that he feels very tired. This condition has been ongoing for approximately 1 week. Patient went to see his PCP PCP told him that he need to be on furosemide. Patient refused to take furosemide for 10 days. Patient said that he uses at home approximately 3 L of oxygen daily 24 hours. Patient still smokes 1/2 pack per day. Patient denies fever chills chest pain abdominal pain frequency urgency, hemoptysis,hematemesis, melena, hematochezia. Labs reviewed :Wbc 7.91, H/H 12.2/35.9, platelets 269, PT 10.3, INR 1, APTT 26.6, sodium 136 potassium 5.1 chloride 97 onion gap 6 BUN 28 creatinine 1.26 GFR 35.8 lactate 1.5 magnesium 2, BNP 4614 procalcitonin 0.06. Chest x-ray: Emphysema with basilar interstitial thickening. Persistent soft tissue opacity in the right medial lung apex. A pneumonia is favored over neoplasm, as no mass is identified on the CT scan performed less than 6 weeks earlier. EKG :PAC no ST segment elevation in comparison to September 06, 2018 no significant changes. CTA of the chest: No evidence of acute pulmonary embolism. Persistent but improving bilateral lower lobe and right middle lobe nodular airspace opacities, consistent with an infectious inflammatory etiology. Interval development of a 26 mm masslike opacity within the right upper lobe. It is recommended 3 months follow-up with CT scan. Bronchiectasis lower lobe bronchial wall thickening and mucous plugging. And acute exacerbation of CHF with pneumonia decision was made to admit patient to PCU on telemetry for further management and treatment. Allergies Allergy/AdvReac Type Severity Reaction Status Date / Time No Known Drug Allergies Allergy Verified 10/04/18 17:51 Home Medications Home Medications Medication Instructions Recorded Confirmed Type aspirin [Aspir-81] 81 mg PO QAM 04/20/18 10/04/18 History ipratropium-albuterol 3 ml INHALATION QID PRN 04/20/18 10/04/18 History albuterol sulfate HFA 90 2 puff INHALATION Q4 PRN #18 gm 09/11/18 10/04/18 Rx mcg/actuation aerosol inhaler fluticasone 250 mcg-salmeterol 50 1 inh INHALATION BID #60 ea 09/11/18 10/04/18 Rx mcg/dose blistr powdr for inhalation ipratropium 20 mcg-albuterol 100 1 puff INHALATION QID #4 gm 09/11/18 10/04/18 Rx mcg/actuation mist for inhalation lisinopril 10 mg tablet 10 mg PO DAILY #30 tab 09/11/18 10/04/18 Rx metoprolol succinate ER 50 mg 75 mg PO DAILY #45 tab 09/11/18 10/04/18 Rx tablet,extended release 24 hr atorvastatin 80 mg PO HS 10/04/18 10/04/18 History Past Med/Surg History Medical History Impacted cerumen of both ears (Resolved) Chronic obstructive pulmonary disease (Acute) Dependence on supplemental oxygen (Acute) 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 (Acute) Hearing loss (Acute) History of tobacco use (Acute) History of abdominal aortic aneurysm (AAA) (Acute) Hypothyroidism (Acute) Ischemic cardiomyopathy (Acute) Multiple lung nodules on CT (Acute) PAD (peripheral artery disease) (Acute) Pulmonary emphysema (Acute) Vitamin D deficiency disease (Acute) HCAP (healthcare-associated pneumonia) CAD (coronary artery disease) HLD (hyperlipidemia) Elevated brain natriuretic peptide (BNP) level (Acute) Chronic kidney disease, stage 3 (Acute) Hypoxia (Acute) Hypertension GERD (gastroesophageal reflux disease) Edema Bowel obstruction (Resolved) Pacemaker (Acute) Internal hernia (Acute) History of heart attack COPD exacerbation (Acute) CHF (congestive heart failure) Abdominal pain (Resolved) Abdominal pain (Resolved) Bowel obstruction (Resolved) Bronchitis (Resolved) Bronchitis (Resolved) Elevated troponin I level (Resolved) Elevation of cardiac enzymes (Resolved) Elevation of cardiac enzymes (Resolved) Ileus (Resolved) Ileus (Resolved) SBO (small bowel obstruction) (Resolved) Small bowel obstruction (Resolved) Small bowel obstruction (Resolved) Pneumonia Surgical History H/O hand surgery S/P aneurysm repair S/P aortic bifurcation bypass graft S/P small bowel resection Family History Mother Acute myocardial infarction Hypertension Heart disease Father Hypertension Heart disease Myocardial infarction Other Colon cancer Social History Preferred Language: Kazakh Communication Ability: Effective Handkerchief Presser Required: No Beliefs That Will Affect Care: None marital status: / Current Living Situation: Alone Feels Safe at Home: Yes Smoking Status: Current every day smoker Second Hand Exposure: Yes ; Hx Alcohol Use: No Hx Substance Use: No Review of Systems Review of Systems: All systems reviewed & are unremarkable except as noted in HPI & below Physical Exam Constitutional: WD/WN, vitals as above + acute distress, + ill appearing, + thin, + frail appearing, + disheveled, cooperative and + edematous On arrival patient needed 4 L of oxygen and usually needs only 3 L of oxygen to be above 92% Eyes: PERRL, conjunctivae normal, anicteric sclerae ENMT: external ear and nose normal, oropharynx normal Respiratory: + respiratory distress, + uses accessory muscles, + dullness to percussion, + hyperresonance to percussion and + prolonged expiratory phase Auscultation: + crackles, + wheezes and + egophony Crackles heard in the right lower and middle lobe of the lungs . Cardiovascular: Rate/Rhythm: regular rate Heart Sounds: normal S1 and normal S2 Palpation: + palpable S3 Vessels: + JVD Chest (Breasts): normal inspection/palpation of breasts Gastrointestinal (Abdomen): Inspection/Auscultation: abdomen normal to inspection Percussion/Palpation: abdomen soft, + splenomegaly and + abdominal aortic enlargement Musculoskeletal: no cyanosis or clubbing, extremities motor strength 5/5 Inspection of calves reveal equal size bilaterally. They are non-tender. 2+ edema to the knees. No discoloration.Fingers missing on RUE Skin: no rashes, warm and dry acanthosis nigricans-sign of Leser-Trlat covering the entire back Neurologic: patellar DTR's 2+ bilat, sensation intact Psychiatric: A+Ox3, euthymic affect Genitourinary: no testicular masses, no penis abnormality Lymphatic: no cervical or axillary lymphadenopathy Results & Data Vital Signs (Past 12 Hours) Vital Signs Temp Pulse Pulse Resp BP Pulse Ox 10/04/18 18:20 83 31 H 100 10/04/18 18:10 84 33 H 100 10/04/18 18:01 84 30 H 106/63 10/04/18 18:00 85 35 H 100 10/04/18 17:50 84 37 H 10/04/18 17:42 83 22 99 10/04/18 17:40 82 30 H 100 10/04/18 17:39 100 10/04/18 17:30 86 31 H 100 10/04/18 17:27 36.6 C 85 33 H 119/63 100 10/04/18 17:24 84 38 H 100 10/04/18 17:20 85 38 H 119/63 100 Code Status & VTE Plan Code Status Full code VTE Prophylaxis Plan VTE Prophylaxis will be ordered: Yes PG Care Time/CCT Total # of Minutes Spent Total Time Spent with Patient: Total time spent is greater than 50% in coordination of care (as documented) at patient's floor/unit and/or counseling patient: (1) Hypertension Hypertension type: unspecified Qualified Code(s): I10 - Essential (primary) hypertension
[2018-10-04] MEDS ORDERED: ZOLPIDEM TARTRATE 5 MG TAB PO PRN (21:05)
[2018-10-04] MEDS ORDERED: POLYETHYLENE (MIRALAX) 17 GM PACK PO PRN (21:05)
[2018-10-04] MEDS ORDERED: ALBUT/IPRATROP 3MG/0.5MG NEB 3 ML VIAL NEB PRN (21:05)
[2018-10-04] MEDS ORDERED: ACETAMINOPHEN 325 MG TAB PO PRN (21:05)
[2018-10-04] MEDS: FLUTICASONE/SALMETEROL 250/50 (ADVAIR) 14 PUFF/1 INHALER INH SCH (21:55)
[2018-10-04] MEDS: IPRATROPIUM BROMIDE/ALBUTEROL respimat INH INH SCH (21:56)
[2018-10-04] MEDS: HEPARIN SOD 5,000 UNIT/0.5 ML VIAL SQ SCH (21:58)
[2018-10-04] MEDS: FUROSEMIDE 40 MG in SYRINGE 0 ML IV SCH (21:59)
[2018-10-04] MEDS: ATORVASTATIN 40 MG TAB PO SCH (21:59)
[2018-10-04] MEDS: METOPROLOL TARTRATE 25 MG TAB PO SCH (22:00)
[2018-10-04] MEDS: CEFEPIME 1,000 MG in SYRINGE 0 ML IV SCH (22:01)
[2018-10-04] MEDS: methylPREDNISolone 30 MG in SYRINGE 0 ML IV SCH (22:53)
[2018-10-05] MEDS: methylPREDNISolone 30 MG in SYRINGE 0 ML IV SCH ×3 (05:29→21:26)
[2018-10-05 05:52] LABS: Hematocrit (blood only) 33.7 % (42-52); Hemoglobin 11.2 g/dL (14.0-18.0); Mean Corpuscular Hgb Conc 33.2 g/dL (32-36); Mean Corpuscular Volume 94.9 fL (80-100); Mean Platelet Volume 9.6 fL (7.4-10.4); Platelet Count 205 K/uL (130-400); RDW Coefficient of Variation 14.1 % (11.5-14.5); RDW Standard Deviation 48.9 fL (36.4-46.3); Red Blood Count 3.55 M/uL (4.7-6.1); White Blood Count 2.65 K/uL (4.8-10.8)
[2018-10-05 05:53] LABS: Basophils # (auto) 0.01 K/uL (0-0.2); Basophils % (auto) 0.4 %; Lymphocytes # (auto) 0.15 K/uL (1.2-3.4); Lymphocytes % (auto) 5.7 %; Monocytes # (auto) 0.04 K/uL (0.11-0.59); Monocytes % (auto) 1.5 %; Neutrophils # (auto) 2.45 K/uL (1.4-6.5); Neutrophils % (auto) 92.4 %
[2018-10-05 06:30] LABS: Albumin Globulin Ratio 0.8 (0.9-2); Albumin Level 2.8 gm/dl (3.4-5.0); BUN Creatinine Ratio 22.6 (10-20); Bilirubin,Total 0.4 mg/dl (0.2-1); Calcium 9.1 mg/dl (8.5-10.1); Creatinine Clr Calc Pharmacy 36.2 ml/min; Est GFR (African American) 64.6; Est GFR (Non-African American) 55.7; Globulin 3.7 gm/dl (2.5-4.0); Magnesium 1.8 mg/dl (1.8-2.4); Potassium 4.3 mmol/L (3.5-5.1); Total Protein 6.5 gm/dl (6.4-8.2)
[2018-10-05] MEDS: HEPARIN SOD 5,000 UNIT/0.5 ML VIAL SQ SCH ×2 (09:34→20:01)
[2018-10-05] MEDS: CEFEPIME 1,000 MG in SYRINGE 0 ML IV SCH ×2 (09:34→21:26)
[2018-10-05] MEDS: FUROSEMIDE 40 MG in SYRINGE 0 ML IV SCH ×2 (09:34→17:12)
[2018-10-05] MEDS: IPRATROPIUM BROMIDE/ALBUTEROL respimat INH INH SCH ×4 (09:35→20:01)
[2018-10-05] MEDS: METOPROLOL TARTRATE 25 MG TAB PO SCH ×2 (09:35→20:00)
[2018-10-05] MEDS: ASPIRIN 81 MG ECTAB PO SCH (09:35)
[2018-10-05] MEDS: FLUTICASONE/SALMETEROL 250/50 (ADVAIR) 14 PUFF/1 INHALER INH SCH ×2 (09:35→20:00)
[2018-10-05] MEDS: ATORVASTATIN 40 MG TAB PO SCH (19:59)
[2018-10-06] MEDS: methylPREDNISolone 30 MG in SYRINGE 0 ML IV SCH ×3 (05:16→21:43)
[2018-10-06 06:38] LABS: Basophils # (auto) 0.01 K/uL (0-0.2); Basophils % (auto) 0.1 %; Hemoglobin 10.5 g/dL (14.0-18.0); Immature Granulocytes # (auto) 0.02 K/uL (0.00-0.02); Immature Granulocytes % (auto) 0.2 %; Lymphocytes # (auto) 0.29 K/uL (1.2-3.4); Lymphocytes % (auto) 3.2 %; Mean Corpuscular Volume 93.8 fL (80-100); Mean Platelet Volume 9.7 fL (7.4-10.4); Monocytes # (auto) 0.39 K/uL (0.11-0.59); Monocytes % (auto) 4.3 %; Neutrophils # (auto) 8.45 K/uL (1.4-6.5); Neutrophils % (auto) 92.2 %; Platelet Count 224 K/uL (130-400); RDW Standard Deviation 48.1 fL (36.4-46.3); White Blood Count 9.16 K/uL (4.8-10.8)
[2018-10-06 07:14] LABS: Albumin Level 2.7 gm/dl (3.4-5.0); BUN Creatinine Ratio 28.4 (10-20); Calcium 8.9 mg/dl (8.5-10.1); Creatinine Clr Calc Pharmacy 29.4 ml/min; Est GFR (Non-African American) 45.7; Potassium 4.4 mmol/L (3.5-5.1)
[2018-10-06 07:19] LABS: Albumin Globulin Ratio 0.8 (0.9-2); Bilirubin,Total 0.3 mg/dl (0.2-1); Globulin 3.4 gm/dl (2.5-4.0); Total Protein 6.1 gm/dl (6.4-8.2)
[2018-10-06] MEDS: FLUTICASONE/SALMETEROL 250/50 (ADVAIR) 14 PUFF/1 INHALER INH SCH ×2 (08:24→21:42)
[2018-10-06] MEDS: METOPROLOL TARTRATE 25 MG TAB PO SCH ×2 (08:24→21:43)
[2018-10-06] MEDS: IPRATROPIUM BROMIDE/ALBUTEROL respimat INH INH SCH ×2 (08:24→12:31)
[2018-10-06] MEDS: HEPARIN SOD 5,000 UNIT/0.5 ML VIAL SQ SCH ×2 (08:25→21:43)
[2018-10-06] MEDS: ASPIRIN 81 MG ECTAB PO SCH (08:25)
[2018-10-06] MEDS: FUROSEMIDE 40 MG in SYRINGE 0 ML IV SCH (08:25)
[2018-10-06] MEDS: CEFEPIME 1,000 MG in SYRINGE 0 ML IV SCH (10:44)
--- NOTE | 2018-10-06 11:36 | Hospitalist Progress Note ---
Date of Service October 06, 2018 Assessment & Plan (1) Hospital-acquired pneumonia: Continue PCU inpatient on telemetry Vital signs every 4 hours Solu-Medrol 30 mg every 8 hours IV Continue other Advair Continue Combivent Continue supplemental oxygen keep oxygenation above 92% Furosemide 40 IV BID switched to Bumex 0.5 mg IV BID per pt request and insisting that Furosemide is no good. CBC,CMP, BNP daily. Replenish electrolytes as needed Follow-up blood and sputum cultures ANGELA -LVEF 40-45 %, mild concentric LVH, Regional wall motion.Improved in comparison to 05/27/2018. BNP improving from 7527-->5782 Consult cardiology Continue Zosyn and cefepime since that chest x-ray and CT suggesting pneumonia and procalcitonin is 0.06 Strict in and out DVT prophylaxis heparin 5000 units every 12 hours Full code (2) Acute exacerbation of COPD with asthma: as the above (3) Acute CHF (congestive heart failure): as the above. Low sodium diet.Heart healthy. Free fluid restriction to 1500 ml daily Monitor electrolytes and replenish as needed (4) Dependence on supplemental oxygen: Keep oxygenation above 92% patient is chronically on 3 L of supplemental (5) History of tobacco use: Patient was advised to stop smoking. Recommended nicotine patch. Patient refused. (6) Hypothyroidism: TSH pending. (7) HLD (hyperlipidemia): Fasting lipid panel in a.m. Continue atorvastatin 80 mg p.o. nightly (8) Hypertension: Hold Lisinopril 10 mg PO daily since pt BP is on the lower side. (9) Pulmonary parenchymal mass: CT chest :Interval development of a 26 mm masslike opacity within the right upper lobe Could be related to current recurrent PNA. Consulted thoracic but pt apparently sent him away stating that he does not want any procedure to be done. Present on Admission?: Yes Subjective Pt seen and examined at the bedside. No acute event overnight , good U/O, pt reports breathing much easier. Reports no SOB at this time and turned down supplemental O2 from 5L to 3L which is his regular at home. Pt said he does not like lasix and he will not take it when he goes home. Pt believes that Lasix does not work for him. He also said Dr. Smith saw him yesterday and he will not allow any biopsy (at this time of the 26 mm mass in his right lungs. Pt is informed that that could be a cancer and without biopsy we will not know.We advised him to reconsider his decision. Pt denies fever, chills, OLIVAREZ, chest pain, SOB, abdominal pain, frequency and urgency, hemoptysis, hematemesis, urgency or frequency. He is less edematous today. Improving PO intake. Review of Systems Review of Systems: All systems reviewed & are unremarkable except as noted in HPI & below Physical Exam Constitutional: WD/WN, vitals as above + acute distress, + ill appearing, + thin, + frail appearing, + disheveled, cooperative and + edematous Eyes: PERRL, conjunctivae normal, anicteric sclerae ENMT: external ear and nose normal, oropharynx normal Respiratory: normal respiratory effort, lungs clear to auscultation + dullness to percussion and + hyperresonance to percussion Cardiovascular: Rate/Rhythm: regular rate Heart Sounds: normal S1 and normal S2 Palpation: + palpable S3 Improving lower extermity bilateral edema Chest (Breasts): normal inspection/palpation of breasts Gastrointestinal (Abdomen): Inspection/Auscultation: abdomen normal to inspection Percussion/Palpation: abdomen soft, + splenomegaly and + abdominal aortic enlargement Musculoskeletal: no cyanosis or clubbing, extremities motor strength 5/5 Skin: no rashes, warm and dry Neurologic: patellar DTR's 2+ bilat, sensation intact Psychiatric: A+Ox3, euthymic affect Genitourinary: no testicular masses, no penis abnormality Lymphatic: no cervical or axillary lymphadenopathy Results & Data Vital Signs (Past 12 Hours) Vital Signs Temp Pulse Pulse Resp BP Pulse Ox 10/06/18 09:00 78 10/06/18 08:08 36.5 C 85 20 124/71 94 10/06/18 04:00 36.4 C L 77 16 117/53 L 97 PG Care Time/CCT Total # of Minutes Spent Total Time Spent with Patient: Total time spent is greater than 50% in coordination of care (as documented) at patient's floor/unit and/or counseling patient: (1) Hypertension Hypertension type: unspecified Qualified Code(s): I10 - Essential (primary) hypertension
--- NOTE | 2018-10-06 15:22 | Pulmonary Consultation ---
Date of Consultation October 06, 2018 Assessment & Plan (1) Multiple lung nodules on CT: These will ultimately need follow-up CAT scan of the chest. The masslike density seen most recently in the right upper lobe posteriorly that was not noted on 08/27/2018 is highly likely to be inflammatory rather than neoplastic. This would be based upon the rapid growth and just a few weeks. It is not clear if this is truly a hospital-acquired pneumonia or not but it cannot entirely be excluded. He is on cefepime which I have no objection to. I do follow the patient in the office and will be following up on these CAT scan abnormalities. (2) Chronic obstructive pulmonary disease: The patient has very severe COPD. He does have DuoNeb's to take at home along with Combivent Respimat. He typically does not like to spend the time to take 4 treatments a day so he often will do 2 DuoNeb's and 2 doses of Combivent Respimat. It seems as though he is having difficulty with secretions. In light of this I would suggest that we change the DuoNeb's to 4 times daily and change the Combivent Respimat to as needed only. Smoking is a major issue for the patient. I have spoken with him numerous times at length regarding this problem. This was discussed again at the time of this consultation. (3) Acute CHF (congestive heart failure): The patient's BNP has improved but he has now had a rise in the renal function. This will need to be followed very carefully. I am wondering if he takes excessive liquids and at home which may contribute to his peripheral edema and CHF. (4) Pneumonia: Continue current antibiotic as noted. Suggest swallowing evaluation with speech therapy to be sure the patient is not aspirating. Recurrent aspiration could account for the vacillating infiltrates. Laterality: unspecified laterality Lung location: unspecified part of lung Pneumonia type: due to unspecified organism Qualified Code(s): J18.9 - Pneumonia, unspecified organism (5) Bronchiectasis: Trial of the vibration vest. The patient has tried flutter valves in the past without benefit. History of Present Illness Attending Physician: Beverly Saalzar MD History of Present Illness The patient is being seen for a pulmonary evaluation. He is a 78-year-old male well-known to myself from outpatient evaluations. He has known severe COPD. Prior pulmonary function test has shown his FEV1 to be only 38% of predicted and this would be following bronchodilators. The FEV1/FVC ratio is only 41%. He is very recently admitted to the hospital because of shortness of breath and edema. The patient has a long-standing history of lung infiltrates. A CT scan in 2016 showed significant airspace opacities bilaterally. This was suggestive for multifocal pneumonia. He had a follow-up CAT scan on 08/03/2017 that shows significant improvement. He also has multiple lung nodules which have been followed over time. He has advanced emphysema. The patient was admitted to [facility] from 05/27/2017 until 05/30/2017 with respiratory failure and exacerbation of COPD. He was also known to have systolic and diastolic congestive heart failure. The patient went to the ER on 04/20/2018 with abdominal pain. A CAT scan of the abdomen done at that time suggested the lung nodules in the lower lung leone were unchanged dating back to 2014. He was subsequently readmitted to [facility] from 05/26/2018 until 05/28/2018 with exacerbation COPD. He was admitted to [facility] on 09/06/2018 until 09/10/2018 for pneumonia. He had a CAT scan of the chest on 09/03/2018 showing infiltrates predominantly in the right middle lobe and right lower lobe. I had prescribed outpatient levofloxacin for him as of 03 September. His status worsened until he was ultimately admitted and treated with vancomycin and Zosyn and Solu-Medrol. He was discharged on Cefdinir for 4 days as well as a prednisone taper. The patient had called complaining of increasing peripheral edema. I returned a call to him but did not reach him. I left a voice message. I called again approximately October 01 and he at that time was at his family doctor's. I spoke with his granddaughter. He was prescribed metolazone there. The patient was subsequently feeling worse and came to the ER with shortness of breath and swelling on 10/04/2018. He did have a CAT scan of the chest done on that date. This CAT scan showed significant improvement in the bilateral lower lobe and right middle lobe opacities. There was however an interval development of a dense opacity in the right upper lobe posteriorly measuring 26 mm. In light of the fact it was not seen at all 5 weeks earlier it is suspected that this is inflammatory rather than neoplastic. At the present time the patient is feeling much improved. He states he is much less short of breath. His edema has significantly improved. He still has some edema. He has a cough but cannot bring up any phlegm. There is been no hemoptysis. He said no chest pains. He has had some night sweats and mild chills. The patient claims that his appetite is good. We have been concerned about weight loss in this patient. He is uncertain how much weight he is lost but this was noted through our prior office visits. In July he had lost 16 pounds compared with January 2018. Unfortunately the patient continues to smoke. Most of his life he smoked between 1 and 1.5 packs/day for approximately 55 years. He is currently smoking 1/2 pack/day. He denies any alcohol use. 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 The patient has a lot of anxiety. He states he has a lot of stress. He does get irritable easily. He has a noticeable tremor of the right arm which he states began a little over a month ago. He has no idea what that is from. His right arm did suffer a traumatic injury many years ago from a farm accident and he lost much of his fingers on the right hand and he had skin grafting done. He denies any appetite problem. He denies any bowel problems. He denies any urinary problems. He denies headache or dizziness. Denies passing out spells. Denies visual problems or nasal problems. Allergies Allergy/AdvReac Type Severity Reaction Status Date / Time No Known Drug Allergies Allergy Verified 10/04/18 17:51 Home Medications Home Medications Medication Instructions Recorded Confirmed Type aspirin [Aspir-81] 81 mg PO QAM 04/20/18 10/04/18 History ipratropium-albuterol 3 ml INHALATION QID PRN 04/20/18 10/04/18 History albuterol sulfate HFA 90 2 puff INHALATION Q4 PRN #18 gm 09/11/18 10/04/18 Rx mcg/actuation aerosol inhaler fluticasone 250 mcg-salmeterol 50 1 inh INHALATION BID #60 ea 09/11/18 10/04/18 Rx mcg/dose blistr powdr for inhalation ipratropium 20 mcg-albuterol 100 1 puff INHALATION QID #4 gm 09/11/18 10/04/18 Rx mcg/actuation mist for inhalation lisinopril 10 mg tablet 10 mg PO DAILY #30 tab 09/11/18 10/04/18 Rx metoprolol succinate ER 50 mg 75 mg PO DAILY #45 tab 09/11/18 10/04/18 Rx tablet,extended release 24 hr atorvastatin 80 mg PO HS 10/04/18 10/04/18 History Patient History Medical History Impacted cerumen of both ears (Resolved) Chronic obstructive pulmonary disease (Acute) Dependence on supplemental oxygen (Acute) 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 (Acute) Hearing loss (Acute) History of tobacco use (Acute) History of abdominal aortic aneurysm (AAA) (Acute) Hypothyroidism (Acute) Ischemic cardiomyopathy (Acute) Multiple lung nodules on CT (Acute) PAD (peripheral artery disease) (Acute) Pulmonary emphysema (Acute) Vitamin D deficiency disease (Acute) HCAP (healthcare-associated pneumonia) CAD (coronary artery disease) HLD (hyperlipidemia) Elevated brain natriuretic peptide (BNP) level (Acute) Chronic kidney disease, stage 3 (Acute) Hypoxia (Acute) Hypertension GERD (gastroesophageal reflux disease) Edema Bowel obstruction (Resolved) Pacemaker (Acute) Internal hernia (Acute) History of heart attack COPD exacerbation (Acute) CHF (congestive heart failure) Abdominal pain (Resolved) Abdominal pain (Resolved) Bowel obstruction (Resolved) Bronchitis (Resolved) Bronchitis (Resolved) Elevated troponin I level (Resolved) Elevation of cardiac enzymes (Resolved) Elevation of cardiac enzymes (Resolved) Ileus (Resolved) Ileus (Resolved) SBO (small bowel obstruction) (Resolved) Small bowel obstruction (Resolved) Small bowel obstruction (Resolved) Pneumonia Surgical History H/O hand surgery S/P aneurysm repair S/P aortic bifurcation bypass graft S/P small bowel resection Family History Mother Acute myocardial infarction Hypertension Heart disease Father Hypertension Heart disease Myocardial infarction Other Colon cancer Social History Preferred Language: Estonian Communication Ability: Effective Rounding Machine Operator Required: No Beliefs That Will Affect Care: None marital status: / Current Living Situation: Alone Feels Safe at Home: Yes Smoking Status: Current every day smoker Tobacco Type: cigarettes ; Cigarettes Per Day: 10 ; Second Hand Exposure: No ; Hx Alcohol Use: No Hx Substance Use: No Review of Systems Review of Systems: Negative except as noted in the history of present illness. 10 systems reviewed. Physical Exam Physical Exam: The patient is a 78-year-old male who was cooperative alert and oriented. He was in no distress. He has been afebrile since he was admitted. Eye exam showed cataract formation bilaterally. Pupils react. The patient wears corrective lenses. Nares are clear. Mouth exam showed dentures. Palpation of the neck reveals no lymph nodes or masses. Cardiac rate is 75/min. Rhythm regular. Blood pressure 120/65. Auscultation of the lung leone revealed decreased breath sounds. No active wheezes, rales, or rhonchi heard. Respiratory rate 20 breaths/min. Saturation 96% on 3 L. Abdomen was soft. He has multiple scars from prior surgeries. He has noticeable herniation through some of the incisions. He states the prior surgeries were related to an aortic aneurysm, bowel resection for ischemic bowel, and lysis of adhesions. Bowel sounds at present are normal. There was no tenderness to palpation or masses. Extremities showed that he has +1 edema of the lower extremities. He states this is much improved. He has abnormality of the right hand due to his prior traumatic injury. Results & Data Vital Signs (Past 12 Hours) Vital Signs Temp Pulse Pulse Resp BP Pulse Ox 10/06/18 11:21 36.5 C 75 22 120/65 96 10/06/18 09:00 78 10/06/18 08:08 36.5 C 85 20 124/71 94 10/06/18 04:00 36.4 C L 77 16 117/53 L 97 Laboratory Results White count on admission was 7.91. Yesterday the white count was down to 2.65. Today the white count is 9.16. One might wonder if there were lab error yesterday. Hemoglobin today 10.5 and on admission was 12.2. Platelets today 224,000. The differential count did show 92.2% neutrophils. Coags were normal. Electrolytes show sodium 134 potassium 4.4 chloride 93 bicarb 36. BUN is 41 with a creatinine of 1.46. It is notable that on the the creatinine was only 1.24 with a BUN of 28. Pro BNP on 10/05/2018 was 7527 and today was 5782. Total protein is 6.1 with albumin 2.7. Blood cultures are negative thus far. Diagnostic Findings EKG on admission showed normal sinus rhythm. Inferior infarct age-indeterminate was noted. Echocardiogram done 10/05/2018 showed LV ejection fraction mildly reduced to 40 to 45% with severe inferior wall hypokinesis and severe septal hypokinesis. RV function was normal. There was normal estimated pulmonary artery and right atrial pressures. As previously mentioned CT angios the chest on 10/04/2018 showed no pulmonary embolism, persistent but improving lower lobe bilaterally and right middle lobe airspace opacities, interval development of 26 mm masslike opacity in the right upper lobe which was not present 5 weeks earlier, and there is evidence of bronchiectasis. PG Care Time/CCT Total # of Minutes Spent Total Time Spent with Patient: Total time spent is greater than 50% in coordination of care (as documented) at patient's floor/unit and/or counseling patient:
[2018-10-06] MEDS: ALBUT/IPRATROP 3MG/0.5MG NEB 3 ML VIAL NEB SCH ×2 (16:05→18:57)
[2018-10-06] MEDS ORDERED: BUMETANIDE 0.5 MG in SYRINGE 0 ML IV SCH (17:00)
[2018-10-06] MEDS: ATORVASTATIN 40 MG TAB PO SCH (21:43)
[2018-10-07] MEDS: IPRATROPIUM BROMIDE/ALBUTEROL respimat INH INH PRN (04:57)
[2018-10-07] MEDS: methylPREDNISolone 30 MG in SYRINGE 0 ML IV SCH ×3 (04:58→21:03)
[2018-10-07 06:12] LABS: Hematocrit (blood only) 30.3 % (42-52); Hemoglobin 10.3 g/dL (14.0-18.0); Immature Granulocytes # (auto) 0.02 K/uL (0.00-0.02); Immature Granulocytes % (auto) 0.3 %; Lymphocytes # (auto) 0.23 K/uL (1.2-3.4); Lymphocytes % (auto) 3.1 %; Mean Corpuscular Volume 94.4 fL (80-100); Mean Platelet Volume 9.6 fL (7.4-10.4); Monocytes # (auto) 0.28 K/uL (0.11-0.59); Monocytes % (auto) 3.8 %; Neutrophils # (auto) 6.84 K/uL (1.4-6.5); Neutrophils % (auto) 92.8 %; Platelet Count 223 K/uL (130-400); RDW Standard Deviation 48.6 fL (36.4-46.3); Red Blood Count 3.21 M/uL (4.7-6.1); White Blood Count 7.37 K/uL (4.8-10.8)
[2018-10-07 06:41] LABS: Albumin Level 2.9 gm/dl (3.4-5.0); BUN Creatinine Ratio 41.9 (10-20); Creatinine Clr Calc Pharmacy 36.3 ml/min; Est GFR (African American) 69.3; Est GFR (Non-African American) 59.8; Magnesium 1.9 mg/dl (1.8-2.4); Potassium 4.7 mmol/L (3.5-5.1)
[2018-10-07 06:48] LABS: Bilirubin,Total 0.3 mg/dl (0.2-1); Total Protein 5.9 gm/dl (6.4-8.2)
[2018-10-07] MEDS: ALBUT/IPRATROP 3MG/0.5MG NEB 3 ML VIAL NEB SCH ×4 (06:49→19:06)
[2018-10-07] MEDS: FLUTICASONE/SALMETEROL 250/50 (ADVAIR) 14 PUFF/1 INHALER INH SCH ×2 (07:51→20:41)
[2018-10-07] MEDS: METOPROLOL TARTRATE 25 MG TAB PO SCH ×2 (07:51→20:40)
[2018-10-07] MEDS: HEPARIN SOD 5,000 UNIT/0.5 ML VIAL SQ SCH ×2 (07:51→20:41)
[2018-10-07] MEDS: ASPIRIN 81 MG ECTAB PO SCH (07:53)
--- NOTE | 2018-10-07 10:28 | Pulmonology Progress Note ---
Date of Service October 07, 2018 Assessment & Plan (1) Multiple lung nodules on CT: These will ultimately need follow-up CAT scan of the chest. The masslike density seen most recently in the right upper lobe posteriorly that was not noted on 08/27/2018 is highly likely to be inflammatory rather than neoplastic. This would be based upon the rapid growth and just a few weeks. It is not clear if this is truly a hospital-acquired pneumonia or not but it cannot entirely be excluded. He is on cefepime which I have no objection to. I do follow the patient in the office and will be following up on these CAT scan abnormalities. (2) Chronic obstructive pulmonary disease: The patient has very severe COPD. He does have DuoNeb's to take at home along with Combivent Respimat. He typically does not like to spend the time to take 4 treatments a day so he often will do 2 DuoNeb's and 2 doses of Combivent Respimat. It seems as though he is having difficulty with secretions. In light of this I would suggest that we changed the DuoNeb's to 4 times daily and changed the Combivent Respimat to as needed only. He is on methylprednisolone 30 mg IV every 8 hours. This can be changed to prednisone starting tomorrow at 40 mg daily. Smoking is a major issue for the patient. I have spoken with him numerous times at length regarding this problem. (3) Acute CHF (congestive heart failure): The patient's BNP has improved but he then had a rise in the renal function. This will need to be followed very carefully. Today his numbers are better in terms of creatinine. I am wondering if he takes excessive liquids and at home which may contribute to his peripheral edema and CHF. (4) Pneumonia: Continue current antibiotic as noted. Suggest swallowing evaluation with speech therapy to be sure the patient is not aspirating. Recurrent aspiration could account for the vacillating infiltrates. Laterality: unspecified laterality Lung location: unspecified part of lung Pneumonia type: due to unspecified organism Qualified Code(s): J18.9 - Pneumonia, unspecified organism (5) Bronchiectasis: Trial of the vibration vest was done. He has tolerated this well. If he finds this significantly beneficial we could consider ordering him a vest as an outpatient. This would be handled by myself as an outpatient. The patient has tried flutter valves in the past without benefit. Subjective The patient feels a little better today. He has tolerated the vibration vest well. He thinks it is helping. Nursing reports he did bring up some mucus. They apparently sent a specimen to the lab. According to nursing he was getting out of bed to the chair without much difficulty. He denies chest pains chills fevers or sweats. Physical Exam Physical Exam: The patient is a 78-year-old male who was comfortable at rest. He was cooperative and alert. Temperature 36.3. Pupils were reactive to light. Cataracts noted. Patient wears corrective lenses. Nasal passages clear. Mouth exam showed dentures. No lymph nodes palpable. Cardiac rate 89/min. Rhythm was generally regular with an occasional extrasystole. Blood pressure 122/54. He has a pacer defib in the left upper anterior chest. Respiratory rate 20 breaths/min and not labored at rest. The patient still is quite tight. Wheezes are heard at this time which I did not hear yesterday afternoon, although he is comfortable. Saturation 93% on 2 L. There is marked prolongation to the expiratory phase of respiration. Abdomen was soft. Abdominal wall hernias noted. Multiple scars noted. Nontender. Trace to +1 edema noted in both lower extremities. Right hand abnormality secondary to prior traumatic injury. Results & Data Vital Signs (Past 12 Hours) Vital Signs Temp Pulse Pulse Resp BP Pulse Ox 10/07/18 09:52 89 10/07/18 07:31 36.3 C L 80 20 122/54 L 93 10/07/18 06:52 78 20 96 10/07/18 03:44 36.7 C 86 20 147/70 H 91 10/07/18 02:25 88 10/06/18 23:14 36.7 C 98 H 16 113/68 93 Laboratory Results White count today showed 7.37. Hemoglobin 10.3. Platelets 223,000. Electrolytes show sodium 134 potassium 4.7 chloride 95 bicarb 35. BUN 49 which is increased from 41. Creatinine today 1.17 and yesterday was 1.46. Sputum Gram stain from yesterday showed few polys and few gram-positive cocci. Final culture pending. PG Care Time/CCT Total # of Minutes Spent Total Time Spent with Patient: Total time spent is greater than 50% in coordination of care (as documented) at patient's floor/unit and/or counseling patient:
--- NOTE | 2018-10-07 14:10 | Hospitalist Progress Note ---
Date of Service October 07, 2018 Assessment & Plan (1) Hospital-acquired pneumonia: Continue PCU inpatient on telemetry BUN 49, Bumex on hold since yesterday for dryness. Plan to give NSS 80 cc/h with volume of 500 cc total. Vital signs every 4 hours Solu-Medrol 30 mg every 8 hours IV start tapering down Continue other Advair Continue Combivent Continue supplemental oxygen keep oxygenation above 92%-->3L as he is at home CBC,CMP, BNP daily. Replenish electrolytes as needed Follow-up blood and sputum cultures ANGELA -LVEF 40-45 %, mild concentric LVH, Regional wall motion.Improved in comparison to 05/27/2018. BNP improving from 7527-->5782-->8616 Consult cardiology Continue Zosyn and cefepime since that chest x-ray and CT suggesting pneumonia and procalcitonin is 0.06 Strict in and out Dialy weight DVT prophylaxis heparin 5000 units every 12 hours Full code (2) Acute exacerbation of COPD with asthma: as the above (3) Acute CHF (congestive heart failure): as the above. Low sodium diet.Heart healthy. Monitor electrolytes and replenish as needed (4) Dependence on supplemental oxygen: Keep oxygenation above 92% patient is chronically on 3 L of supplemental (5) History of tobacco use: Patient was advised to stop smoking. Recommended nicotine patch. Patient refused. (6) Hypothyroidism: TSH pending. (7) HLD (hyperlipidemia): Fasting lipid panel in a.m. Continue atorvastatin 80 mg p.o. nightly (8) Hypertension: Hold Lisinopril 10 mg PO daily since pt BP is on the lower side. (9) Pulmonary parenchymal mass: CT chest :Interval development of a 26 mm masslike opacity within the right upper lobe Could be related to current recurrent PNA. Consulted thoracic but pt apparently sent him away stating that he does not want any procedure to be done. Subjective The patient feels a little better today. Afebrile. He has tolerated the vibration vest well. P.o. intake improving. Ambulates on his own. His patient denies fever chills headache chest pain nausea vomiting abdominal pain shortness of breath frequency urgency hemoptysis hematuria dysuria melena. Review of Systems Review of Systems: All systems reviewed & are unremarkable except as noted in HPI & below Physical Exam Constitutional: WD/WN, vitals as above + acute distress, + ill appearing, + thin, + frail appearing, + disheveled, cooperative and + edematous Eyes: PERRL, conjunctivae normal, anicteric sclerae ENMT: external ear and nose normal, oropharynx normal Respiratory: normal respiratory effort, lungs clear to auscultation + dullness to percussion and + hyperresonance to percussion Auscultation: + crackles (Improving), + wheezes (Improving) and + egophony Cardiovascular: Rate/Rhythm: regular rate Heart Sounds: normal S1 and normal S2 Palpation: + palpable S3 Vessels: + JVD Chest (Breasts): normal inspection/palpation of breasts Gastrointestinal (Abdomen): Inspection/Auscultation: abdomen normal to inspection Percussion/Palpation: abdomen soft, + splenomegaly and + abdominal aortic enlargement Musculoskeletal: no cyanosis or clubbing, extremities motor strength 5/5 Skin: no rashes, warm and dry Neurologic: patellar DTR's 2+ bilat, sensation intact Psychiatric: A+Ox3, euthymic affect Genitourinary: no testicular masses, no penis abnormality Lymphatic: no cervical or axillary lymphadenopathy Results & Data Vital Signs (Past 12 Hours) Vital Signs Temp Pulse Pulse Resp BP Pulse Ox 10/07/18 11:44 36.3 C L 85 24 117/47 L 93 10/07/18 11:00 78 20 93 10/07/18 09:52 89 10/07/18 07:31 36.3 C L 80 20 122/54 L 93 10/07/18 06:52 78 20 96 10/07/18 03:44 36.7 C 86 20 147/70 H 91 10/07/18 02:25 88 PG Care Time/CCT Total # of Minutes Spent Total Time Spent with Patient: Total time spent is greater than 50% in coordination of care (as documented) at patient's floor/unit and/or counseling patient: (1) Hypertension Hypertension type: unspecified Qualified Code(s): I10 - Essential (primary) hypertension
[2018-10-07] MEDS ORDERED: SODIUM CHLORIDE 0.9% 500 ML IV SCH (14:15)
[2018-10-07] MEDS ORDERED: MAGNESIUM HYDROXIDE SUSP 30 ML UDC PO PRN (19:50)
[2018-10-07] MEDS: ATORVASTATIN 40 MG TAB PO SCH (20:40)
[2018-10-08 05:39] LABS: Hematocrit (blood only) 34.8 % (42-52); Hemoglobin 11.6 g/dL (14.0-18.0); Immature Granulocytes # (auto) 0.02 K/uL (0.00-0.02); Immature Granulocytes % (auto) 0.3 %; Lymphocytes # (auto) 0.13 K/uL (1.2-3.4); Lymphocytes % (auto) 1.9 %; Mean Corpuscular Hgb Conc 33.3 g/dL (32-36); Mean Corpuscular Volume 96.1 fL (80-100); Mean Platelet Volume 9.5 fL (7.4-10.4); Monocytes # (auto) 0.52 K/uL (0.11-0.59); Monocytes % (auto) 7.7 %; Neutrophils # (auto) 6.05 K/uL (1.4-6.5); Neutrophils % (auto) 90.1 %; Platelet Count 231 K/uL (130-400); RDW Coefficient of Variation 14.3 % (11.5-14.5); RDW Standard Deviation 50.4 fL (36.4-46.3); Red Blood Count 3.62 M/uL (4.7-6.1); White Blood Count 6.72 K/uL (4.8-10.8)
[2018-10-08] MEDS: methylPREDNISolone 30 MG in SYRINGE 0 ML IV SCH ×3 (06:03→21:25)
[2018-10-08 06:08] LABS: Albumin Level 3.1 gm/dl (3.4-5.0); BUN Creatinine Ratio 37.2 (10-20); Calcium 9.4 mg/dl (8.5-10.1); Creatinine Clr Calc Pharmacy 36.9 ml/min; Est GFR (African American) 69.3; Est GFR (Non-African American) 59.8; Magnesium 2.4 mg/dl (1.8-2.4); Potassium 5.5 mmol/L (3.5-5.1)
[2018-10-08 06:17] LABS: Albumin Globulin Ratio 0.8 (0.9-2); Bilirubin,Total 0.3 mg/dl (0.2-1); Globulin 3.7 gm/dl (2.5-4.0); Total Protein 6.8 gm/dl (6.4-8.2)
[2018-10-08] MEDS: ALBUT/IPRATROP 3MG/0.5MG NEB 3 ML VIAL NEB SCH ×6 (07:06→19:35)
[2018-10-08] MEDS: METOPROLOL TARTRATE 25 MG TAB PO SCH ×2 (07:39→21:24)
[2018-10-08] MEDS: HEPARIN SOD 5,000 UNIT/0.5 ML VIAL SQ SCH ×2 (07:41→21:23)
[2018-10-08] MEDS: FLUTICASONE/SALMETEROL 250/50 (ADVAIR) 14 PUFF/1 INHALER INH SCH ×2 (07:48→21:25)
[2018-10-08 08:24] LABS: BUN Creatinine Ratio 37.2 (10-20); Calcium 9.1 mg/dl (8.5-10.1); Creatinine Clr Calc Pharmacy 38.3 ml/min; Est GFR (African American) 72.3; Est GFR (Non-African American) 62.4; Potassium 4.7 mmol/L (3.5-5.1)
[2018-10-08] MEDS: ASPIRIN 81 MG ECTAB PO SCH ×2 (11:07→11:08)
--- NOTE | 2018-10-08 16:51 | Cardiology Consultation ---
Date of Consultation October 08, 2018 Assessment & Plan (1) Acute CHF (congestive heart failure): The patient carries a history of chronic systolic congestive heart failure. He unfortunately has issues with compliance and will not follow daily weights and sliding-scale diuretics. His management remains difficult. He expresses a preference for Bumex over Lasix for his treatment as an outpatient. (2) Ischemic cardiomyopathy: Mild left ventricular dysfunction with ejection fraction of 40-45% on his current echocardiogram. (3) CAD (coronary artery disease): The patient suffered a NSTEMI in September 2011 following a small bowel resection. The patient does not experience chronic angina pectoris. 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 His device is followed by Dr. Mason. History of Present Illness Attending Physician: Beverly Salazar MD History of Present Illness Mr. Jasmine is a 78-year-old male admitted on October 04 with pneumonia and mildly decompensated systolic CHF. This consultation was order to assist in his management. Of note, the patient is well known to me from the outpatient setting. Ten days prior to the patient's presentation he opted to discontinue his diuretic therapy as it was not working. The patient began to develop progressive lower extremity edema and exertional dyspnea. Fortunately, diuresis was re-initiated at time of his presentation and his improved dramatically. In fact, it appears that he may have been over diuresed and his diuretic was placed on hold. We have again discussed outpatient management of congestive heart failure. The patient explains that he does not have a scale and is not interested in a free scale from our office. He is noncompliant with his diet and fluid intake. Currently, patient is resting comfortably in bed without complaints. Past medical and surgical history 1. Coronary artery disease 2. NSTEMI-September 2011 following small-bowel surgery 3. Ischemic [id number]% 4. Mild aortic stenosis 5. Hypertension 6. Hypercholesterolemia 7. Biventricular ICD-October 2012 8. AAA repair-August 2008 9. Cerebral vascular disease- 50-69% bilaterally, August 2014 10. Oxygen-dependent COPD 11. Small-bowel resection-September 2011 12. Chronic renal failure 13. Right upper extremity trauma Social history Single, lives alone Smokes 1/2 pack of cigarettes daily Rare alcohol Family history Noncontributory Review of systems A 10 point review of systems was undertaken and negative except for that described above. Allergies Allergy/AdvReac Type Severity Reaction Status Date / Time No Known Drug Allergies Allergy Verified 10/04/18 17:51 Home Medications Home Medications Medication Instructions Recorded Confirmed Type aspirin [Aspir-81] 81 mg PO QAM 04/20/18 10/04/18 History ipratropium-albuterol 3 ml INHALATION QID PRN 04/20/18 10/04/18 History albuterol sulfate HFA 90 2 puff INHALATION Q4 PRN #18 gm 09/11/18 10/04/18 Rx mcg/actuation aerosol inhaler fluticasone 250 mcg-salmeterol 50 1 inh INHALATION BID #60 ea 09/11/18 10/04/18 Rx mcg/dose blistr powdr for inhalation ipratropium 20 mcg-albuterol 100 1 puff INHALATION QID #4 gm 09/11/18 10/04/18 Rx mcg/actuation mist for inhalation lisinopril 10 mg tablet 10 mg PO DAILY #30 tab 09/11/18 10/04/18 Rx metoprolol succinate ER 50 mg 75 mg PO DAILY #45 tab 09/11/18 10/04/18 Rx tablet,extended release 24 hr atorvastatin 80 mg PO HS 10/04/18 10/04/18 History Patient History Medical History Impacted cerumen of both ears (Resolved) Chronic obstructive pulmonary disease (Acute) Dependence on supplemental oxygen (Acute) 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 (Acute) Hearing loss (Acute) History of tobacco use (Acute) History of abdominal aortic aneurysm (AAA) (Acute) Hypothyroidism (Acute) Ischemic cardiomyopathy (Acute) Multiple lung nodules on CT (Acute) PAD (peripheral artery disease) (Acute) Pulmonary emphysema (Acute) Vitamin D deficiency disease (Acute) HCAP (healthcare-associated pneumonia) CAD (coronary artery disease) HLD (hyperlipidemia) Elevated brain natriuretic peptide (BNP) level (Acute) Chronic kidney disease, stage 3 (Acute) Hypoxia (Acute) Hypertension GERD (gastroesophageal reflux disease) Edema Bowel obstruction (Resolved) Pacemaker (Acute) Internal hernia (Acute) History of heart attack COPD exacerbation (Acute) CHF (congestive heart failure) Abdominal pain (Resolved) Abdominal pain (Resolved) Bowel obstruction (Resolved) Bronchitis (Resolved) Bronchitis (Resolved) Elevated troponin I level (Resolved) Elevation of cardiac enzymes (Resolved) Elevation of cardiac enzymes (Resolved) Ileus (Resolved) Ileus (Resolved) SBO (small bowel obstruction) (Resolved) Small bowel obstruction (Resolved) Small bowel obstruction (Resolved) Pneumonia Surgical History H/O hand surgery S/P aneurysm repair S/P aortic bifurcation bypass graft S/P small bowel resection Family History Mother Acute myocardial infarction Hypertension Heart disease Father Hypertension Heart disease Myocardial infarction Other Colon cancer Social History Preferred Language: Guyanese Communication Ability: Effective Hearing Impaired Teacher Required: No Beliefs That Will Affect Care: None marital status: / Current Living Situation: Alone Feels Safe at Home: Yes Smoking Status: Current every day smoker (HAS SMOKED FOR 55 YEARS, 1-1.5PPD) Tobacco Type: cigarettes ; Cigarettes Per Day: 10 ; Second Hand Exposure: No ; Hx Alcohol Use: No Hx Substance Use: No Physical Exam Physical Exam: In general is a thin white male in no acute distress. HEENT exam is negative. Neck is supple with full carotid upstrokes. No obvious bruits or transmitted murmurs. No jugular venous distension. Cardiovascular exam reveals a regular rhythm with a 2/6 basal systolic ejection murmur. Heart sounds are distant. No obvious S3 or S4. Lungs note distant breath sounds but no rales, rhonchi or wheezes. Abdomen is soft without bruits. Extremities reveal intact radial artery pulses bilaterally. There is no pretibial edema. Right hand deformity noted. Results & Data Vital Signs (Past 12 Hours) Vital Signs Temp Pulse Pulse Resp BP BP Pulse Ox 10/08/18 15:32 36.6 C 92 H 18 129/75 97 10/08/18 15:02 89 18 96 10/08/18 11:38 36.6 C 80 19 112/43 L 96 10/08/18 11:14 79 18 98 10/08/18 09:43 91 H 10/08/18 09:36 10/08/18 08:02 36.8 C 88 19 136/78 94 10/08/18 07:09 75 18 93 Pulse Ox 10/08/18 15:32 10/08/18 15:02 10/08/18 11:38 10/08/18 11:14 10/08/18 09:43 10/08/18 09:36 94 10/08/18 08:02 10/08/18 07:09 Laboratory Results Laboratory Results - last 24 hr 10/08/18 10/08/18 10/08/18 05:17 05:17 07:52 WBC 6.72 RBC 3.62 L Hgb 11.6 L Hct 34.8 L MCV 96.1 MCH 32.0 MCHC 33.3 RDW Std Deviation 50.4 H RDW Coeff of Fernando 14.3 Plt Count 231 MPV 9.5 Immature Gran % (Auto) 0.3 Neut % (Auto) 90.1 Lymph % (Auto) 1.9 Parmer % (Auto) 7.7 Eos % (Auto) 0.0 Baso % (Auto) 0.0 Immature Gran # (Auto) 0.02 Neut # (Auto) 6.05 Lymph # (Auto) 0.13 L Parmer # (Auto) 0.52 Eos # (Auto) 0.00 Baso # (Auto) 0.00 Sodium 136 135 L Potassium 5.5 H D 4.7 Chloride 96 L 94 L Carbon Dioxide 37 H 36 H Anion Gap 3.0 5.0 BUN 44 H 42 H Creatinine 1.17 1.13 Est Cr Clr Drug Dosing 36.9 38.3 Est GFR ( Amer) 69.3 72.3 Est GFR (Non-Af Amer) 59.8 62.4 BUN/Creatinine Ratio 37.2 H 37.2 H Glucose 117 H 126 H Calcium 9.4 9.1 Magnesium 2.4 Total Bilirubin 0.3 AST 47 H ALT 59 Alkaline Phosphatase 89 NT-Pro-B Natriuret Pep 23423 H Total Protein 6.8 Albumin 3.1 L Globulin 3.7 Albumin/Globulin Ratio 0.8 L Diagnostic Findings EKG notes normal sinus rhythm with a right bundle branch block and an old inferior OH pattern. Echocardiogram notes mild left ventricular dysfunction with ejection fraction 40-45% with an anteroseptal, septal, inferior wall motion abnormality. There is mild aortic stenosis. CT scan of the chest notes a 26 millimeter right upper lobe mass. PG Care Time/CCT Total # of Minutes Spent Total Time Spent with Patient: Total time spent is greater than 50% in coordination of care (as documented) at patient's floor/unit and/or counseling patient:
--- NOTE | 2018-10-08 18:02 | Hospitalist Progress Note ---
Date of Service October 08, 2018 Assessment & Plan (1) Hospital-acquired pneumonia: Continue PCU inpatient on telemetry for acute systolic congestive heart failure He also has ischemic cardiomyopathy with mild left ventricular dysfunction and ejection fraction 40-45. Patient had an STEMI Vital signs every 4 hours Solu-Medrol 30 mg every 8 hours IV start tapering down Continue other Advair Continue Combivent Continue supplemental oxygen keep oxygenation above 92%-->3L as he is at home CBC,CMP, BNP daily. Replenish electrolytes as needed Follow-up blood and sputum cultures ANGELA -LVEF 40-45 %, mild concentric LVH, Regional wall motion.Improved in comparison to 05/27/2018. BNP daily Consult cardiology Continue Zosyn and cefepime since that chest x-ray and CT suggesting pneumonia and procalcitonin is 0.06 Strict in and out Dialy weight DVT prophylaxis heparin 5000 units every 12 hours Full code (2) Acute exacerbation of COPD with asthma: as the above (3) Acute CHF (congestive heart failure): as the above. Low sodium diet.Heart healthy. Monitor electrolytes and replenish as needed (4) Dependence on supplemental oxygen: Keep oxygenation above 92% patient is chronically on 3 L of supplemental (5) History of tobacco use: Patient was advised to stop smoking. Recommended nicotine patch. Patient refused. (6) Hypothyroidism: TSH pending. (7) HLD (hyperlipidemia): Fasting lipid panel in a.m. Continue atorvastatin 80 mg p.o. nightly (8) Hypertension: Hold Lisinopril 10 mg PO daily since pt BP is on the lower side. (9) Pulmonary parenchymal mass: CT chest :Interval development of a 26 mm masslike opacity within the right upper lobe Could be related to current recurrent PNA. Consulted thoracic but pt apparently sent him away stating that he does not want any procedure to be done. Subjective Patient seen and examined at the bedside. Patient reports no shortness of breath. He is right now on 3 L of oxygen which is his regular. Ambulance on his own. Has regular bowel movements.Afebrile. P.o. intake improving. Ambulates on his own. His patient denies fever chills headache chest pain nausea vomiting abdominal pain shortness of breath frequency urgency hemoptysis hematuria dysuria melena. Review of Systems Review of Systems: All systems reviewed & are unremarkable except as noted in HPI & below Physical Exam Constitutional: WD/WN, vitals as above + acute distress, + ill appearing, + thin, + frail appearing, + disheveled, cooperative and + edematous Eyes: PERRL, conjunctivae normal, anicteric sclerae ENMT: external ear and nose normal, oropharynx normal Respiratory: normal respiratory effort, lungs clear to auscultation + dullness to percussion and + hyperresonance to percussion Auscultation: + crackles (Improving), + wheezes (Improving) and + egophony Cardiovascular: Rate/Rhythm: regular rate Heart Sounds: normal S1 and normal S2 Palpation: + palpable S3 Vessels: + JVD Chest (Breasts): normal inspection/palpation of breasts Gastrointestinal (Abdomen): Inspection/Auscultation: abdomen normal to inspection Percussion/Palpation: abdomen soft, + splenomegaly and + abdominal aortic enlargement Musculoskeletal: no cyanosis or clubbing, extremities motor strength 5/5 Skin: no rashes, warm and dry Neurologic: patellar DTR's 2+ bilat, sensation intact Psychiatric: A+Ox3, euthymic affect Genitourinary: no testicular masses, no penis abnormality Lymphatic: no cervical or axillary lymphadenopathy Results & Data Vital Signs (Past 12 Hours) Vital Signs Temp Pulse Pulse Resp BP BP Pulse Ox 10/08/18 15:32 36.6 C 92 H 18 129/75 97 10/08/18 15:02 89 18 96 10/08/18 11:38 36.6 C 80 19 112/43 L 96 10/08/18 11:14 79 18 98 10/08/18 09:43 91 H 10/08/18 09:36 10/08/18 08:02 36.8 C 88 19 136/78 94 10/08/18 07:09 75 18 93 Pulse Ox 10/08/18 15:32 10/08/18 15:02 10/08/18 11:38 10/08/18 11:14 10/08/18 09:43 10/08/18 09:36 94 10/08/18 08:02 10/08/18 07:09 PG Care Time/CCT Total # of Minutes Spent Total Time Spent with Patient: Total time spent is greater than 50% in coordination of care (as documented) at patient's floor/unit and/or counseling patient: (1) Hypertension Hypertension type: unspecified Qualified Code(s): I10 - Essential (primary) hypertension
--- NOTE | 2018-10-08 20:21 | Pulmonology Progress Note ---
Date of Service October 08, 2018 Assessment & Plan (1) Multiple lung nodules on CT: It is not clear whether these represent an acute process such as a bacterial infection versus a more subacute process such as fungal infection or a nontuberculous Mycobacterium. Other considerations for fleeting infiltrates including aspiration and organizing pneumonia. We will send for AFB sputum cultures and fungal sputum cultures. We will also order her IgE level. He does have underlying bronchiectasis which predisposes him to these infectious causes. Also given the fact that he does have a significant weight loss history and his smoking history he is at risk for malignancy. The interval period of time between CAT scan in August and September indicate that this is less likely malignant. He is not interested in pursuing these lesions through bronchoscopic means. (2) Chronic obstructive pulmonary disease: Continue current inhalers. Recommend switching to prednisone 40 mg daily starting tomorrow. Can transition him to a total of 10 days of prednisone including the hospital stay. We will try to set up pulmonary rehab. (3) Acute CHF (congestive heart failure): Cardiology continues to follow. Continue diuresis. (4) Pneumonia: Recommend continuing antibiotics for 2 weeks total. Can switch to p.o. Augmentin as an outpatient. Laterality: unspecified laterality Lung location: unspecified part of lung Pneumonia type: due to unspecified organism Qualified Code(s): J18.9 - Pneumonia, unspecified organism (5) Bronchiectasis: Acapella and clearance devices. Subjective Patient feels substantially improved today. I brought up smoking cessation with him and he was not interested in discussing this. He is also not interested in any bronchoscopy or other procedures. He did endorse about 30 pound weight loss over the last 6 months. Review of Systems Review of Systems: All systems reviewed & are unremarkable except as noted in HPI & below Physical Exam Constitutional: + ill appearing and + thin Eyes: PERRL, conjunctivae normal, anicteric sclerae Respiratory: + pursed lip breathing Auscultation: + wheezes Cardiovascular: RRR, no murmur, no edema Heart Sounds: normal S1 and normal S2 Gastrointestinal (Abdomen): Inspection/Auscultation: abdomen normal to inspection Neurologic: CN's II-XI intact bilaterally Results & Data Vital Signs (Past 12 Hours) Vital Signs Temp Pulse Pulse Resp BP BP Pulse Ox 10/08/18 19:37 97 H 16 97 10/08/18 19:16 97.3 F L 93 H 18 117/72 93 10/08/18 15:32 97.9 F 92 H 18 129/75 97 10/08/18 15:02 89 18 96 10/08/18 11:38 97.9 F 80 19 112/43 L 96 10/08/18 11:14 79 18 98 10/08/18 09:43 91 H 10/08/18 09:36 Pulse Ox 10/08/18 19:37 10/08/18 19:16 10/08/18 15:32 10/08/18 15:02 10/08/18 11:38 10/08/18 11:14 10/08/18 09:43 10/08/18 09:36 94
[2018-10-08] MEDS: IPRATROPIUM BROMIDE/ALBUTEROL respimat INH INH PRN (21:24)
[2018-10-08] MEDS: ATORVASTATIN 40 MG TAB PO SCH (21:25)
[2018-10-09] MEDS: IPRATROPIUM BROMIDE/ALBUTEROL respimat INH INH PRN (03:50)
[2018-10-09 05:53] LABS: Hematocrit (blood only) 30.1 % (42-52); Hemoglobin 10.3 g/dL (14.0-18.0); Immature Granulocytes # (auto) 0.03 K/uL (0.00-0.02); Immature Granulocytes % (auto) 0.5 %; Lymphocytes # (auto) 0.38 K/uL (1.2-3.4); Lymphocytes % (auto) 6.1 %; Mean Corpuscular Hgb Conc 34.2 g/dL (32-36); Mean Platelet Volume 9.6 fL (7.4-10.4); Monocytes # (auto) 0.19 K/uL (0.11-0.59); Neutrophils # (auto) 5.67 K/uL (1.4-6.5); Neutrophils % (auto) 90.4 %; Platelet Count 208 K/uL (130-400); RDW Coefficient of Variation 14.2 % (11.5-14.5); RDW Standard Deviation 49.4 fL (36.4-46.3); Red Blood Count 3.17 M/uL (4.7-6.1); White Blood Count 6.27 K/uL (4.8-10.8)
[2018-10-09 06:17] LABS: Albumin Level 2.7 gm/dl (3.4-5.0); BUN Creatinine Ratio 39.3 (10-20); Calcium 8.9 mg/dl (8.5-10.1); Est GFR (African American) 95.1; Est GFR (Non-African American) 82.1; Magnesium 2.3 mg/dl (1.8-2.4); Potassium 4.3 mmol/L (3.5-5.1)
[2018-10-09 06:28] LABS: Albumin Globulin Ratio 0.9 (0.9-2); Bilirubin,Total 0.3 mg/dl (0.2-1); Globulin 2.9 gm/dl (2.5-4.0); Total Protein 5.6 gm/dl (6.4-8.2)
[2018-10-09] MEDS: methylPREDNISolone 30 MG in SYRINGE 0 ML IV SCH (06:49)
[2018-10-09] MEDS: ALBUT/IPRATROP 3MG/0.5MG NEB 3 ML VIAL NEB SCH ×2 (07:03→11:03)
[2018-10-09] MEDS: METOPROLOL TARTRATE 25 MG TAB PO SCH (08:05)
[2018-10-09] MEDS: FLUTICASONE/SALMETEROL 250/50 (ADVAIR) 14 PUFF/1 INHALER INH SCH (08:06)
[2018-10-09] MEDS: HEPARIN SOD 5,000 UNIT/0.5 ML VIAL SQ SCH (08:06)
[2018-10-09] MEDS ORDERED: BUMETANIDE 1 MG TAB PO SCH (09:00)
[2018-10-09] MEDS ORDERED: SODIUM CHLOR 7% 4 ML NEB INH PRN (11:53)
--- NOTE | 2018-10-09 12:00 | Hospitalist Progress Note ---
Date of Service October 09, 2018 Assessment & Plan (1) Hospital-acquired pneumonia: Patient will be discharged home today as per his request. He is significantly improved. Collected sputum cultures, stain,IgE, AFB culture atypical Mycobacterium pending. Continue current inhalers Per recommendation continue prednisone for 2 weeks total and Augmentin for 2 weeks total from the first day of antibiotics. Follow-up with primary care physician with results of sputum cultures. Dr. Morrison will arrange for patient pulmonary rehab. DVT prophylaxis heparin 5000 units every 12 hours Full code (2) Acute exacerbation of COPD with asthma: as the above (3) Acute CHF (congestive heart failure): as the above. Low sodium diet.Heart healthy. Monitor electrolytes and replenish as needed (4) Dependence on supplemental oxygen: Keep oxygenation above 92% patient is chronically on 3 L of supplemental (5) History of tobacco use: Patient was advised to stop smoking. Recommended nicotine patch. Patient refused. (6) Hypothyroidism: TSH pending. (7) HLD (hyperlipidemia): Fasting lipid panel in a.m. Continue atorvastatin 80 mg p.o. nightly (8) Hypertension: Hold Lisinopril 10 mg PO daily since pt BP is on the lower side. (9) Pulmonary parenchymal mass: CT chest :Interval development of a 26 mm masslike opacity within the right upper lobe Could be related to current recurrent PNA. Consulted thoracic but pt apparently sent him away stating that he does not want any procedure to be done. Subjective Patient seen and examined at the bedside. Appreciate thoracal pulmonary recommendations to collect AFB sputum culture, fungal sputum culture, stain and IgE level and to exclude possibilities such as atypical Mycobacterium. Patient is doing better today and his breathing is significantly improved he is on 2 L of oxygen and saturates above 97%. Fungal cultures and Gram stain were already collected as well as IgE and AFB sputum culture will be collected before discharge home. PCP should follow with the results of these cultures. Patient is eager to go home which he also expressed.Ambulance on his own. Has regular bowel movements.Afebrile. P.o. intake improving.His patient denies fever chills headache chest pain nausea vomiting abdominal pain shortness of breath frequency urgency hemoptysis hematuria dysuria melena. Patient appears normovolemic at this time and he is afebrile. Review of Systems Review of Systems: All systems reviewed & are unremarkable except as noted in HPI & below Physical Exam Constitutional: WD/WN, vitals as above + acute distress, + ill appearing, + thin, + frail appearing, + disheveled, cooperative and + edematous Eyes: PERRL, conjunctivae normal, anicteric sclerae ENMT: external ear and nose normal, oropharynx normal Respiratory: normal respiratory effort, lungs clear to auscultation + dullness to percussion and + hyperresonance to percussion Cardiovascular: Rate/Rhythm: regular rate Heart Sounds: normal S1 and normal S2 Palpation: + palpable S3 Vessels: + JVD Chest (Breasts): normal inspection/palpation of breasts Gastrointestinal (Abdomen): Inspection/Auscultation: abdomen normal to inspection Percussion/Palpation: abdomen soft, + splenomegaly and + abdominal aortic enlargement Musculoskeletal: no cyanosis or clubbing, extremities motor strength 5/5 Skin: no rashes, warm and dry Neurologic: patellar DTR's 2+ bilat, sensation intact Psychiatric: A+Ox3, euthymic affect Genitourinary: no testicular masses, no penis abnormality Lymphatic: no cervical or axillary lymphadenopathy Results & Data Vital Signs (Past 12 Hours) Vital Signs Temp Pulse Resp BP BP Pulse Ox 10/09/18 11:29 36.4 C L 81 20 119/65 97 10/09/18 11:07 82 18 94 10/09/18 07:05 83 18 97 10/09/18 06:53 36.5 C 82 20 128/58 L 96 10/09/18 03:35 36.4 C L 86 141/71 H 96 PG Care Time/CCT Total # of Minutes Spent Total Time Spent with Patient: Total time spent is greater than 50% in coordination of care (as documented) at patient's floor/unit and/or counseling patient: (1) Hypertension Hypertension type: unspecified Qualified Code(s): I10 - Essential (primary) hypertension
--- NOTE | 2018-10-09 13:25 | Cardiology Progress Note ---
Date of Service October 09, 2018 Assessment & Plan (1) Acute CHF (congestive heart failure): The patient carries a history of chronic systolic congestive heart failure. Unfortunately, he has issues with compliance and will not follow daily weights and sliding-scale diuretics. He refused a free scale from our office. His management remains difficult. He expresses a preference for Bumex over Lasix. (2) Ischemic cardiomyopathy: Mild left ventricular dysfunction with ejection fraction of 40-45% on his current echocardiogram. (3) CAD (coronary artery disease): The patient suffered a NSTEMI in September 2011 following a small bowel resection. The patient does not experience chronic angina pectoris. 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 His device is followed by Dr. Mason. Subjective The patient is resting comfortably in bed without complaints of chest pain or dyspnea. He is anxious for hospital discharge. Physical Exam Physical Exam: In general is a thin white male in no acute distress. HEENT exam is negative. Neck is supple with full carotid upstrokes. No obvious bruits or transmitted murmurs. No jugular venous distension. Cardiovascular exam reveals a regular rhythm with a 2/6 basal systolic ejection murmur. Heart sounds are distant. No obvious S3 or S4. Lungs note distant breath sounds but no rales, rhonchi or wheezes. Abdomen is soft without bruits. Extremities reveal intact radial artery pulses bilaterally. There is no pretibial edema. Right hand deformity noted. Results & Data Vital Signs (Past 12 Hours) Vital Signs Temp Pulse Pulse Resp BP BP Pulse Ox 10/09/18 12:09 36.4 C L 81 94 H 20 119/65 128/58 L 97 10/09/18 11:29 36.4 C L 81 20 119/65 97 10/09/18 11:07 82 18 94 10/09/18 07:05 83 18 97 10/09/18 06:53 36.5 C 82 20 128/58 L 96 10/09/18 03:35 36.4 C L 86 141/71 H 96 Laboratory Results panel monitor noted 1 brief run of nonsustained ventricular tachycardia. PG Care Time/CCT Total # of Minutes Spent Total Time Spent with Patient: Total time spent is greater than 50% in coordination of care (as documented) at patient's floor/unit and/or counseling patient:
--- NOTE | 2018-10-13 16:38 | Discharge Summary ---
Date of Service October 13, 2018 Admission HPI Per Admitting Provider Patient is a 78 years old male with past medical history of coronary artery disease, hyperlipidemia, hypertension, GERD, ICD/pacemaker, history of myocardial infarction, COPD, chronic hypoxia, pulmonary emphysema peripheral artery disease, abdominal aortic aneurysm, dependent on tobacco was brought by the ambulance for shortness of breath. Patient states that his lower extremities are swollen and that he feels very tired. This condition has been ongoing for approximately 1 week. Patient went to see his PCP PCP told him that he need to be on furosemide. Patient refused to take furosemide for 10 days. Patient said that he uses at home approximately 3 L of oxygen daily 24 hours. Patient still smokes 1/2 pack per day. Patient denies fever chills chest pain abdominal pain frequency urgency, hemoptysis,hematemesis, melena, hematochezia. Labs reviewed :Wbc 7.91, H/H 12.2/35.9, platelets 269, PT 10.3, INR 1, APTT 26.6, sodium 136 potassium 5.1 chloride 97 onion gap 6 BUN 28 creatinine 1.26 GFR 35.8 lactate 1.5 magnesium 2, BNP 4614 procalcitonin 0.06. Chest x-ray: Emphysema with basilar interstitial thickening. Persistent soft tissue opacity in the right medial lung apex. A pneumonia is favored over neoplasm, as no mass is identified on the CT scan performed less than 6 weeks earlier. EKG :PAC no ST segment elevation in comparison to September 06, 2018 no significant changes. CTA of the chest: No evidence of acute pulmonary embolism. Persistent but improving bilateral lower lobe and right middle lobe nodular airspace opacities, consistent with an infectious inflammatory etiology. Interval development of a 26 mm masslike opacity within the right upper lobe. It is recommended 3 months follow-up with CT scan. Bronchiectasis lower lobe bronchial wall thickening and mucous plugging. And acute exacerbation of CHF with pneumonia decision was made to admit patient to PCU on telemetry for further management and treatment. Principal Diagnosis none Discharge Exam Constitutional WD/WN, vitals as above + acute distress, + ill appearing, + thin, + frail appearing, + disheveled, cooperative and + edematous Eyes PERRL, conjunctivae normal, anicteric sclerae ENMT external ear and nose normal, oropharynx normal Respiratory normal respiratory effort, lungs clear to auscultation + dullness to percussion Cardiovascular Rate/Rhythm: regular rate Heart Sounds: normal S1 and normal S2 Chest (Breasts) normal inspection/palpation of breasts Gastrointestinal (Abdomen) Inspection/Auscultation: abdomen normal to inspection Percussion/Palpation: abdomen soft, + splenomegaly and + abdominal aortic enlargement Musculoskeletal no cyanosis or clubbing, extremities motor strength 5/5 Skin no rashes, warm and dry Neurologic patellar DTR's 2+ bilat, sensation intact Psychiatric A+Ox3, euthymic affect Genitourinary no testicular masses, no penis abnormality Lymphatic no cervical or axillary lymphadenopathy Discharge Data Allergies Allergy/AdvReac Type Severity Reaction Status Date / Time No Known Drug Allergies Allergy Verified 10/04/18 17:51 Consultations 10/04/18 18:48 ED Decision to Admit Stat 10/06/18 12:51 Consult Pulmonology Routine 10/07/18 14:19 Consult Cardiology Routine Ordered Studies 10/04/18 18:49 CT angio chest PE protocol Stat Hospital Course (1) Hospital-acquired pneumonia: Patient will be discharged home today as per his request. He is significantly improved. Collected sputum cultures, stain,IgE, AFB culture atypical Mycobacterium pending. Continue current inhalers Per recommendation continue prednisone for 2 weeks total and Augmentin for 2 weeks total from the first day of antibiotics. Follow-up with primary care physician with results of sputum cultures. Dr. Morrison will arrange for patient pulmonary rehab. DVT prophylaxis heparin 5000 units every 12 hours Full code (2) Acute exacerbation of COPD with asthma: as the above (3) Acute CHF (congestive heart failure): as the above. Low sodium diet.Heart healthy. Monitor electrolytes and replenish as needed (4) Dependence on supplemental oxygen: Keep oxygenation above 92% patient is chronically on 3 L of supplemental (5) History of tobacco use: Patient was advised to stop smoking. Recommended nicotine patch. Patient refused. (6) Hypothyroidism: TSH 3.5 01/07, pt reports no issues (7) HLD (hyperlipidemia): Fasting lipid panel in a.m. Continue atorvastatin 80 mg p.o. nightly (8) Hypertension: Lisinopril 10 mg PO daily . (9) Pulmonary parenchymal mass: CT chest :Interval development of a 26 mm masslike opacity within the right upper lobe Could be related to current recurrent PNA. Consulted and . No concern of malignancy but Dr. Loving will follow up with pt on the CT scan abnormalities. Pt advised to stop smoking. Total Time Total Time Spent Total Time Spent (In Minutes): over 35 min Discharge Plan Discharge Items Patient Disposition: Home - Self-Care Reason For Visit: ACUTE CHF EXACERBATION,VOLUME OVERLOAD,R/O PNA Discharge Diagnosis: Pneumonia, acute exacerbation of CHF Discharge Goals: Decrease discomfort, Improve disease control, Improve function and Increase independence Activity: Resume your previous activity Non-emergency contact: Primary Care Provider Call non-emergency contact if: you have any medication questions, your pain is concerning for you, you have a fever and your temperature is above 100.5 Follow-up/Referrals: Caroline Ruggiero MD [Primary Care Provider] - Diet: Heart Healthy, Low Fat and Low Sodium (2gm) Addtl Provider Instructions: Collected sputum cultures, stain,IgE, AFB culture atypical Mycobacterium - result pending.Please check results with your PCP. Continue current inhalers continue prednisone for 9 days total and Augmentin for 9 days. Prescriptions: New bumetanide 1 mg Tablet 1 mg PO QAM Qty: 30 RF: 0 amoxicillin-pot clavulanate [Augmentin] 875-125 mg tablet 1 tab PO BID Qty: 18 RF: 0 prednisone 20 mg tablet 30 mg PO DAILY Qty: 14 RF: 0 Continued lisinopril 10 mg tablet 10 mg PO DAILY Qty: 30 RF: 5 metoprolol succinate 50 mg tablet extended release 24 hr 75 mg PO DAILY Qty: 45 RF: 5 fluticasone propion-salmeterol [Advair Diskus] 250-50 mcg/dose blister with device 1 inh INHALATION BID Qty: 60 RF: 5 Combivent Respimat 20-100 mcg/actuation mist 1 puff INHALATION QID Qty: 4 RF: 5 albuterol sulfate 90 mcg/actuation HFA aerosol inhaler 2 puff inhalation Q4 PRN (Reason: Shortness Of Breath Or Wheezing) Qty: 18 RF: 5 ipratropium-albuterol 0.5 mg-3 mg(2.5 mg base)/3 mL solution for nebulization 3 ml Inhalation QID PRN (Reason: Shortness Of Breath) RF: 0 aspirin [Aspir-81] 81 mg Tablet,Delayed Release (Dr/Ec) 81 mg PO QAM RF: 0 atorvastatin 80 mg tablet 80 mg PO HS RF: 0 Stand-Alone Forms: [facility] Discharge Orders: Discharge Order (Routine); Ordered 10/09/18 Ordered By: Beverly Salazar Admission Data Admit Date/Time: 10/04/18 19:12 Attending Provider: Beverly Salazar Admit Provider: Beverly Salazar Primary Care Provider: Caroline Ruggiero V. Other Providers: Asad Loving ; Eleno Driver ; Nicola Cleary Service: Telemetry Other Interventions: Discharge Summary Assessment (RN) Last Done: 10/09/18 12:09 DC Date/Time DO NOT enter until pt leaves facility: 10/09/18 12:40
== END 2018-10-09 12:40 | disposition home or self-care (01) | DRG 193 ==
LOC: ED 17:16 → 2S 19:12

== ENCOUNTER 2018-10-22 22:17 | Inpatient (IN) ==
[2018-10-22] MEDS ORDERED: methylPREDNISolone 125 MG/2 ML VIAL IV STA (22:33)
[2018-10-22] MEDS ORDERED: ALBUT/IPRATROP 3MG/0.5MG NEB 3 ML VIAL NEB ONE (22:33)
[2018-10-22 22:51] LABS: Basophils # (auto) 0.03 K/uL (0-0.2); Basophils % (auto) 0.2 %; Eosinophils # (auto) 0.02 K/uL (0-0.5); Eosinophils % (auto) 0.1 %; Hematocrit (blood only) 36.5 % (42-52); Hemoglobin 12.3 g/dL (14.0-18.0); Immature Granulocytes # (auto) 0.07 K/uL (0.00-0.02); Immature Granulocytes % (auto) 0.4 %; Lymphocytes # (auto) 0.67 K/uL (1.2-3.4); Lymphocytes % (auto) 3.9 %; Mean Corpuscular Hemoglobin 32.5 pg (25-34); Mean Corpuscular Hgb Conc 33.7 g/dL (32-36); Mean Corpuscular Volume 96.6 fL (80-100); Mean Platelet Volume 9.8 fL (7.4-10.4); Monocytes # (auto) 1.21 K/uL (0.11-0.59); Neutrophils # (auto) 15.32 K/uL (1.4-6.5); Neutrophils % (auto) 88.4 %; Platelet Count 209 K/uL (130-400); RDW Standard Deviation 53.1 fL (36.4-46.3); Red Blood Count 3.78 M/uL (4.7-6.1); White Blood Count 17.32 K/uL (4.8-10.8)
[2018-10-22 23:04] LABS: Albumin Level 3.3 gm/dl (3.4-5.0); BUN Creatinine Ratio 28.4 (10-20); Bilirubin Direct 0.1 mg/dl (0-0.2); Calcium 9.3 mg/dl (8.5-10.1); Creatinine Clr Calc Pharmacy 37.6 ml/min; Est GFR (African American) 67.9; Est GFR (Non-African American) 58.6; Potassium 4.3 mmol/L (3.5-5.1)
[2018-10-22 23:09] LABS: Bilirubin,Total 0.6 mg/dl (0.2-1); Total Protein 6.4 gm/dl (6.4-8.2); Troponin I 0.036 ng/ml (0-0.045)
[2018-10-22 23:12] LABS: Partial Thromboplastin Ratio 0.9; Partial Thromboplastin Time 23.9 Seconds (21.0-31.0); Prothrombin Time 9.9 Seconds (9.0-12.0)
[2018-10-22 23:30] LABS: HCO3 VBG 37 mmol/L; PCO2 VBG 69 mmHg (38-50); PO2 VBG 26 mmHg; pH VBG 7.35 (7.36-7.41)
[2018-10-22 23:33] LABS: Oxygen Saturation VBG < 60.0 %
[2018-10-22] MEDS ORDERED: SODIUM CHLORIDE 0.9% 1000ML 500 ML IV ONE (23:43)
[2018-10-23] MEDS ORDERED: FUROSEMIDE 40 MG/4 ML VIAL IV STA (00:47)
--- NOTE | 2018-10-23 00:57 | History & Physical Report ---
Date of Service October 23, 2018 Assessment & Plan (1) COPD exacerbation: 78-year-old male with past medical history of COPD, emphysema, dependence on tobacco, chronic hypoxia on 3L O2, coronary artery disease history of SD, ischemic cardiomyopathy EF 40-45%, ICD/pacemaker, hyperlipidemia, hypertension, GERD, peripheral artery disease, abdominal aortic aneurysm presents with worsening dyspnea x2 days. Worsening dyspnea and hypoxia: Concern for COPD versus CHF exacerbation WBC 17.3, afebrile, tachypneic and tachycardic On 3 L continuously at home, currently requiring 5 L high flow nasal cannula FiO2 35% Chest x-ray: Severe emphysema VB.35 pH, CO2 69, HCO3 37, O2 26 BNP 4212 Blood cultures x2 pending Given azithromycin 500 mg IV x1, on 250 mg daily Received methyl Pred 125 in the ED, on methyl Pred 40 mg every 8 hours DuoNeb every 4 hours Continue home Advair Given Lasix IV 40 mg x1, consider additional doses as needed Supplemental O2 as needed History of ischemic cardiomyopathy/pacemaker/ICD/CAD/hypertension/hyperlipidemia Concern for worsening heart failure Echo: 09/2018: EF 40 to 45%, mild concentric LVH, severe inferior and septal wall hypokinesis BNP 4212, 3+ lower extremity edema Given Lasix 40 mg x 1 Continue home Bumex, metoprolol, lisinopril, aspirin, Lipitor Consider additional doses of IV Lasix if continues to be volume overloaded Constipation On Colace and MiraLAX scheduled Anemia Hemoglobin 12.3, stable No concern for acute bleed at this time Incidental finding of right upper lobe opacity 26 mm on 10/04/2018 Was evaluated by pulmonology at that time, believed to be inflammatory and less likely to be malignant Recommended repeat CT in 3 months and patient was supposed to follow-up with Dr. tripp FEN/GI: N.p.o. 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: (8) History of abdominal aortic aneurysm (AAA): (9) Hypothyroidism: (10) Ischemic cardiomyopathy: (11) PAD (peripheral artery disease): (12) Pulmonary emphysema: (13) CAD (coronary artery disease): (14) HLD (hyperlipidemia): (15) Hypertension: (16) GERD (gastroesophageal reflux disease): (17) Pacemaker: History of Present Illness Chief Complaint: Worsening dyspnea Primary Care Provider: Caroline Oconnell MD 78-year-old male with past medical history of COPD, emphysema, dependence on tobacco, chronic hypoxia on 3L O2, coronary artery disease history of SD, ischemic cardiomyopathy EF 40-45%, ICD/pacemaker, hyperlipidemia, hypertension, GERD, peripheral artery disease, abdominal aortic aneurysm presents with worsening dyspnea x2 days. Reports occasionally has worsening shortness of breath but last night it woke him up from sleep and it was really bad today which is why he presented to the emergency room. Associate with persistent cough, occasionally productive but not able to bring much up, increased dyspnea on exertion. Also constipated. Denies any fever, chills, rhinorrhea, sore throat, chest pain, nausea, vomiting, abdominal pain, diarrhea, hematochezia, melena, hematuria, dysuria. Reports taking medications as prescribed. However does not take weight daily and reports drinking a lot of water and eating salty foods. Of note patient was recently admitted for pneumonia from 10/04/2018 to 10/09/2018. Social history: Continues to smoke cigarettes half pack per day Allergies Allergy/AdvReac Type Severity Reaction Status Date / Time No Known Allergies Allergy Verified 10/22/18 23:21 Home Medications Home Medications Medication Instructions Recorded Confirmed Type aspirin [Aspir-81] 81 mg PO QAM 04/20/18 10/22/18 History albuterol sulfate HFA 90 2 puff INHALATION Q4 PRN #18 gm 09/11/18 10/22/18 Rx mcg/actuation aerosol inhaler ipratropium 20 mcg-albuterol 100 1 puff INHALATION QID #4 gm 09/11/18 10/22/18 Rx mcg/actuation mist for inhalation lisinopril 10 mg tablet 10 mg PO DAILY #30 tab 09/11/18 10/22/18 Rx metoprolol succinate ER 50 mg 75 mg PO DAILY #45 tab 09/11/18 10/22/18 Rx tablet,extended release 24 hr atorvastatin 80 mg PO HS 10/04/18 10/22/18 History bumetanide 1 mg PO QAM #30 tab 10/09/18 10/22/18 Rx prednisone 10 mg tablet 10 mg PO DAILY #30 tab 10/15/18 10/22/18 Rx fluticasone propion-salmeterol 1 inh INHALATION BID 10/22/18 10/22/18 History [Advair Diskus] ipratropium bromide 2 spray INTRANASAL DIRECTED 10/22/18 10/22/18 History Past Med/Surg History Medical History Chronic obstructive pulmonary disease (Acute) Dependence on supplemental oxygen (Acute) 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 (Acute) Hearing loss (Acute) History of tobacco use (Acute) History of abdominal aortic aneurysm (AAA) (Acute) Hypothyroidism (Acute) Ischemic cardiomyopathy (Acute) Multiple lung nodules on CT (Acute) PAD (peripheral artery disease) (Acute) Pulmonary emphysema (Acute) Vitamin D deficiency disease (Acute) CAD (coronary artery disease) HLD (hyperlipidemia) Elevated brain natriuretic peptide (BNP) level (Acute) Chronic kidney disease, stage 3 (Acute) Hypoxia (Acute) Hypertension GERD (gastroesophageal reflux disease) Edema Bowel obstruction (Resolved) Pacemaker (Chronic) Internal hernia (Acute) History of heart attack (Chronic) Abdominal pain (Resolved) Abdominal pain (Resolved) Bowel obstruction (Resolved) Bronchitis (Resolved) Bronchitis (Resolved) COPD exacerbation (Resolved) Elevated troponin I level (Resolved) Elevation of cardiac enzymes (Resolved) Elevation of cardiac enzymes (Resolved) HCAP (healthcare-associated pneumonia) (Resolved) Ileus (Resolved) Ileus (Resolved) Impacted cerumen of both ears (Resolved) SBO (small bowel obstruction) (Resolved) Small bowel obstruction (Resolved) Small bowel obstruction (Resolved) CHF (congestive heart failure) Pneumonia Surgical History H/O hand surgery S/P aneurysm repair S/P aortic bifurcation bypass graft S/P small bowel resection Family History Mother Acute myocardial infarction Hypertension Heart disease Father Hypertension Heart disease Myocardial infarction Other Colon cancer Social History Preferred Language: [place] Communication Ability: Effective 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 Beliefs That Will Affect Care: None marital status: / Current Living Situation: Alone Other Information That Helps Us Care for You: No Feels Safe at Home: Yes Safety Concerns: Feels Safe At This Time Smoking Status: Current every day smoker Tobacco Type: cigarettes ; Cigarettes Per Day: 10 ; Do You Dip or Chew Tobacco: No ; Second Hand Exposure: No ; Tobacco Cessation Education Requested by Patient: No Hx Alcohol Use: No Hx Substance Use: No Review of Systems Review of Systems: As per HPI Physical Exam Physical Exam: General: In mild distress, tachypneic, has difficulty speaking in full sentences Neuro: A&O x 4 Pulm: Diffuse rhonchi and crackles appreciated, equal breath sounds bilaterally CV: RRR, no m/r/g Abdomen:+BS, no TTP in all quadrants, non-distended, large reducible abdominal hernia LE: 3+ bilateral LE edema, no calf TTP Results & Data Vital Signs (Past 12 Hours) Vital Signs Temp Pulse Pulse Resp BP Pulse Ox 10/23/18 00:30 103 H 31 H 90 10/23/18 00:01 105 H 36 H 89 L 10/23/18 00:00 105 H 19 89 L 10/22/18 23:38 106 H 24 97 10/22/18 23:31 107 H 31 H 91/68 L 98 10/22/18 23:25 106 H 26 H 99 10/22/18 23:24 103 H 19 96/76 L 96 10/22/18 23:05 104 H 26 H 97 10/22/18 22:28 36.8 C 116 H 31 H 138/110 H 95 10/22/18 22:22 108 H 22 138/110 H 97 Laboratory Results Abnormal lab results 10/22/18 10/22/18 10/22/18 Range/Units 22:23 22:23 23:13 WBC 17.32 H (4.8-10.8) K/uL RBC 3.78 L (4.7-6.1) M/uL Hgb 12.3 L (14.0-18.0) g/dL Hct 36.5 L (42-52) % RDW Std Deviation 53.1 H (36.4-46.3) fL RDW Coeff of Fernando 15.0 H (11.5-14.5) % Immature Gran # (Auto) 0.07 H (0.00-0.02) K/uL Neut # (Auto) 15.32 H (1.4-6.5) K/uL Lymph # (Auto) 0.67 L (1.2-3.4) K/uL Cocke # (Auto) 1.21 H (0.11-0.59) K/uL VBG pH 7.35 L (7.36-7.41) VBG pCO2 69 H (38-50) mmHg BUN 34 H (7-18) mg/dl BUN/Creatinine Ratio 28.4 H (10-20) Glucose 108 H (70-99) mg/dl NT-Pro-B Natriuret Pep 4212 H (0-1800) pg/ml Albumin 3.3 L (3.4-5.0) gm/dl Code Status & VTE Plan Code Status DNR/DNI VTE Prophylaxis Plan VTE Prophylaxis will be ordered: Yes Supervising Physician Co-Signing Physician Notes Attending addendum: I have physically seen this patient, have supervised the medical residents activities, and agree with the H&P unless as otherwise noted. Assessment and Plan: Acute on chronic respiratory failure with hypoxia and hypercapnia- Combination of COPD exacerbation and CHF exacerbation. COPD exacerbation/tobacco abuse- Duonebs every 4 hours while awake and every 2 hours when necessary. Azithromycin as noted. Solu-Medrol 40 mg IV every 12 hours. Sputum Gram stain and culture. Target pulse ox to be 92%. CHF exacerbation/ischemic cardia myopathy/CAD/hypertension/dietary noncompliance with excess sodium intake- Given Lasix 40 mg IV in the ED. Prefers Bumex in the outpatient setting. Continue metoprolol, lisinopril and aspirin. Remainder of orders and notations as noted. PG Care Time/CCT Total # of Minutes Spent Total Time Spent with Patient: Total time spent is greater than 50% in coordination of care (as documented) at patient's floor/unit and/or counseling patient: Resident Activity Tracking Resident Involvement: Resident Care Provided Care Provided: Adult [facility] Medicine (1) Hypertension Hypertension type: unspecified Qualified Code(s): I10 - Essential (primary) hypertension
--- NOTE | 2018-10-23 00:58 | Emergency Department Note ---
Entered by Francisca Harper acting as a scribe for History of Present Illness General Chief complaint: Respiratory Problems Stated complaint: SOB Time Seen by Provider: 10/22/18 22:22 Source: patient and friends (nursing staff) History of Present Illness Onset (ago): hour(s) (today) Location: chest Pain Consistency: + other (persistent ) Quality: + other (shortness of breath ) Associated symptoms: no chest pain Treatments prior to arrival: other (inhalers) The patient is a 78 year old male who presents to the Emergency Room with complaints of persistent shortness of breath that began today. The patient states that he has a history of COPD and states that he is still a current smoker. The patient denies chest pain. He states that he has been using his inhalers recently. Per nursing staff, the patient is on 3L at all times. The patient denies ever being intubate or being in the ICU for her breathing. Home Medications Home Medications Medication Instructions Recorded Confirmed Type aspirin [Aspir-81] 81 mg PO QAM 04/20/18 10/22/18 History albuterol sulfate HFA 90 2 puff INHALATION Q4 PRN #18 gm 09/11/18 10/22/18 Rx mcg/actuation aerosol inhaler ipratropium 20 mcg-albuterol 100 1 puff INHALATION QID #4 gm 09/11/18 10/22/18 Rx mcg/actuation mist for inhalation lisinopril 10 mg tablet 10 mg PO DAILY #30 tab 09/11/18 10/22/18 Rx metoprolol succinate ER 50 mg 75 mg PO DAILY #45 tab 09/11/18 10/22/18 Rx tablet,extended release 24 hr atorvastatin 80 mg PO HS 10/04/18 10/22/18 History bumetanide 1 mg PO QAM #30 tab 10/09/18 10/22/18 Rx prednisone 10 mg tablet 10 mg PO DAILY #30 tab 10/15/18 10/22/18 Rx fluticasone propion-salmeterol 1 inh INHALATION BID 10/22/18 10/22/18 History [Advair Diskus] ipratropium bromide 2 spray INTRANASAL DIRECTED 10/22/18 10/22/18 History Allergies Allergy/AdvReac Type Severity Reaction Status Date / Time No Known Allergies Allergy Verified 10/22/18 23:21 Past Med/Surg History Medical History Chronic obstructive pulmonary disease (Acute) Dependence on supplemental oxygen (Acute) 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 (Acute) Hearing loss (Acute) History of tobacco use (Acute) History of abdominal aortic aneurysm (AAA) (Acute) Hypothyroidism (Acute) Ischemic cardiomyopathy (Acute) Multiple lung nodules on CT (Acute) PAD (peripheral artery disease) (Acute) Pulmonary emphysema (Acute) Vitamin D deficiency disease (Acute) CAD (coronary artery disease) HLD (hyperlipidemia) Elevated brain natriuretic peptide (BNP) level (Acute) Chronic kidney disease, stage 3 (Acute) Hypoxia (Acute) Hypertension GERD (gastroesophageal reflux disease) Edema Bowel obstruction (Resolved) Pacemaker (Chronic) Internal hernia (Acute) History of heart attack (Chronic) Abdominal pain (Resolved) Abdominal pain (Resolved) Bowel obstruction (Resolved) Bronchitis (Resolved) Bronchitis (Resolved) COPD exacerbation (Resolved) Elevated troponin I level (Resolved) Elevation of cardiac enzymes (Resolved) Elevation of cardiac enzymes (Resolved) HCAP (healthcare-associated pneumonia) (Resolved) Ileus (Resolved) Ileus (Resolved) Impacted cerumen of both ears (Resolved) SBO (small bowel obstruction) (Resolved) Small bowel obstruction (Resolved) Small bowel obstruction (Resolved) CHF (congestive heart failure) Pneumonia Surgical History H/O hand surgery S/P aneurysm repair S/P aortic bifurcation bypass graft S/P small bowel resection Family History Mother Acute myocardial infarction Hypertension Heart disease Father Hypertension Heart disease Myocardial infarction Other Colon cancer Social History Preferred Language: Vietnamese Communication Ability: Effective Home Health Specialist Required: No Beliefs That Will Affect Care: None marital status: / Current Living Situation: Alone Feels Safe at Home: Yes Smoking Status: Current every day smoker Tobacco Type: cigarettes ; Cigarettes Per Day: 10 ; Second Hand Exposure: No ; Hx Alcohol Use: No Hx Substance Use: No Review of Systems See HPI for pertinent positives & negatives. and A total of 10 systems reviewed and were otherwise negative Physical Exam Vital Signs Vital Signs - 24 hr 10/22/18 22:22 10/22/18 22:28 10/22/18 23:05 Temperature 36.8 C Temperature Source Oral Sepsis Recent Fever Within 48 Hours No Sepsis New/Unexplained Change in Mental Status No Sepsis Action Taken by Nursing No Action Required Pulse Rate 108 H 116 H Pulse Rate [Apical] 104 H Pulse Rate from SpO2 Sensor 108 H Respiratory Rate 22 31 H 26 H Respiratory Effort / Characteristics Accessory Muscle Use Grunting Short of Breath Non-Labored Spontaneous SOB on Exertion Respiratory Depth Shallow Respiratory Pattern Tachypnea Blood Pressure 138/110 H 138/110 H Blood Pressure Mean 119 119 Blood Pressure Position Lying Pulse Oximetry 97 95 97 Oxygen Delivery Method Nasal Cannula Nasal Cannula Oxygen Flow Rate 4 4 Fraction of Inspired Oxygen 10/22/18 23:24 10/22/18 23:25 10/22/18 23:31 Temperature Temperature Source Sepsis Recent Fever Within 48 Hours Sepsis New/Unexplained Change in Mental Status Sepsis Action Taken by Nursing Pulse Rate 103 H 107 H Pulse Rate [Apical] 106 H Pulse Rate from SpO2 Sensor 103 H 106 H Respiratory Rate 19 26 H 31 H Respiratory Effort / Characteristics Spontaneous Labored Short of Breath SOB on Exertion Respiratory Depth Respiratory Pattern Blood Pressure 96/76 L 91/68 L Blood Pressure Mean 82 75 Blood Pressure Position Pulse Oximetry 96 99 98 Oxygen Delivery Method High Flow Nasal Cannula Oxygen Flow Rate 10 Fraction of Inspired Oxygen 35 10/22/18 23:38 10/23/18 00:00 10/23/18 00:01 Temperature Temperature Source Sepsis Recent Fever Within 48 Hours Sepsis New/Unexplained Change in Mental Status Sepsis Action Taken by Nursing Pulse Rate 105 H 105 H Pulse Rate [Apical] 106 H Pulse Rate from SpO2 Sensor 105 H 105 H Respiratory Rate 24 19 36 H Respiratory Effort / Characteristics Spontaneous Short of Breath SOB on Exertion Respiratory Depth Respiratory Pattern Blood Pressure Blood Pressure Mean 36 Blood Pressure Position Pulse Oximetry 97 89 L 89 L Oxygen Delivery Method High Flow Nasal Cannula Oxygen Flow Rate 5 Fraction of Inspired Oxygen 35 10/23/18 00:30 Temperature Temperature Source Sepsis Recent Fever Within 48 Hours Sepsis New/Unexplained Change in Mental Status Sepsis Action Taken by Nursing Pulse Rate 103 H Pulse Rate [Apical] Pulse Rate from SpO2 Sensor 104 H Respiratory Rate 31 H Respiratory Effort / Characteristics Respiratory Depth Respiratory Pattern Blood Pressure Blood Pressure Mean Blood Pressure Position Pulse Oximetry 90 Oxygen Delivery Method Oxygen Flow Rate Fraction of Inspired Oxygen GENERAL: Respiratory distress. HENT: Exam performed. - Head: Normocephalic and atraumatic. - Right Ear: External ear normal. No mastoid tenderness. - Left Ear: External ear normal. No mastoid tenderness. - Mouth/Throat: The oropharynx is clear and moist. No trismus in the jaw. No dental abscesses or uvula swelling. No oropharyngeal exudate or tonsillar abscesses. EYES: Conjunctivae and EOM are normal. Pupils are equal, round, and reactive to light. Right eye exhibits no discharge. Left eye exhibits no discharge. No scleral icterus. NECK: Normal range of motion. Neck supple. No JVD present. No spinous process tenderness present. No carotid bruit present. No rigidity. No tracheal deviation and normal range of motion present. No Brudzinski's sign and no Kernig's sign noted. CV: Tachycardic rate, regular rhythm, normal heart sounds and intact distal pulses. There is no peripheral edema. Palpable radial pulses bue. PULM/CHEST:Expiratory wheezes. Inspiratory rales at the bases. Retractions. Tachypneic. Respiratory distress. - Chest Wall: He exhibits no tenderness. ABD: The abdomen is soft. Bowel sounds are normal. He has no distension. No mass is present. There is no tenderness. There is no rebound, no guarding, no Torrez's sign and no tenderness at McBurney's point. Rovsig negative. MUSC/SKEL: Normal range of motion. There is no peripheral edema, tenderness or deformity. LYMPH: No cervical adenopathy. NEURO: He is alert and oriented to person, place, and time. He has normal strength. No cranial nerve deficit or sensory deficit. Coordination and gait normal. GCS eye subscore is 4. GCS verbal subscore is 5. GCS motor subscore is 6. Cerebellar tests wnl. SKIN: Skin is warm and dry. He is not diaphoretic. PSYCH: He has a normal mood and affect. Behavior is normal. Judgment and thought content normal. Course 2230: Past medical records reviewed. The patient was evaluated in room B9. A complete history and physical exam was performed. The patient has a very high work of breathing rate at this time, we wanted to start the patient on BiPAP. The patient is refusing Bipap and is stating that he does not want anything over his face. He will therefore be placed on high flow nasal cannula and give the patient hour-long breathing treatment along with steroids.. 2345: The patient's repeat blood pressure was 91/68. He will be given a 500 cc bolus. The patient's imaging shows no fluid overload, cardiomegaly, or infiltrate. The patient's labs show a leukocytosis of 17. The venous blood gas showed a pCO2 of 69, a pH of 7.35, and a proBMP of 4212 which is improved from his last hospital stay [place] 10/09/[place] [id number]. The patient states that he is feeling better on high flow oxygen. After receiving an hour long duoneb esther tment he will be further evaluated by Dr. Dela Cruz-[facility] Hospitalist service. 0048: The patient is refusing to let the nursing staff repeat his blood pressure. Administered Medications Discontinued Medications Albuterol (Duoneb) 12 ml NEB ONE ONE Stop: 10/22/18 22:34 Last Admin: 10/22/18 23:05 Dose: 12 ml Documented by: [id number] Sodium Chloride (Nss 1000ml) 500 mls @ 999 mls/hr IV .Q31M ONE Stop: 10/23/18 00:13 Last Infusion: 10/23/18 00:43 Dose: 0 mls/hr Documented by: [id number] Admin: 10/23/18 00:11 Dose: 999 mls/hr Documented by: [id number] Methylprednisolone (Solumedrol) 125 mg IV NOW STA Stop: 10/22/18 22:34 Last Admin: 10/22/18 23:19 Dose: 125 mg Documented by: [id number] Medical Decision Making Medical Records Attestation: I reviewed the patient's medical records. Home Medications Current Medication List: was personally reviewed by me Laboratory Data Attestation: I reviewed the patient's lab results. Result diagrams: 10/22/18 22:23 10/22/18 22:23 Lab Results 10/22/18 10/22/18 10/22/18 Range/Units 22:23 22:23 22:23 WBC 17.32 H (4.8-10.8) K/uL RBC 3.78 L (4.7-6.1) M/uL Hgb 12.3 L (14.0-18.0) g/dL Hct 36.5 L (42-52) % MCV 96.6 (80-100) fL MCH 32.5 (25-34) pg MCHC 33.7 (32-36) g/dL RDW Std Deviation 53.1 H (36.4-46.3) fL RDW Coeff of Fernando 15.0 H (11.5-14.5) % Plt Count 209 (130-400) K/uL MPV 9.8 (7.4-10.4) fL Immature Gran % (Auto) 0.4 % Neut % (Auto) 88.4 % Lymph % (Auto) 3.9 % Lyon % (Auto) 7.0 % Eos % (Auto) 0.1 % Baso % (Auto) 0.2 % Immature Gran # (Auto) 0.07 H (0.00-0.02) K/uL Neut # (Auto) 15.32 H (1.4-6.5) K/uL Lymph # (Auto) 0.67 L (1.2-3.4) K/uL Lyon # (Auto) 1.21 H (0.11-0.59) K/uL Eos # (Auto) 0.02 (0-0.5) K/uL Baso # (Auto) 0.03 (0-0.2) K/uL PT 9.9 (9.0-12.0) Seconds INR 1.0 (0.9-1.1) APTT 23.9 (21.0-31.0) Seconds PTT Ratio 0.9 VBG pH (7.36-7.41) VBG pCO2 (38-50) mmHg VBG pO2 mmHg VBG HCO3 mmol/L VBG O2 Saturation % VBG Base Excess mEq/L Barometric Pressure mm/Hg Sodium 138 (136-145) mmol/L Potassium 4.3 (3.5-5.1) mmol/L Chloride 99 (98-107) mmol/L Carbon Dioxide 32 (21-32) mmol/L Anion Gap 7.0 (3-11) BUN 34 H (7-18) mg/dl Creatinine 1.19 (0.6-1.4) mg/dl Est Cr Clr Drug Dosing 37.6 ml/min Est GFR ( Amer) 67.9 Est GFR (Non-Af Amer) 58.6 BUN/Creatinine Ratio 28.4 H (10-20) Glucose 108 H (70-99) mg/dl Calcium 9.3 (8.5-10.1) mg/dl Total Bilirubin 0.6 (0.2-1) mg/dl Direct Bilirubin 0.1 (0-0.2) mg/dl AST 27 (15-37) U/L ALT 50 (12-78) U/L Alkaline Phosphatase 82 (45-117) U/L Troponin I 0.036 (0-0.045) ng/ml NT-Pro-B Natriuret Pep 4212 H (0-1800) pg/ml Total Protein 6.4 (6.4-8.2) gm/dl Albumin 3.3 L (3.4-5.0) gm/dl Lipase 153 (73-393) U/L 10/22/18 Range/Units 23:13 WBC (4.8-10.8) K/uL RBC (4.7-6.1) M/uL Hgb (14.0-18.0) g/dL Hct (42-52) % MCV (80-100) fL MCH (25-34) pg MCHC (32-36) g/dL RDW Std Deviation (36.4-46.3) fL RDW Coeff of Fernando (11.5-14.5) % Plt Count (130-400) K/uL MPV (7.4-10.4) fL Immature Gran % (Auto) % Neut % (Auto) % Lymph % (Auto) % Lyon % (Auto) % Eos % (Auto) % Baso % (Auto) % Immature Gran # (Auto) (0.00-0.02) K/uL Neut # (Auto) (1.4-6.5) K/uL Lymph # (Auto) (1.2-3.4) K/uL Lyon # (Auto) (0.11-0.59) K/uL Eos # (Auto) (0-0.5) K/uL Baso # (Auto) (0-0.2) K/uL PT (9.0-12.0) Seconds INR (0.9-1.1) APTT (21.0-31.0) Seconds PTT Ratio VBG pH 7.35 L (7.36-7.41) VBG pCO2 69 H (38-50) mmHg VBG pO2 26 mmHg VBG HCO3 37 mmol/L VBG O2 Saturation < 60.0 % VBG Base Excess 9.0 mEq/L Barometric Pressure 734.0 mm/Hg Sodium (136-145) mmol/L Potassium (3.5-5.1) mmol/L Chloride (98-107) mmol/L Carbon Dioxide (21-32) mmol/L Anion Gap (3-11) BUN (7-18) mg/dl Creatinine (0.6-1.4) mg/dl Est Cr Clr Drug Dosing ml/min Est GFR ( Amer) Est GFR (Non-Af Amer) BUN/Creatinine Ratio (10-20) Glucose (70-99) mg/dl Calcium (8.5-10.1) mg/dl Total Bilirubin (0.2-1) mg/dl Direct Bilirubin (0-0.2) mg/dl AST (15-37) U/L ALT (12-78) U/L Alkaline Phosphatase (45-117) U/L Troponin I (0-0.045) ng/ml NT-Pro-B Natriuret Pep (0-1800) pg/ml Total Protein (6.4-8.2) gm/dl Albumin (3.4-5.0) gm/dl Lipase (73-393) U/L Imaging Data Attestation: I personally reviewed and interpreted this imaging study as follows: My Impression: CHEST X-RAY: Airway midline. Lungs emphysematous. No cardiomegaly or pulmonary edema. No free air under the diaphragm. Pacemaker in place with no fractured leads. No fracture of the bony structures. No infiltrate. ECG Data Attestation: I personally reviewed and interpreted this ECG as follows: Indication: SOB/dyspnea Rate (beats per minute): 117 Rhythm: sinus tachycardia Findings: + other (NM interval 120; QRS interval 152; QTC interval 468) and + PVC; no ST depression and no ST elevation Blood Pressure Blood Pressure Findings: Low blood pressure Blood Pressure Disposition: further management by hospitalist ALICIA Narrative 738: Past medical records reviewed. The patient was evaluated in room B9. A complete history and physical exam was performed. The patient has a very high work of breathing rate at this time, we wanted to start the patient on BiPAP. The patient is refusing Bipap and is stating that he does not want anything over his face. He will therefore be placed on high flow nasal cannula and give the patient hour-long breathing treatment along with steroids.. 2345: The patient's repeat blood pressure was 91/68. He will be given a 500 cc bolus. The patient's imaging shows no fluid overload, cardiomegaly, or infiltr ate. The patient's labs show a leukocytosis of 17. The venous blood gas showed a pCO2 of 69, a pH of 7.35, and a proBMP of 4212 which is improved from his last hospital [place] 10/09/[place] [id number]. The patient states that he is feeling better on high flow oxygen. After receiving an hour long duoneb treatment he will be further evaluated by Dr. Dela Cruz-[facility] Hospitalist service. 0048: The patient is refusing to let the nursing staff repeat his blood pressure. Impression & Plan COPD exacerbation Critical Care Time Critical Care Time: Yes Total Critical Care Time: 35 I have personally spent 35 minutes of critical care time in the direct management of this patient. This includes bedside care, interpretation of diagnostic studies, and testing, discussion with consultants, patient, and family members, and other required patient management activities. This 35 minutes is in excess of all separately billable procedures. Discharge Plan Visit Data Chief Complaint: Respiratory Problems Stated Complaint: SOB ED Provider: Lester Grajeda Discharge Problem: COPD exacerbation Patient Disposition: Being Evaluated by Hospitalist Forms Stand Alone Forms: My [facility] Prescriptions Prescriptions: No Action lisinopril 10 mg tablet 10 mg PO DAILY Qty: 30 RF: 5 metoprolol succinate 50 mg tablet extended release 24 hr 75 mg PO DAILY Qty: 45 RF: 5 Combivent Respimat 20-100 mcg/actuation mist 1 puff INHALATION QID Qty: 4 RF: 5 albuterol sulfate 90 mcg/actuation HFA aerosol inhaler 2 puff inhalation Q4 PRN (Reason: Shortness Of Breath Or Wheezing) Qty: 18 RF: 5 prednisone 10 mg tablet 10 mg PO DAILY Qty: 30 RF: 0 aspirin [Aspir-81] 81 mg Tablet,Delayed Release (Dr/Ec) 81 mg PO QAM RF: 0 fluticasone propion-salmeterol [Advair Diskus] 500-50 mcg/dose Blister With Device 1 inh INHALATION BID RF: 0 ipratropium bromide 0.03 % [place],Non-Aerosol 2 spray INTRANASAL DIRECTED RF: 0 atorvastatin 80 mg tablet 80 mg PO HS RF: 0 bumetanide 1 mg Tablet 1 mg PO QAM Qty: 30 RF: 0 Referrals Referrals: Caroline Ruggiero MD [Primary Care Provider] - The scribe's documentation has been prepared under my direction and personally reviewed by me in its entirety. I confirm that the note above accurately reflects all work, treatment, procedures, and medical decision making performed by me.
[2018-10-23] MEDS ORDERED: ACETAMINOPHEN 325 MG TAB PO PRN (01:49)
[2018-10-23] MEDS ORDERED: AZITHROMYCIN 500 MG in DEXTROSE 5% 250 ML IV STA (01:49)
[2018-10-23] MEDS: FLUTICASONE/SALMETEROL (ADVAIR) 500/50 INH 14 PUFF INH SCH ×3 (02:26→21:05)
[2018-10-23] MEDS: DOCUSATE SODIUM 100 MG CAP PO SCH ×3 (02:28→21:05)
[2018-10-23] MEDS: ALBUT/IPRATROP 3MG/0.5MG NEB 3 ML VIAL NEB SCH ×7 (03:09→23:27)
[2018-10-23 06:32] LABS: Hematocrit (blood only) 31.7 % (42-52); Hemoglobin 10.7 g/dL (14.0-18.0); Immature Granulocytes # (auto) 0.03 K/uL (0.00-0.02); Immature Granulocytes % (auto) 0.3 %; Lymphocytes # (auto) 0.14 K/uL (1.2-3.4); Lymphocytes % (auto) 1.4 %; Mean Corpuscular Hemoglobin 32.5 pg (25-34); Mean Corpuscular Hgb Conc 33.8 g/dL (32-36); Mean Corpuscular Volume 96.4 fL (80-100); Monocytes # (auto) 0.05 K/uL (0.11-0.59); Monocytes % (auto) 0.5 %; Neutrophils # (auto) 9.91 K/uL (1.4-6.5); Neutrophils % (auto) 97.8 %; Platelet Count 149 K/uL (130-400); RDW Coefficient of Variation 15.1 % (11.5-14.5); RDW Standard Deviation 53.6 fL (36.4-46.3); Red Blood Count 3.29 M/uL (4.7-6.1); White Blood Count 10.13 K/uL (4.8-10.8)
--- NOTE | 2018-10-23 06:38 | XRay Report ---
XR chest 1V portable CLINICAL HISTORY: Shortness of breath COMPARISON STUDY: 10/04/2018 FINDINGS: There is underlying emphysema. The heart is mildly enlarged. There is a left subclavian pac er/defibrillator present. There is no lobar consolidation. Increased markings at the right lung base remain unchanged from the prior study and are felt to be chronic.[ IMPRESSION: 1. Pulmonary emphysema 2. Stable cardiomegaly 3. No evidence of failure 4. Stable right basilar interstitial thickening Electronically signed by: Alfredo Moore M.D. 10/23/2018 6:36 AM
[2018-10-23 07:08] LABS: BUN Creatinine Ratio 26.8 (10-20); Calcium 8.7 mg/dl (8.5-10.1); Est GFR (African American) 62.7; Est GFR (Non-African American) 54.1; Potassium 4.4 mmol/L (3.5-5.1)
[2018-10-23] MEDS: methylPREDNISolone 40 MG in SYRINGE 0 ML IV SCH ×3 (07:31→23:36)
[2018-10-23] MEDS: BUMETANIDE 1 MG TAB PO SCH (07:32)
[2018-10-23] MEDS: ASPIRIN 81 MG ECTAB PO SCH (07:32)
[2018-10-23] MEDS: LISINOPRIL 10 MG TAB PO SCH (07:32)
[2018-10-23] MEDS: METOPROLOL SUCC 50MG EXT REL TAB PO SCH (07:33)
[2018-10-23] MEDS: POLYETHYLENE (MIRALAX) 17 GM PACK PO SCH (07:33)
[2018-10-23] MEDS: HEPARIN SOD 5,000 UNIT/0.5 ML VIAL SQ SCH ×2 (07:34→21:06)
--- NOTE | 2018-10-23 09:09 | Family Medicine Progress Note ---
Date of Service October 23, 2018 Assessment & Plan (1) COPD exacerbation: Pt seen at bedside this AM. States he still feels the same as when he came in. Notes this is his 3rd hospital stay in the last few months. States with this episode he had been sleeping when the SOB woke him up and for rosario him to present to the hospital. Admits to a runny nose, periodic cough currently and swelling in his lower extremities. Currently denies any OLIVAREZ, blurry vision, chest pain, SOB, palpitations, abd pain, diarrhea, constipation or swelling in his hands. On exam, he is currently afebrile with his BP on the lower side with tachycardia. He is at baseline 3L of oxygen via nasal cannula and saturating greater than 90. No longer tachypneic. Thin gentleman sitting up in bed, NC in nares, body shaking. 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 RRR, no murmurs appreciated, 2+ lower extremity swelling. WBC has normalized from >17, 000 on admission. Blood cultures still pending at time of writing. -will stay the course except for the following: -will start on HH diet -shaking; tachycardia likely secondary to duoneb/steroid use; low BP likey secondary to dual antihypertensive use -Will continue azithromycin at 250mg for next 5 days -Will continue on methyl pred 40mg q8h for today -Will continue scheduled duonebs and home advair -Continue home bumex daily Otherwise as per H&P for today. Supervising Physician Co-Signing Physician Notes I personally examined the patient and verified all bocanegra points of history and exam, discussed case, and agree with decision making with Dr Buckley. Feeling about the same, notes may be just may be breathing is even a little bit worse. Extensively discussed the baseline of how severe his COPD is, as well as his exacerbation. He does take DuoNeb every 4 hours while awake at home, Combivent in between as needed, and Advair twice daily scheduled. Vitals noted, in general he is awake and alert, fatigued appearing but no overt distress. HEENT normocephalic atraumatic mucous membranes are moist. Breathing unlabored no accessory muscle use good effort, with dramatically reduced air entry and faint expiratory rhonchi diffusely. Cardio somewhat distant no rubs murmurs or gallops. Skin shows no rashes, pallor, icterus. Acute on chronic respiratory failure related to severe COPD with exacerbation. -Continue current care, anticipate slow improvement. I suspect he is feeling worse now because he starting to mobilize mucus and there is probably a little bit of plugging going on. Continue aggressive care as current. -Given the severity of his baseline COPD, and the fact that he is already on regular anticholinergics, long-acting beta agonist, inhaled steroids, and frequent short acting beta agonist, will review the literature for the best next step, but given consideration to daily Zithromax versus Daliresp versus other DVT prophylaxisheparin subcu Chronic systolic CHFappears to be euvolemic or may be even slightly dry. Continue to follow, given that he is not overtly dry, and of course at risk for decompensation, will continue his home dosing. Stable for MedSurg Otherwise as above Results & Data Vital Signs (Past 12 Hours) Vital Signs Temp Pulse Pulse Resp BP BP Pulse Ox 10/23/18 08:00 36.4 C L 91 H 18 108/58 L 94 10/23/18 07:06 87 18 96 10/23/18 07:00 91 H 10/23/18 04:04 36.3 C L 100 H 24 116/49 L 94 10/23/18 03:09 97 H 22 94 10/23/18 01:45 103 H 24 122/77 97 10/23/18 01:02 102 H 30 H 104/50 L 90 10/23/18 00:30 103 H 31 H 90 10/23/18 00:01 105 H 36 H 89 L 10/23/18 00:00 105 H 19 89 L 10/22/18 23:38 106 H 24 97 10/22/18 23:31 107 H 31 H 91/68 L 98 10/22/18 23:25 106 H 26 H 99 10/22/18 23:24 103 H 19 96/76 L 96 10/22/18 23:05 104 H 26 H 97 10/22/18 22:28 36.8 C 116 H 31 H 138/110 H 95 10/22/18 22:22 108 H 22 138/110 H 97 PG Care Time/CCT Total # of Minutes Spent Total Time Spent with Patient: Total time spent is greater than 50% in coordination of care (as documented) at patient's floor/unit and/or counseling patient: Resident Activity Tracking Resident Involvement: Resident Care Provided Care Provided: Adult Hospital Medicine
[2018-10-23] MEDS ORDERED: SODIUM CHLORIDE 0.9% 1000ML 1,000 ML IV SCH (09:15)
[2018-10-23] MEDS ORDERED: IPRATROPIUM BROMIDE/ALBUTEROL respimat INH INH PRN (12:55)
[2018-10-23] MEDS ORDERED: ATORVASTATIN 40 MG TAB PO SCH (21:00)
[2018-10-24] MEDS ORDERED: AZITHROMYCIN 250 MG in DEXTROSE 5% 250 ML IV SCH (02:00)
[2018-10-24] MEDS: ALBUT/IPRATROP 3MG/0.5MG NEB 3 ML VIAL NEB SCH ×4 (03:30→15:20)
[2018-10-24] MEDS: METOPROLOL SUCC 50MG EXT REL TAB PO SCH (08:08)
[2018-10-24] MEDS: methylPREDNISolone 40 MG in SYRINGE 0 ML IV SCH ×2 (08:14→16:11)
[2018-10-24 09:23] LABS: BUN Creatinine Ratio 32.2 (10-20); Calcium 9.3 mg/dl (8.5-10.1); Creatinine Clr Calc Pharmacy 37.8 ml/min; Est GFR (African American) 71.5; Est GFR (Non-African American) 61.7; Potassium 4.1 mmol/L (3.5-5.1)
[2018-10-24] MEDS: FLUTICASONE/SALMETEROL (ADVAIR) 500/50 INH 14 PUFF INH SCH (09:53)
[2018-10-24] MEDS: DOCUSATE SODIUM 100 MG CAP PO SCH (09:54)
[2018-10-24] MEDS: BUMETANIDE 1 MG TAB PO SCH (09:54)
[2018-10-24] MEDS: ASPIRIN 81 MG ECTAB PO SCH (09:55)
[2018-10-24] MEDS: HEPARIN SOD 5,000 UNIT/0.5 ML VIAL SQ SCH (09:55)
[2018-10-24] MEDS: POLYETHYLENE (MIRALAX) 17 GM PACK PO SCH (09:55)
[2018-10-24] MEDS: LISINOPRIL 10 MG TAB PO SCH (10:00)
[2018-10-24 15:04] VITALS: TEMP 97.9; O2SAT 95
[2018-10-24 17:08] VITALS: BP 125/50; PULSE 79
--- NOTE | 2018-10-24 18:22 | Discharge Summary ---
Date of Service October 24, 2018 Admission HPI Per Admitting Provider 78-year-old male with past medical history of COPD, emphysema, dependence on tobacco, chronic hypoxia on 3L O2, coronary artery disease history of [place], ischemic cardiomyopathy EF 40-45%, ICD/pacemaker, hyperlipidemia, hypertension, GERD, peripheral artery disease, abdominal aortic aneurysm presents with worsening dyspnea x2 days. Reports occasionally has worsening shortness of breath but last night it woke him up from sleep and it was really bad today which is why he presented to the emergency room. Associate with persistent cough, occasionally productive but not able to bring much up, increased dyspnea on exertion. Also constipated. Denies any fever, chills, rhinorrhea, sore throat, chest pain, nausea, vomiting, abdominal pain, diarrhea, hematochezia, melena, hematuria, dysuria. Reports taking medications as prescribed. However does not take weight daily and reports drinking a lot of water and eating salty foods. Of note patient was recently admitted for pneumonia from 10/04/2018 to 10/09/2018. Social history: Continues to smoke cigarettes half pack per day Admission Exam Per Admitting Provider General: In mild distress, tachypneic, has difficulty speaking in full sentences Neuro: A&O x 4 Pulm: Diffuse rhonchi and crackles appreciated, equal breath sounds bilaterally CV: RRR, no m/r/g Abdomen:+BS, no TTP in all quadrants, non-distended, large reducible abdominal hernia LE: 3+ bilateral LE edema, no calf TTP Principal Diagnosis COPD Exacerbation Discharge Exam General: Alert, oriented. HEENT: NC/AT, PERRLA, EOMI, oropharynx moist. Chest: Nontender to palpation. CV: RRR, Normal s1, s2. No murmurs appreciated Resp: Breath sounds decreased bilaterally with expiratory wheezes Abdomen: Soft, nontender, nondistended. Has a hernia. No guarding. No organomegaly appreciated. Extremities:Trace edema in lower extremities bilaterally. Discharge Data Allergies Allergy/AdvReac Type Severity Reaction Status Date / Time No Known Allergies Allergy Verified 10/22/18 23:21 Consultations 10/22/18 23:43 ED Decision to Admit Stat 10/24/18 17:03 Consult Case Management - Discharge Planning Routine Hospital Course (1) COPD exacerbation: Mr. Jasmine was admitted on Oct 23 2018 with a COPD exacerbation and discharged on Oct 24 2018. 78-year-old male with past medical history of COPD, emphysema, dependence on tobacco, chronic hypoxia on 3L O2, coronary artery disease history of [place], ische mey cardiomyopathy EF 40-45%, ICD/pacemaker, hyperlipidemia, hypertension, GERD, peripheral artery disease, abdominal aortic aneurysm presents with worsening dyspnea x2 days. Worsening dyspnea and hypoxia: Concern for COPD versus CHF exacerbation WBC 17.3, afebrile, tachypneic and tachycardic on admission; normalized on discharge. On 3 L continuously at home, requiring 5 L high flow nasal cannula FiO2 35% on admission; was back to baseline 3L on discharge. Chest x-ray: Severe emphysema VB.35 pH, CO2 69, HCO3 37, O2 26 BNP 4212 Blood cultures x2 pending on discharge--NGTD Given azithromycin 500 mg IV x1, on 250 mg daily. Discharged with 3 additional days. Received methyl Pred 125 in the ED, on methyl Pred 40 mg every 8 hours while hospitalized and discharged with an oral Pred taper. DuoNeb every 4 hours. Continue home Advair, combivent on discharge. Given Lasix IV 40 mg x1, continued on home bumex on discharge. Close PCP followup strongly recommended. History of ischemic cardiomyopathy/pacemaker/ICD/CAD/hypertension/hyperlipidemia Concern for worsening heart failure Echo: 09/2018: EF 40 to 45%, mild concentric LVH, severe inferior and septal wall hypokinesis BNP 4212, 3+ lower extremity edema Given Lasix 40 mg x 1 Continue home Bumex, metoprolol, lisinopril, aspirin, Lipitor after discharge Close PCP followup strongly recommended. Constipation On Colace and MiraLAX scheduled Close PCP followup strongly recommended. Anemia Hemoglobin 12.3, stable No concern for acute bleed at this time Incidental finding of right upper lobe opacity 26 mm on 10/04/2018 Was evaluated by pulmonology at that time, believed to be inflammatory and less likely to be malignant Recommended repeat CT in 3 months and patient was supposed to follow-up with Dr. tripp Close PCP followup strongly recommended. Total Time Total Time Spent Total Time Spent (In Minutes): 60 Discharge Plan Discharge Items Patient Disposition: Home - Home Health Services Reason For Visit: copd excerbation Discharge Diagnosis: COPD Exacerbation Discharge Goals: Decrease discomfort and Improve disease control Activity: Per 'Additional Instructions' section Non-emergency contact: Primary Care Provider Call non-emergency contact if: your symptoms worsen and you have a fever Follow-up/Referrals: Caroline Ruggiero MD [Primary Care Provider] - Diet: Regular Addtl Provider Instructions: Mr. Jasmine, we admitted you this time because of an exacerbation of your COPD. We treated you with antibiotics and steroids and you seemed to improve. -We are discharging you with 3 more days of the antibiotic Azithromycin. Please take one pill daily for the next 3 days. -We are also discharging you with a prednisone taper; please take as directed. -We also ask that you use your flutter valve at home; it can help clear the mucus up. -Please continue taking your home Advair, Combivent and Albuterol as you have been at home. -We ask that you followup with your primary doctor in the next few days; we also ask that you follow up with pulmonology as you might require half-way antibiotic therapy for your severe COPD. -Please continue taking your home bumex medication to help with your leg swelling. -Should your symptoms return or worsen, please seek immediate medical attention. It was a pleasure taking care of you during your stay here! Prescriptions: New azithromycin 250 mg tablet 250 mg PO DAILY 3 Days Qty: 3 RF: 0 prednisone 20 mg tablet See Rx Instructions .ROUTE .COMPLEX Qty: 24 RF: 0 Continued lisinopril 10 mg tablet 10 mg PO DAILY Qty: 30 RF: 5 metoprolol succinate 50 mg tablet extended release 24 hr 75 mg PO DAILY Qty: 45 RF: 5 Combivent Respimat 20-100 mcg/actuation mist 1 puff INHALATION QID Qty: 4 RF: 5 albuterol sulfate 90 mcg/actuation HFA aerosol inhaler 2 puff inhalation Q4 PRN (Reason: Shortness Of Breath Or Wheezing) Qty: 18 RF: 5 prednisone 10 mg tablet 10 mg PO DAILY Qty: 30 RF: 0 aspirin [Aspir-81] 81 mg Tablet,Delayed Release (Dr/Ec) 81 mg PO QAM RF: 0 fluticasone propion-salmeterol [Advair Diskus] 500-50 mcg/dose Blister With Device 1 inh INHALATION BID RF: 0 ipratropium bromide 0.03 % [place],Non-Aerosol 2 spray INTRANASAL DIRECTED RF: 0 atorvastatin 80 mg tablet 80 mg PO HS RF: 0 bumetanide 1 mg Tablet 1 mg PO QAM Qty: 30 RF: 0 Stand-Alone Forms: My [facility] Discharge Orders: Discharge Order (Routine); Ordered 10/24/18 Ordered By: Nathalie Buckley Admission Data Admit Date/Time: 10/23/18 00:56 Attending Provider: Mitch Rivas Admit Provider: Tim Dela Cruz Primary Care Provider: Caroline Ruggiero V. Other Providers: Tim Dela Cruz Service: Medical Other Interventions: Discharge Summary Assessment (RN) Last Done: 10/24/18 17:05 DC Date/Time DO NOT enter until pt leaves facility: 10/24/18 17:41 Supervising Physician Co-Signing Physician Notes I personally examined the patient and verified all bocanegra points of history and exam, discussed case, and agree with decision making with Dr Buckley. feeling good enough he really wants to get out of here. notes he used a flutter valve for 3wks before, he'd cough after but still wouldn't bring up anything. Vitals noted, in general he is awake and alert, fatigued appearing but no overt distress. HEENT normocephalic atraumatic mucous membranes are moist. Breathing unlabored no accessory muscle use good effort. skin no rashes no pallor or icterus Acute on chronic respiratory failure related to severe COPD with exacerbation. -stable for home - anticipate very slow improvement. tried to temper expectations on improvement based on the severity of his COPD -Given the severity of his baseline COPD, and the fact that he is already on regular anticholinergics, long-acting beta agonist, inhaled steroids, and frequent short acting beta agonist, will ask for close f/u w pulm to determine best next step, consideration to daily Zithromax versus Daliresp versus other DVT prophylaxisheparin subcu Chronic systolic CHFstable for home Resident Activity Tracking Resident Involvement: Resident Care Provided Care Provided: Adult Hospital Medicine
== END 2018-10-24 17:41 | disposition home health service (06) | DRG 190 ==
LOC: ED 22:17 → 2S 10-23 00:56 → SUATTDRO 10-23 00:56 → 2S 10-23 01:26 → 4W 10-23 14:32

== ENCOUNTER 2018-11-05 08:45 | Inpatient (IN) ==
[2018-11-05] MEDS ORDERED: methylPREDNISolone 125 MG/2 ML VIAL IV STA (09:33)
[2018-11-05] MEDS ORDERED: MAGNESIUM SULFATE / D5W 1 GM/100 ML BAG IV ONE (09:36)
[2018-11-05] MEDS ORDERED: SODIUM CHLORIDE 0.9% 500 ML IV SCH (09:45)
[2018-11-05 09:57] LABS: Basophils # (auto) 0.01 K/uL (0-0.2); Basophils % (auto) 0.1 %; Eosinophils # (auto) 0.01 K/uL (0-0.5); Eosinophils % (auto) 0.1 %; Hematocrit (blood only) 31.5 % (42-52); Hemoglobin 10.6 g/dL (14.0-18.0); Immature Granulocytes # (auto) 0.06 K/uL (0.00-0.02); Immature Granulocytes % (auto) 0.4 %; Lymphocytes # (auto) 0.57 K/uL (1.2-3.4); Lymphocytes % (auto) 3.6 %; Mean Corpuscular Hgb Conc 33.7 g/dL (32-36); Mean Corpuscular Volume 98.1 fL (80-100); Monocytes # (auto) 0.55 K/uL (0.11-0.59); Monocytes % (auto) 3.5 %; Neutrophils # (auto) 14.71 K/uL (1.4-6.5); Neutrophils % (auto) 92.3 %; Platelet Count 208 K/uL (130-400); RDW Coefficient of Variation 15.1 % (11.5-14.5); RDW Standard Deviation 53.8 fL (36.4-46.3); Red Blood Count 3.21 M/uL (4.7-6.1); White Blood Count 15.91 K/uL (4.8-10.8)
--- NOTE | 2018-11-05 10:01 | XRay Report ---
XR chest 1V portable CLINICAL HISTORY: Chest Pain dyspnea COMPARISON STUDY: 10/22/2018 FINDINGS: Stable emphysematous change. Chronic basilar interstitial change. No focal infiltrate. Permanent bipolar cardiac pacemaker with leads in good position. IMPRESSION: 1. No acute process. 2. 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 The above report was generated using voice recognition software. It may contain grammatical, syntax or spelling errors. Electronically signed by: José Casey M.D. 11/05/2018 10:00 AM
[2018-11-05 10:16] LABS: Albumin Level 2.9 gm/dl (3.4-5.0); BUN Creatinine Ratio 38.4 (10-20); Calcium 9.8 mg/dl (8.5-10.1); Creatinine Clr Calc Pharmacy 32.5 ml/min; Est GFR (African American) 79.9; Est GFR (Non-African American) 68.9; Potassium 4.2 mmol/L (3.5-5.1)
[2018-11-05 10:33] LABS: Influenza A virus by PCR Neg for Influ A (Neg); Influenza B virus by PCR Neg for Influ B (Neg)
[2018-11-05 10:43] LABS: Albumin Globulin Ratio 0.8 (0.9-2); Bilirubin,Total 0.8 mg/dl (0.2-1); Creatine Kinase MB 3.9 ng/ml (0.5-3.6); Globulin 3.6 gm/dl (2.5-4.0); Total Protein 6.5 gm/dl (6.4-8.2); Troponin I 0.07 ng/ml (0-0.045)
--- NOTE | 2018-11-05 11:55 | History & Physical Report ---
Date of Service November 05, 2018 Assessment & Plan (1) Chronic obstructive pulmonary disease: with exacerbation admit obs to telemetry Duonebs, solumedrol, azithromycin CXR without consolidation or acute process Leukocytosis - may be secondary to recent prednisone usage Titrate O2 to 90% - patient uses 3L chronically (2) Elevated troponin: Likely secondary to demand ischemia - Troponin 0.07 on admission Trend troponins No chest pain Continue home ASA (3) Ischemic cardiomyopathy: (4) CHF (congestive heart failure): Chronic systolic HF wtih EF 45% Continue Bumex, lisinopril With pitting edema in LE - patient reports this is actually an improvement in his usual edema No congestion on CXR BNP pending this afternoon (5) HLD (hyperlipidemia): continue atorvastatin (6) CAD (coronary artery disease): continue statin, metoprolol, ASA (7) History of tobacco use: tobacco cessation counseling (8) Hypertension: continue metoprolol, lisinopril (9) DVT prophylaxis: enoxaparin, SCDs History of Present Illness Mr. Jasmine presents today for sob beginning at about 0300 this morning. He denies chest pain at this time though does say he has occasional shooting chest pains. He has a cough that is non productive. He is wearing his baseline 3L [place] home O2. No fevers. Pmhx: COPD, emphysema, dependence on tobacco, chronic hypoxia on 3L O2, coronary artery disease history of [place], ischemic cardiomyopathy EF 40-45%, ICD/pacemaker, hyperlipidemia, hypertension, GERD, peripheral artery disease, abdominal aortic aneurysm presents with worsening dyspnea x2 days. Social: 0.5 ppd smoker x 60 years, no alcohol, retired, lives alone Family: parents d. from [place] Primary Care Provider: Caroline Ruggiero MD Allergies Allergy/AdvReac Type Severity Reaction Status Date / Time No Known Allergies Allergy Verified 11/05/18 09:28 Home Medications Home Medications Medication Instructions Recorded Confirmed Type aspirin [Aspir-81] 81 mg PO QAM 04/20/18 11/05/18 History albuterol sulfate HFA 90 2 puff INHALATION Q4 PRN #18 gm 09/11/18 11/05/18 Rx mcg/actuation aerosol inhaler ipratropium 20 mcg-albuterol 100 1 puff INHALATION QID #4 gm 09/11/18 11/05/18 Rx mcg/actuation mist for inhalation atorvastatin 80 mg PO HS 10/04/18 11/05/18 History bumetanide 1 mg PO QAM #30 tab 10/09/18 11/05/18 Rx fluticasone propion-salmeterol 1 inh INHALATION BID 10/22/18 11/05/18 History [Advair Diskus] ipratropium bromide 2 spray INTRANASAL DIRECTED 10/22/18 11/05/18 History prednisone See Rx Instructions .ROUTE 10/24/18 11/05/18 Rx .COMPLEX #24 tab lisinopril 10 mg PO QAM 11/05/18 11/05/18 History metoprolol succinate 75 mg PO DAILY@1800 11/05/18 11/05/18 History prednisone 10 mg PO QAM 11/05/18 11/05/18 History Past Med/Surg History Family History Mother Acute myocardial infarction Hypertension Heart disease Father Hypertension Heart disease Myocardial infarction Other Colon cancer Social History Preferred Language: Kosovan Communication Ability: Effective Liquor Rectifier Required: No Beliefs That Will Affect Care: None marital status: / Current Living Situation: Alone Other Information That Helps Us Care for You: No Feels Safe at Home: Yes Safety Concerns: Feels Safe At This Time Smoking Status: Current every day smoker Tobacco Type: cigarettes ; Cigarettes Per Day: 10 ; Do You Dip or Chew Tobacco: No ; Second Hand Exposure: No ; Tobacco Cessation Education Requested by Patient: No Hx Alcohol Use: No Hx Substance Use: No Review of Systems Review of Systems: All systems reviewed & are unremarkable except as noted in HPI & below Physical Exam Physical Exam: General: no distress Eyes: normal inspection, PERLL Respiratory: chest non tender, coarse bases bilaterally, upper lung leone with expiratory wheezes, no accessory muscle use Cardiac: regular rate and rhythm, no rub or gallop, no murmur, +2 pitting edema lower extremities GI/: active bowel sounds, no abd pain or tenderness, soft, non distended, reducible ventral hernia Extremities: normal range of motion, normal strength, non tender Neuro:oriented x 3, moves all extremities Psych: alert, normal mood and affect Skin: normal color, dry Results & Data Vital Signs (Past 12 Hours) Vital Signs Temp Pulse Pulse Resp BP BP Pulse Ox 11/05/18 11:00 91 H 25 H 124/73 97 11/05/18 10:06 93 H 34 H 130/68 97 11/05/18 09:34 95 11/05/18 09:30 94 H 34 H 132/58 L 99 11/05/18 09:00 104 H 32 H 105/69 97 11/05/18 08:36 36.8 C 105 H 32 H 105/69 96 Code Status & VTE Plan Code Status full code VTE Prophylaxis Plan VTE Prophylaxis will be ordered: Yes Supervising Physician Co-Signing Physician Notes I supervised Florecita Quintero NP on this patient's care. I examined the patient today independently of her. I discussed the plan of care with her with the plan being as written in her note except for any following changes/exceptions: None. 78yo M w/ hx of COPD who unfortunately continues to smoke. He is feeling mildly better after his treatments in the ED. Will treat for COPD exacerbation. Discharge when respiratory status improved. PG Care Time/CCT Total # of Minutes Spent Total Time Spent with Patient: Total time spent is greater than 50% in coordination of care (as documented) at patient's floor/unit and/or counseling patient: (1) Hypertension Hypertension type: unspecified Qualified Code(s): I10 - Essential (primary) hypertension
[2018-11-05] MEDS ORDERED: ONDANSETRON INJ 2 MG/ML 2 ML VIAL IV PRN (12:53)
[2018-11-05] MEDS ORDERED: ACETAMINOPHEN 325 MG TAB PO PRN (12:53)
[2018-11-05] MEDS ORDERED: POLYETHYLENE (MIRALAX) 17 GM PACK PO PRN (12:53)
[2018-11-05] MEDS: ENOXAPARIN INJ 30 MG/0.3 ML SYR SQ SCH (14:32)
[2018-11-05] MEDS: AZITHROMYCIN 500 MG in DEXTROSE 5% 250 ML IV SCH (14:32)
[2018-11-05] MEDS: ALBUT/IPRATROP 3MG/0.5MG NEB 3 ML VIAL NEB SCH ×3 (14:53→22:56)
[2018-11-05 16:23] LABS: Troponin I 0.081 ng/ml (0-0.045)
--- NOTE | 2018-11-05 16:23 | Emergency Department Note ---
Entered by Ed Segovia acting as a scribe for History of Present Illness General Chief complaint: Shortness of Breath/Dyspnea Stated complaint: SOB, Cough, Edema Time Seen by Provider: 11/05/18 08:49 Source: patient History of Present Illness Provider complaint: Shortness of breath Onset (ago): hour(s) (This morning) Location: chest Severity: similar to prior episodes Pain Consistency: + constant Relieved By: + none Exacerbated By: + none Associated symptoms: + chest pain, + cough and + shortness of breath; no feve r/chills The patient is a 78 year old male who presents to the Emergency Room with compl aints of constant shortness of breath that is a chronic problem but became acutely worse this morning. The patient has a history of COPD and notes this feels similar to his past flare ups. He also has a constant wet cough. When the patient first noticed he was having trouble breathing he used his Albuterol and Ipratropium, however it did not help relieve his symptoms. Upon arrival of EMS, the patient's O2 saturation was 85% so he was put on supplemental oxygen and given another Albuterol treatment. The patient admits to being a daily smoker having smoked about a half pack for the past 60+ years. The patient has a history of CHF. Home Medications Home Medications Medication Instructions Recorded Confirmed Type aspirin [Aspir-81] 81 mg PO QAM 04/20/18 11/05/18 History albuterol sulfate HFA 90 2 puff INHALATION Q4 PRN #18 gm 09/11/18 11/05/18 Rx mcg/actuation aerosol inhaler ipratropium 20 mcg-albuterol 100 1 puff INHALATION QID #4 gm 09/11/18 11/05/18 Rx mcg/actuation mist for inhalation atorvastatin 80 mg PO HS 10/04/18 11/05/18 History bumetanide 1 mg PO QAM #30 tab 10/09/18 11/05/18 Rx fluticasone propion-salmeterol 1 inh INHALATION BID 10/22/18 11/05/18 History [Advair Diskus] ipratropium bromide 2 spray INTRANASAL DIRECTED 10/22/18 11/05/18 History prednisone See Rx Instructions .ROUTE 10/24/18 11/05/18 Rx .COMPLEX #24 tab lisinopril 10 mg PO QAM 11/05/18 11/05/18 History metoprolol succinate 75 mg PO DAILY@1800 11/05/18 11/05/18 History prednisone 10 mg PO QAM 11/05/18 11/05/18 History Allergies Allergy/AdvReac Type Severity Reaction Status Date / Time No Known Allergies Allergy Verified 11/05/18 09:28 Past Med/Surg History Family History Mother Acute myocardial infarction Hypertension Heart disease Father Hypertension Heart disease Myocardial infarction Other Colon cancer Social History Preferred Language: Ethiopian Communication Ability: Effective 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 and A total of 10 systems reviewed and were otherwise negative Physical Exam Vital Signs Vital Signs - 24 hr 11/06/18 19:56 11/06/18 20:00 11/06/18 22:40 Temperature Temperature Source Pulse Rate Pulse Rate [Finger] 96 H 59 L Pulse Rhythm [Finger] Respiratory Rate 20 22 Respiratory Effort / Characteristics Non-Labored Spontaneous Spontaneous Accessory Muscle Use Labored Short of Breath SOB on Exertion Non-Labored Spontaneous Respiratory Depth Deep Respiratory Pattern Regular Blood Pressure [Left Arm] Blood Pressure [Right Arm] Blood Pressure Mean [Left Arm] Blood Pressure Mean [Right Arm] Blood Pressure Position [Left Arm] Blood Pressure Position [Right Arm] Pulse Oximetry 90 92 Oxygen Delivery Method Nasal Cannula Nasal Cannula Nasal Cannula Oxygen Flow Rate 4 3 3 11/06/18 22:57 11/07/18 02:50 11/07/18 03:43 Temperature 36.5 C 36.5 C Temperature Source Oral Oral Pulse Rate Pulse Rate [Finger] 75 79 84 Pulse Rhythm [Finger] Regular Respiratory Rate 32 H 24 16 Respiratory Effort / Characteristics Spontaneous Labored Short of Breath SOB on Exertion Non-Labored Spontaneous Respiratory Depth Deep Respiratory Pattern Blood Pressure [Left Arm] 91/48 L 109/63 Blood Pressure [Right Arm] Blood Pressure Mean [Left Arm] 62 78 Blood Pressure Mean [Right Arm] Blood Pressure Position [Left Arm] Semi-fowlers Lying Blood Pressure Position [Right Arm] Pulse Oximetry 99 99 94 Oxygen Delivery Method Nasal Cannula Nasal Cannula Nasal Cannula Oxygen Flow Rate 3 3.0 3 11/07/18 07:01 11/07/18 07:29 11/07/18 07:35 Temperature Temperature Source Pulse Rate 96 H Pulse Rate [Finger] 60 79 Pulse Rhythm [Finger] Respiratory Rate 18 24 Respiratory Effort / Characteristics Non-Labored Spontaneous Spontaneous Accessory Muscle Use Short of Breath SOB on Exertion Tripoding Respiratory Depth Normal Respiratory Pattern Regular Blood Pressure [Left Arm] Blood Pressure [Right Arm] 105/45 L Blood Pressure Mean [Left Arm] Blood Pressure Mean [Right Arm] 65 Blood Pressure Position [Left Arm] Blood Pressure Position [Right Arm] Sitting Pulse Oximetry 90 91 Oxygen Delivery Method Nasal Cannula Nasal Cannula Nasal Cannula Oxygen Flow Rate 3 3 3 11/07/18 11:26 Temperature 36.4 C L Temperature Source Oral Pulse Rate Pulse Rate [Finger] 82 Pulse Rhythm [Finger] Respiratory Rate 22 Respiratory Effort / Characteristics Respiratory Depth Respiratory Pattern Blood Pressure [Left Arm] Blood Pressure [Right Arm] 98/43 L Blood Pressure Mean [Left Arm] Blood Pressure Mean [Right Arm] 61 Blood Pressure Position [Left Arm] Blood Pressure Position [Right Arm] Lying Pulse Oximetry 100 Oxygen Delivery Method Nasal Cannula Oxygen Flow Rate 3 GENERAL: Awake, alert, well-appearing, in no distress HENT: Normocephalic, atraumatic. Oropharynx unremarkable. EYES: Normal conjunctiva. Sclera non-icteric. NECK: Supple. No nuchal rigidity. FROM. No masses. RESPIRATORY: Wheezing at the bilateral lung bases. No rales. Normal respiratory effort. CARDIAC: Normal rate. Normal rhythm. No murmurs. No rubs. Extremities warm and well perfused. Pulses equal. No JVD. GI: Soft, non-distended. No tenderness to palpation. No rebound or guarding. No masses. RECTAL: Deferred. MUSCULOSKELETAL: Atraumatic. Chest examination reveals no tenderness. The back is symmetrical on inspection without obvious abnormality. There is no CVA tenderness to palpation. No joint edema. LOWER EXTREMITIES: Calves are equal size bilaterally and non-tender. No edema. No discoloration. NEURO: Normal sensorium. No sensory or motor deficits noted. Course 0852: Past medical records reviewed. The patient was evaluated in room B11B by daniele boyd medical student working with me, and a complete history and physical examination were performed. I then performed my own assessment of the patient. 1043: I reevaluated and updated the patient. We also discussed the treatment plan and he is in agreement. 1100: I spoke to Florecita Quintero [facility] under Dr. Aguilera [facility] Hospitalist about the patient's case. They are going to accept the patient for further evaluation. Consultations Consultation #1: I spoke to Florecita Quintero [facility] under Dr. Aguilera [facility] Hospitalist about the patient's case. They are going to accept the patient for further evaluation. Time: 11:00 Administered Medications Albuterol (Duoneb) 3 ml NEB Q4R [facility] Stop: 12/07/18 18:59 Last Admin: 11/07/18 16:29 Dose: 3 ml Documented by: [id number] Aspirin (Ecotrin Ectab) 81 mg PO [facility] Stop: 12/06/18 08:59 Last Admin: 11/07/18 09:36 Dose: 81 mg Documented by: [id number] Admin: 11/06/18 08:12 Dose: 81 mg Documented by: [id number] Atorvastatin Calcium (Lipitor) 80 mg PO [facility] Stop: 12/05/18 20:59 Last Admin: 11/06/18 19:27 Dose: 80 mg Documented by: [id number] Admin: 11/05/18 19:37 Dose: 80 mg Documented by: [id number] Bumetanide (Bumex) 1 mg PO [facility] Stop: 12/06/18 08:59 Last Admin: 11/07/18 09:35 Dose: 1 mg Documented by: [id number] Admin: 11/06/18 08:12 Dose: 1 mg Documented by: [id number] Enoxaparin Sodium (Lovenox) 30 mg SQ [facility]; Protocol Stop: 12/05/18 12:52 Last Admin: 11/07/18 09:37 Dose: 30 mg Documented by: [id number] Admin: 11/06/18 08:13 Dose: 30 mg Documented by: [id number] Admin: 11/05/18 14:32 Dose: 30 mg Documented by: [id number] Azithromycin 500 mg/ Dextrose 255 mls @ 125 mls/hr IV DAILY@1400 JOSE; Protocol Stop: 11/12/18 13:59 Last Infusion: 11/07/18 17:23 Dose: 0 mls/hr Documented by: [id number] Admin: 11/07/18 14:35 Dose: 125 mls/hr Documented by: [id number] Infusion: 11/06/18 16:00 Dose: 0 mls/hr Documented by: [id number] Admin: 11/06/18 13:52 Dose: 125 mls/hr Documented by: [id number] Infusion: 11/05/18 17:17 Dose: 0 mls/hr Documented by: [id number] Admin: 11/05/18 14:32 Dose: 125 mls/hr Documented by: [id number] Methylprednisolone 60 mg/ (Syringe) 0.96 mls @ 1.5 mls/min IV BID [facility] Stop: 12/05/18 20:59 Last Admin: 11/07/18 09:34 Dose: 1.5 mls/min Documented by: [id number] Admin: 11/06/18 19:28 Dose: 1.5 mls/min Documented by: [id number] Admin: 11/06/18 08:13 Dose: 1.5 mls/min Documented by: [id number] Admin: 11/05/18 19:38 Dose: 1.5 mls/min Documented by: [id number] Lisinopril (Zestril) 10 mg PO QAM [facility] Stop: 12/06/18 08:59 Last Admin: 11/07/18 09:36 Dose: 10 mg Documented by: [id number] Admin: 11/06/18 08:12 Dose: 10 mg Documented by: [id number] Metoprolol Succinate (Toprol Xl) 75 mg PO DAILY@1800 [facility] Stop: 12/05/18 17:59 Last Admin: 11/07/18 17:28 Dose: 75 mg Documented by: [id number] Admin: 11/06/18 18:00 Dose: Not Given Documented by: [id number] Admin: 11/05/18 17:36 Dose: 75 mg Documented by: [id number] Fluticasone/Salmeterol (Advair Diskus 500/50) 1 puffs INH BID [facility] Stop: 12/05/18 20:59 Last Admin: 11/07/18 09:35 Dose: 1 puffs Documented by: [id number] Admin: 11/06/18 19:26 Dose: 1 puffs Documented by: [id number] Admin: 11/06/18 08:12 Dose: 1 puffs Documented by: [id number] Admin: 11/05/18 19:38 Dose: 1 puffs Documented by: [id number] Discontinued Medications Albuterol (Duoneb) 3 ml NEB Q4R [facility] Stop: 12/05/18 14:59 Last Admin: 11/07/18 13:57 Dose: 3 ml Documented by: [id number] Admin: 11/07/18 13:06 Dose: Not Given Documented by: [id number] Admin: 11/07/18 07:00 Dose: 3 ml Documented by: [id number] Admin: 11/07/18 03:42 Dose: 3 ml Documented by: [id number] Admin: 11/06/18 22:36 Dose: 3 ml Documented by: [id number] Admin: 11/06/18 19:53 Dose: 3 ml Documented by: [id number] Admin: 11/06/18 15:05 Dose: 3 ml Documented by: [id number] Admin: 11/06/18 11:10 Dose: 3 ml Documented by: [id number] Admin: 11/06/18 07:00 Dose: 3 ml Documented by: [id number] Admin: 11/06/18 02:36 Dose: 3 ml Documented by: [id number] Admin: 11/05/18 22:56 Dose: 3 ml Documented by: [id number] Admin: 11/05/18 18:49 Dose: 3 ml Documented by: [id number] Admin: 11/05/18 14:53 Dose: 3 ml Documented by: [id number] Sodium Chloride (Nss) 500 mls @ 999 mls/hr IV .Q31M [facility] Stop: 11/05/18 10:15 Last Infusion: 11/05/18 10:32 Dose: 0 mls/hr Documented by: [id number] Admin: 11/05/18 10:01 Dose: 999 mls/hr Documented by: [id number] Magnesium Sulfate/Dextrose (Magnesium Sulfate / D5w) 1 gm in 100 mls @ 100 mls/hr IV ONE ONE Stop: 11/05/18 10:35 Last Infusion: 11/05/18 11:01 Dose: 0 mls/hr Documented by: [id number] Admin: 11/05/18 10:01 Dose: 100 mls/hr Documented by: [id number] Lorazepam (Ativan) 0.5 mg in 1 mls @ 1 mls/min IV NOW STA Stop: 11/06/18 22:50 Last Admin: 11/06/18 22:56 Dose: 1 mls/min Documented by: [id number] Methylprednisolone (Solumedrol) 125 mg IV NOW STA Stop: 11/05/18 09:34 Last Admin: 11/05/18 10:01 Dose: 125 mg Documented by: [id number] Medical Decision Making Differential Diagnosis Differential diagnoses includes but is not limited to pneumonia, bronchitis, COPD/Asthma exacerbation, pneumothorax, pulmonary embolism, congestive heart fa ilure, acute coronary syndrome, amongst others. Medical Records Attestation: I reviewed the patient's medical records. Home Medications Current Medication List: was personally reviewed by me Laboratory Data Attestation: I reviewed the patient's lab results. Result diagrams: 11/06/18 07:54 11/06/18 07:54 Lab Results 11/05/18 11/05/18 11/05/18 Range/Units 09:39 09:39 09:39 WBC 15.91 H (4.8-10.8) K/uL RBC 3.21 L (4.7-6.1) M/uL Hgb 10.6 L (14.0-18.0) g/dL Hct 31.5 L (42-52) % MCV 98.1 (80-100) fL MCH 33.0 (25-34) pg MCHC 33.7 (32-36) g/dL RDW Std Deviation 53.8 H (36.4-46.3) fL RDW Coeff of Fernando 15.1 H (11.5-14.5) % Plt Count 208 (130-400) K/uL MPV 9.0 (7.4-10.4) fL Immature Gran % (Auto) 0.4 % Neut % (Auto) 92.3 % Lymph % (Auto) 3.6 % [place] % (Auto) 3.5 % Eos % (Auto) 0.1 % Baso % (Auto) 0.1 % Immature Gran # (Auto) 0.06 H (0.00-0.02) K/uL Neut # (Auto) 14.71 H (1.4-6.5) K/uL Lymph # (Auto) 0.57 L (1.2-3.4) K/uL [place] # (Auto) 0.55 (0.11-0.59) K/uL Eos # (Auto) 0.01 (0-0.5) K/uL Baso # (Auto) 0.01 (0-0.2) K/uL ABG pH (7.35-7.45) ABG pCO2 (35-46) mmHg ABG pO2 (80-95) mm/Hg ABG HCO3 (19-24) mmol/L ABG O2 Saturation (90-95) % ABG Base Excess (-9-1.8) mEq/L Good Test (Pos) Barometric Pressure mm/Hg Oxygen Given Sodium 135 L (136-145) mmol/L Potassium 4.2 (3.5-5.1) mmol/L Chloride 95 L (98-107) mmol/L Carbon Dioxide 35 H (21-32) mmol/L Anion Gap 5.0 (3-11) BUN 40 H (7-18) mg/dl Creatinine 1.04 (0.6-1.4) mg/dl Est Cr Clr Drug Dosing 32.5 ml/min Est GFR ( Amer) 79.9 Est GFR (Non-Af Amer) 68.9 BUN/Creatinine Ratio 38.4 H (10-20) Glucose 134 H (70-99) mg/dl Calcium 9.8 (8.5-10.1) mg/dl Total Bilirubin 0.8 (0.2-1) mg/dl AST 33 (15-37) U/L ALT 52 (12-78) U/L Alkaline Phosphatase 80 (45-117) U/L Total Creatine Kinase 80 (39-308) U/L CK-MB (CK-2) 3.9 H (0.5-3.6) ng/ml CK/CKMB % Calc 4.9 H (0-3.0) Troponin I 0.070 H* (0-0.045) ng/ml NT-Pro-B Natriuret Pep (0-1800) pg/ml Total Protein 6.5 (6.4-8.2) gm/dl Albumin 2.9 L (3.4-5.0) gm/dl Globulin 3.6 (2.5-4.0) gm/dl Albumin/Globulin Ratio 0.8 L (0.9-2) Lipase 66 L (73-393) U/L Influenza Type A (PCR) Neg for Influ A (Neg) Influenza Type B (PCR) Neg for Influ B (Neg) 11/05/18 11/06/18 11/06/18 Range/Units 15:46 07:54 07:54 WBC 14.26 H (4.8-10.8) K/uL RBC 3.33 L (4.7-6.1) M/uL Hgb 10.9 L (14.0-18.0) g/dL Hct 32.9 L (42-52) % MCV 98.8 (80-100) fL MCH 32.7 (25-34) pg MCHC 33.1 (32-36) g/dL RDW Std Deviation 54.0 H (36.4-46.3) fL RDW Coeff of Fernando 14.9 H (11.5-14.5) % Plt Count 211 (130-400) K/uL MPV 8.9 (7.4-10.4) fL Immature Gran % (Auto) 0.4 % Neut % (Auto) 93.6 % Lymph % (Auto) 1.8 % [place] % (Auto) 4.1 % Eos % (Auto) 0.0 % Baso % (Auto) 0.1 % Immature Gran # (Auto) 0.05 H (0.00-0.02) K/uL Neut # (Auto) 13.36 H (1.4-6.5) K/uL Lymph # (Auto) 0.25 L (1.2-3.4) K/uL [place] # (Auto) 0.59 (0.11-0.59) K/uL Eos # (Auto) 0.00 (0-0.5) K/uL Baso # (Auto) 0.01 (0-0.2) K/uL ABG pH (7.35-7.45) ABG pCO2 (35-46) mmHg ABG pO2 (80-95) mm/Hg ABG HCO3 (19-24) mmol/L ABG O2 Saturation (90-95) % ABG Base Excess (-9-1.8) mEq/L Good Test (Pos) Barometric Pressure mm/Hg Oxygen Given Sodium 139 (136-145) mmol/L Potassium 4.4 (3.5-5.1) mmol/L Chloride 97 L (98-107) mmol/L Carbon Dioxide 36 H (21-32) mmol/L Anion Gap 6.0 (3-11) BUN 36 H (7-18) mg/dl Creatinine 1.03 (0.6-1.4) mg/dl Est Cr Clr Drug Dosing 39.8 ml/min Est GFR ( Amer) 80.8 Est GFR (Non-Af Amer) 69.7 BUN/Creatinine Ratio 35.3 H (10-20) Glucose 155 H (70-99) mg/dl Calcium 9.5 (8.5-10.1) mg/dl Total Bilirubin (0.2-1) mg/dl AST (15-37) U/L ALT (12-78) U/L Alkaline Phosphatase (45-117) U/L Total Creatine Kinase (39-308) U/L CK-MB (CK-2) (0.5-3.6) ng/ml CK/CKMB % Calc (0-3.0) Troponin I 0.081 H* (0-0.045) ng/ml NT-Pro-B Natriuret Pep 7697 H (0-1800) pg/ml Total Protein (6.4-8.2) gm/dl Albumin (3.4-5.0) gm/dl Globulin (2.5-4.0) gm/dl Albumin/Globulin Ratio (0.9-2) Lipase (73-393) U/L Influenza Type A (PCR) (Neg) Influenza Type B (PCR) (Neg) 11/06/18 11/07/18 Range/Units 10:23 05:37 WBC (4.8-10.8) K/uL RBC (4.7-6.1) M/uL Hgb (14.0-18.0) g/dL Hct (42-52) % MCV (80-100) fL MCH (25-34) pg MCHC (32-36) g/dL RDW Std Deviation (36.4-46.3) fL RDW Coeff of Fernando (11.5-14.5) % Plt Count (130-400) K/uL MPV (7.4-10.4) fL Immature Gran % (Auto) % Neut % (Auto) % Lymph % (Auto) % [place] % (Auto) % Eos % (Auto) % Baso % (Auto) % Immature Gran # (Auto) (0.00-0.02) K/uL Neut # (Auto) (1.4-6.5) K/uL Lymph # (Auto) (1.2-3.4) K/uL [place] # (Auto) (0.11-0.59) K/uL Eos # (Auto) (0-0.5) K/uL Baso # (Auto) (0-0.2) K/uL ABG pH 7.41 (7.35-7.45) ABG pCO2 57 H (35-46) mmHg ABG pO2 92 (80-95) mm/Hg ABG HCO3 36 H (19-24) mmol/L ABG O2 Saturation 96.5 H (90-95) % ABG Base Excess 9.6 H (-9-1.8) mEq/L Good Test Pos (Pos) Barometric Pressure 737.4 mm/Hg Oxygen Given 3L Sodium (136-145) mmol/L Potassium (3.5-5.1) mmol/L Chloride (98-107) mmol/L Carbon Dioxide (21-32) mmol/L Anion Gap (3-11) BUN (7-18) mg/dl Creatinine (0.6-1.4) mg/dl Est Cr Clr Drug Dosing ml/min Est GFR ( Amer) Est GFR (Non-Af Amer) BUN/Creatinine Ratio (10-20) Glucose (70-99) mg/dl Calcium (8.5-10.1) mg/dl Total Bilirubin (0.2-1) mg/dl AST (15-37) U/L ALT (12-78) U/L Alkaline Phosphatase (45-117) U/L Total Creatine Kinase (39-308) U/L CK-MB (CK-2) (0.5-3.6) ng/ml CK/CKMB % Calc (0-3.0) Troponin I 0.064 H* (0-0.045) ng/ml NT-Pro-B Natriuret Pep (0-1800) pg/ml Total Protein (6.4-8.2) gm/dl Albumin (3.4-5.0) gm/dl Globulin (2.5-4.0) gm/dl Albumin/Globulin Ratio (0.9-2) Lipase (73-393) U/L Influenza Type A (PCR) (Neg) Influenza Type B (PCR) (Neg) Imaging Data Radiologist's Impression: Radiology results as stated below per my review and the radiologist's interpretation: XR chest 1V portable CLINICAL HISTORY: Chest Pain dyspnea COMPARISON STUDY: 10/22/2018 FINDINGS: Stable emphysematous change. Chronic basilar interstitial change. No focal infiltrate. Permanent bipolar cardiac pacemaker with leads in good position. IMPRESSION: 1. No acute process. 2. 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 The above report was generated using voice recognition software. It may contain grammatical, syntax or spelling errors. Electronically signed by: José Casey M.D. 11/05/2018 10:00 AM ECG Data Attestation: I personally reviewed and interpreted this ECG as follows: Indication: SOB/dyspnea Rate (beats per minute): 102 Rhythm: sinus tachycardia Findings: + other (Old inferior infarct ) and + RBBB; no ST depression and no ST elevation Blood Pressure Blood Pressure Findings: Normal blood pressure Blood Pressure Disposition: further management by hospitalist MDM Narrative This is a 78-year-old male who presents emergency department complaining of shortness of breath. Patient is normally on 3 L of oxygen at home however is requiring more here. He also has an elevation in his opponent. Chest x-ray does not show any evidence of pneumonia. He was given an hour-long breathing treatment and started on Solu-Medrol. I did discuss his case with the hospitalist service who agreed to admit the patient. Patient was in agreement with the treatment plan. Impression & Plan Chronic kidney disease, stage 3, COPD exacerbation, Elevated troponin Discharge Plan Visit Data *Final* Discharge Date/Time: 11/05/18 12:17 Chief Complaint: Shortness of Breath/Dyspnea Stated Complaint: SOB, Cough, Edema ED Provider: Seng Hernandez Discharge Problem: Chronic kidney disease, stage 3, COPD exacerbation, Elevated troponin Patient Disposition: Admitted As Inpatient Discharge Instructions Interventions: ED Discharge Assessment Last Done: 11/05/18 12:17 The scribe's documentation has been prepared under my direction and personally reviewed by me in its entirety. I confirm that the note above accurately reflects all work, treatment, procedures, and medical decision making performed by me.
[2018-11-05] MEDS: METOPROLOL SUCC 50MG EXT REL TAB PO SCH (17:36)
[2018-11-05] MEDS: ATORVASTATIN 40 MG TAB PO SCH (19:37)
[2018-11-05] MEDS: methylPREDNISolone 60 MG in SYRINGE 0 ML IV SCH (19:38)
[2018-11-05] MEDS: FLUTICASONE/SALMETEROL (ADVAIR) 500/50 INH 14 PUFF INH SCH (19:38)
[2018-11-06] MEDS: ALBUT/IPRATROP 3MG/0.5MG NEB 3 ML VIAL NEB SCH ×6 (02:36→22:36)
[2018-11-06 08:05] LABS: Basophils # (auto) 0.01 K/uL (0-0.2); Basophils % (auto) 0.1 %; Hematocrit (blood only) 32.9 % (42-52); Hemoglobin 10.9 g/dL (14.0-18.0); Immature Granulocytes # (auto) 0.05 K/uL (0.00-0.02); Immature Granulocytes % (auto) 0.4 %; Lymphocytes # (auto) 0.25 K/uL (1.2-3.4); Lymphocytes % (auto) 1.8 %; Mean Corpuscular Hemoglobin 32.7 pg (25-34); Mean Corpuscular Hgb Conc 33.1 g/dL (32-36); Mean Corpuscular Volume 98.8 fL (80-100); Mean Platelet Volume 8.9 fL (7.4-10.4); Monocytes # (auto) 0.59 K/uL (0.11-0.59); Monocytes % (auto) 4.1 %; Neutrophils # (auto) 13.36 K/uL (1.4-6.5); Neutrophils % (auto) 93.6 %; Platelet Count 211 K/uL (130-400); RDW Coefficient of Variation 14.9 % (11.5-14.5); Red Blood Count 3.33 M/uL (4.7-6.1); White Blood Count 14.26 K/uL (4.8-10.8)
[2018-11-06] MEDS: ASPIRIN 81 MG ECTAB PO SCH (08:12)
[2018-11-06] MEDS: BUMETANIDE 1 MG TAB PO SCH (08:12)
[2018-11-06] MEDS: FLUTICASONE/SALMETEROL (ADVAIR) 500/50 INH 14 PUFF INH SCH ×2 (08:12→19:26)
[2018-11-06] MEDS: LISINOPRIL 10 MG TAB PO SCH (08:12)
[2018-11-06] MEDS: methylPREDNISolone 60 MG in SYRINGE 0 ML IV SCH ×2 (08:13→19:28)
[2018-11-06] MEDS: ENOXAPARIN INJ 30 MG/0.3 ML SYR SQ SCH (08:13)
[2018-11-06 08:31] LABS: BUN Creatinine Ratio 35.3 (10-20); Calcium 9.5 mg/dl (8.5-10.1); Creatinine Clr Calc Pharmacy 39.8 ml/min; Est GFR (African American) 80.8; Est GFR (Non-African American) 69.7; Potassium 4.4 mmol/L (3.5-5.1)
[2018-11-06] MEDS: AZITHROMYCIN 500 MG in DEXTROSE 5% 250 ML IV SCH (13:52)
[2018-11-06] MEDS: METOPROLOL SUCC 50MG EXT REL TAB PO SCH (18:00)
--- NOTE | 2018-11-06 18:13 | Hospitalist Progress Note ---
Date of Service November 06, 2018 Assessment & Plan (1) Chronic obstructive pulmonary disease: with exacerbation Duonebs, solumedrol, azithromycin CXR without consolidation or acute process Leukocytosis - may be secondary to recent prednisone usage Titrate O2 to 90% - patient uses 3L chronically (2) Elevated troponin: Likely secondary to demand ischemia - Troponin peaked at 0.09 Trend troponins No chest pain Continue home ASA (3) Ischemic cardiomyopathy: (4) CHF (congestive heart failure): Chronic systolic HF wtih EF 45% Continue Bumex, lisinopril With pitting edema in LE - patient reports this is actually an improvement in his usual edema No congestion on CXR BNP 7,600 - patient's blood pressure unlikely to tolerate further diuresis (5) HLD (hyperlipidemia): continue atorvastatin (6) CAD (coronary artery disease): continue statin, metoprolol, ASA (7) History of tobacco use: tobacco cessation counseling - patient reports he is not interested in quitting (8) Hypertension: continue metoprolol, lisinopril (9) DVT prophylaxis: enoxaparin, SCDs Subjective Mr. Jasmine continues to be dyspeneic, no chest pain. Very sob with any exertion Review of Systems Review of Systems: All systems reviewed & are unremarkable except as noted in HPI & below Physical Exam Physical Exam: General: no distress Eyes: normal inspection, PERLL Respiratory: chest non tender, upper lobes expiratory wheezes, coarse lower lobes , no respiratory distress, no accessory muscle use Cardiac: regular rate and rhythm, no rub or gallop, no murmur, no edema, no jvd GI/: active bowel sounds, no abd pain or tenderness, soft, non distended Extremities: normal range of motion, normal strength, non tender Neuro/Psych: alert and oriented x 3, normal mood and affect Skin: normal color, dry Results & Data Vital Signs (Past 12 Hours) Vital Signs Temp Pulse Pulse Resp BP BP Pulse Ox 11/06/18 17:58 36.5 C 88 22 92/35 L 96 11/06/18 15:33 36.5 C 85 24 90/56 L 98 11/06/18 15:05 85 20 91 11/06/18 14:33 86 11/06/18 11:10 72 20 91 11/06/18 11:02 36.3 C L 81 22 97/53 L 95 11/06/18 07:35 76 09/17/19 07:18 36.6 C 77 24 110/66 100 11/06/18 07:01 77 20 100 PG Care Time/CCT Total # of Minutes Spent Total Time Spent with Patient: Total time spent is greater than 50% in coordination of care (as documented) at patient's floor/unit and/or counseling patient: (1) Hypertension Hypertension type: unspecified Qualified Code(s): I10 - Essential (primary) hypertension
[2018-11-06] MEDS: ATORVASTATIN 40 MG TAB PO SCH (19:27)
--- NOTE | 2018-11-06 22:44 | XRay Report ---
XR chest 1V portable CLINICAL HISTORY: difficulty breathing dyspnea COMPARISON STUDY: 11/05/2018 FINDINGS: Mild stable cardiomegaly. Stable emphysematous change. Mild chronic basilar fibrotic change . Permanent bipolar cardiac pacemaker/defibrillator. IMPRESSION: Chronic and postoperative change. Emphysematous change. No acute process. The above report was generated using voice recognition software. It may contain grammatical, syntax or spelling errors. Electronically signed by: José Casey M.D. 11/06/2018 10:42 PM
[2018-11-06] MEDS ORDERED: LORazepam 0.5 MG/1 ML VIAL IV STA (22:49)
[2018-11-07] MEDS: ALBUT/IPRATROP 3MG/0.5MG NEB 3 ML VIAL NEB SCH ×6 (03:42→23:23)
[2018-11-07 05:49] LABS: Base Excess ABG 9.6 mEq/L (-9-1.8); HCO3 ABG 36 mmol/L (19-24); Oxygen Saturation ABG 96.5 % (90-95); PCO2 ABG 57 mmHg (35-46); PO2 ABG 92 mm/Hg (80-95); pH ABG 7.41 (7.35-7.45)
[2018-11-07 05:50] LABS: Allen Test Pos (Pos)
[2018-11-07] MEDS: methylPREDNISolone 60 MG in SYRINGE 0 ML IV SCH ×2 (09:34→20:44)
[2018-11-07] MEDS: FLUTICASONE/SALMETEROL (ADVAIR) 500/50 INH 14 PUFF INH SCH ×2 (09:35→20:45)
[2018-11-07] MEDS: BUMETANIDE 1 MG TAB PO SCH (09:35)
[2018-11-07] MEDS: LISINOPRIL 10 MG TAB PO SCH (09:36)
[2018-11-07] MEDS: ASPIRIN 81 MG ECTAB PO SCH (09:36)
[2018-11-07] MEDS: ENOXAPARIN INJ 30 MG/0.3 ML SYR SQ SCH (09:37)
[2018-11-07] MEDS: AZITHROMYCIN 500 MG in DEXTROSE 5% 250 ML IV SCH (14:35)
--- NOTE | 2018-11-07 14:47 | Hospitalist Progress Note ---
Date of Service November 07, 2018 Assessment & Plan (1) Chronic obstructive pulmonary disease: with exacerbation Duonebs, solumedrol, azithromycin CXR without consolidation or acute process Leukocytosis - may be secondary to recent prednisone usage Titrate O2 to 90% - patient uses 3L chronically and is at baseline (2) Elevated troponin: Likely secondary to demand ischemia - Troponin peaked at 0.09 No chest pain Continue home ASA (3) Ischemic cardiomyopathy: (4) CHF (congestive heart failure): Chronic systolic HF wtih EF 45% Continue Bumex, lisinopril With pitting edema in LE - patient reports this is actually an improvement in his usual edema No congestion on CXR BNP 7,600 - patient's blood pressure unlikely to tolerate further diuresis Patient has been resistant in the past to Heart Failure clinic but will discuss again with him (5) HLD (hyperlipidemia): continue atorvastatin (6) CAD (coronary artery disease): continue statin, metoprolol, ASA (7) History of tobacco use: tobacco cessation counseling - patient reports he is not interested in quitting (8) Hypertension: continue metoprolol, lisinopril (9) DVT prophylaxis: enoxaparin, SCDs Dispo: PT eval, likely home tomorrow Subjective Mr. Jasmine was quite somnolent when I saw him. He apparently had a long night, received a dose of lorazepam and then became delirious. Review of Systems Review of Systems: All systems reviewed & are unremarkable except as noted in HPI & below Physical Exam Physical Exam: General: no distress Eyes: normal inspection, PERLL Respiratory: chest non tender, clear to auscultation, normal breath sounds, no respiratory distress, no accessory muscle use Cardiac: regular rate and rhythm, no rub or gallop, no murmur, no edema, no jvd GI/: active bowel sounds, no abd pain or tenderness, soft, non distended Extremities: normal range of motion, normal strength, non tender Neuro/Psych: somnolent, normal mood and affect Skin: normal color, dry Results & Data Vital Signs (Past 12 Hours) Vital Signs Temp Pulse Pulse Resp BP BP Pulse Ox 11/07/18 13:58 82 18 97 11/07/18 11:26 36.4 C L 82 22 98/43 L 100 11/07/18 07:35 96 H 09/18/19 07:29 79 24 105/45 L 91 11/07/18 07:01 60 18 90 11/07/18 03:43 84 16 94 11/07/18 02:50 36.5 C 79 24 109/63 99 PG Care Time/CCT Total # of Minutes Spent Total Time Spent with Patient: Total time spent is greater than 50% in coordination of care (as documented) at patient's floor/unit and/or counseling patient: (1) Hypertension Hypertension type: unspecified Qualified Code(s): I10 - Essential (primary) hypertension
[2018-11-07] MEDS ORDERED: ALBUT/IPRATROP 3MG/0.5MG NEB 3 ML VIAL NEB PRN (16:21)
[2018-11-07] MEDS: METOPROLOL SUCC 50MG EXT REL TAB PO SCH (17:28)
[2018-11-07] MEDS: ATORVASTATIN 40 MG TAB PO SCH (20:44)
[2018-11-08] MEDS: ALBUT/IPRATROP 3MG/0.5MG NEB 3 ML VIAL NEB SCH ×6 (02:51→23:28)
[2018-11-08 06:30] LABS: Creatinine Clr Calc Pharmacy 41.2 ml/min; Est GFR (Non-African American) 75.9
[2018-11-08] MEDS: FLUTICASONE/SALMETEROL (ADVAIR) 500/50 INH 14 PUFF INH SCH (08:56)
[2018-11-08] MEDS: ENOXAPARIN INJ 30 MG/0.3 ML SYR SQ SCH (08:57)
[2018-11-08] MEDS: BUMETANIDE 1 MG TAB PO SCH (08:57)
[2018-11-08] MEDS: LISINOPRIL 10 MG TAB PO SCH (08:57)
[2018-11-08] MEDS: methylPREDNISolone 60 MG in SYRINGE 0 ML IV SCH ×2 (08:57→21:37)
[2018-11-08] MEDS: ASPIRIN 81 MG ECTAB PO SCH (08:57)
[2018-11-08 08:58] LABS: Basophils # (auto) 0.01 K/uL (0-0.2); Basophils % (auto) 0.1 %; Hematocrit (blood only) 33.2 % (42-52); Hemoglobin 10.8 g/dL (14.0-18.0); Immature Granulocytes # (auto) 0.06 K/uL (0.00-0.02); Immature Granulocytes % (auto) 0.5 %; Lymphocytes % (auto) 2.5 %; Mean Corpuscular Hemoglobin 32.4 pg (25-34); Mean Corpuscular Hgb Conc 32.5 g/dL (32-36); Mean Corpuscular Volume 99.7 fL (80-100); Mean Platelet Volume 9.8 fL (7.4-10.4); Monocytes % (auto) 2.5 %; Neutrophils # (auto) 11.23 K/uL (1.4-6.5); Neutrophils % (auto) 94.4 %; Platelet Count 228 K/uL (130-400); RDW Coefficient of Variation 14.9 % (11.5-14.5); RDW Standard Deviation 54.2 fL (36.4-46.3); Red Blood Count 3.33 M/uL (4.7-6.1)
[2018-11-08 09:05] LABS: BUN Creatinine Ratio 44.2 (10-20); Calcium 9.9 mg/dl (8.5-10.1); Creatinine Clr Calc Pharmacy 42.1 ml/min; Est GFR (African American) 90.3; Est GFR (Non-African American) 77.9; Potassium 4.4 mmol/L (3.5-5.1)
[2018-11-08] MEDS ORDERED: methylPREDNISolone 125 MG/2 ML VIAL IV STA (11:26)
[2018-11-08] MEDS ORDERED: BUMETANIDE 1 MG in SYRINGE 0 ML IV ONE (12:00)
[2018-11-08] MEDS ORDERED: AZITHROMYCIN 250 MG TAB PO SCH (12:00)
[2018-11-08] MEDS ORDERED: methylPREDNISolone 60 MG in SYRINGE 0 ML IV ONE (12:15)
--- NOTE | 2018-11-08 13:37 | Hospitalist Progress Note ---
Date of Service November 08, 2018 Assessment & Plan (1) Chronic obstructive pulmonary disease: with exacerbation Duonebs, solumedrol, azithromycin - will give third dose of IV solumedrol today for increased dyspnea, add Formoterol and pulmicort nebs, hold home inhalers CXR without consolidation or acute process 11/06 - will repeat Leukocytosis - may be secondary to recent prednisone usage Titrate O2 to 90% - patient uses 3L chronically and is at baseline ABGs with compensated respiratory acidoses - chronic CO2 retention Speech consult for moist bronchial cough - aspiration? (2) Elevated troponin: Likely secondary to demand ischemia - Troponin peaked at 0.09 No chest pain Continue home ASA (3) Ischemic cardiomyopathy: (4) CHF (congestive heart failure): Chronic systolic HF wtih EF 45% Continue Bumex, lisinopril With pitting edema in LE - patient reports this is actually an improvement in his usual edema No congestion on CXR BNP 7,600 - will give 1g Bumex IV in addition to home dosing today, repeat bnp am Patient has been resistant in the past to Heart Failure clinic but will discuss again with him (5) Chronic hypoxemic respiratory failure: At baseline O2 needs (6) HLD (hyperlipidemia): continue atorvastatin (7) CAD (coronary artery disease): continue statin, metoprolol, ASA (8) History of tobacco use: tobacco cessation counseling - patient reports he is not interested in quitting (9) Hypertension: continue metoprolol, lisinopril (10) Severe protein-calorie malnutrition: (11) DVT prophylaxis: enoxaparin, SCDs Dispo: PT eval Supervising Physician Co-Signing Physician Notes I supervised Florecita Quintero NP on this patient's care. I examined the patient today with her. I discussed the plan of care with her with the plan being as written in her note except for any following changes/exceptions: None. Not breathing any better this afternoon than in the last few days. Will broaden abx, get CXR, and further flesh out etiology with procalcitonin and BNP. Will get [employer] evaluation as prior CT read in September indicated some possible concern for aspiration. Subjective Mr. Jasmine feels much more sob today. He is visibly laboring to breathe. No chest pain. Non productive cough. Review of Systems Review of Systems: All systems reviewed & are unremarkable except as noted in HPI & below Physical Exam Physical Exam: General: no distress Eyes: normal inspection, PERLL Respiratory: chest non tender, clear to auscultation, very diminished breath sounds, labored breathing Cardiac: regular rate and rhythm, no rub or gallop, no murmur, bilateral lower extremity edema, no jvd GI/: active bowel sounds, no abd pain or tenderness, soft, non distended Extremities: normal range of motion, normal strength, non tender Neuro/Psych: alert and oriented x 3, normal mood and affect Skin: normal color, dry Results & Data Vital Signs (Past 12 Hours) Vital Signs Temp Pulse Pulse Resp BP Pulse Ox 11/08/18 11:51 36.4 C L 88 20 122/65 96 11/08/18 11:06 62 18 90 11/08/18 06:59 89 20 95 11/08/18 04:34 36.6 C 69 20 137/77 94 11/08/18 02:51 73 20 98 PG Care Time/CCT Total # of Minutes Spent Total Time Spent with Patient: Total time spent is greater than 50% in coordination of care (as documented) at patient's floor/unit and/or counseling patient: (1) Hypertension Hypertension type: unspecified Qualified Code(s): I10 - Essential (primary) hypertension
[2018-11-08 13:38] LABS: HCO3 ABG 41 mmol/L (19-24); Oxygen Saturation ABG 97.8 % (90-95); PCO2 ABG 62 mmHg (35-46); PO2 ABG 106 mm/Hg (80-95); pH ABG 7.44 (7.35-7.45)
[2018-11-08 13:58] LABS: Allen Test Pos (Pos)
[2018-11-08] MEDS: BUDESONIDE 0.5 MG/2 ML VIAL (PULMICORT) NEB SCH (18:55)
[2018-11-08] MEDS: FORMOTEROL 20 MCG/2 ML VIAL NEB SCH (18:55)
[2018-11-08] MEDS: AMPICILLIN/SULBACTAM SOD 3,000 MG in 0.9 % SODIUM CHLORIDE 100 ML IV SCH (19:02)
[2018-11-08] MEDS: METOPROLOL SUCC 50MG EXT REL TAB PO SCH (19:03)
--- NOTE | 2018-11-08 21:00 | XRay Report ---
XR chest 2V routine HISTORY: Cough. Short of breath. COMPARISON: Chest 11/06/2018. FINDINGS: Emphysema. Left-sided pacemaker/defibrillator is again noted. The heart is normal in size. No pleural effusions. No pneumothorax. No evidence for pulmonary edema. Increased markings at the mayra g bases may be due to vascular crowding. No new focal lung consolidations to suggest pneumonia. IMPRESSION: 1. Emphysema. 2. No focal lung consolidations to suggest pneumonia. Electronically signed by: Will Rae M.D. 11/08/2018 8:59 PM
[2018-11-08] MEDS: ATORVASTATIN 40 MG TAB PO SCH (21:38)
[2018-11-09] MEDS: AMPICILLIN/SULBACTAM SOD 3,000 MG in 0.9 % SODIUM CHLORIDE 100 ML IV SCH ×2 (00:27→05:31)
[2018-11-09] MEDS: ALBUT/IPRATROP 3MG/0.5MG NEB 3 ML VIAL NEB SCH ×6 (03:31→23:41)
[2018-11-09 07:03] LABS: Hematocrit (blood only) 29.5 % (42-52); Hemoglobin 9.5 g/dL (14.0-18.0); Mean Corpuscular Hemoglobin 32.1 pg (25-34); Mean Corpuscular Hgb Conc 32.2 g/dL (32-36); Mean Corpuscular Volume 99.7 fL (80-100); Mean Platelet Volume 9.5 fL (7.4-10.4); Platelet Count 186 K/uL (130-400); RDW Coefficient of Variation 14.7 % (11.5-14.5); RDW Standard Deviation 53.4 fL (36.4-46.3); Red Blood Count 2.96 M/uL (4.7-6.1); White Blood Count 10.35 K/uL (4.8-10.8)
[2018-11-09] MEDS: BUDESONIDE 0.5 MG/2 ML VIAL (PULMICORT) NEB SCH ×2 (07:05→19:46)
[2018-11-09] MEDS: FORMOTEROL 20 MCG/2 ML VIAL NEB SCH ×2 (07:05→19:45)
[2018-11-09 07:36] LABS: BUN Creatinine Ratio 44.8 (10-20); Calcium 9.5 mg/dl (8.5-10.1); Creatinine Clr Calc Pharmacy 42.5 ml/min; Est GFR (African American) 91.5; Est GFR (Non-African American) 78.9; Potassium 4.2 mmol/L (3.5-5.1)
[2018-11-09] MEDS: methylPREDNISolone 60 MG in SYRINGE 0 ML IV SCH ×2 (08:57→21:07)
[2018-11-09] MEDS: LISINOPRIL 10 MG TAB PO SCH (08:58)
[2018-11-09] MEDS: BUMETANIDE 1 MG in SYRINGE 0 ML IV SCH ×2 (08:58→21:07)
[2018-11-09] MEDS: ASPIRIN 81 MG ECTAB PO SCH (08:58)
[2018-11-09] MEDS: ENOXAPARIN INJ 30 MG/0.3 ML SYR SQ SCH (11:48)
--- NOTE | 2018-11-09 14:30 | Hospitalist Progress Note ---
Date of Service November 09, 2018 Assessment & Plan (1) Chronic obstructive pulmonary disease: with exacerbation Duonebs, solumedrol, azithromycin 500 mg x 3 days, Formoterol and pulmicort nebs, hold home inhalers CXR without consolidation or acute process 11/06 - repeat the same Leukocytosis - may be secondary to recent prednisone usage Titrate O2 to 90% - patient uses 3L chronically and is at baseline ABGs with compensated respiratory acidoses - chronic CO2 retention (2) Elevated troponin: Likely secondary to demand ischemia - Troponin peaked at 0.09 No chest pain Continue home ASA (3) Ischemic cardiomyopathy: (4) CHF (congestive heart failure): Chronic systolic HF wtih EF 45% Continue Bumex, lisinopril With pitting edema in LE - patient reports this is actually an improvement in his usual edema No congestion on CXR BNP 7,600 on admission and increased to 16,000 - will hold home Bumex and give 1mg Bumex bid - repeat BNP am Patient does not want to establish with heart failure clinic per our discussion (5) Chronic hypoxemic respiratory failure: At baseline O2 needs (6) HLD (hyperlipidemia): continue atorvastatin (7) CAD (coronary artery disease): continue statin, metoprolol, ASA (8) History of tobacco use: tobacco cessation counseling - patient reports he is not interested in quitting (9) Hypertension: continue metoprolol, lisinopril (10) Severe protein-calorie malnutrition: (11) DVT prophylaxis: enoxaparin, SCDs Dispo: PT eval Subjective Mr. Jasmine is feeling a bit better today. He continues to have sob but feels improved from yesterday. Review of Systems Review of Systems: All systems reviewed & are unremarkable except as noted in HPI & below Physical Exam Physical Exam: General: no distress Eyes: normal inspection, PERLL Respiratory: chest non tender, clear to auscultation, normal breath sounds, breathing less labored than yesterday Cardiac: regular rate and rhythm, no rub or gallop, no murmur, edema lower extremities improving GI/: active bowel sounds, no abd pain or tenderness, soft, non distended Extremities: normal range of motion, normal strength, non tender Neuro/Psych: alert and oriented x 3, normal mood and affect Skin: normal color, dry Results & Data Vital Signs (Past 12 Hours) Vital Signs Temp Pulse Resp BP BP Pulse Ox 09/20/19 10:49 84 22 96 11/09/18 10:47 36.4 C L 72 22 126/55 L 96 11/09/18 07:05 36.5 C 68 20 113/67 95 11/09/18 04:13 36.4 C L 89 18 115/58 L 95 11/09/18 03:31 77 18 98 PG Care Time/CCT Total # of Minutes Spent Total Time Spent with Patient: Total time spent is greater than 50% in coordination of care (as documented) at patient's floor/unit and/or counseling patient: (1) Hypertension Hypertension type: unspecified Qualified Code(s): I10 - Essential (primary) hypertension
[2018-11-09] MEDS: METOPROLOL SUCC 50MG EXT REL TAB PO SCH (18:39)
[2018-11-09] MEDS: ATORVASTATIN 40 MG TAB PO SCH (21:06)
[2018-11-10] MEDS: ALBUT/IPRATROP 3MG/0.5MG NEB 3 ML VIAL NEB SCH ×6 (03:27→23:21)
[2018-11-10] MEDS: FORMOTEROL 20 MCG/2 ML VIAL NEB SCH ×2 (06:56→19:56)
[2018-11-10] MEDS: BUDESONIDE 0.5 MG/2 ML VIAL (PULMICORT) NEB SCH ×2 (06:56→19:56)
[2018-11-10] MEDS: methylPREDNISolone 60 MG in SYRINGE 0 ML IV SCH ×3 (07:57→19:52)
[2018-11-10] MEDS: ASPIRIN 81 MG ECTAB PO SCH (07:58)
[2018-11-10] MEDS: LISINOPRIL 10 MG TAB PO SCH (07:58)
[2018-11-10] MEDS: BUMETANIDE 1 MG in SYRINGE 0 ML IV SCH (07:58)
[2018-11-10] MEDS: ENOXAPARIN INJ 30 MG/0.3 ML SYR SQ SCH (08:00)
[2018-11-10 09:17] LABS: Hemoglobin 10.6 g/dL (14.0-18.0); Mean Corpuscular Hemoglobin 32.2 pg (25-34); Mean Corpuscular Hgb Conc 32.1 g/dL (32-36); Mean Corpuscular Volume 100.3 fL (80-100); Mean Platelet Volume 9.7 fL (7.4-10.4); Platelet Count 212 K/uL (130-400); RDW Coefficient of Variation 14.5 % (11.5-14.5); RDW Standard Deviation 53.4 fL (36.4-46.3); Red Blood Count 3.29 M/uL (4.7-6.1); White Blood Count 12.87 K/uL (4.8-10.8)
[2018-11-10 10:04] LABS: BUN Creatinine Ratio 43.3 (10-20); Calcium 9.4 mg/dl (8.5-10.1); Creatinine Clr Calc Pharmacy 40.9 ml/min; Est GFR (African American) 85.8; Est GFR (Non-African American) 74.1; Magnesium 1.7 mg/dl (1.8-2.4); Potassium 4.1 mmol/L (3.5-5.1)
[2018-11-10 10:07] LABS: BUN Creatinine Ratio 44.7 (10-20); Calcium 9.7 mg/dl (8.5-10.1); Creatinine Clr Calc Pharmacy 41.3 ml/min; Est GFR (African American) 86.9
[2018-11-10] MEDS ORDERED: MAGNESIUM SULFATE / D5W 1 GM/100 ML BAG IV ONE (10:30)
--- NOTE | 2018-11-10 14:39 | Hospitalist Progress Note ---
Date of Service November 10, 2018 Assessment & Plan (1) Chronic obstructive pulmonary disease: with exacerbation Duonebs, solumedrol, azithromycin 500 mg x 3 days, Formoterol and pulmicort nebs, hold home inhalers CXR without consolidation or acute process 11/06 - repeat the same Leukocytosis - secondary to steroid administration Titrate O2 to 90% - patient uses 3L chronically and is at baseline ABGs with compensated respiratory acidoses - chronic CO2 retention Consult pulmonology (2) Elevated troponin: Likely secondary to demand ischemia - Troponin peaked at 0.09 No chest pain Continue home ASA (3) Ischemic cardiomyopathy: (4) CHF (congestive heart failure): Chronic systolic HF wtih EF 45% Continue Bumex, lisinopril With pitting edema in LE - patient reports this is actually an improvement in his usual edema No congestion on CXR BNP 7,600 on admission and increased to 16,000 - diuresed with IV Bumex but at this point patient with increasing bicarb and thirst so will resume home dosing. Additionally, not likely BNP is secondary to systolic failure given his clear CXR. Patient does not want to establish with heart failure clinic per our discussion (5) Chronic hypoxemic respiratory failure: At baseline O2 needs - wears 3L chronically (6) HLD (hyperlipidemia): continue atorvastatin (7) CAD (coronary artery disease): continue statin, metoprolol, ASA (8) History of tobacco use: tobacco cessation counseling - patient reports he is not interested in quitting (9) Hypertension: continue metoprolol, lisinopril (10) Severe protein-calorie malnutrition: (11) DVT prophylaxis: enoxaparin, SCDs Dispo: PT eval Subjective Mr. Jasmine continues to feel very dyspneic, feels like he is no where near his baseline. He is also complaining of a lot of thirst since starting the IV Bumex. Review of Systems Review of Systems: All systems reviewed & are unremarkable except as noted in HPI & below Physical Exam Physical Exam: General: no distress Eyes: normal inspection, PERLL Respiratory: chest non tender, expiratory wheezes bilaterally, labored breathing Cardiac: regular rate and rhythm, no rub or gallop, no murmur, trace lower extremity edema GI/: active bowel sounds, no abd pain or tenderness, soft, non distended Extremities: normal range of motion, normal strength, non tender Neuro/Psych: alert and oriented x 3, normal mood and affect Skin: normal color, dry Results & Data Vital Signs (Past 12 Hours) Vital Signs Temp Pulse Resp BP Pulse Ox 11/10/18 11:31 36.4 C L 86 20 127/61 96 11/10/18 11:07 84 16 96 11/10/18 07:56 36.3 C L 76 20 132/61 94 11/10/18 06:58 70 18 96 11/10/18 03:47 36.3 C L 69 18 130/63 100 11/10/18 03:27 74 20 95 PG Care Time/CCT Total # of Minutes Spent Total Time Spent with Patient: Total time spent is greater than 50% in coordination of care (as documented) at patient's floor/unit and/or counseling patient: (1) Hypertension Hypertension type: unspecified Qualified Code(s): I10 - Essential (primary) hypertension
[2018-11-10] MEDS ORDERED: GLUCOSE 10 TABS/TUBE PO PRN (15:00)
[2018-11-10] MEDS ORDERED: CARBOHYDRATES FOR HYPOGLYCEMIA PO PRN (15:00)
[2018-11-10] MEDS ORDERED: GLUCAGON FOR INJ 1 MG VIAL IM PRN (15:00)
[2018-11-10] MEDS ORDERED: DEXTROSE 50% 50 ML SYRINGE IV PRN (15:00)
[2018-11-10] MEDS ORDERED: GLUCOSE 40% GEL 15 GM TUBE PO PRN (15:00)
[2018-11-10] MEDS: INSULIN ASPART 100 UNITS/ML 3 ML PEN SC SCH ×2 (17:53→20:53)
[2018-11-10] MEDS: METOPROLOL SUCC 50MG EXT REL TAB PO SCH (17:54)
[2018-11-10] MEDS: ATORVASTATIN 40 MG TAB PO SCH (19:52)
[2018-11-11] MEDS: ALBUT/IPRATROP 3MG/0.5MG NEB 3 ML VIAL NEB SCH ×6 (03:05→22:52)
[2018-11-11] MEDS: BUDESONIDE 0.5 MG/2 ML VIAL (PULMICORT) NEB SCH ×2 (06:59→18:56)
[2018-11-11] MEDS: FORMOTEROL 20 MCG/2 ML VIAL NEB SCH ×2 (06:59→18:56)
[2018-11-11 07:59] LABS: Hematocrit (blood only) 33.1 % (42-52); Hemoglobin 11.1 g/dL (14.0-18.0); Mean Corpuscular Hemoglobin 33.1 pg (25-34); Mean Corpuscular Hgb Conc 33.5 g/dL (32-36); Mean Corpuscular Volume 98.8 fL (80-100); Platelet Count 195 K/uL (130-400); RDW Coefficient of Variation 14.2 % (11.5-14.5); RDW Standard Deviation 51.3 fL (36.4-46.3); Red Blood Count 3.35 M/uL (4.7-6.1); White Blood Count 14.37 K/uL (4.8-10.8)
[2018-11-11] MEDS: INSULIN ASPART 100 UNITS/ML 3 ML PEN SC SCH ×4 (08:16→21:09)
[2018-11-11] MEDS: ASPIRIN 81 MG ECTAB PO SCH (08:17)
[2018-11-11] MEDS: methylPREDNISolone 60 MG in SYRINGE 0 ML IV SCH (08:17)
[2018-11-11] MEDS: ENOXAPARIN INJ 30 MG/0.3 ML SYR SQ SCH (08:18)
[2018-11-11] MEDS: BUMETANIDE 1 MG TAB PO SCH (08:18)
[2018-11-11] MEDS: LISINOPRIL 10 MG TAB PO SCH (08:18)
[2018-11-11 08:40] LABS: BUN Creatinine Ratio 56.6 (10-20); Calcium 9.9 mg/dl (8.5-10.1); Creatinine Clr Calc Pharmacy 49.5 ml/min; Est GFR (African American) 99.4; Est GFR (Non-African American) 85.7; Potassium 4.2 mmol/L (3.5-5.1)
--- NOTE | 2018-11-11 10:31 | Pulmonary Consultation ---
Date of Consultation November 11, 2018 Assessment & Plan (1) End stage COPD: Patient has had numerous admissions due to worsening shortness of breath. It appears that his dyspnea is related to continuous decline in his respiratory status. It does not appear that he is acutely infected during this admission. I think that most of his readmissions have just been a consequence of his natural decline in FEV1 and deconditioning. He continues to smoke and is not interested in any smoking cessation. The first obvious thing for him would be to quit smoking, however, as noted before he is completely uninterested and gets angry at the suggestion of this. He would also be a candidate for noninvasive ventilation and again he is not interested and does not want to discuss this either. I would continue his Advair on an outpatient basis. I would discontinue his Combivent in favor of a long-acting muscarinic antagonist nebulizer such as Yupelri. This may be beneficial for him considering how poor his vital capacity likely is. Recommend switching him to p.o. prednisone for a total course of 5 to 10 days. There is no significant evidence behind chronic continuous steroids, but if this seems to confer some relief it is not unreasonable to try a low-dose prednisone. There are substantial side effects of chronic prednisone use that he should be made aware of. I did discuss palliative care and hospice services with him and he is aware of such an option as his did of cancer. He said he would be interested in talking with them in particular regarding low-dose opiates to help with his chronic dyspnea. I think this is a very reasonable approach and I would highly advocate that he moved towards a more palliative approach for his overall care. I think we are reaching the limit of what we can offer him medically especially in light of the fact that he does not want to quit smoking or use noninvasive ventilation. Pulmonary can follow-up on him on an as needed basis. Thank you for the consult and please call us with any questions. This plan was discussed with the patient and he agrees and understands. I also discussed this with the hospitalist Florecita VAZQUEZ. (2) Severe protein-calorie malnutrition: (3) COPD exacerbation: (4) Chronic hypoxemic respiratory failure: (5) Cough: (6) Chronic hypoxemic respiratory failure: History of Present Illness Attending Physician: Xavier Aguilera MD 78-year-old male with past medical history of chronic hypoxemic and hypercapnic respiratory failure, severe to very severe COPD, continuous tobacco abuse, systolic and diastolic heart failure who presents to the hospital due to worsening shortness of breath. Pulmonary is consulted for assistance in management of his COPD. Patient states that since he was discharged on October 13 he is continued to feel short of breath. He says that January of last year he was able to walk about 1 to 2 miles without much difficulty. However, over the last year he has noticed that he can barely walk couple of feet. He endorses shortness of breath at rest. He has a chronic dry hacking cough. He uses high-dose Advair and Combivent twice daily. He is albuterol as a rescue inhaler roughly 4-5 times a day. He is not on any long-acting muscarinic antagonist. He has been on oxygen for 5 years. He has been on 3 L nasal cannula for about 5 months now per his account. He does have chronic hypercapnic respiratory failure and is not on any kind of noninvasive ventilation. He is not interested in any types of noninvasive ventilation. He smokes half a pack per day which he states he is cut back on. He does not want to discuss smoking cessation at all. Since being in the hospital he has been on antibiotics and IV steroids. He describes minimal improvement in his symptoms. He has been afebrile this admission. There is no evidence of infection. He denies any chest pain currently. He does endorse shortness of breath and dry hacking cough. He says his weight is stable. He denies any fevers. No night sweats or chills. Of note, on his last admission he had a noncontrast CT nodular opacities with a right upper lobe masslike density. I saw him on his last admission along with Dr. tripp who is his primary dressing machine operator and patient refused any kind of bronchoscopy at that time. The plan was to follow-up with a CAT scan. Allergies Allergy/AdvReac Type Severity Reaction Status Date / Time No Known Allergies Allergy Verified 11/05/18 09:28 Home Medications Home Medications Medication Instructions Recorded Confirmed Type aspirin [Aspir-81] 81 mg PO QAM 04/20/18 11/05/18 History albuterol sulfate HFA 90 2 puff INHALATION Q4 PRN #18 gm 09/11/18 11/05/18 Rx mcg/actuation aerosol inhaler ipratropium 20 mcg-albuterol 100 1 puff INHALATION QID #4 gm 09/11/18 11/05/18 Rx mcg/actuation mist for inhalation atorvastatin 80 mg PO HS 10/04/18 11/05/18 History bumetanide 1 mg PO QAM #30 tab 10/09/18 11/05/18 Rx fluticasone propion-salmeterol 1 inh INHALATION BID 10/22/18 11/05/18 History [Advair Diskus] lisinopril 10 mg PO QAM 11/05/18 11/05/18 History metoprolol succinate 75 mg PO DAILY@1800 11/05/18 11/08/18 History ipratropium bromide 0.03 % nasal 2 spray INTRANASAL TID PRN ml 11/08/18 History spray ipratropium-albuterol 0.5 mg-3 3 ml INH QID PRN 11/08/18 History mg(2.5 mg base)/3 mL nebulization soln Patient History Family History Mother Acute myocardial infarction Hypertension Heart disease Father Hypertension Heart disease Myocardial infarction Other Colon cancer Social History Preferred Language: Slovenian Communication Ability: Effective Privacy Compliance Manager Required: No Beliefs That Will Affect Care: None marital status: / Current Living Situation: Alone Feels Safe at Home: Yes Smoking Status: Current every day smoker Tobacco Type: cigarettes ; Cigarettes Per Day: 10 ; Second Hand Exposure: No ; Hx Alcohol Use: No Hx Substance Use: No Review of Systems Review of Systems: All systems reviewed & are unremarkable except as noted in HPI & below Physical Exam Constitutional: Thin and frail. Cachectic appearing. Eyes: PERRL, conjunctivae normal, anicteric sclerae normal visual leone by confrontation ENMT: external ear and nose normal, oropharynx normal Ears: no external ear abnormality Neck: trachea midline, no thyromegaly normal visual inspection Respiratory: not tachypneic Diminished breath sounds bilaterally. Cardiovascular: RRR, no murmur, no edema Extremities: no edema Gastrointestinal (Abdomen): normal bowel sounds, soft, nontender, no hepatosplenomegaly Inspection/Auscultation: abdomen not distended Musculoskeletal: no cyanosis or clubbing, extremities motor strength 5/5 Fingers are missing on the right hand due to prior arm injury. Skin: no rashes, warm and dry Neurologic: PERRL, EOMI, accommodation nl, no face palsy, no dysarthria CN's II-XI intact bilaterally Psychiatric: A+Ox3, euthymic affect Affect: + angry affect Estimated Intelligence: average estimated intelligence Lymphatic: no cervical or axillary lymphadenopathy Results & Data Vital Signs (Past 12 Hours) Vital Signs Temp Pulse Pulse Resp BP Pulse Ox 11/11/18 07:36 97.5 F L 109 H 19 142/74 H 91 11/11/18 07:01 71 18 96 11/11/18 03:05 65 16 97 11/11/18 02:52 97.5 F L 62 16 137/62 96 11/11/18 00:10 98.1 F 88 18 137/71 97 11/10/18 23:21 70 18 97 Chest x-ray and prior CT reviewed. CBCs and chemistry reviewed. Chest x-ray with evidence of hyperexpansion flattened diaphragms. Procalcitonin has been negative. PG Care Time/CCT Total # of Minutes Spent Total Time Spent with Patient: Total time spent is greater than 50% in coordination of care (as documented) at patient's floor/unit and/or counseling patient: 60
--- NOTE | 2018-11-11 11:35 | Hospitalist Progress Note ---
Date of Service November 11, 2018 Assessment & Plan (1) Chronic obstructive pulmonary disease: with exacerbation Duonebs, solumedrol, azithromycin 500 mg x 3 days, Formoterol and pulmicort nebs, hold home inhalers CXR without consolidation or acute process 11/06 - repeat the same Leukocytosis - secondary to steroid administration Titrate O2 to 90% - patient uses 3L chronically and is at baseline ABGs with compensated respiratory acidoses - chronic CO2 retention Consulted pulmonology - recommend adding a LAMA such as Yupelri nebulizer and discontinuing combivent, transition to po steroids. We also discussed obtaining AFB smear which we will do, but I agree with Dr. Cleary that it is questionable whether Mr. Jasmine would be able to tolerate the lengthy treatment that would be required should he be positive for MAC. Palliative care consult (2) Elevated troponin: Likely secondary to demand ischemia - Troponin peaked at 0.09 No chest pain Continue home ASA (3) Ischemic cardiomyopathy: (4) CHF (congestive heart failure): Chronic systolic HF wtih EF 45% Continue home po Bumex, lisinopril With pitting edema in LE - edema continues to improve No congestion on CXR BNP 7,600 on admission and increased to 16,000 - diuresed with IV Bumex but patient had increasing bicarb and thirst so will resume home dosing. Additionally, apparently BNP not secondary to systolic failure given his clear CXR. 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 Jasmine continues to be very dyspneic and uncomfortable. He has a moist non productive cough. No pain. 9 beat run of Vtach on the monitor overnight, patient asymptomatic Review of Systems Review of Systems: All systems reviewed & are unremarkable except as noted in HPI & below Physical Exam Physical Exam: General: no distress Eyes: normal inspection, PERLL Respiratory: chest non tender, coarse bases bilaterally with expiratory wheezes bilaterally, labored breathing Cardiac: regular rate and rhythm, no rub or gallop, no murmur, no edema, no jvd GI/: active bowel sounds, no abd pain or tenderness, soft, non distended Extremities: normal range of motion, normal strength, non tender Neuro/Psych: alert and oriented x 3, normal mood and affect Skin: normal color, dry Results & Data Vital Signs (Past 12 Hours) Vital Signs Temp Pulse Pulse Resp BP Pulse Ox 11/11/18 11:23 36.4 C L 68 22 119/63 94 11/11/18 10:55 65 18 93 11/11/18 07:36 36.4 C L 109 H 19 142/74 H 91 11/11/18 07:01 71 18 96 11/11/18 03:05 65 16 97 11/11/18 02:52 36.4 C L 62 16 137/62 96 11/11/18 00:10 36.7 C 88 18 137/71 97 PG Care Time/CCT Total # of Minutes Spent Total Time Spent with Patient: Total time spent is greater than 50% in coordination of care (as documented) at patient's floor/unit and/or counseling patient: (1) Hypertension Hypertension type: unspecified Qualified Code(s): I10 - Essential (primary) hypertension
[2018-11-11] MEDS: METOPROLOL SUCC 50MG EXT REL TAB PO SCH (18:25)
[2018-11-11] MEDS: ATORVASTATIN 40 MG TAB PO SCH (21:08)
[2018-11-12] MEDS: ALBUT/IPRATROP 3MG/0.5MG NEB 3 ML VIAL NEB SCH ×6 (03:03→23:37)
[2018-11-12] MEDS: BUDESONIDE 0.5 MG/2 ML VIAL (PULMICORT) NEB SCH ×2 (07:07→19:01)
[2018-11-12] MEDS: FORMOTEROL 20 MCG/2 ML VIAL NEB SCH ×2 (07:07→19:01)
[2018-11-12 07:16] LABS: Hematocrit (blood only) 31.3 % (42-52); Hemoglobin 10.8 g/dL (14.0-18.0); Mean Corpuscular Hemoglobin 33.8 pg (25-34); Mean Corpuscular Hgb Conc 34.5 g/dL (32-36); Mean Corpuscular Volume 97.8 fL (80-100); Mean Platelet Volume 9.5 fL (7.4-10.4); Platelet Count 187 K/uL (130-400); RDW Coefficient of Variation 14.3 % (11.5-14.5); RDW Standard Deviation 51.2 fL (36.4-46.3); White Blood Count 11.87 K/uL (4.8-10.8)
[2018-11-12] MEDS: LISINOPRIL 10 MG TAB PO SCH (07:57)
[2018-11-12] MEDS: BUMETANIDE 1 MG TAB PO SCH (07:58)
[2018-11-12] MEDS: ASPIRIN 81 MG ECTAB PO SCH (07:58)
[2018-11-12] MEDS: ENOXAPARIN INJ 30 MG/0.3 ML SYR SQ SCH (07:58)
[2018-11-12] MEDS: predniSONE 20 MG TAB PO SCH (07:58)
[2018-11-12] MEDS: INSULIN ASPART 100 UNITS/ML 3 ML PEN SC SCH ×4 (08:00→20:35)
[2018-11-12 08:38] LABS: BUN Creatinine Ratio 55.2 (10-20); Calcium 9.5 mg/dl (8.5-10.1); Creatinine Clr Calc Pharmacy 50.2 ml/min; Est GFR (African American) 101.5; Est GFR (Non-African American) 87.5; Potassium 3.9 mmol/L (3.5-5.1)
--- NOTE | 2018-11-12 11:03 | Hospitalist Progress Note ---
Date of Service November 12, 2018 Assessment & Plan (1) Chronic obstructive pulmonary disease: - Acute exacerbation noted; has had very minimal improvement during this admission, is not at baseline yet. - CXR without consolidation concerning for PNA. - Completed Azithromycin x 3 days; will hold further abx. - Converted Solu-medrol to Prednisone 60 mg PO daily, taper as tolerated. - Duoneb q4hr, Performist BID, Pulmicort BID all scheduled; continue home Advair as prescribed. - ABG showed compensated resp acidosis -- is chronic CO2 retainer, noted on daily BMP. - Consulted pulmonology, recommend adding a LAMA such as Yupelri neb and d/c'ing Combivent. Consider AFB smear but it is questionable if pt. will be compliant with lengthy treatment if he were positive. - Palliative care consulted to discuss goals of care. (2) Elevated troponin: - Troponin peaked at 0.09, likely demand ischemia. No cardiac symptoms present. - Continue home aspirin, statin and beta jackelin as prescribed. (3) Chronic hypoxemic respiratory failure: - Chronically wears 3L via NC -- on baseline requirements. - Chronic hypercapnia and hypoxia in setting of end stage COPD. (4) Chronic systolic heart failure: - Chronic systolic HF; most recent echo in September 2018 with EF 40-45%, mild LVH. - BNP increased to 16,000 during this admission -- diuresed with Bumex IV but de veloped increased bicarb and thirst. Currently appears dry and well compensated. - Continue home Bumex, Metoprolol and ACEI as prescribed. - Monitor net I/Os and daily weights. - No pulm congestion was noted on chest imaging. - Pt. does not wish to follow with the HF clinic at this time. (5) Ischemic cardiomyopathy: - Most recent TTE in September 2018 showed reduced EF and wall motion abnormalities. - Continue home meds as prescribed. (6) HLD (hyperlipidemia): - Continue statin as prescribed. (7) CAD (coronary artery disease): - Continue statin, beta jackelin and aspirin as prescribed. (8) History of tobacco use: - Tobacco cessation has been encouraged during this admission but pt. does not plan on quitting/would not like to discuss this subject again. (9) Hypertension: - Continue Metoprolol, Bumex and Lisinopril as prescribed. - BP has been well controlled. (10) Severe protein-calorie malnutrition: - Albumin 2.9 in setting of end stage COPD. - Nutrition consulted; encourage boost supplement with meals. (11) DVT prophylaxis: - SCDs; Lovenox daily. Dispo: PCU/tele; discharge pending improvement in respiratory status. Palliative consulted. Subjective Pt. reports breathing is not at baseline -- is on 2-3L via NC (baseline requirements). Pulm consulted, appreciate input. Pt. is refusing physical therapy for discharge planning. Palliative consulted to discuss goals of care. Review of Systems Review of Systems: All systems reviewed & are unremarkable except as noted in HPI & below Constitutional: + fatigue and + weakness; no fever, no chills and no anorexia Respiratory: + cough, + dyspnea, + dyspnea on exertion and + wheezing Cardiovascular: no chest pain, no palpitations and no edema Gastrointestinal: no abdominal pain, no nausea and no constipation Genitourinary: no difficulty urinating Musculoskeletal: no back pain and no joint pain Physical Exam Physical Exam: General: Chronically ill appearing male. HEENT: NC/AT; PERRLA with EOMI; [place] conjunctiva, MMM. No erythema of posterior pharynx Neck: Supple and nontender Cardiac: RRR Lungs: on 3L via NC; coarse breath sounds in bilat lower lung bases, diminished in upper lungs. Abdomen: Bowel normoactive X 4; Nontender to palpation Extremities: Warm. No edema present Neuro: No focal weakness Skin: No rash Results & Data Vital Signs (Past 12 Hours) Vital Signs Temp Pulse Pulse Pulse Resp BP Pulse Ox 11/12/18 08:35 75 11/12/18 07:19 36.4 C L 74 19 135/70 97 11/12/18 07:08 72 18 94 11/12/18 03:38 36.4 C L 70 16 123/69 99 11/12/18 03:03 55 L 20 98 Laboratory Results 11/12/18 11/12/18 11/12/18 Range/Units 07:18 06:57 06:57 WBC 11.87 H (4.8-10.8) K/uL RBC 3.20 L (4.7-6.1) M/uL Hgb 10.8 L (14.0-18.0) g/dL Hct 31.3 L (42-52) % MCV 97.8 (80-100) fL MCH 33.8 (25-34) pg MCHC 34.5 (32-36) g/dL RDW Std Deviation 51.2 H (36.4-46.3) fL RDW Coeff of Fernando 14.3 (11.5-14.5) % Plt Count 187 (130-400) K/uL MPV 9.5 (7.4-10.4) fL Sodium 137 (136-145) mmol/L Potassium 3.9 (3.5-5.1) mmol/L Chloride 92 L (98-107) mmol/L Carbon Dioxide 43 H* (21-32) mmol/L Anion Gap 1.0 L (3-11) BUN 43 H (7-18) mg/dl Creatinine 0.77 (0.6-1.4) mg/dl Est Cr Clr Drug Dosing 50.2 ml/min Est GFR ( Amer) 101.5 Est GFR (Non-Af Amer) 87.5 BUN/Creatinine Ratio 55.2 H (10-20) Glucose 86 (70-99) mg/dl POC Glucose 105 H (70-99) Calcium 9.5 (8.5-10.1) mg/dl 11/11/18 11/11/18 11/11/18 Range/Units 20:20 16:27 11:18 WBC (4.8-10.8) K/uL RBC (4.7-6.1) M/uL Hgb (14.0-18.0) g/dL Hct (42-52) % MCV (80-100) fL MCH (25-34) pg MCHC (32-36) g/dL RDW Std Deviation (36.4-46.3) fL RDW Coeff of Fernando (11.5-14.5) % Plt Count (130-400) K/uL MPV (7.4-10.4) fL Sodium (136-145) mmol/L Potassium (3.5-5.1) mmol/L Chloride (98-107) mmol/L Carbon Dioxide (21-32) mmol/L Anion Gap (3-11) BUN (7-18) mg/dl Creatinine (0.6-1.4) mg/dl Est Cr Clr Drug Dosing ml/min Est GFR ( Amer) Est GFR (Non-Af Amer) BUN/Creatinine Ratio (10-20) Glucose (70-99) mg/dl POC Glucose 184 H 194 H 146 H (70-99) Calcium (8.5-10.1) mg/dl PG Care Time/CCT Total # of Minutes Spent Total Time Spent with Patient: Total time spent is greater than 50% in coordination of care (as documented) at patient's floor/unit and/or counseling patient: (1) Hypertension Hypertension type: unspecified Qualified Code(s): I10 - Essential (primary) hypertension
[2018-11-12] MEDS ORDERED: MoRPHine SULFATE 5 MG/0.25 ML UDP PO PRN (15:36)
--- NOTE | 2018-11-12 15:51 | Palliative Care Consultation ---
Date of Consultation November 12, 2018 Assessment & Plan (1) Palliative care encounter: Patient is a 78-year-old male with a long-standing history of severe COPD- on 3 L O2 at home, bronchiectasis, nicotine dependent, ICM O-status post AICD who has had multiple admissions for increased shortness of breath. Patient was admitted on 11/05 for increased shortness of breath and hypoxia-sats were 85%, hemoglobin 10.8. Patient was placed on O2 at 6 L-sats 94% -has now been weaned to 3 L. Asked to see patient regarding goals of care. 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 Patient does report a 40 pound weight loss over the past 6 months despite a good appetite. Patient states he has Meals on Wheels at home and does have some help from a son who lives nearby. In discussing CODE STATUS patient would want resuscitation including intubation, he did name his son, Kanwal, as his healthcare surrogate-states Kanwal has paperwork stating such. Patient would would not want long-term aggressive treatment if he was in pain or uncomfortable. Patient has been agreeable to home health in the past, is not amenable to discussing hospice care. Patient had hospice when his was dying of cancer-stated that they were wonderful and did a great job but is not interested in having them assist with his care at home. Patient states he would consider hospice "down the road". Patient's admission chest x-ray was negative for evidence of pneumonia, CT scan done on 10/04 showed severe emphysema with mucous plugging and mild bronchiectasis. Patient states he uses neb treatments at home and is followed by pulmonology, Dr. Loving. Spoke with patient's son-son aware of patient's wishes, had multiple discussions when patient's was dying of cancer. Son states he does have the medical [facility] power of civil rights attorney paperwork. Patient does have an electric scooter to get around in his home. Does have family home support. Patient has 4 children-2 sons live locally, he has a daughter and a son that lives in [place]. He has been now for approximately 5 years. -CODE STATUS and goals of care-patient wishes to remain a full code, is amenable to resuscitation and intubation. Would not want prolonged treatment if he was in pain or discomfort. Patient names his son, Kanwal, as his healthcare surrogate. [phone]. Son aware of patient's wishes -End-stage COPD-continue neb treatments and prednisone as per pulmonology. Will offer patient outpatient follow-up after discharge in the palliative care clinic. Will start Roxanol 5 mg every 4 hours as needed for dyspnea. -Chronic hypoxic respiratory failure-patient on 3 L O2 at home, was recently ranged to his home level of O2 -Protein calorie malnutrition-patient states he has a good appetite and receives Meals on Wheels-however has lost 40 pounds in the last 6 months. Patient may benefit from dietary supplements -Nicotine dependence-patient is adamant about not discussing cessation -Bronchiectasis-patient states Mucinex not helpful, continues nebs at home, further plans per pulmonology -ICM O-echo on 10/05 showed mild concentric LVH-severe hypokinesis in the septal/inferior/anteroseptal areas, EF 40 to 45%. 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 Patient was admitted on 11/05 for increased shortness of breath and hypoxia-sats were 85%, hemoglobin 10.8. Patient was placed on O2 at 6 L-sats 94% -has now been weaned to 3 L. Asked to see patient regarding goals of care. 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 Patient does report a 40 pound weight loss over the past 6 months despite a good appetite. Patient states he has Meals on Wheels at home and does have some help from a son who lives nearby. In discussing CODE STATUS patient would want resuscitation including intubation, he did name his son, Kanwal, as his healthcare surrogate-states Kanwal has paperwork stating such. Patient would would not want long-term aggressive treatment if he was in pain or uncomfortable. Patient has been agreeable to home health in the past, is not amenable to discussing hospice care. Patient had hospice when his was dying of cancer-stated that they were wonderful and did a great job but is not interested in having them assist with his care at home. Patient states he would consider hospice "down the road". Patient's admission chest x-ray was negative for evidence of pneumonia, CT scan done on 10/04 showed severe emphysema with mucous plugging and mild bronchiectasis. Patient states he uses neb treatments at home and is followed by pulmonology, Dr. Loving. Spoke with patient's son-son aware of patient's wishes, had multiple discussions when patient's was dying of cancer. Son states he does have the medical [facility] power of civil rights attorney paperwork. Allergies Allergy/AdvReac Type Severity Reaction Status Date / Time No Known Allergies Allergy Verified 11/05/18 09:28 Home Medications Home Medications Medication Instructions Recorded Confirmed Type aspirin [Aspir-81] 81 mg PO QAM 04/20/18 11/05/18 History albuterol sulfate HFA 90 2 puff INHALATION Q4 PRN #18 gm 09/11/18 11/05/18 Rx mcg/actuation aerosol inhaler ipratropium 20 mcg-albuterol 100 1 puff INHALATION QID #4 gm 09/11/18 11/05/18 Rx mcg/actuation mist for inhalation atorvastatin 80 mg PO HS 10/04/18 11/05/18 History bumetanide 1 mg PO QAM #30 tab 10/09/18 11/05/18 Rx fluticasone propion-salmeterol 1 inh INHALATION BID 10/22/18 11/05/18 History [Advair Diskus] lisinopril 10 mg PO QAM 11/05/18 11/05/18 History metoprolol succinate 75 mg PO DAILY@1800 11/05/18 11/08/18 History ipratropium bromide 0.03 % nasal 2 spray INTRANASAL TID PRN ml 11/08/18 11/08/18 History spray ipratropium-albuterol 0.5 mg-3 3 ml INH QID PRN 11/08/18 History mg(2.5 mg base)/3 mL nebulization soln Patient History Medical History Chronic obstructive pulmonary disease (Acute) Dependence on supplemental oxygen (Acute) 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 (Acute) Hearing loss (Acute) History of tobacco use (Acute) History of abdominal aortic aneurysm (AAA) (Acute) Hypothyroidism (Acute) Ischemic cardiomyopathy (Acute) Multiple lung nodules on CT (Acute) PAD (peripheral artery disease) (Acute) Pulmonary emphysema (Acute) Vitamin D deficiency disease (Acute) CAD (coronary artery disease) HLD (hyperlipidemia) Elevated brain natriuretic peptide (BNP) level (Acute) Chronic kidney disease, stage 3 (Acute) Hypoxia (Acute) Hypertension GERD (gastroesophageal reflux disease) Edema Bowel obstruction (Resolved) Pacemaker (Chronic) Internal hernia (Acute) History of heart attack (Chronic) Abdominal pain (Resolved) Abdominal pain (Resolved) Bowel obstruction (Resolved) Bronchitis (Resolved) Bronchitis (Resolved) COPD exacerbation (Resolved) Elevated troponin I level (Resolved) Elevation of cardiac enzymes (Resolved) Elevation of cardiac enzymes (Resolved) HCAP (healthcare-associated pneumonia) (Resolved) Ileus (Resolved) Ileus (Resolved) Impacted cerumen of both ears (Resolved) SBO (small bowel obstruction) (Resolved) Small bowel obstruction (Resolved) Small bowel obstruction (Resolved) Pneumonia Surgical History H/O hand surgery S/P aneurysm repair S/P aortic bifurcation bypass graft S/P small bowel resection Family History Mother Acute myocardial infarction Hypertension Heart disease Father Hypertension Heart disease Myocardial infarction Other Colon cancer Social History Preferred Language: Citizen Of [place] Communication Ability: Effective 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 Required: No Beliefs That Will Affect Care: None marital status: / Current Living Situation: Alone Feels Safe at Home: Yes Smoking Status: Current every day smoker Tobacco Type: cigarettes ; Cigarettes Per Day: 10 ; Second Hand Exposure: No ; Hx Alcohol Use: No Hx Substance Use: No Review of Systems Constitutional: + weight loss 40 pounds in the last 6 months Eyes: + corrective lenses Ear, Nose, Mouth, Throat: Mild [place] Respiratory: + cough, + dyspnea and + sputum production Cardiovascular: + dyspnea on exertion; no edema Gastrointestinal: no problem reported Musculoskeletal: + muscle atrophy Integumentary: no problem reported Neurologic: + generalized weakness Physical Exam Constitutional: Patient appears thin and frail Eyes: EOM intact bilaterally ENMT: [place] Neck: Supple Respiratory: Diminished breath sounds bilaterally, productive cough Cardiovascular: Regular rate, no edema Gastrointestinal (Abdomen): Soft, nondistended, nontender Musculoskeletal: Positive muscle atrophy Skin: No rashes Neurologic: Alert and oriented Results & Data Vital Signs (Past 12 Hours) Vital Signs Temp Pulse Pulse Pulse Resp BP Pulse Ox 11/12/18 15:12 76 19 95 11/12/18 11:12 97.5 F L 79 19 109/62 94 11/12/18 11:02 78 20 91 11/12/18 08:35 75 11/12/18 07:19 97.5 F L 74 19 135/70 97 11/12/18 07:08 72 18 94 PG Care Time/CCT Total # of Minutes Spent Total Time Spent with Patient: Total time spent is greater than 50% in coordination of care (as documented) at patient's floor/unit and/or counseling patient: Time Spent Attending Total time spent 70 minutes with greater than 50% of the time spent at bedside discussing patient's goals of care as well as hospice. Patient amenable to a trial of Roxanol as needed for shortness of breath. Will continue to follow and assist patient and family with medical decision making
[2018-11-12] MEDS: METOPROLOL SUCC 50MG EXT REL TAB PO SCH (17:00)
[2018-11-12] MEDS: ATORVASTATIN 40 MG TAB PO SCH (20:33)
[2018-11-13] MEDS: ALBUT/IPRATROP 3MG/0.5MG NEB 3 ML VIAL NEB SCH ×4 (03:05→15:42)
[2018-11-13 06:30] LABS: Hematocrit (blood only) 31.5 % (42-52); Hemoglobin 10.6 g/dL (14.0-18.0); Mean Corpuscular Hemoglobin 32.6 pg (25-34); Mean Corpuscular Hgb Conc 33.7 g/dL (32-36); Mean Corpuscular Volume 96.9 fL (80-100); Mean Platelet Volume 9.4 fL (7.4-10.4); Platelet Count 176 K/uL (130-400); RDW Coefficient of Variation 14.2 % (11.5-14.5); RDW Standard Deviation 50.6 fL (36.4-46.3); Red Blood Count 3.25 M/uL (4.7-6.1); White Blood Count 11.09 K/uL (4.8-10.8)
[2018-11-13] MEDS: FORMOTEROL 20 MCG/2 ML VIAL NEB SCH (07:03)
[2018-11-13] MEDS: BUDESONIDE 0.5 MG/2 ML VIAL (PULMICORT) NEB SCH (07:03)
[2018-11-13 07:26] LABS: BUN Creatinine Ratio 54.5 (10-20); Calcium 9.3 mg/dl (8.5-10.1); Creatinine Clr Calc Pharmacy 50.1 ml/min; Est GFR (African American) 100.9; Est GFR (Non-African American) 87.1; Potassium 3.5 mmol/L (3.5-5.1)
[2018-11-13] MEDS: INSULIN ASPART 100 UNITS/ML 3 ML PEN SC SCH ×2 (07:58→11:56)
[2018-11-13] MEDS: predniSONE 20 MG TAB PO SCH (08:00)
[2018-11-13] MEDS: BUMETANIDE 1 MG TAB PO SCH (08:00)
[2018-11-13] MEDS: ASPIRIN 81 MG ECTAB PO SCH (08:00)
[2018-11-13] MEDS: LISINOPRIL 10 MG TAB PO SCH (08:01)
[2018-11-13] MEDS: ENOXAPARIN INJ 30 MG/0.3 ML SYR SQ SCH (08:01)
[2018-11-13 15:34] VITALS: PULSE 85; TEMP 97.3
[2018-11-13 15:45] VITALS: O2SAT 92
[2018-11-13 16:43] VITALS: BP 126/55
--- NOTE | 2018-11-13 17:20 | Palliative Care Progress Note ---
Date of Service November 13, 2018 Assessment & Plan (1) Palliative care encounter: Patient is a 78-year-old male with a long-standing history of severe COPD- on 3 L O2 at home, bronchiectasis, nicotine dependent, ICM O-status post AICD who has had multiple admissions for increased shortness of breath. Patient was admitted on 11/05 for increased shortness of breath and hypoxia-sats were 85%, hemoglobin 10.8. Patient was placed on O2 at 6 L-sats 94% -has now been weaned to 3 L. Asked to see patient regarding goals of care. 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 Patient does report a 40 pound weight loss over the past 6 months despite a good appetite. Patient states he has Meals on Wheels at home and does have some help from a son who lives nearby. In discussing CODE STATUS patient would want resuscitation including intubation, he did name his son, Kanwal, as his healthcare surrogate-states Kanwal has paperwork stating such. Patient would would not want long-term aggressive treatment if he was in pain or uncomfortable. Patient has been agreeable to home health in the past, is not amenable to discussing hospice care. Patient had hospice when his was dying of cancer-stated that they were wonderful and did a great job but is not interested in having them assist with his care at home. Patient states he would consider hospice "down the road". Patient's admission chest x-ray was negative for evidence of pneumonia, CT scan done on 10/04 showed severe emphysema with mucous plugging and mild bronchiectasis. Patient states he uses neb treatments at home and is followed by pulmonology, Dr. Loving. Spoke with patient's son and [id number] at bedside, they are aware of patient's wishes, had multiple discussions when patient's was dying of cancer. Son states he does have the medical healthcare power of assistant attorney general paperwork. Patient does have an electric scooter to get around in his home. Does have family home support. Patient has 4 children-2 sons live locally, he has a daughter and a son that lives in [place]. He has been now for approximately 5 years. -CODE STATUS and goals of care-patient wishes to remain a full code, is amenable to resuscitation and intubation. Would not want prolonged treatment if he was in pain or discomfort. Patient names his son, Kanwal, as his healthcare surrogate. [phone]. Son aware of patient's wishes -End-stage COPD-continue neb treatments and prednisone as per pulmonology. Will offer patient outpatient follow-up after discharge in the palliative care clinic. started Roxanol 5 mg every 4 hours as needed for dyspnea. -Chronic hypoxic respiratory failure-patient on 3 L O2 at home, was recently ranged to his home level of O2 -Protein calorie malnutrition-patient states he has a good appetite and rec eives Meals on Wheels-however has lost 40 pounds in the last 6 months. Patient may benefit from dietary supplements -Nicotine dependence-patient is adamant about not discussing cessation -Bronchiectasis-patient states Mucinex not helpful, continues nebs at home, further plans per pulmonology -[facility] O-echo on 10/05 showed mild concentric LVH-severe hypokinesis in the septal/inferior/anteroseptal areas, EF 40 to 45%. Status post AICD Patient given information number to call if he wishes to have follow-up in the palliative outpatient clinic. 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 Patient anxious to be discharged home today. Patient's son, [id number] and granddaughter at bedside. Reviewed patient's current condition as well as his goals of care. Gave family information for outpatient palliative clinic if they wish, also discussed at what point to initiate hospice. Patient states he tried a single dose of 5 mg Roxanol-he did not feel that it helped with his shortness of breath, he is amenable to trying higher dose. Family aware of patient's current respiratory status and his wish to continue smoking, aware that he will continue to decline. Discussed that when hospitalization is known more beneficial that hospice referral would be beneficial. Review of Systems Review of Systems: Denies fever, chills, chest pain, increased shortness of breath, or abdominal pain Physical Exam Physical Exam: PE: Awake and alert, denies increased shortness of breath HEENT: EOMI, hearing within normal limits Respirations: Work of breathing at baseline, diminished air movement, on O2 at 3 L nasal cannula which is his home right CV: Regular rate, no edema Abdomen: Not distended Neuro: Alert and oriented, generalized weakness Results & Data Vital Signs (Past 12 Hours) Vital Signs Temp Pulse Pulse Pulse Resp BP BP 11/13/18 16:13 97.3 F L 85 84 85 18 107/58 L 126/55 L 11/13/18 15:43 85 18 11/13/18 15:32 97.3 F L 85 18 107/58 L 11/13/18 11:48 98.6 F 82 22 99/56 L 11/13/18 11:18 82 16 11/13/18 07:25 97.5 F L 73 22 109/58 L 11/13/18 07:05 86 16 Pulse Ox 11/13/18 16:13 92 11/13/18 15:43 92 11/13/18 15:32 91 11/13/18 11:48 94 11/13/18 11:18 90 11/13/18 07:25 94 11/13/18 07:05 94 PG Care Time/CCT Total # of Minutes Spent Total Time Spent with Patient: Total time spent is greater than 50% in coordination of care (as documented) at patient's floor/unit and/or counseling patient: Time Spent Attending Total time spent 35 minutes with greater than 50% of the time spent at bedside discussing patient's current status as well as treatment options.
--- NOTE | 2018-11-13 17:32 | Discharge Summary ---
Date of Service November 13, 2018 Admission HPI Per Admitting Provider Mr. Jasmine presents today for sob beginning at about 0300 this morning. He denies chest pain at this time though does say he has occasional shooting chest pains. He has a cough that is non productive. He is wearing his baseline 3L NC home O2. No fevers. Admission Exam Per Admitting Provider General: no distress Eyes: normal inspection, PERLL Respiratory: chest non tender, coarse bases bilaterally, upper lung leone with expiratory wheezes, no accessory muscle use Cardiac: regular rate and rhythm, no rub or gallop, no murmur, +2 pitting edema lower extremities GI/: active bowel sounds, no abd pain or tenderness, soft, non distended, reducible ventral hernia Extremities: normal range of motion, normal strength, non tender Neuro:oriented x 3, moves all extremities Psych: alert, normal mood and affect Skin: normal color, dry Principal Diagnosis COPD Exacerbation Discharge Exam General: Chronically ill appearing male. HEENT: NC/AT; PERRLA with EOMI; [place] conjunctiva, MMM. No erythema of posterior pharynx Neck: Supple and nontender Cardiac: RRR Lungs: on 3L via NC; coarse breath sounds in bilat lower lung bases. Abdomen: Bowel normoactive X 4; Nontender to palpation Extremities: Warm. No edema present Neuro: No focal weakness Skin: No rash Discharge Data Allergies Allergy/AdvReac Type Severity Reaction Status Date / Time No Known Allergies Allergy Verified 11/05/18 09:28 Consultations 11/05/18 10:50 ED Decision to Admit Stat 11/05/18 12:53 Consult Case Management - Discharge Planning Routine 11/10/18 13:49 Consult Pulmonology Routine 11/11/18 11:34 Consult Palliative Care Routine Ordered Studies CXR 11/05, 11/06 and 11/08 Hospital Course (1) Chronic obstructive pulmonary disease: Acute exacerbation noted; has had very minimal improvement during this admission, has end stage COPD. CXR without consolidation concerning for PNA. Completed Azithromycin x 3 days. Converted Solu-medrol to Prednisone 60 mg PO daily, taper as outpatient. Duoneb q4hr, Performist BID, Pulmicort BID all scheduled as inpt; continued home Advair as prescribed. ABG showed compensated resp acidosis -- is chronic CO2 retainer, noted on daily BMP. Consulted pulmonology. Will need to f/u closely with Dr. Loving as outpt. Continue Duonebs q6hrWA at home; also added new LAMA agent per pulm recs. Consider AFB smear but it is questionable if pt. will be compliant with lengthy treatment if he were positive. Palliative care consulted - will remain full code. Morphine oral solution q6hr prn was added for SOB. (2) Elevated troponin: Troponin peaked at 0.09, likely demand ischemia. No cardiac symptoms present. Continued home aspirin, statin and beta jackelin as prescribed. (3) Chronic hypoxemic respiratory failure: Chronically wears 3L via NC -- on baseline requirements. Chronic hypercapnia and hypoxia in setting of end stage COPD. (4) Chronic systolic heart failure: Chronic systolic HF; most recent echo in September 2018 with EF 40-45%, mild LVH. BNP increased to 16,000 during this admission -- diuresed with Bumex IV but developed increased bicarb and thirst. Currently appears well compensated. Continued home Bumex, Metoprolol and ACEI as prescribed. No pulm congestion was noted on chest imaging. Pt. does not wish to follow with the HF clinic at this time. (5) Ischemic cardiomyopathy: Most recent TTE in September 2018 showed reduced EF and wall motion abnormali ties. Continued home meds as prescribed. (6) HLD (hyperlipidemia): Continued statin as prescribed. (7) CAD (coronary artery disease): Continued statin, beta jackelin and aspirin as prescribed. (8) History of tobacco use: Tobacco cessation has been encouraged during this admission but pt. does not plan on quitting/would not like to discuss this subject again. (9) Hypertension: Continued Metoprolol, Bumex and Lisinopril as prescribed. BP was borderline low on day of admission -- recommend to monitor as outpt. He was asymptomatic. (10) Severe protein-calorie malnutrition: Albumin 2.9 in setting of end stage COPD. Nutrition consulted; encourage boost supplement with meals. (11) DVT prophylaxis: SCDs; Lovenox daily. Discharged to home on 11/13/18. 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 Bond's office with her associate, Sarah VAZQUEZ, on MondayNovember 19 at 11:30 am. *If you need to change this appointment, call their office at [phone].) Asad Loving DO [Physician] - 11/23/18 11:15 am (Please, follow up at [facility] Pulmonology Office with Dr. Loving's associate, Delvis Little PA-C, on MondayNovember 23 at 11:15 am. *If you need to change this appointment, call their office at [phone].) Diet: Carb Consistent or DM2 Addtl Attending Provider Instructions: 1. COPD * Please take Prednisone taper as follows: - Prednisone 50 mg daily (2.5 tablets) on Tuesday 11/14 and 11/15. - Prednisone 40 mg daily (2 tablets) on Thursday 11/16 and Friday 11/17. - Prednisone 30 mg daily (1.5 tablets) on Saturday 11/18 and Sunday 11/19. - Prednisone 20 mg daily (1 tablet) on Monday 11/20 and Tuesday 11/21. - Prednisone 10 mg daily (0.5 tablet) on 11/22 then discontinue. * Continue Duoneb nebulizer treatments every 4-6 hours while awake. * Continue home Advair as prescribed. * A new medication has been started - Yupelri; this is a nebulizer that should be administered once daily. Discontinue Combivent use at home. * A prescription was also provided for Morphine oral solution -- you can take this medication (5 mL) every 6 hours as needed for shortness of breath. * You will need to follow up with pulmonology in 2-3 weeks to discuss this admission. 2. Please follow up with primary care provider as scheduled on 11/13/18. Pending Studies at Discharge: No Stand-Alone Forms: My [facility] Medications and DC Order Prescriptions: New Yupelri 175 mcg/3 mL solution for nebulization 175 mcg INH DAILY Qty: 90 RF: 0 prednisone 20 mg Tablet 50 mg PO DAILY Qty: 15 RF: 0 Continued albuterol sulfate 90 mcg/actuation HFA aerosol inhaler 2 puff inhalation Q4 PRN (Reason: Shortness Of Breath Or Wheezing) Qty: 18 RF: 5 ipratropium-albuterol 0.5 mg-3 mg(2.5 mg base)/3 mL solution for nebulization 3 ml INH QID PRNRF: 0 aspirin [Aspir-81] 81 mg Tablet,Delayed Release (Dr/Ec) 81 mg PO QAM RF: 0 fluticasone propion-salmeterol [Advair Diskus] 500-50 mcg/dose Blister With Device 1 inh INHALATION BID RF: 0 ipratropium bromide 0.03 % spray,non-aerosol 2 spray INTRANASAL TID PRNRF: 0 metoprolol succinate 50 mg tablet extended release 24 hr 75 mg PO DAILY@1800 RF: 0 lisinopril 10 mg tablet 10 mg PO QAM RF: 0 atorvastatin 80 mg tablet 80 mg PO HS RF: 0 bumetanide 1 mg Tablet 1 mg PO QAM Qty: 30 RF: 0 Discontinued Combivent Respimat 20-100 mcg/actuation mist 1 puff INHALATION QID Qty: 4 RF: 5 Discharge Orders: Discharge Order (Routine); Ordered 11/13/18 Ordered By: Marika Scott Admission Data Admit Date/Time: 11/07/18 12:08 Attending Provider: Mitch Rivas Admit Provider: Xavier Aguilera Primary Care Provider: Caroline Ruggiero V. Other Providers: Xavier Aguilrea ; Nicola Cleary ; Chantell Francisco Other Interventions: Discharge Summary Assessment (RN) Last Done: 11/13/18 16:13 DC Date/Time DO NOT enter until pt leaves facility: 11/13/18 18:03 Supervising Physician Co-Signing Physician Notes Chart reviewed, case discussed with Marika TRONCOSO. Agree with decision making and plan. Care as above.
== END 2018-11-13 18:03 | disposition home health service (06) | DRG 190 ==
LOC: 2S 08:45 → ED 08:45 → 2S 12:17 → SUATTDRO 11-07 12:08
DX: Z99.81 Dependence on supplemental oxygen; K21.9 Gastro-esophageal reflux disease without esophagitis; E78.5 Hyperlipidemia, unspecified; J96.12 Chronic respiratory failure with hypercapnia; J96.11 Chronic respiratory failure with hypoxia; N18.3 Chronic kidney disease, stage 3 (moderate); I25.10 Atherosclerotic heart disease of native coronary artery without angina pectoris; Z68.1 Body mass index [BMI] 19.9 or less, adult; Z51.5 Encounter for palliative care; I13.0 Hypertensive heart and chronic kidney disease with heart failure and stage 1 through stage 4 chronic kidney disease, or unspecified chronic kidney disease; Z79.52 Long term (current) use of systemic steroids; J44.1 Chronic obstructive pulmonary disease with (acute) exacerbation; F17.210 Nicotine dependence, cigarettes, uncomplicated; I25.5 Ischemic cardiomyopathy; I50.22 Chronic systolic (congestive) heart failure; E43 Unspecified severe protein-calorie malnutrition; Z79.899 Other long term (current) drug therapy; Z79.82 Long term (current) use of aspirin

== ENCOUNTER 2018-11-14 19:27 | Inpatient (IN) ==
[2018-11-14] MEDS ORDERED: SODIUM CHLORIDE 0.9% 1000ML 500 ML IV ONE (20:09)
[2018-11-14 20:14] LABS: Basophils # (auto) 0.01 K/uL (0-0.2); Basophils % (auto) 0.1 %; Eosinophils # (auto) 0.07 K/uL (0-0.5); Eosinophils % (auto) 0.5 %; Hematocrit (blood only) 33.9 % (42-52); Hemoglobin 11.2 g/dL (14.0-18.0); Immature Granulocytes # (auto) 0.12 K/uL (0.00-0.02); Immature Granulocytes % (auto) 0.9 %; Lymphocytes # (auto) 0.78 K/uL (1.2-3.4); Mean Corpuscular Hemoglobin 32.4 pg (25-34); Mean Platelet Volume 10.3 fL (7.4-10.4); Monocytes # (auto) 0.85 K/uL (0.11-0.59); Monocytes % (auto) 6.6 %; Neutrophils % (auto) 85.9 %; Platelet Count 215 K/uL (130-400); RDW Coefficient of Variation 14.5 % (11.5-14.5); RDW Standard Deviation 51.9 fL (36.4-46.3); Red Blood Count 3.46 M/uL (4.7-6.1); White Blood Count 12.93 K/uL (4.8-10.8)
--- NOTE | 2018-11-14 20:16 | XRay Report ---
XR chest 1V portable CLINICAL HISTORY: 78 years-old Male presenting with difficulty speaking. TECHNIQUE: Portable upright AP view of the chest was obtained. COMPARISON: 11/08/2018. FINDINGS: Left subclavian implanted cardiac defibrillator with leads to the right atrium and right ventricular apex. Atherosclerosis of the aortic arch. Cardiac silhouette mildly enlarged. Lungs are hyperinflated . No focal opacity. No pleural effusion or pneumothorax. Osseous structures normal. IMPRESSION: 1. Findings suggest emphysema. No focal infiltrate to suggest pneumonia. 2. Mild cardiomegaly. Electronically signed by: Thony Moreno M.D. 11/14/2018 8:15 PM
[2018-11-14 20:25] LABS: Partial Thromboplastin Ratio 0.8; Partial Thromboplastin Time 21.1 Seconds (21.0-31.0); Prothrombin Time 10.6 Seconds (9.0-12.0)
[2018-11-14 20:40] LABS: Albumin Level 2.8 gm/dl (3.4-5.0); BUN Creatinine Ratio 41.8 (10-20); Bilirubin,Total 0.5 mg/dl (0.2-1); Calcium 9.1 mg/dl (8.5-10.1); Creatinine Clr Calc Pharmacy 34.5 ml/min; Est GFR (African American) 64.6; Est GFR (Non-African American) 55.7; Magnesium 2.1 mg/dl (1.8-2.4); Total Protein 5.7 gm/dl (6.4-8.2)
[2018-11-14 20:49] LABS: Potassium 4.4 mmol/L (3.5-5.1)
[2018-11-14 21:00] LABS: Troponin I 0.125 ng/ml (0-0.045)
--- NOTE | 2018-11-14 21:18 | CT Scan Report ---
CT head/brain wo con CLINICAL HISTORY: 78 years-old Male presenting with difficulty speaking. TECHNIQUE: Multidetector CT imaging of the head was performed without the use of intravenous contrast . IV contrast: None. One or more dose lowering techniques were used consistent with the principles of ALARA (as low as reasonably achievable), including automatic exposure control, mA or kV adjustment t o individual patient size, and/or use of iterative reconstruction. COMPARISON: None. CT DOSE (mGy.cm): The estimated cumulative dose is 537.48 mGy.cm. 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 Proportional ventricular and sulcal prominence, likely age-related parenchymal volume loss. No hemorr ashish. Periventricular and subcortical white matter hypoattenuation, nonspecific but likely indicative of chronic small vessel ischemic change. Hyperattenuation of the left parietal occipital region with out exvacuodilatation of the adjacent lateral ventricle or demonstrable sulcal enlargement. Given the degree of hypoattenuation, this could represent a subacute to chronic infarct. No acute territorial infarct. No mass effect or midline shift. No extra-axial fluid collection. Paranasal sinuses and mast oid air cells clear. Calvarium intact. IMPRESSION: 1. 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 Difficulty in gating this relat es to the lack of significant associated atrophy to firmly suggest chronicity. 2. Chronic small vessel ischemic change. Electronically signed by: Thony Moreno M.D. 11/14/2018 9:17 PM
[2018-11-14] MEDS ORDERED: ASPIRIN CHEW 324 MG PO STA (21:31)
[2018-11-14] MEDS ORDERED: SODIUM CHLORIDE 0.9% 1000ML 1,000 ML IV SCH ×2 (21:45→23:55)
--- NOTE | 2018-11-14 22:44 | History & Physical Report ---
Date of Service November 14, 2018 Assessment & Plan (1) Stroke: Patient found with subacute to chronic infarct in the left parieto- occipital region. Clinically he is displaying right facial droop, dysarthria, some expressive aphasia and family reports mild confusion. -Observation to PCU -Neurochecks per protocol -Patient will be unable to obtain MRI as he has an AICD in place as well as metal pins in his legs from a prior accident -Check 2D echo -Check lipids and A1c for risk stratification -Hold antihypertensive agents to allow for permissive hypertension -We will change aspirin to Plavix 75 mg p.o. daily -Continue high intensity statin, patient was on this at home prior to arrival -Encourage smoking cessation although broaching the subject intensely irritates the patient. Did warn patient of the dangers of smoking while using his oxygen. -Neurology consult appreciated Present on Admission?: Yes (2) Elevated troponin: Patient with chronically elevated troponin. He denies chest pain, palp itations, dizziness -Obtain EKG -Troponin in the a.m. -Initiate Plavix 75 mg p.o. daily as above -Continue high intensity statin -Holding lisinopril, metoprolol for now to allow for permissive hypertension Present on Admission?: Yes (3) Chronic systolic heart failure: Patient appears to be well compensated at this time if not slightly volume deplete. -Will hold Bumex for now -Gentle IV fluids, normal saline at 75 mL/h x 1 L -Closely monitor volume status Present on Admission?: Yes (4) End stage COPD: Patient with end-stage oxygen dependent COPD, 3 L at home. Evidence of chronic CO2 retention on labs. Presently he is breathing comfortably, denies shortness of breath or worsening of cough or sputum. Chest x-ray displays emphysema with no evidence of pneumonia or overload. -We will administer Solu-Medrol 10 mg IV x1 dose upon arrival to the floor. Patient was discharged on steroid taper yesterday but was unable to take his dose yet -DuoNeb every 4 hours -Albuterol as needed -Continue Advair and revefenacin -Continue p.o. steroid Present on Admission?: Yes (5) Hypothyroidism: Check TSH. Patient presently not on medication Present on Admission?: Yes (6) CAD (coronary artery disease): Chronic, seemingly stable. -Check EKG as above -Plavix, statin -Holding lisinopril and metoprolol for now to allow for permissive hypertension. Will resume prior to discharge Present on Admission?: Yes (7) HLD (hyperlipidemia): Chronic. -Continue statin Present on Admission?: Yes (8) Hypertension: Hypotension on arrival, now resolved with IV fluids -Continue gentle IV fluid -Hold antihypertensive agents for now -Closely monitor blood pressure Present on Admission?: Yes (9) GERD (gastroesophageal reflux disease): Chronic. Stable FENnormal saline at 75 mL/h, monitor electrolytes and replete as needed, n.p.o. for now as patient with facial droop and dysarthria. Will require formal swallow evaluation in the morning prior to advancing diet and give it p.o. meds ProphylaxisSCDs Codefull. Patient was evaluated by the palliative care team during last visit. He defers resuscitation status questions to his son and JESUS Schofield ([phone]). Present on Admission?: Yes History of Present Illness Chief Complaint: Stroke Primary Care Provider: Caroline Oconnell MD Thony Jasmine is a 78-year-old male with multiple medical problems to include end-stage oxygen dependent COPD, CAD status post NC with ischemic cardiomyopathy EF 40 to 45%, AICD in place, hypertension, hyperlipidemia, CKD. Patient was recently admitted from 11/05 through 11/13 for suspected COPD ex acerbation. He was treated with nebs, steroids, azithromycin LAMA agent added to regimen per request of pulmonology. Patient was discharged home in stable condition yesterday. Family at bedside states that he had been doing well at home. He was ambulating without difficulty, conversive and in his usual state of health. This evening at 18:30 he developed dysarthria, slurred speech with word finding issues as well as a right facial droop and "acting strange". Upon arrival to the ER he was hypotensive at 78/35, tachypneic at 28 breaths/min with adequate saturation on room air. Blood pressure improved with administration of IV fluids, presently 103/73. Patient is quiet during exam and does not freely answer questions. He recognizes that he is unable to speak and is frustrated with that. No additional complaints at this time ER course: Aspirin 324 mg p.o., normal saline 500 mL bolus now at 80 mL/h maintenance Allergies Allergy/AdvReac Type Severity Reaction Status Date / Time No Known Allergies Allergy Verified 11/14/18 21:58 Home Medications Home Medications Medication Instructions Recorded Confirmed Type aspirin [Aspir-81] 81 mg PO QAM 04/20/18 11/14/18 History atorvastatin 80 mg PO HS 10/04/18 11/14/18 History bumetanide 1 mg PO QAM #30 tab 10/09/18 11/14/18 Rx fluticasone propion-salmeterol 1 inh INHALATION BID 10/22/18 11/14/18 History [Advair Diskus] lisinopril 10 mg PO QAM 11/05/18 11/14/18 History metoprolol succinate 75 mg PO DAILY@1800 11/05/18 11/14/18 History ipratropium bromide 0.03 % nasal 2 spray INTRANASAL TID PRN ml 11/08/18 11/14/18 History spray ipratropium-albuterol 0.5 mg-3 3 ml INH QID PRN 11/08/18 11/14/18 History mg(2.5 mg base)/3 mL nebulization soln prednisone 50 mg PO DAILY #15 tab 11/13/18 11/14/18 Rx revefenacin [Yupelri] 175 mcg INH DAILY #90 ml 11/13/18 11/14/18 Rx albuterol sulfate 2 puff INHALATION Q4H PRN 11/14/18 11/14/18 History Past Med/Surg History Medical History Chronic obstructive pulmonary disease (Acute) Dependence on supplemental oxygen (Acute) 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 (Acute) Hearing loss (Acute) History of tobacco use (Acute) History of abdominal aortic aneurysm (AAA) (Acute) Hypothyroidism (Acute) Ischemic cardiomyopathy (Acute) Multiple lung nodules on CT (Acute) PAD (peripheral artery disease) (Acute) Vitamin D deficiency disease (Acute) CAD (coronary artery disease) HLD (hyperlipidemia) Elevated brain natriuretic peptide (BNP) level (Acute) Chronic kidney disease, stage 3 (Acute) Hypoxia (Acute) Hypertension GERD (gastroesophageal reflux disease) Edema Bowel obstruction (Resolved) Pacemaker (Chronic) Internal hernia (Acute) History of heart attack (Chronic) Abdominal pain (Resolved) Abdominal pain (Resolved) Bowel obstruction (Resolved) Bronchitis (Resolved) Bronchitis (Resolved) COPD exacerbation (Resolved) Elevated troponin I level (Resolved) Elevation of cardiac enzymes (Resolved) Elevation of cardiac enzymes (Resolved) HCAP (healthcare-associated pneumonia) (Resolved) Ileus (Resolved) Ileus (Resolved) Impacted cerumen of both ears (Resolved) SBO (small bowel obstruction) (Resolved) Small bowel obstruction (Resolved) Small bowel obstruction (Resolved) Pneumonia Surgical History H/O hand surgery S/P aneurysm repair S/P aortic bifurcation bypass graft S/P small bowel resection Family History Mother Acute myocardial infarction Hypertension Heart disease Father Hypertension Heart disease Myocardial infarction Other Colon cancer Social History Preferred Language: Macedonian Communication Ability: Effective 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 Beliefs That Will Affect Care: None marital status: / Current Living Situation: Alone Feels Safe at Home: Yes Smoking Status: Current every day smoker Tobacco Type: cigarettes ; Cigarettes Per Day: 10 ; Second Hand Exposure: No ; Hx Alcohol Use: No Hx Substance Use: No Review of Systems 2 Review of Systems: Patient denies additional complaints Physical Exam Physical Exam: General: Chronically ill-appearing male, cachectic, resting comfortably, NAD, AA&O x 4 Skin: Dry, cracked lips, no rashes HEENT: NC/AT, PERRL, EOMI, anicteric sclera, conjunctiva without injection, external ear normal to inspection and nontender, patient with hearing loss, nares patent, dry mucus membranes, poor dentition, no oropharyngeal lesions, neck supple, trachea midline, no LAD, no thyromegaly, no JVD Heart: Distant heart sounds, S1/S2 audible, mechanical sounds over ICD Lungs: Distant breath sounds bilaterally, no rales/rhonchi/wheezes Abd: +BS, soft, NT/ND, no organomegaly/ascites, abdominal hernia x2, soft and reducible Ext: warm, 2+ pulses in UE/LE bilaterally, no clubbing/cyanosis or edema, 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 Neuro: Patient awake alert and oriented x4, slow to answer with garbled speech and word finding difficulty, CN II - XII assessed, diminished sensation in V2, V3 distribution, +right facial droop, +hearing loss bilaterally, sensation to light touch intact, MS 5/5 in UE/LE bilaterally, no pronator drift, gait not assessed Results & Data Vital Signs (Past 12 Hours) Vital Signs Temp Pulse Pulse Resp BP BP BP 11/14/18 22:06 83 25 H 103/73 11/14/18 21:46 81 19 110/64 11/14/18 21:17 80 24 104/50 L 11/14/18 20:50 83 28 H 89/49 L 85/58 L 11/14/18 20:10 83 28 H 85/49 L 11/14/18 20:06 86 28 H 78/35 L 11/14/18 19:39 36.4 C L 87 19 105/50 L Pulse Ox 11/14/18 22:06 96 11/14/18 21:46 97 11/14/18 21:17 96 11/14/18 20:50 97 11/14/18 20:10 96 11/14/18 20:06 98 11/14/18 19:39 Laboratory Results Lab Results 11/14/18 11/14/18 11/14/18 Range/Units 19:40 19:40 19:40 WBC 12.93 H (4.8-10.8) K/uL RBC 3.46 L (4.7-6.1) M/uL Hgb 11.2 L (14.0-18.0) g/dL Hct 33.9 L (42-52) % MCV 98.0 (80-100) fL MCH 32.4 (25-34) pg MCHC 33.0 (32-36) g/dL RDW Std Deviation 51.9 H (36.4-46.3) fL RDW Coeff of Fernando 14.5 (11.5-14.5) % Plt Count 215 (130-400) K/uL MPV 10.3 (7.4-10.4) fL Immature Gran % (Auto) 0.9 % Neut % (Auto) 85.9 % Lymph % (Auto) 6.0 % [place] % (Auto) 6.6 % Eos % (Auto) 0.5 % Baso % (Auto) 0.1 % Immature Gran # (Auto) 0.12 H (0.00-0.02) K/uL Neut # (Auto) 11.10 H (1.4-6.5) K/uL Lymph # (Auto) 0.78 L (1.2-3.4) K/uL [place] # (Auto) 0.85 H (0.11-0.59) K/uL Eos # (Auto) 0.07 (0-0.5) K/uL Baso # (Auto) 0.01 (0-0.2) K/uL PT 10.6 (9.0-12.0) Seconds INR 1.0 (0.9-1.1) APTT 21.1 (21.0-31.0) Seconds PTT Ratio 0.8 Sodium 138 (136-145) mmol/L Potassium 4.4 D (3.5-5.1) mmol/L Chloride 93 L (98-107) mmol/L Carbon Dioxide 40 H (21-32) mmol/L Anion Gap 5.0 (3-11) BUN 52 H (7-18) mg/dl Creatinine 1.24 D (0.6-1.4) mg/dl Est Cr Clr Drug Dosing 34.5 ml/min Est GFR ( Amer) 64.6 Est GFR (Non-Af Amer) 55.7 BUN/Creatinine Ratio 41.8 H (10-20) Glucose 142 H (70-99) mg/dl Lactate (0.4-2.0) mmol/L Calcium 9.1 (8.5-10.1) mg/dl Magnesium 2.1 (1.8-2.4) mg/dl Total Bilirubin 0.5 (0.2-1) mg/dl Direct Bilirubin (0-0.2) mg/dl AST 38 H (15-37) U/L ALT 98 H (12-78) U/L Alkaline Phosphatase 75 (45-117) U/L Troponin I 0.125 H* (0-0.045) ng/ml NT-Pro-B Natriuret Pep 9297 H (0-1800) pg/ml Total Protein 5.7 L (6.4-8.2) gm/dl Albumin 2.8 L (3.4-5.0) gm/dl Specimen Hemolysis 11/14/18 Range/Units 20:29 WBC (4.8-10.8) K/uL RBC (4.7-6.1) M/uL Hgb (14.0-18.0) g/dL Hct (42-52) % MCV (80-100) fL MCH (25-34) pg MCHC (32-36) g/dL RDW Std Deviation (36.4-46.3) fL RDW Coeff of Fernando (11.5-14.5) % Plt Count (130-400) K/uL MPV (7.4-10.4) fL Immature Gran % (Auto) % Neut % (Auto) % Lymph % (Auto) % [place] % (Auto) % Eos % (Auto) % Baso % (Auto) % Immature Gran # (Auto) (0.00-0.02) K/uL Neut # (Auto) (1.4-6.5) K/uL Lymph # (Auto) (1.2-3.4) K/uL [place] # (Auto) (0.11-0.59) K/uL Eos # (Auto) (0-0.5) K/uL Baso # (Auto) (0-0.2) K/uL PT (9.0-12.0) Seconds INR (0.9-1.1) APTT (21.0-31.0) Seconds PTT Ratio Sodium (136-145) mmol/L Potassium (3.5-5.1) mmol/L Chloride (98-107) mmol/L Carbon Dioxide (21-32) mmol/L Anion Gap (3-11) BUN (7-18) mg/dl Creatinine (0.6-1.4) mg/dl Est Cr Clr Drug Dosing ml/min Est GFR ( Amer) Est GFR (Non-Af Amer) BUN/Creatinine Ratio (10-20) Glucose (70-99) mg/dl Lactate 1.5 (0.4-2.0) mmol/L Calcium (8.5-10.1) mg/dl Magnesium (1.8-2.4) mg/dl Total Bilirubin (0.2-1) mg/dl Direct Bilirubin (0-0.2) mg/dl AST (15-37) U/L ALT (12-78) U/L Alkaline Phosphatase (45-117) U/L Troponin I (0-0.045) ng/ml NT-Pro-B Natriuret Pep (0-1800) pg/ml Total Protein (6.4-8.2) gm/dl Albumin (3.4-5.0) gm/dl Specimen Hemolysis Diagnostic Findings CT head/brain wo con CLINICAL HISTORY: 78 years-old Male presenting with difficulty speaking. TECHNIQUE: Multidetector CT imaging of the head was performed without the use of intravenous contrast. IV contrast: None. One or more dose lowering techniques were used consistent with the principles of ALARA (as low as reasonably achievable), including automatic exposure control, mA or kV adjustment to individual patient size, and/or use of iterative reconstruction. COMPARISON: None. CT DOSE (mGy.cm): The estimated cumulative dose is 537.48 mGy.cm. FINDINGS: Sign Designer topogram: Unremarkable. Proportional ventricular and sulcal prominence, likely age-related parenchymal volume loss. No hemorrhage. Periventricular and subcortical white matter hypoattenuation, nonspecific but likely indicative of chronic small vessel ischemic change. Hyperattenuation of the left parietal occipital region without exvacuodilatation of the adjacent lateral ventricle or demonstrable sulcal enlargement. Given the degree of hypoattenuation, this could represent a subacute to chronic infarct. No acute territorial infarct. No mass effect or midline shift. No extra-axial fluid collection. Paranasal sinuses and mastoid air cells clear. Calvarium intact. IMPRESSION: 1. 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 Difficulty in gating this relates to the lack of significant associated atrophy to firmly suggest chronicity. 2. Chronic small vessel ischemic change. Electronically signed by: Thony Moreno M.D. 11/14/2018 9:17 PM Dictated: 11/14/182113 Transcribed: 11/14/182113 XR chest 1V portable CLINICAL HISTORY: 78 years-old Male presenting with difficulty speaking. TECHNIQUE: Portable upright AP view of the chest was obtained. COMPARISON: 11/08/2018. FINDINGS: Left subclavian implanted cardiac defibrillator with leads to the right atrium and right ventricular apex. Atherosclerosis of the aortic arch. Cardiac silhouette mildly enlarged. Lungs are hyperinflated. No focal opacity. No pleural effusion or pneumothorax. Osseous structures normal. IMPRESSION: 1. Findings suggest emphysema. No focal infiltrate to suggest pneumonia. 2. Mild cardiomegaly. Electronically signed by: Thony Moreno M.D. 11/14/2018 8:15 PM Dictated: 11/14/182012 Transcribed: 11/14/182012 ECG Additional Comments: ordered Code Status & VTE Plan Code Status FULL PG Care Time/CCT Total # of Minutes Spent Total Time Spent with Patient: Total time spent is greater than 50% in coordination of care (as documented) at patient's floor/unit and/or counseling patient: (1) CAD (coronary artery disease) Coronary Disease-Associated Artery/Lesion type: [place] artery [place] vs. transplanted heart: [place] heart Associated angina: without angina Qualified Code(s): I25.10 - Atherosclerotic heart disease of [place] coronary artery without angina pectoris (2) HLD (hyperlipidemia) Hyperlipidemia type: unspecified Qualified Code(s): E78.5 - Hyperlipidemia, unspecified (3) Hypothyroidism Hypothyroidism type: unspecified Qualified Code(s): E03.9 - Hypothyroidism, unspecified (4) GERD (gastroesophageal reflux disease) Esophagitis presence: esophagitis presence not specified Qualified Code(s): K21.9 - Gastro-esophageal reflux disease without esophagitis (5) Hypertension Hypertension type: unspecified Qualified Code(s): I10 - Essential (primary) hypertension (6) Stroke CVA mechanism: unspecified Qualified Code(s): I63.9 - Cerebral infarction, unspecified
[2018-11-14] MEDS ORDERED: IPRATROPIUM BROMIDE NASAL SPRAY 0.06% 15ML NAE PRN (23:55)
[2018-11-14] MEDS ORDERED: ONDANSETRON INJ 2 MG/ML 2 ML VIAL IV PRN (23:55)
[2018-11-14] MEDS ORDERED: ALBUTEROL HFA 8 GM INHALER INH PRN (23:55)
[2018-11-15 00:19] LABS: Phosphorus 2.9 mg/dl (2.5-4.9)
[2018-11-15] MEDS ORDERED: methylPREDNISolone 10 MG in SYRINGE 0 ML IV ONE (00:30)
--- NOTE | 2018-11-15 00:38 | Emergency Department Note ---
Entered by Arina Campa acting as a scribe for History of Present Illness General Chief complaint: Shortness of Breath/Dyspnea Stated complaint: breathing diff. Time Seen by Provider: 11/14/18 19:57 Source: patient History of Present Illness Provider complaint: Shortness of Breath Onset (ago): hour(s) 1 Location: chest Radiation: non-radiation Maximum Pain Intensity: 0 Relieved By: + none Associated symptoms: + other (Trouble talking, focusing, tongue swollen) The patient is a 78 year old male who presents to the Emergency Room with co mplaints of dysarthria and facial droop that began an hour ago. The patient's family states that about an hour ago, they noticed that the patient was having difficulty speaking and a right-sided facial droop. They thought he was not getting enough oxygen because he was not wearing enough oxygen, though they turned up his oxygen tank. By time EMS got there they stated thought that his facial droop had improved after receiving higher flow oxygen. They state the patient was just discharged from the hospital for COPD exacerbation. They state that the patient is having shortness of breath, however this is not new and is chronic. He currently denies any chest pain or headache. Home Medications Home Medications Medication Instructions Recorded Confirmed Type aspirin [Aspir-81] 81 mg PO QAM 04/20/18 11/14/18 History atorvastatin 80 mg PO HS 10/04/18 11/14/18 History bumetanide 1 mg PO QAM #30 tab 10/09/18 11/14/18 Rx fluticasone propion-salmeterol 1 inh INHALATION BID 10/22/18 11/14/18 History [Advair Diskus] lisinopril 10 mg PO QAM 11/05/18 11/14/18 History metoprolol succinate 75 mg PO DAILY@1800 11/05/18 11/14/18 History ipratropium bromide 0.03 % nasal 2 spray INTRANASAL TID PRN ml 11/08/18 11/14/18 History spray ipratropium-albuterol 0.5 mg-3 3 ml INH QID PRN 11/08/18 11/14/18 History mg(2.5 mg base)/3 mL nebulization soln prednisone 50 mg PO DAILY #15 tab 11/13/18 11/14/18 Rx revefenacin [Yupelri] 175 mcg INH DAILY #90 ml 11/13/18 11/14/18 Rx albuterol sulfate 2 puff INHALATION Q4H PRN 11/14/18 11/14/18 History Allergies Allergy/AdvReac Type Severity Reaction Status Date / Time No Known Allergies Allergy Verified 11/14/18 21:58 Past Med/Surg History Medical History Chronic obstructive pulmonary disease (Acute) Dependence on supplemental oxygen (Acute) 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 (Acute) Hearing loss (Acute) History of tobacco use (Acute) History of abdominal aortic aneurysm (AAA) (Acute) Hypothyroidism (Acute) Ischemic cardiomyopathy (Acute) Multiple lung nodules on CT (Acute) PAD (peripheral artery disease) (Acute) Vitamin D deficiency disease (Acute) CAD (coronary artery disease) HLD (hyperlipidemia) Elevated brain natriuretic peptide (BNP) level (Acute) Chronic kidney disease, stage 3 (Acute) Hypoxia (Acute) Hypertension GERD (gastroesophageal reflux disease) Edema Bowel obstruction (Resolved) Pacemaker (Chronic) Internal hernia (Acute) History of heart attack (Chronic) Abdominal pain (Resolved) Abdominal pain (Resolved) Bowel obstruction (Resolved) Bronchitis (Resolved) Bronchitis (Resolved) COPD exacerbation (Resolved) Elevated troponin I level (Resolved) Elevation of cardiac enzymes (Resolved) Elevation of cardiac enzymes (Resolved) HCAP (healthcare-associated pneumonia) (Resolved) Ileus (Resolved) Ileus (Resolved) Impacted cerumen of both ears (Resolved) SBO (small bowel obstruction) (Resolved) Small bowel obstruction (Resolved) Small bowel obstruction (Resolved) Pneumonia Surgical History H/O hand surgery S/P aneurysm repair S/P aortic bifurcation bypass graft S/P small bowel resection Family History Mother Acute myocardial infarction Hypertension Heart disease Father Hypertension Heart disease Myocardial infarction Other Colon cancer Social History Preferred Language: Macedonian Communication Ability: Effective 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 and A total of 10 systems reviewed and were otherwise negative Physical Exam Vital Signs Vital Signs - 24 hr 11/14/18 19:39 11/14/18 20:06 11/14/18 20:10 Temperature 36.4 C L Temperature Source Oral Sepsis Recent Fever Within 48 Hours No Sepsis New/Unexplained Change in Mental Status No Sepsis Action Taken by Nursing No Action Required Pulse Rate 87 Pulse Rate [Apical] 86 83 Pulse Rhythm [Apical] Regular Regular Respiratory Rate 19 28 H 28 H Respiratory Effort / Characteristics Short of Breath Non-Labored Spontaneous Respiratory Depth Normal Normal Respiratory Pattern Regular Blood Pressure 105/50 L Blood Pressure [Left Arm] 78/35 L 85/49 L Blood Pressure [Right Arm] Blood Pressure Mean 68 Blood Pressure Mean [Left Arm] 49 61 Blood Pressure Mean [Right Arm] Pulse Oximetry 98 96 Oxygen Delivery Method Nasal Cannula Nasal Cannula Room Air Oxygen Flow Rate 3 3 11/14/18 20:50 11/14/18 21:17 11/14/18 21:46 Temperature Temperature Source Sepsis Recent Fever Within 48 Hours Sepsis New/Unexplained Change in Mental Status Sepsis Action Taken by Nursing Pulse Rate Pulse Rate [Apical] 83 80 81 Pulse Rhythm [Apical] Regular Regular Respiratory Rate 28 H 24 19 Respiratory Effort / Characteristics Short of Breath Respiratory Depth Normal Respiratory Pattern Blood Pressure Blood Pressure [Left Arm] 89/49 L Blood Pressure [Right Arm] 85/58 L 104/50 L 110/64 Blood Pressure Mean Blood Pressure Mean [Left Arm] 62 Blood Pressure Mean [Right Arm] 67 68 79 Pulse Oximetry 97 96 97 Oxygen Delivery Method Nasal Cannula Nasal Cannula Nasal Cannula Oxygen Flow Rate 3 3 3 11/14/18 22:06 Temperature Temperature Source Sepsis Recent Fever Within 48 Hours Sepsis New/Unexplained Change in Mental Status Sepsis Action Taken by Nursing Pulse Rate Pulse Rate [Apical] 83 Pulse Rhythm [Apical] Regular Respiratory Rate 25 H Respiratory Effort / Characteristics Non-Labored Respiratory Depth Normal Respiratory Pattern Blood Pressure Blood Pressure [Left Arm] Blood Pressure [Right Arm] 103/73 Blood Pressure Mean Blood Pressure Mean [Left Arm] Blood Pressure Mean [Right Arm] 83 Pulse Oximetry 96 Oxygen Delivery Method Room Air Oxygen Flow Rate HENT: Exam performed. - Head: Normocephalic and atraumatic. - Right Ear: External ear normal. No mastoid tenderness. - Left Ear: External ear normal. No mastoid tenderness. - Mouth/Throat: The oropharynx is clear and moist. No trismus in the jaw. No dental abscesses or uvula swelling. No oropharyngeal exudate or tonsillar abscesses. EYES: Conjunctivae and EOM are normal. Pupils are equal, round, and reactive to light. Right eye exhibits no discharge. Left eye exhibits no discharge. No scleral icterus. NECK: Normal range of motion. Neck supple. No JVD present. No spinous process tenderness present. No carotid bruit present. No rigidity. No tracheal deviation and normal range of motion present. No Brudzinski's sign and no Kernig's sign noted. CV: Tachycardic rate, regular rhythm, normal heart sounds and intact distal pulses. There is no peripheral edema. Palpable radial pulses bue. PULM/CHEST:Diffuse expiratory wheezes. He has no rales. - Chest Wall: He exhibits no tenderness. ABD: The abdomen is soft. Bowel sounds are normal. He has no distension. No mass is present. There is no tenderness. There is no rebound, no guarding, no Torrez's sign and no tenderness at McBurney's point. Rovsig negative. MUSC/SKEL: Normal range of motion. There is no peripheral edema or tenderness. Missing multiple digits from right hand which is baseline for the patient. NEURO: No facial droop. No dysarthria. Motor sensation intact. NIHSS: 0. Course 1957: Past medical records reviewed. The patient was evaluated in room C06. A complete history and physical exam was performed. EMR reviewed. Patient has a history of noncompliance, bronchiectasis, CHF, and COPD. He was discharged from the hospital yesterday and during his recent hospital admission he met with palliative care but according to care note patient he is still a full code and wants aggressive treatment including intubation for a acute period of time but would not want prolonged treatment if in pain or discomfort. Currently the patient's NIH stroke scale is 0. It is thought that the patient's acute neurological symptoms could have been due to to metabolic causes as the family stated that his symptoms improved as the patient got a higher flow oxygen when they turned up his oxygen tank. Given his symptoms have resolved and his NIH stroke scale is currently 0, no code stroke will be called. Patient will still be sent for CT of the head. 2008: I reevaluated the patient and his blood pressure was 78/35 and we will give him 500 CC normal saline Bolus. 2044: Patient remains hypotensive. Will repeat 500 cc normal saline bolus. 2121: Labs show leukocytosis of 12.93, the patient is been chronically on steroids which is thought to be the cause of his leukocytosis. His troponin is elevated 0.125. Patient's proBNP is elevated above 9000, this is elevated however it is improved from his previous visits. Lactic acid within normal limits. 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 I spoke with Dr. Hale, [place] tele-stroke. Dr. Webb does not recommend TPA given the patient's low NIH stroke scale, improvement in fluctuating of symptoms, his other chronic medical conditions, as well as improvement with oxygen. She states to give aspirin and have the patient admitted for an MRI.I spoke with Dr. Griselda Pastrana about the patient's case and she will accept the patient for further evaluation. 2132: On reassessment, the patient's facial droop and dysarthria and dysarthria is returning. I spoke with the patient's family and they do not wish to pursue the TPA option. I agreed that the patient is not a good TPA candidate given his symptoms are waxing and waning. The patient will be admitted to the hospitalist service. Aspirin given. Patient's blood pressure is improved after normal saline bolus. Administered Medications Albuterol (Duoneb) 3 ml INH Q6R [facility] Stop: 12/15/18 00:59 Last Admin: 11/15/18 00:37 Dose: 3 ml Documented by: Discontinued Medications Aspirin (Aspirin) 324 mg PO NOW STA Stop: 11/14/18 21:32 Last Admin: 11/14/18 21:47 Dose: 324 mg Documented by: [id number] Sodium Chloride (Nss 1000ml) 500 mls @ 999 mls/hr IV .Q31M ONE Stop: 11/14/18 20:39 Last Infusion: 11/14/18 21:08 Dose: 0 mls/hr Documented by: [id number] Admin: 11/14/18 20:12 Dose: 999 mls/hr Documented by: [id number] Sodium Chloride (Nss 1000ml) 1,000 mls @ 80 mls/hr IV .[id number] [facility] Stop: 12/14/18 21:44 Last Admin: 11/14/18 21:47 Dose: 80 mls/hr Documented by: [id number] Medical Decision Making Medical Records Attestation: I reviewed the patient's medical records. Home Medications Current Medication List: was personally reviewed by me Laboratory Data Attestation: I reviewed the patient's lab results. Result diagrams: 11/14/18 19:40 11/14/18 19:40 Lab Results 11/14/18 11/14/18 11/14/18 Range/Units 19:40 19:40 19:40 WBC 12.93 H (4.8-10.8) K/uL RBC 3.46 L (4.7-6.1) M/uL Hgb 11.2 L (14.0-18.0) g/dL Hct 33.9 L (42-52) % MCV 98.0 (80-100) fL MCH 32.4 (25-34) pg MCHC 33.0 (32-36) g/dL RDW Std Deviation 51.9 H (36.4-46.3) fL RDW Coeff of Fernando 14.5 (11.5-14.5) % Plt Count 215 (130-400) K/uL MPV 10.3 (7.4-10.4) fL Immature Gran % (Auto) 0.9 % Neut % (Auto) 85.9 % Lymph % (Auto) 6.0 % [place] % (Auto) 6.6 % Eos % (Auto) 0.5 % Baso % (Auto) 0.1 % Immature Gran # (Auto) 0.12 H (0.00-0.02) K/uL Neut # (Auto) 11.10 H (1.4-6.5) K/uL Lymph # (Auto) 0.78 L (1.2-3.4) K/uL [place] # (Auto) 0.85 H (0.11-0.59) K/uL Eos # (Auto) 0.07 (0-0.5) K/uL Baso # (Auto) 0.01 (0-0.2) K/uL PT 10.6 (9.0-12.0) Seconds INR 1.0 (0.9-1.1) APTT 21.1 (21.0-31.0) Seconds PTT Ratio 0.8 Sodium 138 (136-145) mmol/L Potassium 4.4 D (3.5-5.1) mmol/L Chloride 93 L (98-107) mmol/L Carbon Dioxide 40 H (21-32) mmol/L Anion Gap 5.0 (3-11) BUN 52 H (7-18) mg/dl Creatinine 1.24 D (0.6-1.4) mg/dl Est Cr Clr Drug Dosing 34.5 ml/min Est GFR ( Amer) 64.6 Est GFR (Non-Af Amer) 55.7 BUN/Creatinine Ratio 41.8 H (10-20) Glucose 142 H (70-99) mg/dl Lactate (0.4-2.0) mmol/L Calcium 9.1 (8.5-10.1) mg/dl Phosphorus 2.9 (2.5-4.9) mg/dl Magnesium 2.1 (1.8-2.4) mg/dl Total Bilirubin 0.5 (0.2-1) mg/dl Direct Bilirubin (0-0.2) mg/dl AST 38 H (15-37) U/L ALT 98 H (12-78) U/L Alkaline Phosphatase 75 (45-117) U/L Troponin I 0.125 H* (0-0.045) ng/ml NT-Pro-B Natriuret Pep 9297 H (0-1800) pg/ml Total Protein 5.7 L (6.4-8.2) gm/dl Albumin 2.8 L (3.4-5.0) gm/dl Specimen Hemolysis 11/14/18 Range/Units 20:29 WBC (4.8-10.8) K/uL RBC (4.7-6.1) M/uL Hgb (14.0-18.0) g/dL Hct (42-52) % MCV (80-100) fL MCH (25-34) pg MCHC (32-36) g/dL RDW Std Deviation (36.4-46.3) fL RDW Coeff of Fernando (11.5-14.5) % Plt Count (130-400) K/uL MPV (7.4-10.4) fL Immature Gran % (Auto) % Neut % (Auto) % Lymph % (Auto) % [place] % (Auto) % Eos % (Auto) % Baso % (Auto) % Immature Gran # (Auto) (0.00-0.02) K/uL Neut # (Auto) (1.4-6.5) K/uL Lymph # (Auto) (1.2-3.4) K/uL [place] # (Auto) (0.11-0.59) K/uL Eos # (Auto) (0-0.5) K/uL Baso # (Auto) (0-0.2) K/uL PT (9.0-12.0) Seconds INR (0.9-1.1) APTT (21.0-31.0) Seconds PTT Ratio Sodium (136-145) mmol/L Potassium (3.5-5.1) mmol/L Chloride (98-107) mmol/L Carbon Dioxide (21-32) mmol/L Anion Gap (3-11) BUN (7-18) mg/dl Creatinine (0.6-1.4) mg/dl Est Cr Clr Drug Dosing ml/min Est GFR ( Amer) Est GFR (Non-Af Amer) BUN/Creatinine Ratio (10-20) Glucose (70-99) mg/dl Lactate 1.5 (0.4-2.0) mmol/L Calcium (8.5-10.1) mg/dl Phosphorus (2.5-4.9) mg/dl Magnesium (1.8-2.4) mg/dl Total Bilirubin (0.2-1) mg/dl Direct Bilirubin (0-0.2) mg/dl AST (15-37) U/L ALT (12-78) U/L Alkaline Phosphatase (45-117) U/L Troponin I (0-0.045) ng/ml NT-Pro-B Natriuret Pep (0-1800) pg/ml Total Protein (6.4-8.2) gm/dl Albumin (3.4-5.0) gm/dl Specimen Hemolysis Imaging Data Radiologist's Impression: Radiology results as stated below per my review and the radiologist's interpretation: CT head/brain wo con CLINICAL HISTORY: 78 years-old Male presenting with difficulty speaking. TECHNIQUE: Multidetector CT imaging of the head was performed without the use of intravenous contrast. IV contrast: None. One or more dose lowering techniques were used consistent with the principles of ALARA (as low as reasonably achievable), including automatic exposure control, mA or kV adjustment to individual patient size, and/or use of iterative reconstruction. COMPARISON: None. CT DOSE (mGy.cm): The estimated cumulative dose is 537.48 mGy.cm. 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 Proportional ventricular and sulcal prominence, likely age-related parenchymal volume loss. No hemorrhage. Periventricular and subcortical white matter hypoattenuation, nonspecific but likely indicative of chronic small vessel ischemic change. Hyperattenuation of the left parietal occipital region without exvacuodilatation of the adjacent lateral ventricle or demonstrable sulcal enlargement. Given the degree of hypoattenuation, this could represent a subacute to chronic infarct. No acute territorial infarct. No mass effect or midline shift. No extra-axial fluid collection. Paranasal sinuses and mastoid air cells clear. Calvarium intact. IMPRESSION: 1. 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 Difficulty in gating this relates to the lack of significant associated atrophy to firmly suggest chronicity. 2. Chronic small vessel ischemic change. Electronically signed by: Thony Moreno M.D. 11/14/2018 9:17 PM XR chest 1V portable CLINICAL HISTORY: 78 years-old Male presenting with difficulty speaking. TECHNIQUE: Portable upright AP view of the chest was obtained. COMPARISON: 11/08/2018. FINDINGS: Left subclavian implanted cardiac defibrillator with leads to the right atrium and right ventricular apex. Atherosclerosis of the aortic arch. Cardiac silhouette mildly enlarged. Lungs are hyperinflated. No focal opacity. No pleural effusion or pneumothorax. Osseous structures normal. IMPRESSION: 1. Findings suggest emphysema. No focal infiltrate to suggest pneumonia. 2. Mild cardiomegaly. Electronically signed by: Thony Moreno M.D. 11/14/2018 8:15 PM Blood Pressure Blood Pressure Findings: Low blood pressure Blood Pressure Disposition: further management by hospitalist ALICIA Pack 1956: Past medical records reviewed. The patient was evaluated in room C06. A complete history and physical exam was performed. EMR reviewed. Patient has a history of noncompliance, bronchiectasis, CHF, and COPD. He was discharged from the hospital yesterday and during his recent hospital admission he met with palliative care but according to care note patient he is still a full code and wants aggressive treatment including intubation for a acute period of time but would not want prolonged treatment if in pain or discomfort. Currently the patient's NIH stroke scale is 0. It is thought that the patient's acute neurological symptoms could have been due to to metabolic causes as the family stated that his symptoms improved as the patient got a higher flow oxygen when they turned up his oxygen tank. Given his symptoms have resolved and his NIH stroke scale is currently 0, no code stroke will be called. Patient will still be sent for CT of the head. 2008: I reevaluated the patient and his blood pressure was 78/35 and we will give him 500 CC normal saline Bolus. 2044: Patient remains hypotensive. Will repeat 500 cc normal saline bolus. 2121: Labs show leukocytosis of 12.93, the patient is been chronically on steroids which is thought to be the cause of his leukocytosis. His troponin is elevated 0.125. Patient's proBNP is elevated above 9000, this is elevated however it is improved from his previous visits. Lactic acid within normal limits. 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 I spoke with Dr. Hale, [place] tele-stroke. Dr. Webb does not recommend TPA given the patient's low NIH stroke scale, improvement in fluctuating of symptoms, his other chronic medical conditions, as well as improvement with oxygen. She states to give aspirin and have the patien t admitted for an MRI.I spoke with Dr. Griselda Pastrana about the patient's case and she will accept the patient for further evaluation. 2132: On reassessment, the patient's facial droop and dysarthria and dysarthria is returning. I spoke with the patient's family and they do not wish to pursue the TPA option. I agreed that the patient is not a good TPA candidate given his symptoms are waxing and waning. The patient will be admitted to the hospitalist service. Aspirin given. Patient's blood pressure is improved after normal saline bolus. Impression & Plan Stroke, COPD (chronic obstructive pulmonary disease), Elevated troponin, CHF exacerbation, Acute dyspnea, Acute hypotension Critical Care Time Critical Care Time: Yes Total Critical Care Time: 44 I have personally spent 44 minutes of critical care time in the direct management of this patient. This includes bedside care, interpretation of diagnostic studies, and testing, discussion with consultants, patient, and family members, and other required patient management activities. This 44 minutes is in excess of all separately billable procedures. Discharge Plan Visit Data *Final* Discharge Date/Time: 11/14/18 23:23 Chief Complaint: Shortness of Breath/Dyspnea Stated Complaint: breathing diff. ED Provider: Lester Grajeda Discharge Problem: Stroke, COPD (chronic obstructive pulmonary disease), Elevated troponin, CHF exacerbation, Acute dyspnea, Acute hypotension Patient Disposition: Admitted As Inpatient Discharge Instructions Interventions: ED Discharge Assessment Last Done: 11/14/18 23:23 Discharge Problem: Stroke Qualifiers: CVA mechanism: unspecified Qualified Code(s): I63.9 - Cerebral infarction, unspecified COPD (chronic obstructive pulmonary disease) Qualifiers: COPD type: unspecified COPD Qualified Code(s): J44.9 - Chronic obstructive pulmonary disease, unspecified CHF exacerbation Qualifiers: Heart failure type: unspecified Qualified Code(s): I50.9 - Heart failure, unspecified The scribe's documentation has been prepared under my direction and personally reviewed by me in its entirety. I confirm that the note above accurately reflects all work, treatment, procedures, and medical decision making performed by me.
[2018-11-15] MEDS ORDERED: ALBUT/IPRATROP 3MG/0.5MG NEB 3 ML VIAL INH SCH (01:00)
[2018-11-15] MEDS: ALBUT/IPRATROP 3MG/0.5MG NEB 3 ML VIAL INH SCH ×3 (05:37→15:21)
[2018-11-15 05:56] LABS: Hematocrit (blood only) 32.6 % (42-52); Hemoglobin 10.7 g/dL (14.0-18.0); Immature Granulocytes # (auto) 0.08 K/uL (0.00-0.02); Immature Granulocytes % (auto) 0.9 %; Lymphocytes # (auto) 0.24 K/uL (1.2-3.4); Lymphocytes % (auto) 2.7 %; Mean Corpuscular Hemoglobin 32.4 pg (25-34); Mean Corpuscular Hgb Conc 32.8 g/dL (32-36); Mean Corpuscular Volume 98.8 fL (80-100); Mean Platelet Volume 9.6 fL (7.4-10.4); Monocytes # (auto) 0.08 K/uL (0.11-0.59); Monocytes % (auto) 0.9 %; Neutrophils # (auto) 8.38 K/uL (1.4-6.5); Neutrophils % (auto) 95.5 %; Platelet Count 191 K/uL (130-400); RDW Coefficient of Variation 14.7 % (11.5-14.5); White Blood Count 8.78 K/uL (4.8-10.8)
[2018-11-15 06:18] LABS: Estimated Average Glucose 146 mg/dl; Hemoglobin A1C 6.7 % (4.5-5.6)
[2018-11-15 06:27] LABS: BUN Creatinine Ratio 40.4 (10-20); Calcium 8.6 mg/dl (8.5-10.1); Creatinine Clr Calc Pharmacy 32.8 ml/min; Potassium 4.6 mmol/L (3.5-5.1)
[2018-11-15 06:41] LABS: Thyroid Stimulating Hormone 2.36 uIu/ml (0.300-4.500); Troponin I 0.08 ng/ml (0-0.045)
[2018-11-15] MEDS ORDERED: SODIUM CHLORIDE 0.9% 1000ML 500 ML IV ONE (08:52)
[2018-11-15] MEDS ORDERED: predniSONE 50 MG TAB PO SCH (09:00)
[2018-11-15] MEDS ORDERED: FLUTICASONE/SALMETEROL (ADVAIR) 500/50 INH 14 PUFF INH SCH (09:00)
[2018-11-15] MEDS ORDERED: CLOPIDOGREL BISULFATE 75 MG TAB PO SCH (09:00)
--- NOTE | 2018-11-15 09:07 | Neurology Consultation ---
Date of Consultation November 15, 2018 Assessment & Plan (1) TIA (transient ischemic attack): (2) Stroke: (3) Chronic obstructive pulmonary disease: (4) Ischemic cardiomyopathy: (5) Hypertension: Patient had transient right facial droop, dysarthria, and some expressive aphasia on November 14, resolving by the time he got to the emergency room 1 hour later (according to the timing in the ER note). If ago by the patient's time he told me today it may have been 2 hours. Nevertheless he has not had any deficits on neurologic exam since he has been in the emergency room. Currently he has no focal neurologic findings, meningeal signs, or encephalopathy. The etiology of his event is likely a transient ischemic attack of the left hemisphere. CT scan of the head showed an age indeterminate left parieto-occipital stroke. Considering the timing of the CT scan (within half an hour of arriving to the emergency room) with the onset of his symptoms, I do not think those are acute changes. It takes at least 3 hours to start seeing changes on the CT scan after an ischemic stroke. Therefore, I believe this patient had a TIA and the CT scan changes are relatively old (perhaps occurring in one of his previous hospitalizations in the last month). The patient has multiple risk factors for stroke including chronic significant cigarette smoking, hypertension, dyslipidemia, and cardiac issues. He had this event on 81 mg aspirin. Patient has severe COPD and respiratory issues with ischemic cardiomyopathy and heart failure. His blood pressure has been low since admission. Recommendations: 1. Agree with addition of clopidogrel 75 mg daily. Discontinue 81 mg aspirin daily (he does not need to be on both). 2. Considering the medium size of the event on CT scan we could consider CT angiography of the head and neck. Unfortunately, we cannot get an MRI due to his pacer and other metal in his body. 3. Increase activity as able. 4. Discontinue cigarette smoking although the patient has been told this before. 5. Avoid over-correction of blood pressure. 6. Continue atorvastatin 80 mg daily. In theory, he is a high dose statin candidate. 7. Control blood pressure. Hemoglobin A1c was 6.7. Trying to lower this closer to 6.0 would be reasonable. Overall, I spent a total of 75 minutes with this case including review of records, review of CT films, direct evaluation of patient at bedside, and discussion of the case with the patient at bedside, nursing staff at bedside, and Dr. Rivas, including differential diagnosis and treatment options. History of Present Illness Reason for Consultation: Patient is a 78-year-old, who was asked to see the request of Dr. Pastrana, for neurologic consultation regarding stroke. Requesting Physician: Dr. Pastrana Attending Physician: Mitch Rivas, DO History of Present Illness Patient has multiple significant medical problems including severe COPD with hypoxia and requirement of oxygen. He has ischemic cardiomyopathy and history of coronary artery disease. There is an ICD pacer placed. He has a history of MRI. He has hypertension and dyslipidemia. The patient has had multiple hospitalizations within the last month for pneumonia and exacerbations of COPD. He was discharged home on November 13 in somewhat improved condition. On the , around 1729 or so he was eating supper. He had the onset of the inability to get words out and had a right facial droop. He knew what he wanted to say but the words were coming out correctly. There may been some slurred speech as well. He claims that he did not have any weakness or numbness of the limbs, vision problems, or other symptoms. He arrived at the emergency room on November 14 at 1939, with a temperature of 36.4, pulse 87 and regular, respiratory rate 19 and short of breath, blood pressure 105/50, and O2 saturation 98%. In the emergency room his neurologic deficits or cleared and he had an NIH stroke scale of 0. CBC showed mild anemia. Chem profile showed a glucose of 142, BUN 52, creatinine 1.24. Troponin and beta naturetic peptide were elevated. CT scan of the head, at 2000, showed a left parietal/occipital CVA age indeterminate, but possibly subacute. Chest x-ray showed COPD and mild cardiomegaly. Patient was admitted and had no further events overnight. He has been in normal sinus rhythm. Nursing reports no new events and an NIH stroke scale of 0 this morning. Patient denies pain, headaches, weakness, numbness, speech problems, confusion, vision problems, incontinence, chest pain, or shortness of breath (lying in bed). Allergies Allergy/AdvReac Type Severity Reaction Status Date / Time No Known Allergies Allergy Verified 11/14/18 21:58 Home Medications Home Medications Medication Instructions Recorded Confirmed Type aspirin [Aspir-81] 81 mg PO QAM 04/20/18 11/14/18 History atorvastatin 80 mg PO HS 10/04/18 11/14/18 History bumetanide 1 mg PO QAM #30 tab 10/09/18 11/14/18 Rx fluticasone propion-salmeterol 1 inh INHALATION BID 10/22/18 11/14/18 History [Advair Diskus] lisinopril 10 mg PO QAM 11/05/18 11/14/18 History metoprolol succinate 75 mg PO DAILY@1800 11/05/18 11/14/18 History ipratropium bromide 0.03 % nasal 2 spray INTRANASAL TID PRN ml 11/08/18 11/14/18 History spray ipratropium-albuterol 0.5 mg-3 3 ml INH QID PRN 11/08/18 11/14/18 History mg(2.5 mg base)/3 mL nebulization soln prednisone 50 mg PO DAILY #15 tab 11/13/18 11/14/18 Rx revefenacin [Yupelri] 175 mcg INH DAILY #90 ml 11/13/18 11/14/18 Rx albuterol sulfate 2 puff INHALATION Q4H PRN 11/14/18 11/14/18 History Patient History Medical History Chronic obstructive pulmonary disease (Acute) Dependence on supplemental oxygen (Acute) 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 (Acute) Hearing loss (Acute) History of tobacco use (Acute) History of abdominal aortic aneurysm (AAA) (Acute) Hypothyroidism (Acute) Ischemic cardiomyopathy (Acute) Multiple lung nodules on CT (Acute) PAD (peripheral artery disease) (Acute) Vitamin D deficiency disease (Acute) CAD (coronary artery disease) HLD (hyperlipidemia) Elevated brain natriuretic peptide (BNP) level (Acute) Chronic kidney disease, stage 3 (Acute) Hypoxia (Acute) Hypertension GERD (gastroesophageal reflux disease) Edema Bowel obstruction (Resolved) Pacemaker (Chronic) Internal hernia (Acute) History of heart attack (Chronic) Abdominal pain (Resolved) Abdominal pain (Resolved) Bowel obstruction (Resolved) Bronchitis (Resolved) Bronchitis (Resolved) COPD exacerbation (Resolved) Elevated troponin I level (Resolved) Elevation of cardiac enzymes (Resolved) Elevation of cardiac enzymes (Resolved) HCAP (healthcare-associated pneumonia) (Resolved) Ileus (Resolved) Ileus (Resolved) Impacted cerumen of both ears (Resolved) SBO (small bowel obstruction) (Resolved) Small bowel obstruction (Resolved) Small bowel obstruction (Resolved) Pneumonia Surgical History H/O hand surgery S/P aneurysm repair S/P aortic bifurcation bypass graft S/P small bowel resection Family History Mother , early 60s of heart issues Acute myocardial infarction Hypertension Heart disease Father , in 70s of heart issues Hypertension Heart disease Myocardial infarction Other Colon cancer Social History Preferred Language: Dominican Communication Ability: Effective Knowledge Architect Required: No Beliefs That Will Affect Care: None marital status: / Current Living Situation: Alone current 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 status: 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 Feels Safe at Home: Yes Smoking Status: Current every day smoker Tobacco Type: cigarettes ; Cigarettes Per Day: 10 ; Second Hand Exposure: No ; Hx Alcohol Use: No Hx Substance Use: No Review of Systems Constitutional: + fatigue; no fever and no weakness Eyes: no diplopia, no eye pain and no worsening vision Ear, Nose, Mouth, Throat: no ear pain, no tinnitus, no hearing loss, no dizziness, no snoring, no hoarseness and no dysphagia Respiratory: + dyspnea and + dyspnea on exertion; no cough Cardiovascular: no chest pain, no palpitations and no lightheadedness Gastrointestinal: no abdominal pain, no nausea and no vomiting Genitourinary: no dysuria and no urinary incontinence Musculoskeletal: no back pain, no neck pain, no radicular pain, no joint pain and no myalgia Integumentary: no rash and no lesions Neurologic: no gait abnormality, no localized weakness, no generalized weakness, no tingling, no numbness, no tremor(s), no abnormal movements, no headache(s), no abnormal speech, no confusion and no memory loss Psychiatric: no depression, no irritability, no anxiety, no difficulty concentrating, no confusion and no hallucinations Endocrine: + fatigue; no flushing Hematologic / Lymphatic: no easy bleeding and no easy bruising Allergy / Immunological: no urticaria and no problem reported Physical Exam Physical Exam: The patient was originally right-handed, but 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 The patient is awake, alert, and attentive. Speech is normal without any aphasia , but there may be some very mild dysarthria. he can name objects, repeat phrases, and has normal spontaneous speech. Mentation and thought processes are intact, with orientation to person, place and time, and normal fund of knowledge. Attention and concentration are normal. Mood and affect are normal and appropriate. General appearance and grooming are normal. Short and long- term memory are intact to conversation. The discs are sharp with positive venous pulsations bilaterally. There are no exudates, hemorrhages, or blood vessel changes seen. Pupils are 3 mm bilaterally and reactive to light. Extraocular eye muscles are intact without nystagmus. Visual acuity and visual leone seem normal grossly to confrontation. There are no deficits to sensation in the face in all 3 distributions of the fifth cranial nerve bilaterally. Corneal reflexes are positive bilaterally. Facial strength and symmetry was normal bilaterally. Hearing seems mildly decreased bilaterally. Palate moves well without asymmetry. There is normal sternocleidomastoid and trapezius (shoulder shrug) strength bilaterally. Tongue is midline with good strength bilaterally. Neck has a full range of motion without discomfort. There are no cervical bruits bilaterally. There are no cranial or ocular bruits. Heart is without murmur. There is a regular rhythm and rate. Cervical, thoracic, and lumbar spine are nontender to palpation. Gait was attempted but not tested. The patient is set up with leg dangling on the side of the bed and became very short of breath and anxious so we laid him back in bed. He was not short of breath lying in bed or with strength testing. His stance was reasonable sitting up in bed and maintain body tone. With outstretched arms there is no drift. There are no resting, postural, or action tremors. There is no ataxia with finger to nose testing. There is good facility in the left hand. No other abnormal involuntary movements are noted. Motor strength is 5/5 diffusely in the arms bilaterally including deltoids, biceps, triceps, brachioradialis, and wrist flexors and extensors. 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 Motor strength is 5/5 diffusely in the legs bilaterally including hip flexors, quadriceps, hamstrings, gastrocnemius, tibialis anterior, tibialis posterior, and Peroneii muscles. Toe extensors are normal and there is good bulk in the extensor digitorum brevis muscles bilaterally. The limbs have good tone without rigidity or spasticity. There is no atrophy noted in the muscles. Muscle bulk is normal, there is no tenderness to palpation, no myotonia to percussion, and no fasciculations seen. Sensory examination is intact to touch and pin throughout all 4 limbs diffusely. Reflexes are 2/4 in the biceps, triceps, brachioradialis, and quadriceps tendons bilaterally. Achilles tendon reflexes were 1/4 bilaterally. There is no clonus bilaterally. Toes are downgoing with plantar stimulation bilaterally. Peripheral pulses are present and of normal quality distally in all 4 limbs. There is no peripheral edema noted in the limbs. Results & Data Vital Signs (Past 12 Hours) Vital Signs Temp Pulse Pulse Resp BP BP Pulse Ox 11/15/18 08:00 36.6 C 82 17 90/51 L 98 11/15/18 05:36 84 16 96 11/15/18 04:11 36.5 C 78 20 95/41 L 97 11/15/18 01:04 11/15/18 00:37 37.1 C 76 18 106/57 L 94 11/15/18 00:01 79 11/14/18 23:02 78 21 99/54 L 98 11/14/18 22:42 78 24 108/59 L 95 11/14/18 22:06 83 25 H 103/73 96 11/14/18 21:46 81 19 110/64 97 11/14/18 21:17 80 24 104/50 L 96 Pulse Ox 11/15/18 08:00 11/15/18 05:36 11/15/18 04:11 11/15/18 01:04 96 11/15/18 00:37 11/15/18 00:01 11/14/18 23:02 11/14/18 22:42 11/14/18 22:06 11/14/18 21:46 11/14/18 21:[address] head/brain wo con CLINICAL HISTORY: 78 years-old Male presenting with difficulty speaking. TECHNIQUE: Multidetector CT imaging of the head was performed without the use of intravenous contrast. IV contrast: None. One or more dose lowering techniques were used consistent with the principles of ALARA (as low as reasonably achievable), including automatic exposure control, mA or kV adjustment to individual patient size, and/or use of iterative reconstruction. COMPARISON: None. CT DOSE (mGy.cm): The estimated cumulative dose is 537.48 mGy.cm. FINDINGS: Sharepoint Net Developer topogram: Unremarkable. Proportional ventricular and sulcal prominence, likely age-related parenchymal volume loss. No hemorrhage. Periventricular and subcortical white matter hypoattenuation, nonspecific but likely indicative of chronic small vessel ischemic change. Hyperattenuation of the left parietal occipital region without exvacuodilatation of the adjacent lateral ventricle or demonstrable sulcal enlargement. Given the degree of hypoattenuation, this could represent a subacute to chronic infarct. No acute territorial infarct. No mass effect or midline shift. No extra-axial fluid collection. Paranasal sinuses and mastoid air cells clear. Calvarium intact. IMPRESSION: 1. 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 Difficulty in gating this relates to the lack of significant associated atrophy to firmly suggest chronicity. 2. Chronic small vessel ischemic change. Electronically signed by: Thony Moreno M.D. 11/14/2018 9:17 PM PG Care Time/CCT Total # of Minutes Spent Total Time Spent with Patient: Total time spent is greater than 50% in coordination of care (as documented) at patient's floor/unit and/or counseling patient: (1) Stroke CVA mechanism: unspecified Qualified Code(s): I63.9 - Cerebral infarction, unspecified (2) Hypertension Hypertension type: unspecified Qualified Code(s): I10 - Essential (primary) hypertension
[2018-11-15] MEDS ORDERED: SODIUM CHLORIDE 0.9% 1000ML 1,000 ML IV SCH (09:30)
[2018-11-15] MEDS ORDERED: OPTIRAY 320 125ml IV PRN (10:54)
--- NOTE | 2018-11-15 11:26 | CT Scan Report ---
CT ANGIOGRAM OF THE BRAIN; CT ANGIOGRAM OF THE NECK CLINICAL HISTORY: Stroke. COMPARISON STUDY: Unenhanced CT of the brain dated 11/14/2018. Carotid artery ultrasound dated 013. TECHNIQUE: Following the IV administration of 120 of Optiray 320, CT angiogram of the head and neck w as performed from the aortic arch to the vertex. Images are reviewed in the axial, sagittal, and lana nal planes. 3-D MIPS images are created and assessed. IV contrast was administered without complicati on. All measurements were calculated based on NASCET criteria. A dose lowering technique was utilize d adhering to the principles of ALARA. CT DOSE: 535.05 mGy.cm FINDINGS: Brain parenchyma: There is age-related involutional change noting moderate patchy subcortical and per iventricular microangiopathic disease. There are foci of left parietal and occipital encephalomalacia consistent with remote infarcts. There is no hemorrhage, mass effect, or evidence of acute territori al ischemia by CT criteria. There is no evidence of enhancing mass lesion on the angiogram phase imag es. The ventricles, sulci, and cisterns are prominent secondary to involutional change. Roberts-white ma tter differentiation is preserved. No extra-axial fluid collection is seen. Thoracic aorta: There is advanced atherosclerotic calcification of the thoracic aorta. Visualized por tions of the thoracic aorta are normal in caliber. The aortic arch demonstrates standard 3-vessel germán sandee. Right carotid arterial system: The right common carotid artery is widely patent. Advanced atheroscler otic plaque is noted in the carotid bulb. This causes less than 50% luminal narrowing at the origin o f the right internal carotid artery. The right internal carotid artery is otherwise widely patent, as is the right external carotid artery. Left carotid arterial system: The left common carotid artery is widely patent noting atherosclerotic irregularity. Advanced atherosclerotic plaque is present in the carotid bulb end involving the proxim al internal carotid artery. 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 There is mild to m oderate stenosis of the origin of the left external carotid artery. The left external carotid artery is otherwise patent. Vertebral arteries: The vertebral arteries are widely patent bilaterally noting a right-sided dominan ce. Subclavian arteries: Patent bilaterally noting atherosclerotic irregularity. Intracranial vasculature: There is atherosclerotic calcification of the cavernous carotid and vertebr al arteries. The left internal carotid artery is thrombosed at the skull base. This is reconstituted in the region of the cavernous carotid artery, likely via retrograde flow the right internal carotid artery is widely patent at the skull base. There is a patent anterior communicating artery. The anter ior and middle cerebral arteries are patent bilaterally. Mild atherosclerotic irregularity is seen wi thin the middle cerebral arteries bilaterally. The vertebrobasilar system and posterior cerebral ty miguel angel are widely patent. The right vertebral artery is dominant. There is no aneurysm identified throu ghout the intracranial circulation. Jugular veins: Patent bilaterally. Dural sinuses: Patent. Lung apices: Advanced emphysematous change is seen in the upper lobes. Upper lobe lung parenchyma is otherwise clear as visualized. Pacemaker leads are noted. Soft tissues: The visualized pharyngeal soft tissues are normal in appearance noting angiographic pha se technique. The oropharyngeal airway appears widely patent. The salivary and thyroid glands are nor mal in appearance. No cervical lymphadenopathy is seen. Skeletal structures: The skeletal structures are osteopenic. The calvarium appears intact. The cervic al spine is maintained noting multilevel spondylosis. No lytic or blastic lesion is seen. Orbits: The bony orbits are intact. Orbital contents are normal as imaged. Sinuses and mastoids: The paranasal sinuses are clear. There is a right mastoid effusion. The left ma stoid air cells are well pneumatized. IMPRESSION: 1. There is no hemorrhage, mass effect, or evidence of acute territorial ischemia by CT criteria. 2. Foci of left posterior parietal and left occipital encephalomalacia are unchanged and consistent w ith remote infarcts. 3. 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 This extends f rom just above the carotid bifurcation to the skull base. 4. There is reconstitution of flow within the intracranial left internal carotid artery, likely throu gh the point hope ira of [place]. 5. Intracranial vessels are otherwise patent. 6. There is less than 50% stenosis at the origin of the right internal carotid artery. The right mckeon tid arterial system is otherwise patent. 7. The vertebral arteries are patent bilaterally. 8. Advanced emphysema. 9. Additional findings as above. Electronically signed by: Nathaniel Huang M.D. 11/15/2018 11:25 AM
[2018-11-15 13:03] LABS: Appearance Urine Clear (Clear); Bilirubin Urine Negative (Negative); Blood Urine Negative (Negative); Color Urine Yellow; Glucose Urine UA Negative (Negative); Ketones Urine Negative (Negative); Leukocyte Esterase Urine Negative (Negative); Nitrite Urine Negative (Negative); Protein Urine Negative (Negative); Specific Gravity Urine 1.035 (1.000-1.030); Urobilinogen Urine Negative (Negative)
--- NOTE | 2018-11-15 14:41 | Hospitalist Progress Note ---
Date of Service November 15, 2018 Assessment & Plan (1) Stroke: - Head CT showed subacute to chronic infarct in left parieto-occipital region and chronic small vessel changes. - Head/neck CTA with left parietal findings, likely remote infarcts; also has carotid artery thrombosis - see below. - Echo was unchanged compared to September 2018. - MRI contraindicated due to pacemaker. - Neuro consulted -- symptoms were likely related to TIA; has multiple risk factors, including tobacco abuse, HTN, HLD and cardiac disease. - Converted ASA to Plavix 75 mg daily; continue high dose statin. - Hgb A1C was 6.7, goal ~6.0 to prevent further neurologic episodes. - Holding home anti-hypertensives in setting of hypotension. - Encouraged tobacco cessation -- pt. does not want to discuss subject. - PT/OT evaluation -- he previously refused therapy during last admission. (2) Hypotension: - BP was 70-80's overnight, now improved to 90-100's. - Holding home anti-hypertensives; received IV fluid boluses and continuous infusion over last 12-18 hours. - Holding further IV fluids to prevent volume overload in setting of systolic CHF. 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 - Has reconstitution of flow within intracranial left internal carotid artery, likely through [place]. - Continue Plavix, statin as noted above. - Pt. is not candidate for surgery at this point due to multiple co-morbidities. (4) Elevated troponin: - Chronically elevated troponin, peaked at 0.12 then trended down. - EKG with minor T-wave changes; Echo showed chronic wall motion abnormalities. - Continue statin; holding ACEI and beta jackelin in setting of hypotension. (5) Chronic systolic heart failure: - Echo showed slightly reduced EF compared to September 2018, otherwise no acute abnormalities. - Monitor net I/Os and daily weights. - Holding beta jackelin and ACEI due to hypotension. - Has been receiving IV fluid hydration -- monitor volume status closely. (6) End stage COPD: - Recently discharged on 11/13, was admitted for COPD exacerbation; chronic CO2 retainer and oxygen dependent (3L via NC) at home. - CXR with emphysema, no PNA noted. - Continue Duonebs q4hrWA, Albuterol prn. - Continue Prednisone 50 mg daily -- taper at discharge. - Continue home inhalers; resume newly added LAMA at discharge. - Palliative care consulted during last admission; pt. would like to remain full code at this time. Continue Roxanol q4-6hr prn SOB. (7) Hypothyroidism: - TSH was 2.36. - Not currently on medication. (8) CAD (coronary artery disease): - Continue statin, added Plavix to replace ASA; holding ACEI and beta jackelin. (9) HLD (hyperlipidemia): - Continue high dose statin. (10) Hypertension: - Holding BP meds as noted above. (11) Diabetes mellitus, type II: - Hgb A1C was 6.7, goal ~6.0 in setting of TIA. - Will start SSI coverage; consider addition of oral agent at discharge. (12) Nicotine dependence: - Pt. does not wish to discuss quitting smoking at this time. (13) GERD (gastroesophageal reflux disease): - Not currently on PPI. DVT ppx: SCDs and Lovenox 30 mg subQ daily. Dispo: Med/surg with tele; discharge pending improvement in hypotension, likely on 11/16/18. Subjective Pt. reports slurred speech is now improved. Facial droop is also resolved. Denies headache, vision changes, extremity weakness, gait abnormality. Neuro consulted, symptoms were likely 2/2 TIA. Pt. is not agreeable to discontinuing tobacco use. BP has been low this morning -- received bolus followed by IV fluids. Will need to monitor for volume overload. Review of Systems Review of Systems: All systems reviewed & are unremarkable except as noted in HPI & below Constitutional: no fever, no chills, no fatigue, no weakness and no anorexia Respiratory: + dyspnea and + dyspnea on exertion; no cough and no wheezing Cardiovascular: no chest pain, no palpitations and no edema Gastrointestinal: no abdominal pain and no nausea Genitourinary: no difficulty urinating Musculoskeletal: no back pain and no joint pain Integumentary: no non-healing lesions Physical Exam Physical Exam: General: Chronically ill appearing male. HEENT: NC/AT; PERRLA with EOMI; [place] conjunctiva, MMM. No erythema of posterior pharynx Neck: Supple and nontender Cardiac: RRR Lungs: on 3L via NC; diminished throughout. Abdomen: Bowel normoactive X 4; Nontender to palpation Extremities: Warm. No edema present Neuro: No focal weakness noted on neuro exam. Skin: No rash Results & Data Vital Signs (Past 12 Hours) Vital Signs Temp Pulse Pulse Pulse Resp BP BP 11/15/18 11:29 79 18 11/15/18 11:28 79 11/15/18 11:22 36.5 C 78 18 108/66 11/15/18 08:00 36.6 C 82 17 90/51 L 11/15/18 05:36 84 16 11/15/18 04:11 36.5 C 78 20 95/41 L Pulse Ox 11/15/18 11:29 95 11/15/18 11:28 11/15/18 11:22 98 11/15/18 08:00 98 11/15/18 05:36 96 11/15/18 04:11 97 Laboratory Results 11/15/18 11/15/18 11/15/18 Range/Units Unknown 05:34 05:34 WBC 8.78 (4.8-10.8) K/uL RBC 3.30 L (4.7-6.1) M/uL Hgb 10.7 L (14.0-18.0) g/dL Hct 32.6 L (42-52) % MCV 98.8 (80-100) fL MCH 32.4 (25-34) pg MCHC 32.8 (32-36) g/dL RDW Std Deviation 53.0 H (36.4-46.3) fL RDW Coeff of [place] 14.7 H (11.5-14.5) % Plt Count 191 (130-400) K/uL MPV 9.6 (7.4-10.4) fL Immature Gran % (Auto) 0.9 % Neut % (Auto) 95.5 % Lymph % (Auto) 2.7 % [place] % (Auto) 0.9 % Eos % (Auto) 0.0 % Baso % (Auto) 0.0 % Immature Gran # (Auto) 0.08 H (0.00-0.02) K/uL Neut # (Auto) 8.38 H (1.4-6.5) K/uL Lymph # (Auto) 0.24 L (1.2-3.4) K/uL [place] # (Auto) 0.08 L (0.11-0.59) K/uL Eos # (Auto) 0.00 (0-0.5) K/uL Baso # (Auto) 0.00 (0-0.2) K/uL PT (9.0-12.0) Seconds INR (0.9-1.1) APTT (21.0-31.0) Seconds PTT Ratio Sodium 138 (136-145) mmol/L Potassium 4.6 (3.5-5.1) mmol/L Chloride 96 L (98-107) mmol/L Carbon Dioxide 36 H (21-32) mmol/L Anion Gap 6.0 (3-11) BUN 45 H (7-18) mg/dl Creatinine 1.12 (0.6-1.4) mg/dl Est Cr Clr Drug Dosing 32.8 ml/min Est GFR ( Amer) 73.0 Est GFR (Non-Af Amer) 63.0 BUN/Creatinine Ratio 40.4 H (10-20) Glucose 174 H (70-99) mg/dl Estimat Average Glucose mg/dl Hemoglobin A1c (4.5-5.6) % Lactate (0.4-2.0) mmol/L Calcium 8.6 (8.5-10.1) mg/dl Phosphorus (2.5-4.9) mg/dl Magnesium (1.8-2.4) mg/dl Total Bilirubin (0.2-1) mg/dl Direct Bilirubin (0-0.2) mg/dl AST (15-37) U/L ALT (12-78) U/L Alkaline Phosphatase (45-117) U/L Troponin I 0.080 H* (0-0.045) ng/ml NT-Pro-B Natriuret Pep (0-1800) pg/ml Total Protein (6.4-8.2) gm/dl Albumin (3.4-5.0) gm/dl Triglycerides 74 (0-150) mg/dl Cholesterol 147 (0-200) mg/dl LDL Cholesterol, Calc 77 mg/dl VLDL Cholesterol, Calc 15 mg/dl HDL Cholesterol 55 mg/dl Cholesterol/HDL Ratio 3 TSH 2.360 (0.300-4.500) uIu/ml Specimen Hemolysis Urine Color Yellow Urine Appearance Clear (Clear) Urine pH 8.0 H (4.5-7.5) Ur Specific [place] 1.035 H (1.000-1.030) Urine Protein Negative (Negative) Urine Glucose (UA) Negative (Negative) Urine Ketones Negative (Negative) Urine Blood Negative (Negative) Urine Nitrite Negative (Negative) Urine Bilirubin Negative (Negative) Urine Urobilinogen Negative (Negative) Ur Leukocyte Esterase Negative (Negative) 11/14/18 11/14/18 11/14/18 Range/Units 20:29 19:40 19:40 WBC (4.8-10.8) K/uL RBC (4.7-6.1) M/uL Hgb (14.0-18.0) g/dL Hct (42-52) % MCV (80-100) fL MCH (25-34) pg MCHC (32-36) g/dL RDW Std Deviation (36.4-46.3) fL RDW Coeff of [place] (11.5-14.5) % Plt Count (130-400) K/uL MPV (7.4-10.4) fL Immature Gran % (Auto) % Neut % (Auto) % Lymph % (Auto) % [place] % (Auto) % Eos % (Auto) % Baso % (Auto) % Immature Gran # (Auto) (0.00-0.02) K/uL Neut # (Auto) (1.4-6.5) K/uL Lymph # (Auto) (1.2-3.4) K/uL [place] # (Auto) (0.11-0.59) K/uL Eos # (Auto) (0-0.5) K/uL Baso # (Auto) (0-0.2) K/uL PT (9.0-12.0) Seconds INR (0.9-1.1) APTT (21.0-31.0) Seconds PTT Ratio Sodium 138 (136-145) mmol/L Potassium 4.4 D (3.5-5.1) mmol/L Chloride 93 L (98-107) mmol/L Carbon Dioxide 40 H (21-32) mmol/L Anion Gap 5.0 (3-11) BUN 52 H (7-18) mg/dl Creatinine 1.24 D (0.6-1.4) mg/dl Est Cr Clr Drug Dosing 34.5 ml/min Est GFR ( Amer) 64.6 Est GFR (Non-Af Amer) 55.7 BUN/Creatinine Ratio 41.8 H (10-20) Glucose 142 H (70-99) mg/dl Estimat Average Glucose 146 mg/dl Hemoglobin A1c 6.7 H (4.5-5.6) % Lactate 1.5 (0.4-2.0) mmol/L Calcium 9.1 (8.5-10.1) mg/dl Phosphorus 2.9 (2.5-4.9) mg/dl Magnesium 2.1 (1.8-2.4) mg/dl Total Bilirubin 0.5 (0.2-1) mg/dl Direct Bilirubin (0-0.2) mg/dl AST 38 H (15-37) U/L ALT 98 H (12-78) U/L Alkaline Phosphatase 75 (45-117) U/L Troponin I 0.125 H* (0-0.045) ng/ml NT-Pro-B Natriuret Pep 9297 H (0-1800) pg/ml Total Protein 5.7 L (6.4-8.2) gm/dl Albumin 2.8 L (3.4-5.0) gm/dl Triglycerides (0-150) mg/dl Cholesterol (0-200) mg/dl LDL Cholesterol, Calc mg/dl VLDL Cholesterol, Calc mg/dl HDL Cholesterol mg/dl Cholesterol/HDL Ratio TSH (0.300-4.500) uIu/ml Specimen Hemolysis Urine Color Urine Appearance (Clear) Urine pH (4.5-7.5) Ur Specific [place] (1.000-1.030) Urine Protein (Negative) Urine Glucose (UA) (Negative) Urine Ketones (Negative) Urine Blood (Negative) Urine Nitrite (Negative) Urine Bilirubin (Negative) Urine Urobilinogen (Negative) Ur Leukocyte Esterase (Negative) 11/14/18 11/14/18 Range/Units 19:40 19:40 WBC 12.93 H (4.8-10.8) K/uL RBC 3.46 L (4.7-6.1) M/uL Hgb 11.2 L (14.0-18.0) g/dL Hct 33.9 L (42-52) % MCV 98.0 (80-100) fL MCH 32.4 (25-34) pg MCHC 33.0 (32-36) g/dL RDW Std Deviation 51.9 H (36.4-46.3) fL RDW Coeff of [place] 14.5 (11.5-14.5) % Plt Count 215 (130-400) K/uL MPV 10.3 (7.4-10.4) fL Immature Gran % (Auto) 0.9 % Neut % (Auto) 85.9 % Lymph % (Auto) 6.0 % [place] % (Auto) 6.6 % Eos % (Auto) 0.5 % Baso % (Auto) 0.1 % Immature Gran # (Auto) 0.12 H (0.00-0.02) K/uL Neut # (Auto) 11.10 H (1.4-6.5) K/uL Lymph # (Auto) 0.78 L (1.2-3.4) K/uL [place] # (Auto) 0.85 H (0.11-0.59) K/uL Eos # (Auto) 0.07 (0-0.5) K/uL Baso # (Auto) 0.01 (0-0.2) K/uL PT 10.6 (9.0-12.0) Seconds INR 1.0 (0.9-1.1) APTT 21.1 (21.0-31.0) Seconds PTT Ratio 0.8 Sodium (136-145) mmol/L Potassium (3.5-5.1) mmol/L Chloride (98-107) mmol/L Carbon Dioxide (21-32) mmol/L Anion Gap (3-11) BUN (7-18) mg/dl Creatinine (0.6-1.4) mg/dl Est Cr Clr Drug Dosing ml/min Est GFR ( Amer) Est GFR (Non-Af Amer) BUN/Creatinine Ratio (10-20) Glucose (70-99) mg/dl Estimat Average Glucose mg/dl Hemoglobin A1c (4.5-5.6) % Lactate (0.4-2.0) mmol/L Calcium (8.5-10.1) mg/dl Phosphorus (2.5-4.9) mg/dl Magnesium (1.8-2.4) mg/dl Total Bilirubin (0.2-1) mg/dl Direct Bilirubin (0-0.2) mg/dl AST (15-37) U/L ALT (12-78) U/L Alkaline Phosphatase (45-117) U/L Troponin I (0-0.045) ng/ml NT-Pro-B Natriuret Pep (0-1800) pg/ml Total Protein (6.4-8.2) gm/dl Albumin (3.4-5.0) gm/dl Triglycerides (0-150) mg/dl Cholesterol (0-200) mg/dl LDL Cholesterol, Calc mg/dl VLDL Cholesterol, Calc mg/dl HDL Cholesterol mg/dl Cholesterol/HDL Ratio TSH (0.300-4.500) uIu/ml Specimen Hemolysis Urine Color Urine Appearance (Clear) Urine pH (4.5-7.5) Ur Specific [place] (1.000-1.030) Urine Protein (Negative) Urine Glucose (UA) (Negative) Urine Ketones (Negative) Urine Blood (Negative) Urine Nitrite (Negative) Urine Bilirubin (Negative) Urine Urobilinogen (Negative) Ur Leukocyte Esterase (Negative) PG Care Time/CCT Total # of Minutes Spent Total Time Spent with Patient: Total time spent is greater than 50% in coordination of care (as documented) at patient's floor/unit and/or counseling patient: (1) Stroke CVA mechanism: unspecified Qualified Code(s): I63.9 - Cerebral infarction, unspecified (2) Hypothyroidism Hypothyroidism type: unspecified Qualified Code(s): E03.9 - Hypothyroidism, unspecified (3) CAD (coronary artery disease) Coronary Disease-Associated Artery/Lesion type: [place] artery Hoh vs. transplanted heart: [place] heart Associated angina: without angina Qualified Code(s): I25.10 - Atherosclerotic heart disease of [place] coronary artery without angina pectoris (4) HLD (hyperlipidemia) Hyperlipidemia type: unspecified Qualified Code(s): E78.5 - Hyperlipidemia, unspecified (5) Hypertension Hypertension type: unspecified Qualified Code(s): I10 - Essential (primary) hypertension (6) GERD (gastroesophageal reflux disease) Esophagitis presence: esophagitis presence not specified Qualified Code(s): K21.9 - Gastro-esophageal reflux disease without esophagitis
[2018-11-15] MEDS ORDERED: CARBOHYDRATES FOR HYPOGLYCEMIA PO PRN (15:03)
[2018-11-15] MEDS ORDERED: GLUCAGON FOR INJ 1 MG VIAL SQ PRN (15:03)
[2018-11-15] MEDS ORDERED: GLUCOSE 10 TABS/TUBE PO PRN (15:03)
[2018-11-15] MEDS ORDERED: DEXTROSE 50% 50 ML SYRINGE IV PRN (15:03)
[2018-11-15] MEDS ORDERED: GLUCOSE 40% GEL 15 GM TUBE PO PRN (15:03)
[2018-11-15] MEDS ORDERED: MoRPHine SULFATE 5 MG/0.25 ML UDP PO PRN (15:06)
--- NOTE | 2018-11-15 15:31 | Discharge Summary ---
Date of Service November 15, 2018 Admission HPI Per Admitting Provider Thony Jasmine is a 78-year-old male with multiple medical problems to include end-stage oxygen dependent COPD, CAD status post MT with ischemic cardiomyopathy EF 40 to 45%, AICD in place, hypertension, hyperlipidemia, CKD. Patient was recently admitted from 11/05 through 11/13 for suspected COPD exacerbation. He was treated with nebs, steroids, azithromycin LAMA agent added to regimen per request of pulmonology. Patient was discharged home in stable condition yesterday. Family at bedside states that he had been doing well at home. He was ambulating without difficulty, conversive and in his usual state of health. This evening at 18:30 he developed dysarthria, slurred speech with word finding issues as well as a right facial droop and "acting strange". Upon arrival to the ER he was hypotensive at 78/35, tachypneic at 28 breaths/min with adequate saturation on room air. Blood pressure improved with administration of IV fluids, presently 103/73. Patient is quiet during exam and does not freely answer questions. He recognizes that he is unable to speak and is frustrated with that. No additional complaints at this time ER course: Aspirin 324 mg p.o., normal saline 500 mL bolus now at 80 mL/h maintenance Admission Exam Per Admitting Provider General: Chronically ill-appearing male, cachectic, resting comfortably, NAD, AA&O x 4 Skin: Dry, cracked lips, no rashes HEENT: NC/AT, PERRL, EOMI, anicteric sclera, conjunctiva without injection, external ear normal to inspection and nontender, patient with hearing loss, nares patent, dry mucus membranes, poor dentition, no oropharyngeal lesions, neck supple, trachea midline, no LAD, no thyromegaly, no JVD Heart: Distant heart sounds, S1/S2 audible, mechanical sounds over ICD Lungs: Distant breath sounds bilaterally, no rales/rhonchi/wheezes Abd: +BS, soft, NT/ND, no organomegaly/ascites, abdominal hernia x2, soft and reducible Ext: warm, 2+ pulses in UE/LE bilaterally, no clubbing/cyanosis or edema, 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 HEENT: NC/AT; PERRLA with EOMI; [place] conjunctiva, MMM. No erythema of posterior pharynx Neck: Supple and nontender Cardiac: RRR Lungs: on 3L via NC; diminished throughout. Abdomen: Bowel normoactive X 4; Nontender to palpation Extremities: Warm. No edema present Neuro: No focal weakness noted on neuro exam. Skin: No rash Discharge Data Allergies Allergy/AdvReac Type Severity Reaction Status Date / Time No Known Allergies Allergy Verified 11/14/18 21:58 Consultations 11/14/18 21:33 ED Decision to Admit Stat 11/14/18 23:55 Consult Case Management - Discharge Planning Routine Consult Neurology Routine Ordered Studies 11/14/18 20:01 CT head/brain wo con Stat CXR 11/15/18 09:51 CT angio head w con Routine CT angio neck with con Routine Hospital Course (1) Stroke: Head CT showed subacute to chronic infarct in left parieto-occipital region and chronic small vessel changes. Head/neck CTA with left parietal findings, likely remote infarcts; also has carotid artery thrombosis - see below. Echo was unchanged compared to September 2018. MRI contraindicated due to pacemaker. Neuro consulted -- symptoms were likely related to TIA; has multiple risk factors, including tobacco abuse, HTN, HLD and cardiac disease. Converted ASA to Plavix 75 mg daily; continued high dose statin. Hgb A1C was 6.7, goal ~6.0 to prevent further neurologic episodes. Held home anti-hypertensives in setting of hypotension. Encouraged tobacco cessation -- pt. does not want to discuss subject. PT/OT evaluation -- does not need ongoing therapy needs. (2) Hypotension: BP was 70-80's overnight, now improved to 120. Held home anti-hypertensives; received IV fluid boluses and continuous infusion over last 12-18 hours. Will decrease Metoprolol to 25 mg daily and d/c Lisinopril. Decrease Bumex to 0.5 mg daily. Instructed pt to take BP 2-3 times daily and f/u with PCP early next week. Monitor for volume overload in setting of systolic CHF. 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 Has reconstitution of flow within intracranial left internal carotid artery, likely through [place]. Plavix, statin as noted above. Pt. is not candidate for surgery at this point due to multiple co-morbidities. (4) Elevated troponin: Chronically elevated troponin, peaked at 0.12 then trended down. EKG with minor T-wave changes; Echo showed chronic wall motion abnormalities. Continued statin; d/c ACEI and beta jackelin in setting of hypotension (see above for discharge plan) (5) Chronic systolic heart failure: Echo showed slightly reduced EF compared to September 2018, otherwise no acute abnormalities. Monitored net I/Os and daily weights. Held beta jackelin, bumex and ACEI due to hypotension; resume Metoprolol at decreased dose (25 mg daily), d/c Lisinopril and decrease Bumex to 0.5 mg daily. Received IV fluid hydration. (6) End stage COPD: Recently discharged on 11/13, was admitted for COPD exacerbation; chronic CO2 retainer and oxygen dependent (3L via [place]) at home. CXR with emphysema, no PNA noted. Continued Duonebs q4hrWA, Albuterol prn. Continued Prednisone 50 mg daily -- taper at discharge. Continued home inhalers; resume newly added LAMA at discharge. Palliative care consulted during last admission; pt. would like to remain full code at this time. Continue Roxanol q4-6hr prn SOB. (7) Hypothyroidism: TSH was 2.36. Not currently on medication. (8) CAD (coronary artery disease): Continued statin, added Plavix to replace ASA; holding ACEI and beta jackelin. (9) HLD (hyperlipidemia): Continued high dose statin. (10) Hypertension: Held BP meds as noted above. See plan above for discharge -- will need close follow up with PCP. (11) Diabetes mellitus, type II: Hgb A1C was 6.7, goal ~6.0 in setting of TIA. Met with certified breastfeeding educator to discuss carb consistent diet. May require oral agent as outpatient. (12) Nicotine dependence: Pt. does not wish to discuss quitting smoking at this time. (13) GERD (gastroesophageal reflux disease): Not currently on PPI. DVT ppx: SCDs and Lovenox 30 mg subQ daily. Discharged to home on 11/15/18. Will need close follow up with PCP. Total Time Total Time Spent Total Time Spent (In Minutes): >30 minutes Total Time Includes: Examination of the Patient, Discharge Planning, Medication Reconciliation, Communication With Other Providers and Other Discharge Plan Discharge Items Patient Disposition: Home - Self-Care Reason For Visit: CVA Discharge Diagnosis: TIA Activity: As commented below Exercise/Sports: Gradually increase as tolerated Non-emergency contact: Primary Care Provider and Neurologist Call non-emergency contact if: you have any medication questions, your symptoms worsen, your pain is worsening and you have a fever Follow-up/Referrals: Morris Little PA-C [Physician Wine Maker] - 11/19/18 10:00 am (STEVEN madrigal/ Delvis Little PA-C on at 10:00am.) Caroline Ruggiero MD [Primary Care Provider] - 11/19/18 11:30 am (Please, follow up at Dr. Bond's office with her associate, Sarah VAZQUEZ, on MondayNovember 19 at 11:30 am. *If you need to change this appointment, call their office at [phone].) Diet: Carb Consistent or DM2 Addtl Attending Provider Instructions: 1. Transient Ischemic Attack (TIA) * CT head showed a chronic infarct; symptoms yesterday were likely related to a TIA (mini stroke) * Home aspirin has been converted to Plavix 75 mg daily. * Please continue statin as prescribed. * Discontinue use of tobacco containing products at home to prevent a recurrent stroke in the future. * Please scheduled follow up with primary care provider as an outpatient in 1-2 weeks. 2. Hypertension * Blood pressure has been low during this admission. * Please decrease Metoprolol to 25 mg daily and take Bumex 0.5 mg (1/2 tablet) daily at home. Discontinue Lisinopril. * It is very important to monitor blood pressure readings at home two to three times daily. Blood pressure should not be low in the post stroke period. Please monitor blood pressure multiple times per day and record all readings. * You will need to follow up with your PCP early next week to discuss blood pressure management. 3. End Stage COPD * Please continue Prednisone taper as prescribed on discharge paperwork from Monday. * You received 50 mg this morning; dose should be reduced to 40 mg daily starting on Monday11/16/18. * Continue nebulizer treatments along with new inhaled medication that was sent to your pharmacy. 4. Diabetes Mellitus * Your hemoglobin A1C was 6.7 during this admission -- this indicates your blood sugars have been elevated at home. * Please eat a carbohydrate consistent diet to reduce elevated blood sugar. * Discuss starting an oral agent with your PCP as an outpatient. Pending Studies at Discharge: Yes Studies:: Blood cultures 11/14/18. Stand-Alone Forms: My [facility] Medications and DC Order Prescriptions: New clopidogrel 75 mg Tablet 75 mg PO QAM 30 Days Qty: 30 RF: 2 metoprolol succinate 25 mg capsule,sprinkle,ER 24hr 25 mg PO DAILY Qty: 30 RF: 0 Continued ipratropium-albuterol 0.5 mg-3 mg(2.5 mg base)/3 mL solution for nebulization 3 ml INH QID PRN (Reason: Shortness Of Breath Or Wheezing) RF: 0 fluticasone propion-salmeterol [Advair Diskus] 500-50 mcg/dose Blister With Device 1 inh INHALATION BID RF: 0 ipratropium bromide 0.03 % spray,non-aerosol 2 spray INTRANASAL TID PRN (Reason: Nasal Congestion) RF: 0 Yupelri 175 mcg/3 mL solution for nebulization 175 mcg INH DAILY Qty: 90 RF: 0 albuterol sulfate 90 mcg/actuation HFA aerosol inhaler 2 puff inhalation Q4H PRN (Reason: Shortness Of Breath Or Wheezing) RF: 0 atorvastatin 80 mg tablet 80 mg PO HS RF: 0 Changed prednisone 20 mg Tablet 40 mg PO DAILY Qty: 15 RF: 0 bumetanide 1 mg Tablet 0.5 mg PO QAM Qty: 30 RF: 0 Discontinued aspirin [Aspir-81] 81 mg Tablet,Delayed Release (Dr/Ec) 81 mg PO QAM RF: 0 metoprolol succinate 50 mg tablet extended release 24 hr 75 mg PO DAILY@1800 RF: 0 lisinopril 10 mg tablet 10 mg PO QAM RF: 0 Discharge Orders: Discharge Order (Routine); Ordered 11/15/18 Ordered By: Marika Miller/Other Patient Handouts: Diabetes Supervisor Hard [place]andy Complications, Diabetes Type 2 Coping, Diabetes Healthy Meals, Diabetes Carbs, Diabetes Exercise Benefits, Diabetes Exercise Get Started, Diabetes Activity Tips, Diabetes Manage A1C Test Admission Data Admit Date/Time: 11/15/18 14:34 Attending Provider: Mitch Rivas Admit Provider: Albina Pastrana Primary Care Provider: Caroline Ruggiero V. Other Providers: Albina Pastrana ; Vidal Nagel Other Interventions: Discharge Summary Assessment (RN) Last Done: 11/15/18 16:09 DC Date/Time DO NOT enter until pt leaves facility: 11/15/18 17:50 Supervising Physician Co-Signing Physician Notes Chart reviewed, case discussed with Marika TRONCOSO. Agree with decision making and plan. Care as above.
[2018-11-15] MEDS ORDERED: ENOXAPARIN INJ 30 MG/0.3 ML SYR SQ SCH (16:00)
[2018-11-15] MEDS ORDERED: INSULIN ASPART 100 UNITS/ML 3 ML PEN SC SCH (16:30)
[2018-11-15] MEDS ORDERED: ATORVASTATIN 40 MG TAB PO SCH (21:00)
== END 2018-11-15 17:50 | disposition home or self-care (01) | DRG 69 ==
LOC: ED 19:27 → 2E 19:27 → SUATTDRO 22:25 → 2E 23:23 → 2W 11-15 10:07